=== PATIENT | male | born 1930 | race Caucasian/White ===

== ENCOUNTER 2016-09-27 11:13 | Inpatient (IN) | payer MEDICARE ==
--- NOTE | 2016-09-27 11:35 | ER Document Report ---
ED Medical Screen (RME) - General Stated Complaint: VOMITING Notes: Fever sinus drainage nausea vomiting since Thursday night TRAVEL OUTSIDE OF THE [place] IN LAST 30 DAYS: No - Related Data Allergies/Adverse Reactions: No Known Allergies Allergy (Verified 12/15/15 17:17)
[2016-09-27] MEDS ORDERED: NORMAL SALINE 1000 ML 1,000 ML IV PRN ×2 (11:36→16:25)
[2016-09-27] MEDS ORDERED: DILTIAZEM HCL/D5W 125 ML IV PRN (11:53)
--- NOTE | 2016-09-27 11:58 | ER Document Report ---
ED GI/ - General Mode of Arrival: Ambulatory Information source: Patient, Relative - TRAVEL OUTSIDE OF THE [place] IN LAST 30 DAYS: No - HPI Patient complains to provider of: Abdominal pain, Vomiting Onset: Other - Thursday09/24/2016 Timing/Duration: Sudden, Persistent Associated symptoms: Diarrhea - x1, Nausea, Vomiting <EMORY DENTON - Last Filed: 09/27/16 12:02> <DEBBIE RENO - Last Filed: 09/27/16 16:02> - General Chief Complaint: Nausea/Vomiting Stated Complaint: VOMITING Notes: Patient is an 85-year-old male presenting to the emergency department concerned of vomiting onset 09/24/2016 (Thursday night). Patient states that he also been nauseous and had diarrhea x1, but he hasn't been able to keep any food down since Thursday. Patient states his vomiting has been constant, and he has not been able to sleep since it began. Patient's states that the patient had cold chills and subjective fever Thursday night, too. Patient is also experiencing abdominal pain, but this does not feel as bad at this when he had a small bowel back in December 2015. Patient is here on vacation from [place], and jokes that he always gets sick when he comes down here to visit. (EMORY DENTON) This 85-year-old male patient comes emergency room complaining of nausea vomiting since Thursday night on 09/24/2016. He has not been able keep down his Cardizem or his Eliquis. He was seen here on 12/16/2015 with a closed loop small bowel obstruction requiring exploratory laparotomy with resection of ischemic small bowel. Postoperatively he developed atrial fibrillation with RVR and has been on Cardizem and eloquent since then. He has done well until this past week. There is no chest pain, there is some occasional vague abdominal pain, mostly his discomfort from the abdominal distention. (DEBBIE RENO) - Related Data Allergies/Adverse Reactions: No Known Allergies Allergy (Verified 09/27/16 11:36) Past Medical History - General Information source: Patient - Social History Smoking Status: Former Smoker Cigarette use (# per day): No Lives with: Spouse/Significant other Family History: Reviewed & Not Pertinent Patient has suicidal ideation: No Patient has homicidal ideation: No GI Medical History: Reports: Other - Hx small bowel obstruction Past Surgical History: Reports: Hx Bowel Surgery <EMOYR DENTON - Last Filed: 09/27/16 12:02> Review of Systems - Review of Systems Constitutional: See HPI, Chills - 09/24/2016 night, not now, Fever - 09/24/2016 night, not now. EENT: No symptoms reported Cardiovascular: No symptoms reported Respiratory: No symptoms reported Gastrointestinal: See HPI, Abdomen distended, Diarrhea - x1, Nausea, Vomiting - continuously since 09/24/2016 night. Genitourinary: No symptoms reported Male Genitourinary: No symptoms reported Musculoskeletal: No symptoms reported Skin: No symptoms reported Hematologic/Lymphatic: No symptoms reported Neurological/Psychological: No symptoms reported -: Yes All other systems reviewed and negative <EMORY DENTON - Last Filed: 09/27/16 12:02> Physical Exam - General General appearance: Alert - HEENT Head: Normocephalic, Atraumatic Eyes: Normal Pupils: PERRL - Respiratory Respiratory status: No respiratory distress Chest status: Nontender Breath sounds: Normal Chest palpation: Normal - Cardiovascular Rhythm: Irregularly irregular, Tachycardia Heart sounds: Normal auscultation Murmur: No - Abdominal Inspection: Healed incision Distension: Distended - Resonant Bowel sounds: Hypoactive Tenderness: Tender - Mild diffuse tenderness to palpation - Back Back: Normal, Nontender - Neurological Neuro grossly intact: Yes Cognition: Normal Orientation: AAOx4 Judy Coma Scale Eye Opening: Spontaneous [place] Coma Scale Verbal: Oriented Judy Coma Scale Motor: Obeys Commands [place] Coma Scale Total: 15 Speech: Normal - Psychological Associated symptoms: Normal affect, Normal mood - Skin Skin Temperature: Warm Skin Moisture: Dry Skin Color: Normal <EMORY DENTON - Last Filed: 09/27/16 12:02> Course - Laboratory Result Diagrams: 09/27/16 12:29 09/27/16 12:29 - Diagnostic Test Radiology reviewed: Image reviewed, Reports reviewed - Small bowel obstruction - EKG Interpretation by Me EKG shows normal: [place], Intervals, QRS Complexes, ST-T Waves Rate: Tachycardia Rhythm: A.Fib, PVC's When compared to previous EKG there are: No significant change - Consults Dr. Downing Time consulted: 15:10 Consulted provider: will come to ER Dr. Wallace Time consulted: 15:15 Consulted provider: will see as inpatient <DEBBIE RENO - Last Filed: 09/27/16 16:02> - Laboratory Laboratory results interpreted by me: 09/27/16 09/27/16 09/27/16 12:29 12:29 12:29 Hgb 17.9 H MCV 102 H MCH 36.5 H Seg Neutrophils % 90.7 H Lymphocytes % 6.1 L Absolute Lymphocytes 0.3 L PT 17.8 H APTT 36.0 H Anion Gap 20 H BUN 52 H Est GFR (Non-Af Amer) 56 L Glucose 196 H Total Bilirubin 3.8 H AST 65 H (DEBBIE RENO) Critical Care Note - Critical Care Note Total time excluding time spent on procedures (mins): 40 <DEBBIE RENO - Last Filed: 09/27/16 16:02> Discharge <EMORY DENTON - Last Filed: 09/27/16 12:02> - Discharge Unit Admitted: IMCU <DEBBIE RENO - Last Filed: 09/27/16 16:02> - Discharge Clinical Impression: Small bowel obstruction, Atrial fibrillation with rapid ventricular response, Dehydration Hypotension Qualifiers: Hypotension type: other hypotension type Qualified Code(s): I95.89 - Other hypotension Condition: Good Disposition: ADMITTED INPATIENT Scribe Attestation: 09/27/16 16:02 I personally performed the services described in the documentation, reviewed and edited the documentation which was dictated to the scribe in my presence, and it accurately records my words and actions. (DEBBIE RENO) Scribe Documentation <EMORY DENTON - Last Filed: 09/27/16 12:02> <DEBBIE RENO - Last Filed: 09/27/16 16:02> - Scribe Written by Scribe:: DEBBIE RENO MD, SCRIBE 09/27/16 [id number] Acting as scribe for: Dr. Reno (EMORY DENTON) (DEBBIE RENO)
[2016-09-27] MEDS ORDERED: HEPARIN SOD (PORCINE) 1,000 UNIT/ML 10 ML VIAL IV ONE (12:00)
[2016-09-27] MEDS ORDERED: HEPARIN SOD (PORCINE) 1,000 UNIT/ML 10 ML VIAL IV PRN (12:00)
[2016-09-27] MEDS ORDERED: HEPARIN SODIUM,PORCINE/D5W 250 ML IV PRN (12:00)
[2016-09-27 13:04] LABS: PROTHROMBIN TIME 17.8 SEC (11.4-15.4)
[2016-09-27 14:33] LABS: ABSOLUTE LYMPHOCYTES (AUTO) 0.3 10^3/uL (0.5-4.7); ABSOLUTE MONOCYTES (AUTO) 0.1 10^3/uL (0.1-1.4); ABSOLUTE NEUT (AUTO) 4.2 10^3/uL (1.7-8.2); EOSINOPHILS % (AUTO) 0.1 % (0-6); MEAN CORPUSCULAR VOLUME 102 fl (80-97); RED CELL DISTRIBUTION WIDTH 13.8 % (11.5-14.0); WHITE BLOOD COUNT 4.7 10^3/uL (4.0-10.5)
[2016-09-27 14:35] LABS: ALANINE AMINOTRANSFERASE 47 U/L (21-72); ALBUMIN 4.1 g/dL (3.5-5.0); ALKALINE PHOSPHATASE 75 U/L (38-126); ASPARTATE AMINO TRANSFERASE 65 U/L (17-59); BILIRUBIN,TOTAL 3.8 mg/dL (0.2-1.3); BLOOD UREA NITROGEN 52 mg/dL (7-20); CALCIUM 9.7 mg/dL (8.4-10.2); CARBON DIOXIDE 25 mmol/L (22-30); CHLORIDE 100 mmol/L (98-107); CREATININE RESULT 1.24 mg/dL (0.52-1.25); GLUCOSE 196 mg/dL (75-110); LIPASE 40.2 U/L (23-300); POTASSIUM 4.3 mmol/L (3.6-5.0); SODIUM 144.9 mmol/L (137-145); TOTAL PROTEIN 7.7 g/dL (6.3-8.2)
[2016-09-27 14:39] LABS: ANION GAP 20 (5-19); BASOPHILS % (AUTO) 0.1 % (0-2); HEMATOCRIT 50.1 % (37.9-51.0); HEMOGLOBIN 17.9 g/dL (13.5-17.0); HGB HCT DIFFERENCE 3.6; LYMPHOCYTES % (AUTO) 6.1 % (13-45); MEAN CORPUSCULAR HEMOGLOBIN 36.5 pg (27.0-33.4); MEAN CORPUSCULAR HGB CONC 35.7 g/dL (32.0-36.0); SEGMENTED NEUTROPHILS % (AUTO) 90.7 % (42-78)
[2016-09-27] MEDS ORDERED: NORMAL SALINE 1000 ML 1,000 ML IV ONE ×2 (14:56→22:38)
[2016-09-27] MEDS ORDERED: DILTIAZEM HCL INJ 25 MG/5 ML VIAL IV ONE (15:02)
[2016-09-27] MEDS ORDERED: ONDANSETRON HCL INJ/PF 4 MG/2 ML SDV IV ONE (15:13)
[2016-09-27] MEDS ORDERED: MORPHINE SULFATE 10 MG/ML INJ IV ONE (15:13)
[2016-09-27] MEDS ORDERED: LEVALBUTEROL HCL NEB 1.25 MG/3 ML AMPUL NEB PRN (16:20)
[2016-09-27] MEDS ORDERED: ACETAMINOPHEN 650 MG SUPP.RECT PR PRN (16:25)
[2016-09-27] MEDS ORDERED: ONDANSETRON HCL INJ/PF 4 MG/2 ML SDV IV PRN (16:25)
[2016-09-27] MEDS ORDERED: PHARMACY COMMUNICATION ORDER MC NR (16:30)
--- NOTE | 2016-09-27 16:58 | PDOC H&P ---
History of Present Illness Admission Date/PCP: 09/27/16 16:00 Patient complains of: Nausea and vomiting History of Present Illness: GRECIA MARTI is a 85 year old male with prior history of abdominal surgeries and actually bowel obstruction presents to the hospital with 4 days history of nausea and vomiting. 4 days ago the patient had an episode of diarrhea and subsequently after that started to develop nausea and vomiting without any abdominal pain. No melena hematochezia and hematemesis. The patient and the family thought there was just a virus and therefore no consultation was made. Symptoms somehow persisted following day and therefore primary care physician was consulted and advised to increase oral fluid intake especially electrolytes. Patient is unable to keep anything by mouth. Patient started to feel lightheaded and dizzy with some headache. There is some mild shortness of breath associated as well. Patient feels cold and chilly but no definite fever or sweating. The patient went to the emergency room for evaluation. X-ray of the abdomen revealed small bowel obstruction. Patient was on atrial fibrillation with rapid ventricular response as well. He has history of atrial fibrillation and is on eliquis and Cardizem off which the patient is unable to take for the past 4 days. Patient was given normal saline bolus 1 L and placed on heparin drip as well as Cardizem drip. Patient was then referred for admission. Past Medical History Cardiac Medical History: Reports: Atrial Fibrillation, Congestive Heart Failure - Diastolic dysfunction Endocrine Medical History: Reports: Other - Hyperglycemia without diabetes GI Medical History: Reports: Other - Hx small bowel obstruction Past Surgical History Past Surgical History: Reports: Other - Exploratory laparotomy with ileal resection Social History Information Source: Patient Lives with: Spouse/Significant other Smoking Status: Former Smoker Frequency of Alcohol Use: None Hx Recreational Drug Use: No Drugs: None Hx Prescription Drug Abuse: No Family History Family History: Malignancy - Colon cancer Parental Family History Reviewed: Yes Children Family History Reviewed: Yes Sibling(s) Family History Reviewed.: Yes Medication/Allergy Home Medications: Multivitamin [Multivitamins] 1 cap PO DAILY 12/16/15 Acetaminophen [Tylenol 325 mg Tablet] 650 mg PO Q4HP PRN tablet 12/24/15 Apixaban [Eliquis 2.5 mg Tablet] 2.5 mg PO BID #60 tablet 12/24/15 Diltiazem HCl [Cardizem Cd 240 mg Capsule.cr] 240 mg PO DAILY #30 capsule.cr 07/30 Allergies/Adverse Reactions: No Known Allergies Allergy (Verified 09/27/16 11:36) Review of Systems Constitutional: PRESENT: chills, fever(s) - Subjective fever, headache(s), weakness - Generalized. ABSENT: night sweats, weight gain, weight loss Eyes: ABSENT: visual disturbances Ears: ABSENT: hearing changes Nose, Mouth, and Throat: PRESENT: sore throat - From vomiting. ABSENT: mouth pain Cardiovascular: PRESENT: dyspnea on exertion. ABSENT: chest pain, edema, orthropnea, palpitations Respiratory: PRESENT: cough - Occasional. ABSENT: hemoptysis, sputum Gastrointestinal: PRESENT: diarrhea - Initially but has resolved, nausea, vomiting. ABSENT: abdominal pain, constipation, dysphagia, hematemesis, hematochezia, melena Genitourinary: ABSENT: difficulty urinating, dysuria, hematuria Musculoskeletal: ABSENT: joint swelling Integumentary: ABSENT: pruritus, rash, wounds Neurological: PRESENT: dizziness. ABSENT: abnormal gait, abnormal speech, confusion, focal weakness, syncope Psychiatric: ABSENT: anxiety, depression, homidical ideation, suicidal ideation Endocrine: ABSENT: cold intolerance, heat intolerance, polydipsia, polyuria Hematologic/Lymphatic: ABSENT: easy bleeding, easy bruising Physical Exam Vital Signs: Temp Pulse Resp BP Pulse Ox 97.8 F 37 H 122/62 09/27/16 13:01 09/27/16 16:01 09/27/16 16:01 General appearance: PRESENT: no acute distress, cooperative Head exam: PRESENT: atraumatic, normocephalic Eye exam: PRESENT: conjunctiva pink, EOMI, PERRLA. ABSENT: scleral icterus Ear exam: PRESENT: normal external ear exam Mouth exam: PRESENT: moist, neck supple, tongue midline Throat exam: PRESENT: other - Mild bleeding noted from nasogastric tube insertion trauma. ABSENT: post pharyngeal erythema, tonsillar erythema Neck exam: ABSENT: carotid bruit, JVD, lymphadenopathy, thyromegaly Respiratory exam: PRESENT: clear to auscultation quique, wheezes - Mild. ABSENT: rales, rhonchi Cardiovascular exam: PRESENT: RRR, +S1, +S2. ABSENT: diastolic murmur, rubs, systolic murmur Pulses: PRESENT: normal dorsalis pedis pul Vascular exam: PRESENT: normal capillary refill GI/Abdominal exam: PRESENT: distended, hyperactive bowel sounds, soft, other - Tympanitic. ABSENT: guarding, mass, organolmegaly, rebound, tenderness Rectal exam: PRESENT: deferred Extremities exam: PRESENT: full ROM. ABSENT: calf tenderness, clubbing, pedal edema Neurological exam: PRESENT: alert, awake, oriented to person, oriented to place , oriented to time, oriented to situation Psychiatric exam: PRESENT: appropriate affect, normal mood. ABSENT: homicidal ideation, suicidal ideation Skin exam: PRESENT: dry, intact, warm. ABSENT: cyanosis, rash Results Impressions: Acute Abdomen Series 09/27/16 11:55 IMPRESSION: Small bowel obstruction with diffuse distention of small bowel loops out of proportion to colon Assessment & Plan - Diagnosis (1) Atrial fibrillation with rapid ventricular response Is this a current diagnosis for this admission?: Yes (2) Small bowel obstruction Is this a current diagnosis for this admission?: Yes (3) Dehydration Is this a current diagnosis for this admission?: Yes (4) Hyperglycemia Is this a current diagnosis for this admission?: Yes (5) Coagulopathy Is this a current diagnosis for this admission?: Yes (6) Congestive heart failure Qualifiers: Congestive heart failure type: diastolic Congestive heart failure chronicity: chronic Qualified Code(s): I50.32 - Chronic diastolic ( congestive) heart failure Is this a current diagnosis for this admission?: Yes - Time Time Spent: 50 to 70 Minutes - Inpatient Certification Based on my medical assessment, after consideration of the patient's comorbidities, presenting symptoms, or acuity I expect that the services needed warrant INPATIENT care.: Yes I certify that my determination is in accordance with my understanding of Medicare's requirements for reasonable and necessary INPATIENT services [42 CFR 412.3e].: Yes Medical Necessity: Significant Comorbidiites Make Outpatient Treatment Too Risky , Need Close Monitoring Due to Risk of Patient Decompensation, Need For IV Fluids, Need For Continuous Telemetry Monitoring, Risk of Complication if Not Cared For in Hospital, Risk of Diagnosis Which Will Require Inpatient Eval/Care/ Monitoring Post Hospital Care: D/C 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 We are going to continue the Cardizem drip and heparin drip. Consult surgery and cardiology for further evaluation and management. We will put an NG tube and Wright catheter for her input and output. The patient will be nothing by mouth and intravenous fluid will also be given. We will check hemoglobin A1c as well as TSH and free T4. We will monitor electrolytes. Further testing depends on initial evaluation and response to treatment and per specialty recommendation as outlined above.
[2016-09-27 17:20] LABS: THYROID STIMULATING HORMONE 6.35 uIU/mL (0.47-4.68)
[2016-09-27 18:53] LABS: APPEARANCE,URINE CLOUDY; BILIRUBIN,URINE SMALL (NEGATIVE); GLUCOSE, URINE 50 mg/dL (NEGATIVE); KETONES,URINE NEGATIVE (NEGATIVE); LEUKOCYTE ESTERASE,URINE NEGATIVE (NEGATIVE); NITRITE,URINE NEGATIVE (NEGATIVE); PROTEIN,URINE 100 mg/dL (NEGATIVE); URINE SPECIFIC GRAVITY 1.027
[2016-09-27] MEDS ORDERED: FUROSEMIDE INJ/PF 40 MG/4 ML SDV ONE (18:57)
[2016-09-27] MEDS ORDERED: FUROSEMIDE INJ/PF 40 MG/4 ML SDV IV ONE (18:59)
--- NOTE | 2016-09-27 19:54 | PDOC CONSULTATION ---
Consultation Consult Date: 09/27/16 Attending physician:: CATHIE LUA Consult reason:: Atrial fibrillation History of Present Illness Admission Date/PCP: 09/27/16 16:20 Patient complains of: Abdominal pain and shortness of breath, nausea vomiting History of Present Illness: GRECIA MARTI is a 85 year old male with prior history of abdominal surgeries and actually bowel obstruction presents to the hospital with 4 days history of nausea and vomiting. 4 days ago the patient had an episode of diarrhea and subsequently after that started to develop nausea and vomiting without any abdominal pain. No melena hematochezia and hematemesis. The patient and the family thought there was just a virus and therefore no consultation was made. Symptoms somehow persisted following day and therefore primary care physician was consulted and advised to increase oral fluid intake especially electrolytes. Patient is unable to keep anything by mouth. Patient started to feel lightheaded and dizzy with some headache. There is some mild shortness of breath associated as well. Patient feels cold and chilly but no definite fever or sweating. The patient went to the emergency room for evaluation. X-ray of the abdomen revealed small bowel obstruction. Patient was on atrial fibrillation with rapid ventricular response as well. He has history of atrial fibrillation and is on eliquis and Cardizem off which the patient is unable to take for the past 4 days. Patient was given normal saline bolus 1 L and placed on heparin drip as well as Cardizem drip. Patient was then referred for admission. This history was reviewed and supplemented by talking with patient' s and patient himself. Patient actually denies any chest pain. He just noted some fatigue and shortness of breath in addition to his abdominal complaints. Past Medical History Cardiac Medical History: Reports: Atrial Fibrillation, Congestive Heart Failure - Diastolic dysfunction Endocrine Medical History: Reports: Other - Hyperglycemia without diabetes GI Medical History: Reports: Other - Hx small bowel obstruction Past Surgical History Past Surgical History: Reports: Other - Exploratory laparotomy with ileal resection Social History Information Source: Patient Lives with: Spouse/Significant other Smoking Status: Former Smoker Frequency of Alcohol Use: None Hx Recreational Drug Use: No Drugs: None Hx Prescription Drug Abuse: No - Advance Directive Resuscitation Status: Full Code Surrogate healthcare decision maker:: Patient's Family History Family History: Malignancy - Colon cancer Parental Family History Reviewed: Yes Children Family History Reviewed: Yes Sibling(s) Family History Reviewed.: Yes - Negative for premature coronary artery disease or sudden cardiac in the family amongst first degree relatives. Medication/Allergy Home Medications: Multivitamin [Multivitamins] 1 cap PO DAILY 12/16/15 Acetaminophen [Tylenol 325 mg Tablet] 650 mg PO Q4HP PRN tablet 12/24/15 Apixaban [Eliquis 5 mg Tablet] 5 mg PO BID 09/28/16 Diltiazem HCl [Diltiazem ER] 300 mg PO DAILY 09/28/16 Levothyroxine Sodium [Synthroid 0.075 mg Tablet] 0.5 tab PO DAILY 09/28/16 Allergies/Adverse Reactions: No Known Allergies Allergy (Verified 09/27/16 11:36) Review of Systems Review of Systems: Please see history of present illness and past medical history as wall. Constitutional: Low-grade fever or chills reported. Head : No recent chronic headaches, recent head injury. Eyes: No recent eye pain, diplopia, redness, discharge, acute visual changes. Ears: No recent chronic ear pain, acute hearing loss, ear discharge. Oral cavity: No recent ulcerations, bleeding, oral cavity discomfort. Neck: No recent acute neck pain reported. Hematologic: No recent easy bruising or bleeding or hematologic malignancy reported. Lymphatic: No recent lymphatic malignancy, chronic lymphadenopathy reported yet Cardiovascular system review: See history of present illness. Palpitations and shortness of breath, fatigue and tiredness. Patient has noted some dizziness. Respiratory system review: No recent chronic cough, hemoptysis, blood clots in the lungs reported. Mild Shortness of breath on exertion Gastrointestinal system review: Recent nausea vomiting and diarrhea but Negative for any recent acute or chronic abdominal pain, hematemesis, melena, Genitourinary system review: No recent acute or chronic hematuria, flank pain, UTI etc. reported. Skin system review: Negative for any recent abnormal bruising, no rash, no pruritus reported. Neurologic: No prior history of strokes, mini strokes, seizure disorder. Psychologic: No history of major psychosis or depression reported. Musculoskeletal: Minor aches and pains reported. No acute joint swelling reported. Endocrine: No recent polyuria, polydipsia, recent heat or cold intolerance. Physical Exam Vital Signs: Temp Pulse Resp BP Pulse Ox 98.7 F 21 H 111/67 84 L 09/27/16 18:01 09/27/16 19:00 09/27/16 18:01 09/27/16 19:00 Intake & Output 09/26/16 09/27/16 09/28/16 06:59 06:59 06:59 Output Total 450 Balance -450 Exam: GENERAL: well-nourished and in no acute distress. Alert and oriented x3 HEAD: Atraumatic, normocephalic. EYES: Pupils equal round and reactive to light, extraocular movements intact, sclera anicteric, conjunctiva are normal. ENT: TMs normal, nares patent, oropharynx clear without exudates. Moist mucous membranes. No oral ulcerations or bleeding gums noted NECK: supple without lymphadenopathy. Trachea is central. No cervical or axillary lymphadenopathy noted. Carotids are 2+, JVD WNL LUNGS: Respiration seems nonlabored, no significant accessory muscle action noted. Breath sounds clear to auscultation bilaterally and equal. No wheezes rales or rhonchi. No significant dullness noted on percussion. CHEST: Palpation of the chest wall shows no significant chest wall tenderness or abnormalities. 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 ABDOMEN: Mildly distended, no significant tenderness appreciated, normoactive bowel sounds. No guarding, no rebound. No rigidity noted . No masses appreciated. EXTREMITIES: Pedal pulses are 1-2+, no calf tenderness noted. No clubbing or cyanosis.trace to 1+ pedal edema noted NEUROLOGICAL: Focused neurological exam showed no significant neurologic deficit. Normal speech, no focal weakness appreciated. PSYCH: Normal mood, normal affect. Judgment and insight within normal limits. SKIN: No significant ecchymosis, rash, ulcerations or signs of pruritus noted. MUSCULOSKELETAL EXAM: No significant joint swelling noted. Results Laboratory Results: 09/27/16 18:00 Urine Color DAWSON Urine Appearance CLOUDY Urine pH 5.0 Ur Specific [place] 1.027 Urine Protein 100 H Urine Glucose (UA) 50 H Urine Ketones NEGATIVE Urine Blood NEGATIVE Urine Nitrite NEGATIVE Ur Leukocyte Esterase NEGATIVE Urine WBC (Auto) 2 Urine RBC (Auto) 2 EKG Comments: Atrial fibrillation with rapid ventricular response, minor nonspecific ST segment changes. Impressions: Acute Abdomen Series 09/27/16 11:55 IMPRESSION: Small bowel obstruction with diffuse distention of small bowel loops out of proportion to colon KUB X-Ray 09/27/16 16:22 IMPRESSION: Small bowel obstruction as noted above. NG tube is seen with its tip in the left upper quadrant presumably in the stomach. Chest X-Ray 09/27/16 16:26 IMPRESSION: NO ACUTE RADIOGRAPHIC FINDING IN THE CHEST. Assessment & Plan - Diagnosis (1) Atrial fibrillation with rapid ventricular response Is this a current diagnosis for this admission?: YesPlan: Patient noted to have atrial fibrillation. It seems chronic. Patient was noted to be in atrial fibrillation in the past. At this point would recommend rate control and chronic anticoagulation. Patient currently on IV heparin. Continue Cardizem drip. If needed may consider IV beta deniz, IV amiodarone etc. for rate control if needed (2) Small bowel obstruction Is this a current diagnosis for this admission?: Yes (3) Aspiration pneumonia Qualifiers: Aspiration pneumonia type: unspecified Laterality: bilateral Lung location: lower lobe of lung Qualified Code(s): J69.0 - Pneumonitis due to inhalation of food and vomit Is this a current diagnosis for this admission?: YesPlan: Patient felt to have been aspirated secondary to vomiting and small bowel obstruction. Continue IV antibiotics. (4) Congestive heart failure Qualifiers: Congestive heart failure type: diastolic Congestive heart failure chronicity: chronic Qualified Code(s): I50.32 - Chronic diastolic ( congestive) heart failure Is this a current diagnosis for this admission?: YesPlan: Patient has a history of congestive heart failure. Currently compensated. Chest x-ray shows no evidence of CHF..IV fluid therapy for dehydration secondary nausea vomiting and small bowel obstruction. Watch for precipitation of CHF. (5) Dehydration Is this a current diagnosis for this admission?: YesPlan: Patient has somewhat of a low blood pressure, but still within normal range. Agree with IV fluids. - Notes Notes: Recommend rate control and chronic anticoagulation. Agree with the management plans for a small intestine obstruction. CODE STATUS was discussed, patient remains full code. Surrogate decision-maker patient's . Multiple medical problems were addressed. - Time Time Spent: 30 to 50 Minutes - More than 50% of the time spent coordinating care , discussing management plans with involved caregivers. Management plans discussed with involved personnels. Medical decision making was of moderate complexity.
[2016-09-27 20:55] LABS: ARTERIAL BLOOD BASE EXCESS -0.3 mmol/L; ARTERIAL BLOOD O2 SATURATION 88.9 % (94-98)
[2016-09-27] MEDS ORDERED: DOXYCYCLINE HYCLATE INJ 100 MG VIAL IV PRN (21:13)
[2016-09-27] MEDS ORDERED: DOXYCYCLINE HYCLATE INJ 100 MG VIAL IV SCH (22:00)
--- NOTE | 2016-09-27 22:18 | CONSULTATION REPORT E ---
Consultation Report NAME: GRECIA MARTI : 1930 AGE: 85Y DATE: 09/27/2016 ED11 A TO: JESUS MORGAN M.D. FROM: Requesting Physician REASON FOR CONSULTATION: Small bowel obstruction. 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 At that time patient had atrial fibrillation with RVR. The patient now comes in with a 4-day history of intractable nausea and vomiting. This started with an episode of diarrhea, and subsequently the patient developed nausea and vomiting over an 8 to 10-hour period, vomiting at least a dozen times. The patient's reports that he vomited just food without bile or blood. There is no history of any melena or hematochezia or hematemesis. The patient was not able to retain any food and started feeling lightheaded and dizzy with headache and shortness of breath as well. For that reason, the patient went to the emergency room for evaluation. At the time of the evaluation, he was noted to be tachycardic at 130 and was found to be in atrial fibrillation with RVR. The patient also was noted to have distended abdomen, and x-rays of the abdomen revealed dilated stomach and loops of bowel consistent with small bowel obstruction. For this reason, surgical consultation had been requested. PAST MEDICAL HISTORY: The patient has history of: 1. Atrial fibrillation. 2. Congestive heart failure. 3. Diastolic dysfunction. 4. Hyperglycemia without diabetes. He has no history of hypertension, renal, pulmonary, or liver disease. No bleeding tendencies. FAMILY HISTORY: No history of any anesthesia problems in the family. PAST SURGICAL HISTORY: Exploratory laparotomy with ileal resection by me approximately 8 to 10 months ago. REVIEW OF SYSTEMS: CONSTITUTIONAL: The patient has constitutional symptoms of chills and fever of a subjective nature, headache, and weakness which is generalized. CARDIOVASCULAR: Dyspnea on exertion. EARS, NOSE, AND THROAT: The patient does not visual disturbances or hearing changes at this time. RESPIRATORY: The patient has a cough which is occasional. GASTROINTESTINAL: Symptoms as in the history of present illness. GENITOURINARY: Within normal limits. MUSCULOSKELETAL: Within normal limits. INTEGUMENTARY: Within normal limits. ENDOCRINE: Within normal limits. PSYCHIATRIC: Within normal limits. PHYSICAL EXAMINATION: GENERAL: Reveals an 85-year-old male who is normally nourished, normally developed, who at this time is in no acute distress. VITAL SIGNS: The vital signs are noted. The patient's heart rate is now down to the low 100s, and he is on a Cardizem drip at 10 mg per hour. HEENT: There is no conjunctival pallor or scleral icterus. Mucous membranes are moist and pink. NECK: The neck is supple without nodes, masses, thyroid, JVD, or bruits, and trachea is midline. LUNGS: Chest wall shows good excursions bilaterally with good entry. CARDIOVASCULAR SYSTEM: Pulse is irregular as noted clinically and on the monitor. ABDOMEN: The patient's abdomen is distended, soft with hypoactive bowel sounds. There is no organomegaly or masses. Midline scar is noted from his previous surgery performed by me. There are no peritoneal signs noted. No hernias are noted. EXTREMITIES: Show full range of motion. RECTAL: Deferred. DIAGNOSTIC DATA: The patient's laboratory data is reviewed, and of note the patient's bilirubin is 3.8 with mild elevation of the AST but a normal ALT and a normal alkaline phosphatase. The patient's BUN is 52 with a creatinine of 1.4 indicating dehydration. The patient's white count is normal, hemoglobin is 17.9, and hematocrit is 50 indicating hemoconcentration with dehydration. The patient's blood gases show a pO2 of 54.6. Chest and abdomen CTA shows no evidence of pulmonary embolism. IMPRESSION AND PLAN: 1. Atrial fibrillation with RVR on Cardizem drip. 2. Small bowel obstruction which will be treated with NG tube, IV fluids, and an NPO status. 3. Dehydration. The patient will be slowly hydrated given the history of cardiac disease. 4. Hyperbilirubinemia of unknown etiology which we will follow closely. DICTATING PHYSICIAN: JESUS MORGAN M.D. [id number] [id number] ID: [id number] JOB#: [id number] ACCT: [id number] cc:JESUS MORGAN M.D. >
[2016-09-27] MEDS: FAMOTIDINE INJ/PF 20 MG/2 ML SDV IV SCH (23:38)
[2016-09-27] MEDS: CEFTRIAXONE 1 GM/D5W RTU 1 GM/50 ML RTUPB IV SCH (23:38)
[2016-09-28] MEDS ORDERED: DOXYCYCLINE HYCLATE INJ 100 MG VIAL ONE (00:18)
[2016-09-28] MEDS: DILTIAZEM HCL/D5W 125 ML IV PRN ×2 (00:37→13:02)
[2016-09-28 01:03] LABS: ANION GAP 13 (5-19); BLOOD UREA NITROGEN 60 mg/dL (7-20); CARBON DIOXIDE 23 mmol/L (22-30); CHLORIDE 108 mmol/L (98-107); CREATININE RESULT 1.52 mg/dL (0.52-1.25); GLUCOSE 119 mg/dL (75-110); POTASSIUM 4.1 mmol/L (3.6-5.0)
[2016-09-28] MEDS ORDERED: NORMAL SALINE 1000 ML 1,000 ML IV PRN (01:49)
[2016-09-28 03:52] LABS: ANION GAP 12 (5-19); BLOOD UREA NITROGEN 62 mg/dL (7-20); CALCIUM 7.6 mg/dL (8.4-10.2); CARBON DIOXIDE 22 mmol/L (22-30); CHLORIDE 110 mmol/L (98-107); CREATININE RESULT 1.46 mg/dL (0.52-1.25); GLUCOSE 120 mg/dL (75-110); MAGNESIUM 1.8 mg/dL (1.6-2.3); POTASSIUM 4.4 mmol/L (3.6-5.0); SODIUM 144.2 mmol/L (137-145)
[2016-09-28 06:11] LABS: ABSOLUTE LYMPHOCYTES (AUTO) 0.5 10^3/uL (0.5-4.7); ABSOLUTE MONOCYTES (AUTO) 0.1 10^3/uL (0.1-1.4); ABSOLUTE NEUT (AUTO) 3.9 10^3/uL (1.7-8.2); BASOPHILS % (AUTO) 0.1 % (0-2); EOSINOPHILS % (AUTO) 0.2 % (0-6); HEMATOCRIT 43.7 % (37.9-51.0); HGB HCT DIFFERENCE -1.7; MEAN CORPUSCULAR HEMOGLOBIN 30.8 pg (27.0-33.4); MEAN CORPUSCULAR HGB CONC 32.1 g/dL (32.0-36.0); MONOCYTES % (AUTO) 2.3 % (3-13); RED BLOOD COUNT 4.55 10^6/uL (4.35-5.55); RED CELL DISTRIBUTION WIDTH 13.3 % (11.5-14.0); SEGMENTED NEUTROPHILS % (AUTO) 85.4 % (42-78); WHITE BLOOD COUNT 4.6 10^3/uL (4.0-10.5)
[2016-09-28 06:32] LABS: MEAN CORPUSCULAR VOLUME 96 fl (80-97)
--- NOTE | 2016-09-28 10:06 | EKG REPORT ---
SEVERITY:- ABNORMAL ECG - ATRIAL FIBRILLATION, V-RATE 99-181 RUN OF VENTRICULAR PREMATURE COMPLEXES REPOLARIZATION ABNORMALITY, PROB RATE RELATED : Confirmed by: Kathrine Mackey MD 28-Sep-2016 10:05:52
--- NOTE | 2016-09-28 10:10 | PDOC PROGRESS REPORT ---
Subjective Progress Note for:: 09/28/16 Subjective:: Patient developed desaturation and was placed on BiPap. Chest CT done and showed pneumonia. Patient atrial fibrillation better controlled on Cardizem drip. Continues to be on heparin drip. Nasogastric tube draining fecaloid matter. Patient felt better overall today. No temperature spikes. Still no bowel movement nor flattus. Physical Exam Vital Signs: Temp Pulse Resp BP Pulse Ox 98.2 F 91 22 H 127/77 H 94 09/28/16 07:00 09/28/16 07:00 09/28/16 07:00 09/28/16 07:01 09/28/16 06:00 Intake & Output 09/27/16 09/28/16 09/29/16 06:59 06:59 06:59 Intake Total 2836 Output Total 950 Balance 1886 Weight 68.1 kg General appearance: PRESENT: no acute distress, cooperative, other - On BiPAP Head exam: PRESENT: normocephalic Eye exam: PRESENT: EOMI Mouth exam: PRESENT: moist, neck supple Neck exam: ABSENT: JVD Respiratory exam: PRESENT: rhonchi - few on lower lung [place], unlabored. ABSENT: wheezes Cardiovascular exam: PRESENT: irregular rhythm, tachycardia. ABSENT: gallop GI/Abdominal exam: PRESENT: distended, hypoactive bowel sounds, soft. ABSENT: tenderness Extremities exam: ABSENT: pedal edema Neurological exam: PRESENT: alert, awake Skin exam: PRESENT: dry, warm. ABSENT: cyanosis Results Laboratory Results: 09/28/16 06:02 09/28/16 03:17 09/27/16 09/27/16 09/27/16 18:00 20:40 22:46 WBC RBC Hgb Hct MCV MCH MCHC RDW Plt Count Seg Neutrophils % Lymphocytes % Monocytes % Eosinophils % Basophils % Absolute Neutrophils Absolute Lymphocytes Absolute Monocytes Absolute Eosinophils Absolute Basophils Carbonic Acid 1.16 HCO3/H2CO3 Ratio 20:1 ABG pH 7.41 ABG pCO2 38.6 ABG pO2 54.6 L ABG HCO3 24.0 ABG O2 Saturation 88.9 L ABG Base Excess -0.3 FiO2 100% Sodium Cancelled Potassium Cancelled Chloride Cancelled Carbon Dioxide Cancelled Anion Gap Cancelled BUN Cancelled Creatinine Cancelled Est GFR ( Amer) Cancelled Est GFR (Non-Af Amer) Cancelled Glucose Cancelled Calcium Cancelled Phosphorus Magnesium Cancelled Urine Color DAWSON Urine Appearance CLOUDY Urine pH 5.0 Ur Specific [place] 1.027 Urine Protein 100 H Urine Glucose (UA) 50 H Urine Ketones NEGATIVE Urine Blood NEGATIVE Urine Nitrite NEGATIVE Ur Leukocyte Esterase NEGATIVE Urine WBC (Auto) 2 Urine RBC (Auto) 2 09/27/16 09/28/16 09/28/16 23:31 00:42 03:17 WBC Cancelled RBC Cancelled Hgb Cancelled Hct Cancelled MCV Cancelled MCH Cancelled MCHC Cancelled RDW Cancelled Plt Count Cancelled Seg Neutrophils % Cancelled Lymphocytes % Cancelled Monocytes % Cancelled Eosinophils % Cancelled Basophils % Cancelled Absolute Neutrophils Cancelled Absolute Lymphocytes Cancelled Absolute Monocytes Cancelled Absolute Eosinophils Cancelled Absolute Basophils Cancelled Carbonic Acid HCO3/H2CO3 Ratio ABG pH ABG pCO2 ABG pO2 ABG HCO3 ABG O2 Saturation ABG Base Excess FiO2 Sodium Cancelled 144.0 Potassium Cancelled 4.1 Chloride Cancelled 108 H Carbon Dioxide Cancelled 23 Anion Gap Cancelled 13 BUN Cancelled 60 H Creatinine Cancelled 1.52 H Est GFR ( Amer) Cancelled 53 L Est GFR (Non-Af Amer) Cancelled 44 L Glucose Cancelled 119 H Calcium Cancelled 8.0 L Phosphorus Magnesium Cancelled 2.0 Urine Color Urine Appearance Urine pH Ur Specific [place] Urine Protein Urine Glucose (UA) Urine Ketones Urine Blood Urine Nitrite Ur Leukocyte Esterase Urine WBC (Auto) Urine RBC (Auto) 09/28/16 09/28/16 03:17 06:02 WBC 4.6 RBC 4.55 Hgb 14.0 D Hct 43.7 MCV 96 D MCH 30.8 MCHC 32.1 RDW 13.3 Plt Count 189 Seg Neutrophils % 85.4 H Lymphocytes % 12.0 L Monocytes % 2.3 L Eosinophils % 0.2 Basophils % 0.1 Absolute Neutrophils 3.9 Absolute Lymphocytes 0.5 Absolute Monocytes 0.1 Absolute Eosinophils 0.0 Absolute Basophils 0.0 Carbonic Acid HCO3/H2CO3 Ratio ABG pH ABG pCO2 ABG pO2 ABG HCO3 ABG O2 Saturation ABG Base Excess FiO2 Sodium 144.2 Potassium 4.4 Chloride 110 H Carbon Dioxide 22 Anion Gap 12 BUN 62 H Creatinine 1.46 H Est GFR ( Amer) 56 L Est GFR (Non-Af Amer) 46 L Glucose 120 H Calcium 7.6 L Phosphorus 5.0 H Magnesium 1.8 Urine Color Urine Appearance Urine pH Ur Specific [place] Urine Protein Urine Glucose (UA) Urine Ketones Urine Blood Urine Nitrite Ur Leukocyte Esterase Urine WBC (Auto) Urine RBC (Auto) 09/27/16 22:46 Troponin I 0.035 Impressions: Chest/Abdomen CTA 09/27/16 00:00 IMPRESSION: No evidence for pulmonary embolic disease. Bilateral airspace consolidation in the lower lobes which could represent atelectatic changes or pneumonic consolidations. Other findings as noted above Acute Abdomen Series 09/27/16 11:55 IMPRESSION: Small bowel obstruction with diffuse distention of small bowel loops out of proportion to colon Chest X-Ray 09/27/16 16:26 IMPRESSION: NO ACUTE RADIOGRAPHIC FINDING IN THE CHEST. KUB X-Ray 09/28/16 06:00 IMPRESSION: Small bowel obstruction as noted above. Assessment & Plan - Diagnosis (1) Acute respiratory failure with hypoxemia Is this a current diagnosis for this admission?: Yes (2) Atrial fibrillation with rapid ventricular response Is this a current diagnosis for this admission?: Yes (3) Small bowel obstruction Is this a current diagnosis for this admission?: Yes (4) Aspiration pneumonia Qualifiers: Aspiration pneumonia type: unspecified Laterality: bilateral Lung location: lower lobe of lung Qualified Code(s): J69.0 - Pneumonitis due to inhalation of food and vomit Is this a current diagnosis for this admission?: Yes (5) Dehydration Is this a current diagnosis for this admission?: Yes (6) Hyperglycemia Is this a current diagnosis for this admission?: Yes (7) Coagulopathy Is this a current diagnosis for this admission?: Yes (8) Congestive heart failure Qualifiers: Congestive heart failure type: diastolic Congestive heart failure chronicity: chronic Qualified Code(s): I50.32 - Chronic diastolic ( congestive) heart failure Is this a current diagnosis for this admission?: Yes - Time Time Spent with patient: 25-34 minutes - Plan Summary Plan Summary: We will continue BiPAP. In the meantime continue IV hydration. Keep the patient nothing by mouth. Continue Cardizem drip and heparin. Continue the ceftriaxone. Add clindamycin and Flagyl. Discontinue doxycycline. Continue supportive care. Monitor electrolytes. KUB in the morning.
[2016-09-28] MEDS: FAMOTIDINE INJ/PF 20 MG/2 ML SDV IV SCH ×2 (10:19→23:00)
[2016-09-28] MEDS ORDERED: CLINDAMYCIN 600 MG/D5W RTU 600 MG/50 ML RTUPB IV ONE (11:30)
[2016-09-28] MEDS: CLINDAMYCIN 600 MG/D5W RTU 600 MG/50 ML RTUPB IV SCH ×2 (11:54→17:27)
[2016-09-28] MEDS ORDERED: METRONIDAZOLE 250 MG in NORMAL SALINE 50 ML IV ONE (12:00)
--- NOTE | 2016-09-28 13:44 | XCELERA REPORT ---
[address] [address] Transthoracic Echocardiogram Report Name: GRECIA MARTI Age: 85 yrs Gender: Male : 1930 Patient Status: Inpatient Patient Location: [id number]\S\303\[id number]\A Study Date: 09/28/2016 11:40 AM Height: 70 in Weight: 150 lb BSA: 1.8 m2 Procedure: A complete two-dimensional transthoracic echocardiogram was performed (2D, M-mode, spectral and color flow Doppler). The study was technically difficult with many images being suboptimal in quality. Reason For Study: afib, hypotension Ordering Physician: TUCKER SMART Performed By: Gisselle Jack Interpretation Summary The study was technically difficult with many images being suboptimal in quality. Left ventricular systolic function is low normal. There is normal left ventricular wall thickness. The left ventricle is grossly normal size. Wall motion cannot be accurately commented on, but no definite regional wall motion abnormalities noted. LV diastolic function could not be adequately assessed due to atrial fibrilation. The right ventricle is mildly dilated. The left atrium is moderately dilated. Borderline right atrial enlargement. There is a moderate amount of mitral regurgitation There is no mitral valve stenosis. There is mild to moderate aortic stenosis There is a peak gradient of 25/ mean 15 mm of Hg. No aortic regurgitation is present. There is a mild amount of tricuspid regurgitation There is mild to moderate pulmonary hypertension by echo Right ventricular systolic pressure is estimated to be elevated at 40- 50mmHg. There is no pericardial effusion. MMode/2D Measurements \T\ Calculations RVDd: 2.6 cm LVIDd: 4.7 cm FS: 28.3 % Ao root diam: 3.0 cm IVSd: 0.94 cm LVIDs: 3.3 cm EDV(Teich): 100.5 ml LVPWd: 0.87 cmESV(Teich): 45.5 ml Ao root area: 7.1 cm2 EF(Teich): 54.7 % LA dimension: 4.1 cm LVOT diam: 2.4 cm LVOT area: 4.6 cm2 Doppler Measurements \T\ Calculations MV E max akua: MV P1/2t max akua: Ao V2 max: LV V1 max P.5 cm/sec 79.5 cm/sec 241.2 cm/sec 2.5 mmHg MV A max akua: MV P1/2t: 73.6 msec Ao max PG: LV V1 mean P.0 cm/sec MVA(P1/2t): 3.0 cm2 23.3 mmHg 1.5 mmHg MV E/A: 2.0 MV dec slope: Ao V2 mean: LV V1 max: 316.4 cm/sec2 175.5 cm/sec 78.5 cm/sec MV dec time: 0.25 sec Ao mean PG: LV V1 mean: 14.0 mmHg 56.9 cm/sec Ao V2 VTI: 44.8 cmLV V1 VTI: DALLIN(I,D): 1.5 cm2 14.4 cm DALLIN(V,D): 1.5 cm2 SV(LVOT): 66.6 ml PA V2 max: TR max akua: 72.6 cm/sec 323.6 cm/sec PA max P.1 mmHg TR max P.9 mmHg Left Ventricle The left ventricle is grossly normal size. There is normal left ventricular wall thickness. Left ventricular systolic function is low normal. LV diastolic function could not be adequately assessed due to atrial fibrilation. Wall motion cannot be accurately commented on, but no definite regional wall motion abnormalities noted. Right Ventricle The right ventricle is mildly dilated. There is normal right ventricular wall thickness. The right ventricular systolic function is normal. Atria Borderline right atrial enlargement. The left atrium is moderately dilated. Mitral Valve There is mild mitral leaflet calcification. There is no mitral valve stenosis. There is a moderate amount of mitral regurgitation. Aortic Valve The aortic valve is mildly calcified. There is mild to moderate aortic stenosis. There is a peak gradient of 25/ mean 15 mm of Hg. No aortic regurgitation is present. Tricuspid Valve The tricuspid valve is not well visualized, but is grossly normal. There is no tricuspid stenosis. There is a mild amount of tricuspid regurgitation. There is mild to moderate pulmonary hypertension by echo. Right ventricular systolic pressure is estimated to be elevated at 40-50mmHg. Pulmonic Valve The pulmonic valve is not well visualized. Great Vessels The aortic root is not well visualized. The inferior vena cava appeared normal and decreased > 50% with respiration (RAP 5-10 mmHg). Effusions There is no pericardial effusion. : TUCKER SMART > Tucker Smatr
--- NOTE | 2016-09-28 13:59 | PDOC PROGRESS REPORT ---
Subjective Progress Note for:: 09/28/16 Subjective:: Patient currently on BiPAP therapy for desaturations and low O2 sat. It seems patient overnight developed aspiration pneumonia. Patient is denying any chest pain. Patient heart rate seems well controlled. Currently still on NG suction. Physical Exam Vital Signs: Temp Pulse Resp BP Pulse Ox 98.2 F 92 22 H 116/63 94 09/28/16 07:00 09/28/16 13:00 09/28/16 07:00 09/28/16 13:00 09/28/16 06:00 Intake & Output 09/27/16 09/28/16 09/29/16 06:59 06:59 06:59 Intake Total 2836 Output Total 950 Balance 1886 Weight 68.1 kg Exam: GENERAL: well-nourished and in no acute distress. Alert and oriented x3 HEAD: Atraumatic, normocephalic. EYES: Pupils equal round and reactive to light, extraocular movements intact, sclera anicteric, conjunctiva are normal. ENT: TMs normal, nares patent, oropharynx clear without exudates. Moist mucous membranes. No oral ulcerations or bleeding gums noted NECK: supple without lymphadenopathy. Trachea is central. No cervical or axillary lymphadenopathy noted. Carotids are 2+, JVD WNL LUNGS: Respiration seems nonlabored, no significant accessory muscle action noted. Breath sounds clear to auscultation bilaterally and equal. No wheezes rales or rhonchi. No significant dullness noted on percussion. CHEST: Palpation of the chest wall shows no significant chest wall tenderness or abnormalities. HEART: [place] [employer], No PSH, 1/6 RICARDA aortic area, 1/6 tinoco systolic murmur mitral area, no rubs, no gallops. ABDOMEN: Soft, mildly distended, no significant tenderness appreciated, normoactive bowel sounds. No guarding, no rebound. No rigidity noted . No masses appreciated. EXTREMITIES: Pedal pulses are 1-2+, no calf tenderness noted. No clubbing or cyanosis.trace to 1+ pedal edema noted NEUROLOGICAL: Focused neurological exam showed no significant neurologic deficit. Normal speech, no focal weakness appreciated. PSYCH: Normal mood, normal affect. Judgment and insight within normal limits. SKIN: No significant ecchymosis, rash, ulcerations or signs of pruritus noted. MUSCULOSKELETAL EXAM: No significant joint swelling noted. Results Laboratory Results: 09/28/16 06:02 09/28/16 03:17 09/27/16 09/27/16 09/27/16 18:00 20:40 22:46 WBC RBC Hgb Hct MCV MCH MCHC RDW Plt Count Seg Neutrophils % Lymphocytes % Monocytes % Eosinophils % Basophils % Absolute Neutrophils Absolute Lymphocytes Absolute Monocytes Absolute Eosinophils Absolute Basophils Carbonic Acid 1.16 HCO3/H2CO3 Ratio 20:1 ABG pH 7.41 ABG pCO2 38.6 ABG pO2 54.6 L ABG HCO3 24.0 ABG O2 Saturation 88.9 L ABG Base Excess -0.3 FiO2 100% Sodium Cancelled Potassium Cancelled Chloride Cancelled Carbon Dioxide Cancelled Anion Gap Cancelled BUN Cancelled Creatinine Cancelled Est GFR ( Amer) Cancelled Est GFR (Non-Af Amer) Cancelled Glucose Cancelled Calcium Cancelled Phosphorus Magnesium Cancelled Urine Color DAWSON Urine Appearance CLOUDY Urine pH 5.0 Ur Specific [place] 1.027 Urine Protein 100 H Urine Glucose (UA) 50 H Urine Ketones NEGATIVE Urine Blood NEGATIVE Urine Nitrite NEGATIVE Ur Leukocyte Esterase NEGATIVE Urine WBC (Auto) 2 Urine RBC (Auto) 2 09/27/16 09/28/16 09/28/16 23:31 00:42 03:17 WBC Cancelled RBC Cancelled Hgb Cancelled Hct Cancelled MCV Cancelled MCH Cancelled MCHC Cancelled RDW Cancelled Plt Count Cancelled Seg Neutrophils % Cancelled Lymphocytes % Cancelled Monocytes % Cancelled Eosinophils % Cancelled Basophils % Cancelled Absolute Neutrophils Cancelled Absolute Lymphocytes Cancelled Absolute Monocytes Cancelled Absolute Eosinophils Cancelled Absolute Basophils Cancelled Carbonic Acid HCO3/H2CO3 Ratio ABG pH ABG pCO2 ABG pO2 ABG HCO3 ABG O2 Saturation ABG Base Excess FiO2 Sodium Cancelled 144.0 Potassium Cancelled 4.1 Chloride Cancelled 108 H Carbon Dioxide Cancelled 23 Anion Gap Cancelled 13 BUN Cancelled 60 H Creatinine Cancelled 1.52 H Est GFR ( Amer) Cancelled 53 L Est GFR (Non-Af Amer) Cancelled 44 L Glucose Cancelled 119 H Calcium Cancelled 8.0 L Phosphorus Magnesium Cancelled 2.0 Urine Color Urine Appearance Urine pH Ur Specific [place] Urine Protein Urine Glucose (UA) Urine Ketones Urine Blood Urine Nitrite Ur Leukocyte Esterase Urine WBC (Auto) Urine RBC (Auto) 09/28/16 09/28/16 03:17 06:02 WBC 4.6 RBC 4.55 Hgb 14.0 D Hct 43.7 MCV 96 D MCH 30.8 MCHC 32.1 RDW 13.3 Plt Count 189 Seg Neutrophils % 85.4 H Lymphocytes % 12.0 L Monocytes % 2.3 L Eosinophils % 0.2 Basophils % 0.1 Absolute Neutrophils 3.9 Absolute Lymphocytes 0.5 Absolute Monocytes 0.1 Absolute Eosinophils 0.0 Absolute Basophils 0.0 Carbonic Acid HCO3/H2CO3 Ratio ABG pH ABG pCO2 ABG pO2 ABG HCO3 ABG O2 Saturation ABG Base Excess FiO2 Sodium 144.2 Potassium 4.4 Chloride 110 H Carbon Dioxide 22 Anion Gap 12 BUN 62 H Creatinine 1.46 H Est GFR ( Amer) 56 L Est GFR (Non-Af Amer) 46 L Glucose 120 H Calcium 7.6 L Phosphorus 5.0 H Magnesium 1.8 Urine Color Urine Appearance Urine pH Ur Specific [place] Urine Protein Urine Glucose (UA) Urine Ketones Urine Blood Urine Nitrite Ur Leukocyte Esterase Urine WBC (Auto) Urine RBC (Auto) 09/27/16 22:46 Troponin I 0.035 Impressions: Chest/Abdomen CTA 09/27/16 00:00 IMPRESSION: No evidence for pulmonary embolic disease. Bilateral airspace consolidation in the lower lobes which could represent atelectatic changes or pneumonic consolidations. Other findings as noted above Acute Abdomen Series 09/27/16 11:55 IMPRESSION: Small bowel obstruction with diffuse distention of small bowel loops out of proportion to colon Chest X-Ray 09/27/16 16:26 IMPRESSION: NO ACUTE RADIOGRAPHIC FINDING IN THE CHEST. KUB X-Ray 09/28/16 06:00 IMPRESSION: Small bowel obstruction as noted above. Assessment & Plan - Diagnosis (1) Atrial fibrillation with rapid ventricular response Is this a current diagnosis for this admission?: Yes (2) Small bowel obstruction Is this a current diagnosis for this admission?: Yes (3) Acute respiratory failure with hypoxemia Is this a current diagnosis for this admission?: Yes (4) Aspiration pneumonia Qualifiers: Aspiration pneumonia type: unspecified Laterality: bilateral Lung location: lower lobe of lung Qualified Code(s): J69.0 - Pneumonitis due to inhalation of food and vomit Is this a current diagnosis for this admission?: Yes (5) Hypotension Qualifiers: Hypotension type: other hypotension type Qualified Code(s): I95.89 - Other hypotension - Notes Notes: Atrial fibrillation: This is chronic based on review of previous EKG. At this point agree with continuing Cardizem drip for rate control and also heparin drip for anticoagulation. Small bowel obstruction: Patient being followed by surgeon and has NG tube suction going on. Acute respiratory failure with hypoxemia: Patient currently on bilevel positive pressure ventilation noninvasive. Continue antibiotic therapy. Aspiration pneumonia: Continue antibiotic therapy. Hypotension: This was a relative. Improved with IV fluid therapy. Currently Blood pressure in the low 90s but stable. Continue to monitor closely. 2-D echocardiogram results were discussed. Patient questions were answered. - Time Time with patient: Greater than 35 minutes - CODE STATUS was discussed, patient remains full code. Surrogate decision-maker patient's . Multiple medical problems were addressed.More than 50% of the time spent coordinating care, discussing management plans with involved caregivers. Management plans discussed with involved personnels. Medical decision making was of moderate complexity.
[2016-09-28] MEDS: METRONIDAZOLE 500 MG/NS RTU 250 MG in CONTAINER,EMPTY 1 EACH IV SCH (17:25)
--- NOTE | 2016-09-28 20:53 | PROGRESS NOTE E ---
Progress Note NAME: GRECIA MARTI : 1930 AGE: 85Y DATE: 09/28/2016 ROOM: 303 SUBJECTIVE: The patient voices no complaints at this time. OBJECTIVE: VITAL SIGNS: Blood pressure 112/64, temperature 98.2, pulse rate 88, respirations 22, saturation/pulse oximetry *------*%, the presently getting *------* treatment. LUNGS: Clear bilaterally anteriorly. CARDIAC: Heart rate is now controlled on Cardizem drip. His atrial fibrillation with RVR is under good control. ABDOMEN: Soft, bowel sounds are hypoactive. The patient's NG output has been approximately 150 mL in the last 12 hours. LABORATORY DATA: His CBC is within normal limits. The patient's chemistry shows a BUN of 62 and a creatinine of 1.46. ASSESSMENT: 1. SMALL BOWEL OBSTRUCTION, RECURRENT. 2. RESOLVED ATRIAL FIBRILLATION WITH RAPID VENTRICULAR RESPONSE ON CARDIZEM DRIP. 3. MODERATE AZOTEMIA. PLAN: He will continue conservative management for his small bowel obstruction. The patient needs gentle volume resuscitation and hopefully the patient will respond to nasogastric tube decompression. Should he not open up within 24-48 hours then surgical intervention will be entertained. DICTATING PHYSICIAN: JESUS MORGAN M.D. [id number] PHY#: [id number] ID: [id number] JOB#: [id number] ACCT: [id number] cc: >
[2016-09-28] MEDS: CEFTRIAXONE 1 GM/D5W RTU 1 GM/50 ML RTUPB IV SCH (22:59)
[2016-09-29] MEDS: NORMAL SALINE 1000 ML 1,000 ML IV PRN ×2 (01:09→08:47)
[2016-09-29] MEDS: DILTIAZEM HCL/D5W 125 ML IV PRN ×2 (02:01→13:47)
[2016-09-29] MEDS: METRONIDAZOLE 500 MG/NS RTU 250 MG in CONTAINER,EMPTY 1 EACH IV SCH ×3 (02:06→18:15)
[2016-09-29] MEDS: CLINDAMYCIN 600 MG/D5W RTU 600 MG/50 ML RTUPB IV SCH ×3 (02:06→17:31)
[2016-09-29 03:25] LABS: HEMATOCRIT 42.3 % (37.9-51.0); HEMOGLOBIN 13.4 g/dL (13.5-17.0); HGB HCT DIFFERENCE -2.1; MEAN CORPUSCULAR HEMOGLOBIN 30.5 pg (27.0-33.4); MEAN CORPUSCULAR HGB CONC 31.7 g/dL (32.0-36.0); MEAN CORPUSCULAR VOLUME 96 fl (80-97); RED BLOOD COUNT 4.39 10^6/uL (4.35-5.55)
[2016-09-29 03:26] LABS: RED CELL DISTRIBUTION WIDTH 13.7 % (11.5-14.0)
[2016-09-29 03:29] LABS: WHITE BLOOD COUNT 11.2 10^3/uL (4.0-10.5)
[2016-09-29 04:10] LABS: ANION GAP 11 (5-19); BLOOD UREA NITROGEN 45 mg/dL (7-20); CALCIUM 8.2 mg/dL (8.4-10.2); CARBON DIOXIDE 23 mmol/L (22-30); CHLORIDE 119 mmol/L (98-107); CREATININE RESULT 0.87 mg/dL (0.52-1.25); GLUCOSE 119 mg/dL (75-110); POTASSIUM 3.7 mmol/L (3.6-5.0); SODIUM 152.9 mmol/L (137-145)
[2016-09-29] MEDS: HEPARIN SODIUM,PORCINE/D5W 250 ML IV PRN (04:53)
[2016-09-29] MEDS: FAMOTIDINE INJ/PF 20 MG/2 ML SDV IV SCH ×2 (09:12→21:17)
--- NOTE | 2016-09-29 09:14 | PDOC PROGRESS REPORT ---
Subjective Progress Note for:: 09/29/16 Subjective:: Denies any shortness of breath or temperature spikes. No nausea or vomiting. Remains on nasogastric tube with fecaloid material noted. Denies any bowel movement, nor flattus. Still with no abdominal pain. Physical Exam Vital Signs: Temp Pulse Resp BP Pulse Ox 98.2 F 95 19 118/74 92 09/28/16 16:00 09/29/16 07:00 09/29/16 04:45 09/29/16 06:00 09/29/16 04:45 Intake & Output 09/28/16 09/29/16 09/30/16 06:59 06:59 06:59 Intake Total 2836 4395 Output Total 950 1350 Balance 1886 3045 Weight 68.1 kg General appearance: PRESENT: no acute distress, cooperative, other - On BiPAP and nasogastric tube Head exam: PRESENT: normocephalic Eye exam: PRESENT: EOMI Mouth exam: PRESENT: moist, neck supple Neck exam: ABSENT: JVD Respiratory exam: PRESENT: clear to auscultation quique - Anteriorly, rhonchi - Minimal, unlabored. ABSENT: wheezes Cardiovascular exam: PRESENT: irregular rhythm. ABSENT: gallop GI/Abdominal exam: PRESENT: hypoactive bowel sounds, soft. ABSENT: distended, tenderness Extremities exam: ABSENT: pedal edema Neurological exam: PRESENT: alert, awake, oriented to situation Skin exam: PRESENT: dry, warm. ABSENT: cyanosis Results Laboratory Results: 09/29/16 03:14 09/29/16 03:14 09/29/16 09/29/16 03:14 03:14 WBC 11.2 H D RBC 4.39 Hgb 13.4 L Hct 42.3 MCV 96 MCH 30.5 MCHC 31.7 L RDW 13.7 Plt Count 168 Sodium 152.9 H Potassium 3.7 Chloride 119 H Carbon Dioxide 23 Anion Gap 11 BUN 45 H Creatinine 0.87 Est GFR ( Amer) > 60 Est GFR (Non-Af Amer) > 60 Glucose 119 H Calcium 8.2 L 09/27/16 22:46 Troponin I 0.035 Impressions: Chest/Abdomen CTA 09/27/16 00:00 IMPRESSION: No evidence for pulmonary embolic disease. Bilateral airspace consolidation in the lower lobes which could represent atelectatic changes or pneumonic consolidations. Other findings as noted above Acute Abdomen Series 09/27/16 11:55 IMPRESSION: Small bowel obstruction with diffuse distention of small bowel loops out of proportion to colon Chest X-Ray 09/27/16 16:26 IMPRESSION: NO ACUTE RADIOGRAPHIC FINDING IN THE CHEST. KUB X-Ray 09/29/16 00:00 IMPRESSION: Ileus or partial small bowel obstruction. No significant change. Assessment & Plan - Diagnosis (1) Acute respiratory failure with hypoxemia Is this a current diagnosis for this admission?: Yes (2) Atrial fibrillation with rapid ventricular response Is this a current diagnosis for this admission?: Yes (3) Small bowel obstruction Is this a current diagnosis for this admission?: Yes (4) Aspiration pneumonia Qualifiers: Aspiration pneumonia type: unspecified Laterality: bilateral Lung location: lower lobe of lung Qualified Code(s): J69.0 - Pneumonitis due to inhalation of food and vomit Is this a current diagnosis for this admission?: Yes (5) Dehydration Is this a current diagnosis for this admission?: Yes (6) Hyperglycemia Is this a current diagnosis for this admission?: Yes (7) Coagulopathy Is this a current diagnosis for this admission?: Yes (8) Congestive heart failure Qualifiers: Congestive heart failure type: diastolic Congestive heart failure chronicity: chronic Qualified Code(s): I50.32 - Chronic diastolic ( congestive) heart failure Is this a current diagnosis for this admission?: Yes - Time Time Spent with patient: 25-34 minutes - Plan Summary Plan Summary: Continue antibiotics. Continue ventilatory support as well as heparin drip and Cardizem drip. Monitor electrolytes. Change intravenous fluid to half-normal saline and recheck serum sodium in the morning. We will do a follow-up KUB in the morning. Management of bowel obstruction per surgical service.
[2016-09-29] MEDS: 1/2 NORMAL SALINE 1,000 ML IV PRN ×2 (11:08→21:01)
[2016-09-29 17:31] LABS: APPEARANCE,URINE CLEAR; BILIRUBIN,URINE NEGATIVE (NEGATIVE); GLUCOSE, URINE 50 mg/dL (NEGATIVE); KETONES,URINE 20 mg/dL (NEGATIVE); LEUKOCYTE ESTERASE,URINE NEGATIVE (NEGATIVE); NITRITE,URINE NEGATIVE (NEGATIVE); PROTEIN,URINE 30 mg/dL (NEGATIVE); URINE SPECIFIC GRAVITY 1.024
--- NOTE | 2016-09-29 17:53 | PDOC PROGRESS REPORT ---
Subjective Progress Note for:: 09/29/16 Subjective:: Patient using C Pap; reports no complaints. Physical Exam Vital Signs: Temp Pulse Resp BP Pulse Ox 98.4 F 102 H 21 H 130/64 H 97 09/29/16 16:00 09/29/16 16:42 09/29/16 16:42 09/29/16 16:00 09/29/16 16:42 Intake & Output 09/28/16 09/29/16 09/30/16 06:59 06:59 06:59 Intake Total 2836 4395 0 Output Total 950 1350 550 Balance 1886 3045 -550 Weight 68.1 kg General appearance: PRESENT: no acute distress, other - C Pap in position. GI/Abdominal exam: PRESENT: other - Abdomen is minimally distended bowel sounds hypoactive. No peritoneal signs Results Laboratory Results: 09/29/16 03:14 09/29/16 03:14 09/29/16 09/29/16 09/29/16 03:14 03:14 17:06 WBC 11.2 H D RBC 4.39 Hgb 13.4 L Hct 42.3 MCV 96 MCH 30.5 MCHC 31.7 L RDW 13.7 Plt Count 168 Sodium 152.9 H Potassium 3.7 Chloride 119 H Carbon Dioxide 23 Anion Gap 11 BUN 45 H Creatinine 0.87 Est GFR ( Amer) > 60 Est GFR (Non-Af Amer) > 60 Glucose 119 H Calcium 8.2 L Urine Color YELLOW Urine Appearance CLEAR Urine pH 6.0 Ur Specific [place] 1.024 Urine Protein 30 H Urine Glucose (UA) 50 H Urine Ketones 20 H Urine Blood NEGATIVE Urine Nitrite NEGATIVE Ur Leukocyte Esterase NEGATIVE Urine WBC (Auto) 1 Urine RBC (Auto) 2 09/27/16 22:46 Troponin I 0.035 Impressions: Chest/Abdomen CTA 09/27/16 00:00 IMPRESSION: No evidence for pulmonary embolic disease. Bilateral airspace consolidation in the lower lobes which could represent atelectatic changes or pneumonic consolidations. Other findings as noted above Acute Abdomen Series 09/27/16 11:55 IMPRESSION: Small bowel obstruction with diffuse distention of small bowel loops out of proportion to colon Chest X-Ray 09/27/16 16:26 IMPRESSION: NO ACUTE RADIOGRAPHIC FINDING IN THE CHEST. KUB X-Ray 09/29/16 00:00 IMPRESSION: Ileus or partial small bowel obstruction. No significant change. Assessment & Plan - Diagnosis (1) Small bowel obstruction Is this a current diagnosis for this admission?: YesPlan: 1. Patient's abdominal film today shows persisting multiple air-fluid levels with distended small bowel loops. Nasogastric drainage has been moderate. Patient denies flatus. The small bowel obstruction has not resolved. 2. Will initiate suppository in attempts to stimulate GI function 3. Continue nasogastric decompression; if no better tomorrow suggest contrast study to rule out obstruction - Time Time Spent with patient: 15-24 minutes
[2016-09-29] MEDS ORDERED: BISACODYL 10 MG SUPP.RECT PR PRN (17:54)
--- NOTE | 2016-09-29 19:55 | PDOC PROGRESS REPORT ---
Subjective Progress Note for:: 09/29/16 Subjective:: Patient currently on BiPAP therapy for desaturations and low O2 sat. patient quickly desaturates if off oxygen and positive air pressure therapy. Patient still has abdominal distention and has significant NG tube drainage. Abdominal flat plate and upright shows multiple fluid levels and dilatation of small bowels. Lung bases noted to be clear. Patient is denying any chest pain. Patient heart rate seems well controlled. Currently still on NG suction. Physical Exam Vital Signs: Temp Pulse Resp BP Pulse Ox 98.4 F 102 H 21 H 130/64 H 97 09/29/16 16:00 09/29/16 16:42 09/29/16 16:42 09/29/16 16:00 09/29/16 16:42 Intake & Output 09/28/16 09/29/16 09/30/16 06:59 06:59 06:59 Intake Total 2836 4395 0 Output Total 950 1350 550 Balance 1886 3045 -550 Weight 68.1 kg Exam: GENERAL: well-nourished and in no acute distress. Alert and oriented x3 HEAD: Atraumatic, normocephalic. EYES: Pupils equal round and reactive to light, extraocular movements intact, sclera anicteric, conjunctiva are normal. ENT: TMs normal, nares patent, oropharynx clear without exudates. Moist mucous membranes. No oral ulcerations or bleeding gums noted NECK: supple without lymphadenopathy. Trachea is central. No cervical or axillary lymphadenopathy noted. Carotids are 2+, JVD WNL LUNGS: Respiration seems nonlabored, no significant accessory muscle action noted. Bibasilar fine crackles noted. No wheezes rales or rhonchi. No significant dullness noted on percussion. CHEST: Palpation of the chest wall shows no significant chest wall tenderness or abnormalities. 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 ABDOMEN: Soft but distended, no significant tenderness appreciated, normoactive bowel sounds. No guarding, no rebound. No rigidity noted . No masses appreciated. EXTREMITIES: Pedal pulses are 1-2+, no calf tenderness noted. No clubbing or cyanosis.trace to 1+ pedal edema noted NEUROLOGICAL: Focused neurological exam showed no significant neurologic deficit. Normal speech, no focal weakness appreciated. PSYCH: Normal mood, normal affect. Judgment and insight within normal limits. SKIN: No significant ecchymosis, rash, ulcerations or signs of pruritus noted. MUSCULOSKELETAL EXAM: No significant joint swelling noted. Results Laboratory Results: 09/29/16 03:14 09/29/16 03:14 09/29/16 09/29/16 09/29/16 03:14 03:14 17:06 WBC 11.2 H D RBC 4.39 Hgb 13.4 L Hct 42.3 MCV 96 MCH 30.5 MCHC 31.7 L RDW 13.7 Plt Count 168 Sodium 152.9 H Potassium 3.7 Chloride 119 H Carbon Dioxide 23 Anion Gap 11 BUN 45 H Creatinine 0.87 Est GFR ( Amer) > 60 Est GFR (Non-Af Amer) > 60 Glucose 119 H Calcium 8.2 L Urine Color YELLOW Urine Appearance CLEAR Urine pH 6.0 Ur Specific [place] 1.024 Urine Protein 30 H Urine Glucose (UA) 50 H Urine Ketones 20 H Urine Blood NEGATIVE Urine Nitrite NEGATIVE Ur Leukocyte Esterase NEGATIVE Urine WBC (Auto) 1 Urine RBC (Auto) 2 09/27/16 22:46 Troponin I 0.035 Impressions: Chest/Abdomen CTA 09/27/16 00:00 IMPRESSION: No evidence for pulmonary embolic disease. Bilateral airspace consolidation in the lower lobes which could represent atelectatic changes or pneumonic consolidations. Other findings as noted above Acute Abdomen Series 09/27/16 11:55 IMPRESSION: Small bowel obstruction with diffuse distention of small bowel loops out of proportion to colon Chest X-Ray 09/27/16 16:26 IMPRESSION: NO ACUTE RADIOGRAPHIC FINDING IN THE CHEST. KUB X-Ray 09/29/16 00:00 IMPRESSION: Ileus or partial small bowel obstruction. No significant change. Assessment & Plan - Diagnosis (1) Atrial fibrillation with rapid ventricular response Is this a current diagnosis for this admission?: Yes (2) Small bowel obstruction Is this a current diagnosis for this admission?: Yes (3) Acute respiratory failure with hypoxemia Is this a current diagnosis for this admission?: Yes (4) Aspiration pneumonia Qualifiers: Aspiration pneumonia type: unspecified Laterality: bilateral Lung location: lower lobe of lung Qualified Code(s): J69.0 - Pneumonitis due to inhalation of food and vomit Is this a current diagnosis for this admission?: Yes (5) Hypotension Qualifiers: Hypotension type: other hypotension type Qualified Code(s): I95.89 - Other hypotension - Notes Notes: Atrial fibrillation: Heart rate is reasonably well controlled. May consider switch to beta deniz, currently on Cardizem drip with reasonably well controlled heart rate. Small bowel obstruction: Patient on NG tube suctioning. Patient being followed by surgeons. Acute respiratory failure with hypoxemia: This is secondary to aspiration pneumonia. No evidence of CHF clinically. Continue antibiotic therapy and positive air pressure therapy. Aspiration pneumonia: Continue antibiotic therapy. Hypotension: Currently stable. Blood pressure has been stable. Patient may require intermittent fluid boluses. If needed consider vasopressors, levo fed/ Matt-Synephrine will be preferred in presence of atrial fibrillation and relatively well-preserved LVEF Patient remains very sick. Discussed with patient's is at bedside and also hospitalist as well as nurses. Dr. Mackey to follow tomorrow. - Time Time with patient: Greater than 35 minutes - CODE STATUS was discussed, patient remains full code. Surrogate decision-maker unchanged. Multiple medical problems were addressed.More than 50% of the time spent coordinating care, discussing management plans with involved caregivers. Management plans discussed with involved personnels. Medical decision making was of moderate complexity. Medications reviewed and adjusted accordingly: Yes
[2016-09-29] MEDS: CEFTRIAXONE 1 GM/D5W RTU 1 GM/50 ML RTUPB IV SCH (21:17)
[2016-09-30] MEDS: CLINDAMYCIN 600 MG/D5W RTU 600 MG/50 ML RTUPB IV SCH ×2 (01:51→09:04)
[2016-09-30] MEDS: DILTIAZEM HCL/D5W 125 ML IV PRN ×3 (02:36→21:41)
[2016-09-30] MEDS: METRONIDAZOLE 500 MG/NS RTU 250 MG in CONTAINER,EMPTY 1 EACH IV SCH ×3 (02:56→17:46)
[2016-09-30 03:35] LABS: ANION GAP 11 (5-19); BLOOD UREA NITROGEN 35 mg/dL (7-20); CALCIUM 8.1 mg/dL (8.4-10.2); CARBON DIOXIDE 23 mmol/L (22-30); CHLORIDE 115 mmol/L (98-107); GLUCOSE 101 mg/dL (75-110); MAGNESIUM 2.2 mg/dL (1.6-2.3); PHOSPHORUS 2.3 mg/dL (2.5-4.5); POTASSIUM 3.3 mmol/L (3.6-5.0); SODIUM 149.1 mmol/L (137-145)
[2016-09-30] MEDS ORDERED: HEPARIN SOD (PORCINE) 1,000 UNIT/ML 10 ML VIAL ONE (04:06)
[2016-09-30] MEDS: 1/2 NORMAL SALINE 1,000 ML IV PRN ×2 (06:59→17:38)
[2016-09-30] MEDS: POTASSI CL 20 MEQ/50 ML RIDER 50 ML IV SCH ×2 (08:34→10:40)
[2016-09-30] MEDS ORDERED: HEPARIN SOD (PORCINE) 1,000 UNIT/ML 10 ML VIAL IV PRN (08:40)
[2016-09-30] MEDS: FAMOTIDINE INJ/PF 20 MG/2 ML SDV IV SCH ×2 (09:04→21:42)
--- NOTE | 2016-09-30 09:56 | PDOC PROGRESS REPORT ---
Subjective Progress Note for:: 09/30/16 Subjective:: Feels much better. Abdomen back to baseline as per the patient. Bowel movement and passage of gas last night. Physical Exam Vital Signs: Temp Pulse Resp BP Pulse Ox 97.7 F 98 20 115/61 92 09/30/16 07:14 09/30/16 07:14 09/30/16 07:14 09/30/16 09:01 09/30/16 07:14 Intake & Output 09/29/16 09/30/16 10/01/16 06:59 06:59 06:59 Intake Total 4395 3769 Output Total 1350 2025 Balance 3045 1744 Weight 74.1 kg General appearance: PRESENT: no acute distress Respiratory exam: PRESENT: clear to auscultation quique Cardiovascular exam: PRESENT: RRR GI/Abdominal exam: PRESENT: other - Very soft, mild the distention, nontender to palpation. Normal active bowel sounds. Results Laboratory Results: 09/29/16 03:14 09/30/16 02:51 09/29/16 09/29/16 09/30/16 17:06 22:15 02:51 Sodium 149.1 H Potassium 3.3 L Chloride 115 H Carbon Dioxide 23 Anion Gap 11 BUN 35 H Creatinine 0.70 Est GFR ( Amer) > 60 Est GFR (Non-Af Amer) > 60 Glucose 101 Calcium 8.1 L Phosphorus 2.3 L Magnesium 2.2 Urine Color YELLOW Urine Appearance CLEAR Urine pH 6.0 Ur Specific [place] 1.024 Urine Protein 30 H Urine Glucose (UA) 50 H Urine Ketones 20 H Urine Blood NEGATIVE Urine Nitrite NEGATIVE Ur Leukocyte Esterase NEGATIVE Urine WBC (Auto) 1 Urine RBC (Auto) 2 Stool Occult Blood NEGATIVE 09/27/16 22:46 Troponin I 0.035 Impressions: Chest/Abdomen CTA 09/27/16 00:00 IMPRESSION: No evidence for pulmonary embolic disease. Bilateral airspace consolidation in the lower lobes which could represent atelectatic changes or pneumonic consolidations. Other findings as noted above Acute Abdomen Series 09/27/16 11:55 IMPRESSION: Small bowel obstruction with diffuse distention of small bowel loops out of proportion to colon Chest X-Ray 09/27/16 16:26 IMPRESSION: NO ACUTE RADIOGRAPHIC FINDING IN THE CHEST. KUB X-Ray 09/30/16 06:00 IMPRESSION: Persistent dilatation of mid small bowel loops worrisome for small bowel obstruction Assessment & Plan - Diagnosis (1) Small bowel obstruction Is this a current diagnosis for this admission?: YesPlan: KUB this morning very suspicious for small bowel obstruction however exam looks very good and he has had symptomatic relief of his symptoms overnight. His NG output has been low although it still appear bile tinged. In light of his abnormal KUB, I am reluctant to pull his NG tube and start a diet today. Will continue the NG tube for today. We'll get the patient out of bed ambulating more. If he continues to do well will plan to DC his NG and start the a diet tomorrow.
--- NOTE | 2016-09-30 10:15 | PDOC PROGRESS REPORT ---
Subjective Progress Note for:: 09/30/16 Subjective:: Denies any complaints. Reports he had a bowel movement last night. Physical Exam Vital Signs: Temp Pulse Resp BP Pulse Ox 97.7 F 98 20 115/61 92 09/30/16 07:14 09/30/16 07:14 09/30/16 07:14 09/30/16 09:01 09/30/16 07:14 Intake & Output 09/29/16 09/30/16 10/01/16 06:59 06:59 06:59 Intake Total 4395 3769 Output Total 1350 2025 Balance 3045 1744 Weight 74.1 kg General appearance: PRESENT: no acute distress Eye exam: PRESENT: conjunctiva pink Mouth exam: PRESENT: moist, tongue midline Neck exam: ABSENT: JVD Respiratory exam: PRESENT: clear to auscultation quique. ABSENT: rales, rhonchi, wheezes Cardiovascular exam: PRESENT: RRR. ABSENT: diastolic murmur, rubs, systolic murmur GI/Abdominal exam: PRESENT: normal bowel sounds, soft. ABSENT: distended, guarding, mass, organolmegaly, rebound, tenderness Extremities exam: ABSENT: calf tenderness, clubbing, pedal edema Neurological exam: PRESENT: alert, awake, oriented to person, oriented to place , oriented to time, oriented to situation Psychiatric exam: PRESENT: appropriate affect Skin exam: PRESENT: dry, intact, warm. ABSENT: cyanosis, rash Results Laboratory Results: 09/29/16 03:14 09/30/16 02:51 09/29/16 09/29/16 09/30/16 17:06 22:15 02:51 Sodium 149.1 H Potassium 3.3 L Chloride 115 H Carbon Dioxide 23 Anion Gap 11 BUN 35 H Creatinine 0.70 Est GFR ( Amer) > 60 Est GFR (Non-Af Amer) > 60 Glucose 101 Calcium 8.1 L Phosphorus 2.3 L Magnesium 2.2 Urine Color YELLOW Urine Appearance CLEAR Urine pH 6.0 Ur Specific [place] 1.024 Urine Protein 30 H Urine Glucose (UA) 50 H Urine Ketones 20 H Urine Blood NEGATIVE Urine Nitrite NEGATIVE Ur Leukocyte Esterase NEGATIVE Urine WBC (Auto) 1 Urine RBC (Auto) 2 Stool Occult Blood NEGATIVE 09/27/16 22:46 Troponin I 0.035 Impressions: Chest/Abdomen CTA 09/27/16 00:00 IMPRESSION: No evidence for pulmonary embolic disease. Bilateral airspace consolidation in the lower lobes which could represent atelectatic changes or pneumonic consolidations. Other findings as noted above Acute Abdomen Series 09/27/16 11:55 IMPRESSION: Small bowel obstruction with diffuse distention of small bowel loops out of proportion to colon Chest X-Ray 09/27/16 16:26 IMPRESSION: NO ACUTE RADIOGRAPHIC FINDING IN THE CHEST. KUB X-Ray 09/30/16 06:00 IMPRESSION: Persistent dilatation of mid small bowel loops worrisome for small bowel obstruction Assessment & Plan - Diagnosis (1) Small bowel obstruction Is this a current diagnosis for this admission?: YesPlan: The patient had a bowel movement last night but still has abnormalities on his KUB. Patient small bowel obstruction is being managed by surgery. They're recommending that the NG tube remain in place today and to be removed tomorrow if he continues to do well and start diet tomorrow. (2) Acute respiratory failure with hypoxemia Is this a current diagnosis for this admission?: YesPlan: This has resolved. (3) Aspiration pneumonia Qualifiers: Aspiration pneumonia type: unspecified Laterality: bilateral Lung location: lower lobe of lung Qualified Code(s): J69.0 - Pneumonitis due to inhalation of food and vomit Is this a current diagnosis for this admission?: YesPlan: The patient is currently on clindamycin, Flagyl, Rocephin. Clinically he has improved. (4) Atrial fibrillation Qualifiers: Atrial fibrillation type: persistent Qualified Code(s): I48.1 - Persistent atrial fibrillation Is this a current diagnosis for this admission?: YesPlan: Patient currently is in a regular rhythm on exam. (5) Congestive heart failure Qualifiers: Congestive heart failure type: diastolic Congestive heart failure chronicity: chronic Qualified Code(s): I50.32 - Chronic diastolic ( congestive) heart failure Is this a current diagnosis for this admission?: YesPlan: He is euvolemic. (6) Hypertension Qualifiers: Hypertension type: essential hypertension Qualified Code(s): I10 - Essential (primary) hypertension Is this a current diagnosis for this admission?: YesPlan: His blood pressure is stable. He is on diltiazem. (7) Hypokalemia Is this a current diagnosis for this admission?: YesPlan: We'll give IV potassium. (8) Hypothyroidism Qualifiers: Hypothyroidism type: unspecified Qualified Code(s): E03.9 - Hypothyroidism, unspecified Is this a current diagnosis for this admission?: Yes (9) Renal insufficiency Is this a current diagnosis for this admission?: YesPlan: Patient's creatinine has returned to normal. - Time Time Spent with patient: 25-34 minutes - Inpatient Certification Medical Necessity: Need For IV Fluids, Need for IV Antibiotics
[2016-09-30] MEDS ORDERED: POTASSI CL 20 MEQ/50 ML RIDER 50 ML IV SCH (11:00)
[2016-09-30] MEDS: HEPARIN SODIUM,PORCINE/D5W 250 ML IV PRN (12:26)
--- NOTE | 2016-09-30 14:53 | PROGRESS NOTE E ---
Progress Note NAME: GRECIA MARTI : 1930 AGE: 85Y DATE: 09/30/2016 ROOM: 303 SUBJECTIVE: The patient is now on oxygen and is off the BiPAP. He states that his breathing is much better. He also denies any abdominal pain and his belly looks flat. He states he had a bowel movement yesterday and also has passed gas but KUB stool is suspicious of small bowel obstruction. There is no PND or orthopnea. Earlier the nurse states that the patient coughed up a lot of dark brown sputum. The patient denies any pleuritic pain. There is no bleeding on heparin. There is no hemoptysis. There is no TIA or CVA symptoms. The patient continues to be in atrial fibrillation and is on a Cardizem drip. OBJECTIVE: VITAL SIGNS: The patient is afebrile with a temperature of 97.7 degrees Fahrenheit. Axillary pulse of 88 beats per minute, irregularly irregular. Blood pressure is 121/66. Respirations are 16 per minute. O2 saturations are 92% on 5 L nasal cannula. HEENT: On examination, head is atraumatic, normocephalic. Eyes: Pupils are equal, round, regular, reactive to light and accommodation. Extraocular movements are normal. There is no scleral icterus. There is no conjunctival pallor. ENT is negative. NECK: Carotids are equal. There is no bruit. There is no JVD. There is no lymphadenopathy. There is no goiter. Trachea is central. LUNGS: Show dry crackles in both of the bases. There are no rales. It seems to be more left-sided more than right in both the lower lobes being affected. CARDIOVASCULAR: S1, S2 are heard. There is no S3 gallop. There is variable S1 intensity. There is no S4 gallop. A systolic murmur at the left sternal border and the apex. There is murmur of mild HI present. There is no rub. ABDOMEN: Soft. NG tube is still in situ. There is no hepatosplenomegaly. Bowel sounds are heard. There is no rebound, guarding or rigidity. EXTREMITIES: Femorals are diminished. Leg pulses are diminished. There is no pedal edema. There is no DVT or cellulitis. There is no calf tenderness. CENTRAL NERVOUS SYSTEM: The patient is conscious, awake, alert, oriented x3 with no focal deficit. INTAKE/OUTPUT: The patient's 24-hour intake has been 3769 mL; output is 2025 mL. Note that the patient in December 2015 had an echo that showed normal LV function, diastolic function could not be assessed. There is mild concentric LVH. LABORATORY DATA: The patient's white count is 11,200; hemoglobin is 13.4; hematocrit is 42.3. His platelet count is 168,000. The patient's PTT is 62.3. His APTT is 62.3 on IV heparin. IMPRESSION: 1. SMALL BOWEL OBSTRUCTION. Seems to be clinically improved although the KUB done this morning still shows some degree of small bowel obstruction. 2. ATRIAL FIBILLATION AT PRESENT WITH CONTROLLED VENTRICULAR RESPONSE. Patient on Cardizem and full dose IV heparin. 3. ACUTE RESPIRATORY FAILURE WITH HYPOXEMIA MOST LIKELY SECONDARY TO ASPIRATION PNEUMONIA. 4. ASPIRATION PNEUMONIAR BILATERAL LOWER LOBES. 5. THE PATIENT DOES NOT HAVE ANY MORE HYPOTENSION. 6. HYPOKALEMIA WHICH IS BEING REPLACED. Note the patient's sodium is 149.1, potassium 3.3, chloride 115, CO2 is 23. The patient's BUN is 35, creatinine 0.70. GFR is greater than 60. The patient's calcium is 8.1, magnesium is 2.2, phosphorous is 2.3. 7. THE PATIENT'S BLOOD CULTURE SHOWS NO GROWTH IN 5 DAYS. THE PATIENT'S SPUMTUM CULTURE GRAM-STAIN SHOWS 4+ *------* is seen, 1+ GRAM-POSITIVE COCCI IN PAIRS. RECOMMENDATION: 1. Will start the patient on potassium. 2. Continue IV Cardizem and IV heparin. 3. Surgeons are taking care of the small bowel obstruction. The patient is improving although slowly. 4. The patient's O2 saturations are much better with a present day saturation of 92%. 5. Continue antibiotics. 6. Will follow with you. Note, 30 minutes spent on this patient with more than 50% of the time spent on direct patient care and review of the patient's records and also review of his medications and discussions with the other physicians taking care of this patient. Note, more than 50% of the time was spent coordinating care, discussing management plans with the *------* caregivers. Medical decision making was of moderate complexity. DICTATING PHYSICIAN: ROHIT VILLAFANA M.D. [id number] PHY#: [id number] ID: [id number] JOB#: [id number] ACCT: [id number] cc: >
[2016-09-30] MEDS: CEFTRIAXONE 1 GM/D5W RTU 1 GM/50 ML RTUPB IV SCH (21:43)
[2016-10-01] MEDS: METRONIDAZOLE 500 MG/NS RTU 250 MG in CONTAINER,EMPTY 1 EACH IV SCH ×3 (01:03→17:35)
[2016-10-01] MEDS: 1/2 NORMAL SALINE 1,000 ML IV PRN ×2 (02:51→10:32)
[2016-10-01 03:41] LABS: HEMATOCRIT 43.5 % (37.9-51.0); HGB HCT DIFFERENCE -1.5; MEAN CORPUSCULAR HEMOGLOBIN 30.1 pg (27.0-33.4); MEAN CORPUSCULAR HGB CONC 32.2 g/dL (32.0-36.0); MEAN CORPUSCULAR VOLUME 94 fl (80-97); RED BLOOD COUNT 4.65 10^6/uL (4.35-5.55); RED CELL DISTRIBUTION WIDTH 13.3 % (11.5-14.0); WHITE BLOOD COUNT 11.3 10^3/uL (4.0-10.5)
[2016-10-01 03:53] LABS: ANION GAP 10 (5-19); BLOOD UREA NITROGEN 31 mg/dL (7-20); CALCIUM 7.9 mg/dL (8.4-10.2); CARBON DIOXIDE 24 mmol/L (22-30); CHLORIDE 113 mmol/L (98-107); CREATININE RESULT 0.64 mg/dL (0.52-1.25); GLUCOSE 90 mg/dL (75-110); POTASSIUM 3.2 mmol/L (3.6-5.0); SODIUM 146.7 mmol/L (137-145)
[2016-10-01 05:40] LABS: APPEARANCE,URINE CLEAR; BILIRUBIN,URINE NEGATIVE (NEGATIVE); GLUCOSE, URINE NEGATIVE (NEGATIVE); KETONES,URINE 20 mg/dL (NEGATIVE); LEUKOCYTE ESTERASE,URINE TRACE (NEGATIVE); NITRITE,URINE NEGATIVE (NEGATIVE); PROTEIN,URINE 30 mg/dL (NEGATIVE); URINE SPECIFIC GRAVITY 1.023; UROBILINOGEN,URINE NEGATIVE mg/dL (<2.0)
[2016-10-01] MEDS: POTASSI CL 20 MEQ/50 ML RIDER 50 ML IV SCH ×2 (08:50→10:35)
[2016-10-01] MEDS: HEPARIN SODIUM,PORCINE/D5W 250 ML IV PRN (08:51)
[2016-10-01] MEDS: DILTIAZEM HCL/D5W 125 ML IV PRN ×2 (08:52→20:15)
[2016-10-01] MEDS: FAMOTIDINE INJ/PF 20 MG/2 ML SDV IV SCH ×2 (10:35→22:14)
--- NOTE | 2016-10-01 10:51 | PDOC PROGRESS REPORT ---
Subjective Progress Note for:: 10/01/16 Subjective:: Denies any complaints. Has been passing flatus overnight. Physical Exam Vital Signs: Temp Pulse Resp BP Pulse Ox 98.2 F 98 20 135/77 H 92 10/01/16 08:00 10/01/16 10:00 10/01/16 08:00 10/01/16 10:00 10/01/16 08:01 Intake & Output 09/30/16 10/01/16 10/02/16 06:59 06:59 06:59 Intake Total 3769 569 Output Total 2025 1600 Balance 1744 -1031 Weight 74.1 kg 75.2 kg General appearance: PRESENT: no acute distress Eye exam: PRESENT: conjunctiva pink Mouth exam: PRESENT: moist, tongue midline Neck exam: ABSENT: JVD Respiratory exam: PRESENT: clear to auscultation quique. ABSENT: rales, rhonchi, wheezes Cardiovascular exam: PRESENT: irregular rhythm. ABSENT: diastolic murmur, rubs , systolic murmur GI/Abdominal exam: PRESENT: normal bowel sounds, soft. ABSENT: distended, guarding, mass, organolmegaly, rebound, tenderness Extremities exam: PRESENT: full ROM. ABSENT: calf tenderness, clubbing, pedal edema Neurological exam: PRESENT: alert, awake, oriented to person, oriented to place , oriented to time, oriented to situation Psychiatric exam: PRESENT: appropriate affect Skin exam: PRESENT: dry, intact, warm. ABSENT: cyanosis, rash Results Laboratory Results: 10/01/16 03:33 10/01/16 03:33 10/01/16 10/01/16 10/01/16 03:33 03:33 03:40 WBC 11.3 H RBC 4.65 Hgb 14.0 Hct 43.5 MCV 94 MCH 30.1 MCHC 32.2 RDW 13.3 Plt Count 166 Sodium 146.7 H Potassium 3.2 L Chloride 113 H Carbon Dioxide 24 Anion Gap 10 BUN 31 H Creatinine 0.64 Est GFR ( Amer) > 60 Est GFR (Non-Af Amer) > 60 Glucose 90 Calcium 7.9 L Urine Color YELLOW Urine Appearance CLEAR Urine pH 6.0 Ur Specific Brandon 1.023 Urine Protein 30 H Urine Glucose (UA) NEGATIVE Urine Ketones 20 H Urine Blood MODERATE H Urine Nitrite NEGATIVE Ur Leukocyte Esterase TRACE H Urine WBC (Auto) 10 Urine RBC (Auto) 57 01/17/17 00:10 Sputum Gram Stain - Final 09/27/16 22:46 Troponin I 0.035 Impressions: Chest/Abdomen CTA 09/27/16 00:00 IMPRESSION: No evidence for pulmonary embolic disease. Bilateral airspace consolidation in the lower lobes which could represent atelectatic changes or pneumonic consolidations. Other findings as noted above Acute Abdomen Series 09/27/16 11:55 IMPRESSION: Small bowel obstruction with diffuse distention of small bowel loops out of proportion to colon Chest X-Ray 09/27/16 16:26 IMPRESSION: NO ACUTE RADIOGRAPHIC FINDING IN THE CHEST. Assessment & Plan - Diagnosis (1) Small bowel obstruction Is this a current diagnosis for this admission?: YesPlan: The patient continues to have flatus. Patient's small bowel obstruction is being managed by surgery. If surgery agrees the NG tube can be removed today and be started on a diet. We will DC his Wright so we can start ambulating once the NG is removed. (2) Acute respiratory failure with hypoxemia Is this a current diagnosis for this admission?: YesPlan: This has resolved. (3) Aspiration pneumonia Qualifiers: Aspiration pneumonia type: unspecified Laterality: bilateral Lung location: lower lobe of lung Qualified Code(s): J69.0 - Pneumonitis due to inhalation of food and vomit Is this a current diagnosis for this admission?: YesPlan: The patient is currently on Flagyl, Rocephin. Clinically he has improved. (4) Atrial fibrillation Qualifiers: Atrial fibrillation type: persistent Qualified Code(s): I48.1 - Persistent atrial fibrillation Is this a current diagnosis for this admission?: YesPlan: Patient currently is rate controlled. (5) Congestive heart failure Qualifiers: Congestive heart failure type: diastolic Congestive heart failure chronicity: chronic Qualified Code(s): I50.32 - Chronic diastolic ( congestive) heart failure Is this a current diagnosis for this admission?: YesPlan: He is euvolemic. (6) Hypertension Qualifiers: Hypertension type: essential hypertension Qualified Code(s): I10 - Essential (primary) hypertension Is this a current diagnosis for this admission?: YesPlan: His blood pressure is stable. He is on diltiazem. (7) Hypokalemia Is this a current diagnosis for this admission?: YesPlan: We'll give IV potassium. (8) Hypothyroidism Qualifiers: Hypothyroidism type: unspecified Qualified Code(s): E03.9 - Hypothyroidism, unspecified Is this a current diagnosis for this admission?: Yes (9) Renal insufficiency Is this a current diagnosis for this admission?: YesPlan: Patient's creatinine has returned to normal. - Time Time Spent with patient: 25-34 minutes - Inpatient Certification Medical Necessity: Need For IV Fluids
[2016-10-01] MEDS ORDERED: KETOROLAC TROMETHAMINE INJ/PF 30 MG/1 ML SDV IV ONE (19:30)
[2016-10-01] MEDS: CEFTRIAXONE 1 GM/D5W RTU 1 GM/50 ML RTUPB IV SCH (22:06)
[2016-10-01] MEDS ORDERED: PANTOPRAZOLE SODIUM 80 MG in NORMAL SALINE 100 ML IV ONE (22:43)
[2016-10-01 23:31] LABS: PROTHROMBIN TIME 15.9 SEC (11.4-15.4)
[2016-10-01 23:56] LABS: HEMATOCRIT 42.2 % (37.9-51.0); HEMOGLOBIN 14.1 g/dL (13.5-17.0); HGB HCT DIFFERENCE 0.1; MEAN CORPUSCULAR HEMOGLOBIN 32.1 pg (27.0-33.4); MEAN CORPUSCULAR HGB CONC 33.4 g/dL (32.0-36.0); RED CELL DISTRIBUTION WIDTH 13.3 % (11.5-14.0)
[2016-10-01 23:59] LABS: MEAN CORPUSCULAR VOLUME 96 fl (80-97)
[2016-10-02] LABS: BAND NEUTROPHILS % (MANUAL) 3 % (3-5); BASOPHILS % (MANUAL) 0 % (0-2); EOSINOPHILS % (MANUAL) 0 % (0-6); LYMPHOCYTES % (MANUAL) 8 % (13-45); TOTAL CELLS COUNTED 100
[2016-10-02 00:02] LABS: RBC MORPHOLOGY COMMENT NORMO-CYTIC/CHROMIC; TOXIC GRANULATION 1+
[2016-10-02] MEDS ORDERED: PANTOPRAZOLE SODIUM 40 MG VIAL IV ONE (00:37)
[2016-10-02] MEDS: METRONIDAZOLE 500 MG/NS RTU 250 MG in CONTAINER,EMPTY 1 EACH IV SCH ×3 (02:17→18:46)
[2016-10-02] MEDS: 1/2 NORMAL SALINE 1,000 ML IV PRN ×2 (03:03→20:07)
[2016-10-02 04:05] LABS: ANION GAP 12 (5-19); BLOOD UREA NITROGEN 29 mg/dL (7-20); CALCIUM 7.7 mg/dL (8.4-10.2); CARBON DIOXIDE 22 mmol/L (22-30); CHLORIDE 111 mmol/L (98-107); CREATININE RESULT 0.58 mg/dL (0.52-1.25); GLUCOSE 88 mg/dL (75-110); POTASSIUM 3.2 mmol/L (3.6-5.0); SODIUM 144.8 mmol/L (137-145)
[2016-10-02 04:25] LABS: HEMATOCRIT 44.8 % (37.9-51.0); HEMOGLOBIN 14.8 g/dL (13.5-17.0); HGB HCT DIFFERENCE -0.4; MEAN CORPUSCULAR HEMOGLOBIN 31.6 pg (27.0-33.4); RED BLOOD COUNT 4.67 10^6/uL (4.35-5.55); RED CELL DISTRIBUTION WIDTH 13.3 % (11.5-14.0); WHITE BLOOD COUNT 11.2 10^3/uL (4.0-10.5)
[2016-10-02 04:27] LABS: MEAN CORPUSCULAR VOLUME 96 fl (80-97)
[2016-10-02 04:32] LABS: BAND NEUTROPHILS % (MANUAL) 2 % (3-5); BASOPHILS % (MANUAL) 0 % (0-2); EOSINOPHILS % (MANUAL) 0 % (0-6); LYMPHOCYTES % (MANUAL) 3 % (13-45); RBC MORPHOLOGY COMMENT NORMO-CYTIC/CHROMIC; TOTAL CELLS COUNTED 100; TOXIC GRANULATION 1+; TOXIC VACUOLATION PRESENT
[2016-10-02 04:33] LABS: PLATELET CLUMPS PRESENT
--- NOTE | 2016-10-02 08:05 | EKG REPORT ---
SEVERITY:- ABNORMAL ECG - ATRIAL FIBRILLATION, V-RATE 91-133 MULTIPLE PREMATURE COMPLEXES, VENT. : Confirmed by: Israel Madrid MD 02-Oct-2016 08:04:47
--- NOTE | 2016-10-02 08:06 | PDOC PROGRESS REPORT ---
Subjective Progress Note for:: 10/01/16 Subjective:: No nausea or vomiting. Reports passing flatus. No BM. No abdominal pain. Physical Exam Vital Signs: Temp Pulse Resp BP Pulse Ox 97.2 F 88 24 H 117/79 92 10/02/16 03:51 10/02/16 06:00 10/02/16 03:51 10/02/16 06:00 10/02/16 05:01 Intake & Output 10/01/16 10/02/16 10/03/16 06:59 06:59 06:59 Intake Total 569 5600 Output Total 1600 1100 Balance -1031 4500 Weight 75.2 kg 75.7 kg General appearance: PRESENT: no acute distress Head exam: PRESENT: normocephalic Eye exam: PRESENT: EOMI GI/Abdominal exam: PRESENT: distended, soft, other - Still distended, but denies pain. NG with dark green output.. ABSENT: tenderness Neurological exam: PRESENT: alert, oriented to situation Results Laboratory Results: 10/02/16 03:38 10/02/16 03:38 10/01/16 10/02/16 10/02/16 22:55 03:38 03:38 WBC 12.0 H 11.2 H RBC 4.40 4.67 Hgb 14.1 14.8 Hct 42.2 44.8 MCV 96 96 MCH 32.1 31.6 MCHC 33.4 33.0 RDW 13.3 13.3 Plt Count 180 186 Seg Neutrophils % Not Reportable Not Reportable Lymphocytes % Not Reportable Not Reportable Monocytes % Not Reportable Not Reportable Eosinophils % Not Reportable Not Reportable Basophils % Not Reportable Not Reportable Absolute Neutrophils Not Reportable Not Reportable Absolute Lymphocytes Not Reportable Not Reportable Absolute Monocytes Not Reportable Not Reportable Absolute Eosinophils Not Reportable Not Reportable Absolute Basophils Not Reportable Not Reportable Sodium 144.8 Potassium 3.2 L Chloride 111 H Carbon Dioxide 22 Anion Gap 12 BUN 29 H Creatinine 0.58 Est GFR ( Amer) > 60 Est GFR (Non-Af Amer) > 60 Glucose 88 Calcium 7.7 L 09/30/16 00:10 Sputum Gram Stain - Final 09/27/16 22:46 Troponin I 0.035 Impressions: Chest/Abdomen CTA 09/27/16 00:00 IMPRESSION: No evidence for pulmonary embolic disease. Bilateral airspace consolidation in the lower lobes which could represent atelectatic changes or pneumonic consolidations. Other findings as noted above Acute Abdomen Series 09/27/16 11:55 IMPRESSION: Small bowel obstruction with diffuse distention of small bowel loops out of proportion to colon Chest X-Ray 09/27/16 16:26 IMPRESSION: NO ACUTE RADIOGRAPHIC FINDING IN THE CHEST. KUB X-Ray 10/01/16 07:00 IMPRESSION: Persistent dilated small bowel loops worrisome for small bowel obstruction. Status: Image reviewed by me Assessment & Plan - Diagnosis (1) Small bowel obstruction Is this a current diagnosis for this admission?: YesPlan: Patient reports gas, although still having dark green moderate volume output from NG tube. Spoke with Dr. Gee. He is questioning potential role of Cardizem causing ileus. We will pursue a upper GI small bowel follow-through in the morning to differentiate ileus versus obstruction.
[2016-10-02] MEDS: POTASSI CL 20 MEQ/50 ML RIDER 50 ML IV SCH ×2 (08:31→10:07)
[2016-10-02] MEDS: DILTIAZEM HCL/D5W 125 ML IV PRN (08:44)
[2016-10-02] MEDS: FAMOTIDINE INJ/PF 20 MG/2 ML SDV IV SCH (10:07)
--- NOTE | 2016-10-02 10:28 | PDOC PROGRESS REPORT ---
Subjective Progress Note for:: 10/02/16 Subjective:: Patient reports that he is still passing flatus but has not had any more bowel movements. He does get dyspneic with going from the bedside commode back to the bed. Physical Exam Vital Signs: Temp Pulse Resp BP Pulse Ox 97.6 F 98 21 H 129/72 H 92 10/02/16 08:00 10/02/16 08:00 10/02/16 08:00 10/02/16 08:00 10/02/16 08:00 Intake & Output 10/01/16 10/02/16 10/03/16 06:59 06:59 06:59 Intake Total 569 5600 Output Total 1600 1100 Balance -1031 4500 Weight 75.2 kg 75.7 kg General appearance: PRESENT: no acute distress Eye exam: PRESENT: conjunctiva pink. ABSENT: scleral icterus Mouth exam: PRESENT: moist, tongue midline Neck exam: ABSENT: JVD Respiratory exam: PRESENT: clear to auscultation quique. ABSENT: rales, rhonchi, wheezes Cardiovascular exam: PRESENT: irregular rhythm. ABSENT: diastolic murmur, rubs , systolic murmur GI/Abdominal exam: PRESENT: hypoactive bowel sounds, soft. ABSENT: guarding, rebound, tenderness Extremities exam: ABSENT: calf tenderness, clubbing, pedal edema Neurological exam: PRESENT: alert, awake, oriented to person, oriented to place , oriented to time, oriented to situation Psychiatric exam: PRESENT: appropriate affect Skin exam: PRESENT: dry, intact, warm. ABSENT: cyanosis, rash Results Laboratory Results: 10/02/16 03:38 10/02/16 03:38 10/01/16 10/02/16 10/02/16 22:55 03:38 03:38 WBC 12.0 H 11.2 H RBC 4.40 4.67 Hgb 14.1 14.8 Hct 42.2 44.8 MCV 96 96 MCH 32.1 31.6 MCHC 33.4 33.0 RDW 13.3 13.3 Plt Count 180 186 Seg Neutrophils % Not Reportable Not Reportable Lymphocytes % Not Reportable Not Reportable Monocytes % Not Reportable Not Reportable Eosinophils % Not Reportable Not Reportable Basophils % Not Reportable Not Reportable Absolute Neutrophils Not Reportable Not Reportable Absolute Lymphocytes Not Reportable Not Reportable Absolute Monocytes Not Reportable Not Reportable Absolute Eosinophils Not Reportable Not Reportable Absolute Basophils Not Reportable Not Reportable Sodium 144.8 Potassium 3.2 L Chloride 111 H Carbon Dioxide 22 Anion Gap 12 BUN 29 H Creatinine 0.58 Est GFR ( Amer) > 60 Est GFR (Non-Af Amer) > 60 Glucose 88 Calcium 7.7 L 09/30/16 00:10 Sputum Gram Stain - Final 09/30/16 00:10 Sputum Sputum Culture - Final Escherichia Coli Klebsiella Pneumoniae Normal Selene Absent 09/27/16 22:46 Troponin I 0.035 Impressions: Chest/Abdomen CTA 09/27/16 00:00 IMPRESSION: No evidence for pulmonary embolic disease. Bilateral airspace consolidation in the lower lobes which could represent atelectatic changes or pneumonic consolidations. Other findings as noted above Acute Abdomen Series 09/27/16 11:55 IMPRESSION: Small bowel obstruction with diffuse distention of small bowel loops out of proportion to colon Chest X-Ray 09/27/16 16:26 IMPRESSION: NO ACUTE RADIOGRAPHIC FINDING IN THE CHEST. KUB X-Ray 10/01/16 07:00 IMPRESSION: Persistent dilated small bowel loops worrisome for small bowel obstruction. Assessment & Plan - Diagnosis (1) Small bowel obstruction Is this a current diagnosis for this admission?: YesPlan: The patient continues to have flatus. Patient's small bowel obstruction is being managed by surgery. The patient is in the process of getting a small bowel series in radiology. Will follow surgery's recommendations. (2) Acute respiratory failure with hypoxemia Is this a current diagnosis for this admission?: YesPlan: Patient is more short of breath today. (3) Aspiration pneumonia Qualifiers: Aspiration pneumonia type: unspecified Laterality: bilateral Lung location: lower lobe of lung Qualified Code(s): J69.0 - Pneumonitis due to inhalation of food and vomit Is this a current diagnosis for this admission?: YesPlan: The patient is currently on Flagyl, Rocephin. (4) Atrial fibrillation Qualifiers: Atrial fibrillation type: persistent Qualified Code(s): I48.1 - Persistent atrial fibrillation Is this a current diagnosis for this admission?: YesPlan: Patient currently is rate controlled. Cardiology is managing his antiarrhythmics (5) Congestive heart failure Qualifiers: Congestive heart failure type: diastolic Congestive heart failure chronicity: chronic Qualified Code(s): I50.32 - Chronic diastolic ( congestive) heart failure Is this a current diagnosis for this admission?: YesPlan: He is euvolemic. (6) Hypertension Qualifiers: Hypertension type: essential hypertension Qualified Code(s): I10 - Essential (primary) hypertension Is this a current diagnosis for this admission?: YesPlan: His blood pressure is stable. He is on diltiazem. (7) Hypokalemia Is this a current diagnosis for this admission?: YesPlan: We'll give IV potassium. (8) Hypothyroidism Qualifiers: Hypothyroidism type: unspecified Qualified Code(s): E03.9 - Hypothyroidism, unspecified Is this a current diagnosis for this admission?: YesPlan: We'll start him on IV Synthroid this may be contributing to some of his bowel problems. (9) Renal insufficiency Is this a current diagnosis for this admission?: YesPlan: Patient's creatinine has returned to normal. - Time Time Spent with patient: 25-34 minutes - Inpatient Certification Medical Necessity: Need For IV Fluids, Need for IV Antibiotics
[2016-10-02 10:47] LABS: HEMATOCRIT 53.7 % (37.9-51.0); HGB HCT DIFFERENCE -1.8; MEAN CORPUSCULAR HEMOGLOBIN 29.7 pg (27.0-33.4); MEAN CORPUSCULAR HGB CONC 32.1 g/dL (32.0-36.0); MEAN CORPUSCULAR VOLUME 93 fl (80-97); RED BLOOD COUNT 5.81 10^6/uL (4.35-5.55); RED CELL DISTRIBUTION WIDTH 13.8 % (11.5-14.0)
[2016-10-02 11:21] LABS: HEMOGLOBIN 17.3 g/dL (13.5-17.0)
[2016-10-02] MEDS ORDERED: LEVOTHYROXINE SODIUM INJ/PF 0.1 MG SDV IV ONE (11:30)
[2016-10-02] MEDS ORDERED: FUROSEMIDE INJ/PF 40 MG/4 ML SDV IV ONE (11:45)
[2016-10-02 12:38] LABS: ARTERIAL BLOOD BASE EXCESS -4.4 mmol/L; ARTERIAL BLOOD O2 SATURATION 89.6 % (94-98)
[2016-10-02 12:44] LABS: HEMOGLOBIN 15.8 g/dL (13.5-17.0); HGB HCT DIFFERENCE -1.6; MEAN CORPUSCULAR HEMOGLOBIN 30.1 pg (27.0-33.4); MEAN CORPUSCULAR HGB CONC 32.2 g/dL (32.0-36.0); MEAN CORPUSCULAR VOLUME 93 fl (80-97); RED BLOOD COUNT 5.26 10^6/uL (4.35-5.55); RED CELL DISTRIBUTION WIDTH 13.4 % (11.5-14.0); WHITE BLOOD COUNT 14.8 10^3/uL (4.0-10.5)
--- NOTE | 2016-10-02 12:48 | PROGRESS NOTE E ---
Progress Note NAME: GRECIA MARTI : 1930 AGE: 85Y DATE: ROOM: 303 SUBJECTIVE: The patient states he is still coughing but his shortness of breath is much better. He still has an NG tube and there is some slight distention of a stoma with slightly decreased bowel sounds. He denies any nausea or vomiting. He still is coughing up brownish sputum. He has no chest pain or discomfort. There is no PND or orthopnea. There is no leg edema. He continues to be in atrial fibrillation and is on Cardizem infusion at 10 mg/hour and also full dose IV heparin adjusted by the PTT. There is no TIA or CVA symptoms. There is no bleeding on current anticoagulation. OBJECTIVE: GENERAL: On examination the patient is of slim build, looks a little ill chronically. VITAL SIGNS: He is afebrile with a temperature of 98.2 degrees Fahrenheit. Pulse is 97 beats per minute, blood pressure is 123/69, respirations are 20 per minute, O2 sats are 92% on 5 liters nasal cannula. HEENT: Head is atraumatic, normocephalic. Eyes: Pupils are equal, round, regular, reactive to light and accommodation. Extraocular movements are normal. There is no scleral icterus. There is no conjunctival pallor. ENT is negative. NECK: Supple. Carotids are equal. There is no bruit. There is no JVD. There is no lymphadenopathy. There is no goiter. Trachea is central. LUNGS: Show dry crackles in both of the bases. There are no rales or CHF. There is no rhonchi or wheezing. CARDIOVASCULAR: S1, S2 are heard. There is no S3 gallop. There is variable S1 intensity. There is no S4 gallop. A systolic murmur is present at the left sternal border and the apex. There is murmur of mild mitral regurgitation present. There is no rub. ABDOMEN: Soft, mildly distended. NG tube is still draining. There is no hepatosplenomegaly. Bowel sounds are slightly diminished. There is no rebound, guarding or rigidity. EXTREMITIES: Pulses are diminished, there are no femoral bruits. Leg pulses are diminished. There is no pedal edema. There is no DVT or cellulitis. There is no calf tenderness. 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 PSYCHIATRIC: The patient's judgment and insight are intact. His affect is normal. The patient's 24-hour intake is 569 mL, output is 1600 mL. LABORATORY DATA: The patient's white count is 11,300, hemoglobin is 14.0, hematocrit is 43.5, platelet count is 166,000. The patient's sodium has come down to 146.7, his potassium is still low at 3.2, his chloride is 113, his *------* is 30, CO2 is 24, BUN is 31, creatinine is 0.64 and GFR is greater than 60. His calcium is 7.9. His APTT is 62.1. The patient's KUB shows that there is an NG tube decompressing the stomach. There is mildly distended small bowel loops in the central mid abdomen, unchanged over in 09/2016. Findings are worrisome for persistent small bowel obstruction. No suspicion for calcification. No other significant finding. ASSESSMENT: 1. Small bowel obstruction, seems to be still persistent, but the patient seems to be slightly improved. Note to keep in mind that IV Cardizem can cause and hence, would try to switch to a beta-deniz as quickly as possible. 2. Atrial fibrillation at present with controlled ventricular response. Start patient on Cardizem and full dose IV heparin. 3. Acute respiratory failure and hypoxemia, most likely secondary to aspiration pneumonia. This hypoxemia seems to have improved. 4. Aspiration pneumonia bilateral lower lobes. 5. Patient does not have any more hypotension. 6. Hypokalemia, which is being replaced. 7. Hypernatremia, which seems to be improving. PLAN: Would replace the patient's potassium. Continue IV Cardizem and IV heparin. Would like to take the IV Cardizem off as quickly as possible and switch to a beta deniz. The patient is being followed by the surgeon for small bowel obstruction. The patient's O2 saturation has improved to 93% on 5 liters. Would continue the patient's antibiotics. Would also repeat the patient's chest x-ray in the a.m. Would continue antibiotics. NOTE: Thirty minutes were spent on this patient, more than 50% of the time was spent on direct patient care, review of the patient's medications, and discussion with other physicians taking care of the patient. Note the patient is a full code. His is the surrogate health care decision maker. DICTATING PHYSICIAN: ROHIT VILLAFANA M.D. [id number] PHY#: [id number] ID: [id number] JOB#: [id number] ACCT: [id number] cc: >
[2016-10-02 13:31] LABS: BAND NEUTROPHILS % (MANUAL) 3 % (3-5); BASOPHILS % (MANUAL) 0 % (0-2); EOSINOPHILS % (MANUAL) 0 % (0-6); LYMPHOCYTES % (MANUAL) 4 % (13-45); PLATELET CLUMPS PRESENT; TOTAL CELLS COUNTED 100
[2016-10-02 13:32] LABS: POLYCHROMASIA SLIGHT; TOXIC GRANULATION 1+; TOXIC VACUOLATION PRESENT
[2016-10-02] MEDS ORDERED: CALCIUM GLUCONATE 1,000 MG in DEXTROSE 5%-WATER 50 ML IV ONE (13:48)
[2016-10-02] MEDS ORDERED: CALCIUM GLUCONATE 1000 MG/10 ML INJ IV ONE ×2 (14:00→15:00)
[2016-10-02] MEDS: ESMOLOL HCL/SOD CL 250 ML IV PRN (14:21)
--- NOTE | 2016-10-02 15:42 | PDOC PROGRESS REPORT ---
Subjective Progress Note for:: 10/02/16 Subjective:: Had no nausea vomiting overnight, however when contrast was given this morning had nausea and vomited. Probable aspiration. -BM. Reported flatus earlier to hospitalist but denies now. Physical Exam Vital Signs: Temp Pulse Resp BP Pulse Ox 98.3 F 107 H 25 H 125/74 92 10/02/16 11:24 10/02/16 14:00 10/02/16 14:00 10/02/16 14:00 10/02/16 14:00 Intake & Output 10/01/16 10/02/16 10/03/16 06:59 06:59 06:59 Intake Total 569 5600 0 Output Total 1600 1100 Balance -1031 4500 0 Weight 75.2 kg 75.7 kg General appearance: PRESENT: mild distress - Still nauseated and looking uncomfortable Head exam: PRESENT: normocephalic Eye exam: PRESENT: EOMI GI/Abdominal exam: PRESENT: distended, soft, other - Distended but completely nontender. No bowel sounds. NG tube is checked and is working. Putting out dark bilious with what appears to be tint of blood.. ABSENT: tenderness Neurological exam: PRESENT: alert, oriented to situation Results Laboratory Results: 10/02/16 12:35 10/02/16 03:38 10/01/16 10/02/16 10/02/16 22:55 03:38 03:38 WBC 12.0 H 11.2 H RBC 4.40 4.67 Hgb 14.1 14.8 Hct 42.2 44.8 MCV 96 96 MCH 32.1 31.6 MCHC 33.4 33.0 RDW 13.3 13.3 Plt Count 180 186 Seg Neutrophils % Not Reportable Not Reportable Lymphocytes % Not Reportable Not Reportable Monocytes % Not Reportable Not Reportable Eosinophils % Not Reportable Not Reportable Basophils % Not Reportable Not Reportable Absolute Neutrophils Not Reportable Not Reportable Absolute Lymphocytes Not Reportable Not Reportable Absolute Monocytes Not Reportable Not Reportable Absolute Eosinophils Not Reportable Not Reportable Absolute Basophils Not Reportable Not Reportable Carbonic Acid HCO3/H2CO3 Ratio ABG pH ABG pCO2 ABG pO2 ABG HCO3 ABG O2 Saturation ABG Base Excess FiO2 Sodium 144.8 Potassium 3.2 L Chloride 111 H Carbon Dioxide 22 Anion Gap 12 BUN 29 H Creatinine 0.58 Est GFR ( Amer) > 60 Est GFR (Non-Af Amer) > 60 Glucose 88 Calcium 7.7 L 10/02/16 10/02/16 10/02/16 10:40 11:42 12:35 WBC 14.0 H 14.8 H RBC 5.81 H 5.26 Hgb 17.3 H D 15.8 Hct 53.7 H 49.0 MCV 93 93 MCH 29.7 30.1 MCHC 32.1 32.2 RDW 13.8 13.4 Plt Count 205 215 Seg Neutrophils % Not Reportable Lymphocytes % Not Reportable Monocytes % Not Reportable Eosinophils % Not Reportable Basophils % Not Reportable Absolute Neutrophils Not Reportable Absolute Lymphocytes Not Reportable Absolute Monocytes Not Reportable Absolute Eosinophils Not Reportable Absolute Basophils Not Reportable Carbonic Acid 0.73 L HCO3/H2CO3 Ratio 23:1 ABG pH 7.46 H ABG pCO2 24.4 L ABG pO2 52.2 L ABG HCO3 17.1 L ABG O2 Saturation 89.6 L ABG Base Excess -4.4 FiO2 100% Sodium Potassium Chloride Carbon Dioxide Anion Gap BUN Creatinine Est GFR ( Amer) Est GFR (Non-Af Amer) Glucose Calcium 09/30/16 00:10 Sputum Gram Stain - Final 09/30/16 00:10 Sputum Sputum Culture - Final Escherichia Coli Klebsiella Pneumoniae Normal Selene Absent 09/27/16 10/02/16 22:46 10:40 Troponin I 0.035 NT-Pro-B Natriuret Pep 1790 H Impressions: Chest/Abdomen CTA 09/27/16 00:00 IMPRESSION: No evidence for pulmonary embolic disease. Bilateral airspace consolidation in the lower lobes which could represent atelectatic changes or pneumonic consolidations. Other findings as noted above Acute Abdomen Series 09/27/16 11:55 IMPRESSION: Small bowel obstruction with diffuse distention of small bowel loops out of proportion to colon KUB X-Ray 10/01/16 07:00 IMPRESSION: Persistent dilated small bowel loops worrisome for small bowel obstruction. Chest X-Ray 10/02/16 00:00 IMPRESSION: Bibasilar airspace opacities, similar to slightly progressed comparison the prior study. Contrast noted within the lumen of the stomach. Upper GI and Small Bowel X-Ray 10/02/16 07:00 IMPRESSION: Unable to control 0 bolus of thin liquids contrast. Subglottic aspiration of Isovue-300. Gastrografin was instilled into the stomach. There is no gastric outlet obstruction. Small hiatal hernia with reflux. Normal pylorus and duodenum. Jejunum is diffusely distended, with poor peristalsis and no significant antegrade motion of contrast over 3 hour observation. At the 2 hour rodney, the stomach was emptied because of GE reflux and aspiration risk. Assessment & Plan - Diagnosis (1) Small bowel obstruction Is this a current diagnosis for this admission?: YesPlan: Spoke with Dr. Gee yesterday and today. Obstruction versus ileus. Plan is to transfer to ICU and attempt IV medication for A. fib control. Question whether oral meds, specifically Cardizem, contributing to ileus. Upper GI small bowel follow-through showed little to no peristalsis and no antegrade motion of contrast over 3 hours. Stopping famotidine and restarting pantoprazole 40 mg twice a day IV. Discussed increased white blood count with the patient, patient 's family and Dr. Gee. Likely due to aspiration pneumonia given complete lack of abdominal pain.
--- NOTE | 2016-10-02 16:47 | Progress Note ---
Provider Note Provider Note: Checked on patient septum and in the ICU. Looks much more relaxed, no distress , no nausea, no vomiting. Reports he feels "100% better" than earlier today. NG tube functioning. Purged the sump.
[2016-10-02] MEDS: PANTOPRAZOLE SODIUM 40 MG VIAL IV SCH (18:46)
[2016-10-02] MEDS: CEFTRIAXONE 1 GM/D5W RTU 1 GM/50 ML RTUPB IV SCH (22:04)
[2016-10-02 22:53] LABS: HEMATOCRIT 42.6 % (37.9-51.0); HEMOGLOBIN 14.1 g/dL (13.5-17.0); HGB HCT DIFFERENCE -0.3; MEAN CORPUSCULAR HEMOGLOBIN 30.8 pg (27.0-33.4); MEAN CORPUSCULAR HGB CONC 33.1 g/dL (32.0-36.0); MEAN CORPUSCULAR VOLUME 93 fl (80-97); RED BLOOD COUNT 4.59 10^6/uL (4.35-5.55); RED CELL DISTRIBUTION WIDTH 13.4 % (11.5-14.0); WHITE BLOOD COUNT 15.3 10^3/uL (4.0-10.5)
--- NOTE | 2016-10-02 23:13 | PROGRESS NOTE E ---
Progress Note NAME: GRECIA MARTI : 1930 AGE: 85Y DATE: 10/02/2016 ROOM: 609 [facility] CARE NOTE SUBJECTIVE: Note that more than 40 minutes were spent on this patient, examining the patient, discussions with the radiologist, the surgicalist, and the medical attending physician of the patient and also discussions counseling the patient and the patient's and patient's son. Note that the patient went down for a Gastrografin study to assess why he has a problem with ileus. It seems that the patient when he had the Gastrografin, he aspirated a little bit and he came upstairs and had a one-hour KUB done. This showed that there was still no Gastrografin in the gut, and the patient at this time started having coarse rales in both the lungs and also was short of breath and had to be placed on a nonrebreather with 89% O2 saturation on 15 L O2 delivery on nonrebreather. The patient also was having increasing abdominal distension but there was no pain or discomfort. Earlier he was passing some gas but not now. He was also trying to throw up some black colored fluid along with coughing up some stuff. The patient denies any chest pain, and he did complain of shortness of breath with accessory muscles of respirations in use. The patient seems to be in chronic atrial fibrillation. The ventricular response was increased to about 125 and the patient is on a Cardizem drip at 10 mg/hr. He denies any chest pain or discomfort. There was orthopnea but no PND. There is no leg edema. There are no TIA or CVA symptoms. OBJECTIVE: GENERAL: On examination, the patient is of slim build, looks a little ill chronically. VITAL SIGNS: He is afebrile with a temperature of 98.3 degrees Fahrenheit. Pulse is 125 beats per minute, blood pressure 131/67, respirations are 25 per minute with an O2 sat of 89% on nonrebreather. HEENT: Head is atraumatic, normocephalic. Eyes: Pupils are equal, round, regular, reactive to light and accommodation. Extraocular movements are normal. There is no scleral icterus. There is no conjunctival pallor. ENT is negative. NECK: Supple. Carotids are equal. There is no bruit. There is no JVD. There is no lymphadenopathy. There is no goiter. Trachea is central. There are accessory muscles of respiration in use. LUNGS: Show coarse crackles in both the lungs, especially in the upper part and a few dry crackles in both bases, right more than left. There are no rales or CHF. There is no rhonchi or wheezing. CARDIOVASCULAR: S1, S2 are heard. There is no S3 gallop. There is no S4 gallop. There is variable S1 intensity. A systolic murmur of mitral regurgitation is present. There is no rub. There is also a systolic murmur in the left sternal border. ABDOMEN: Soft, markedly distended, nontender. There is no rebound or rigidity and there is no hepatosplenomegaly. Bowel sounds are absent. There is no guarding. The patient does have some nausea. EXTREMITIES: Pulses are diminished. There are no femoral bruits. Leg pulses are diminished. There is no pedal edema. There is no DVT or cellulitis. There is no calf tenderness. POLYSOMNOGRAPHY TECHNICIAN: The patient is conscious, awake, slightly drowsy but oriented x3 with no focal deficit. PSYCHIATRIC: The patient does not appear to be agitated. LABORATORY DATA: The patient's white count is 14,000, hemoglobin is 17.3, hematocrit is 43.7, and the platelet count is 205,000. The patient's sodium is 144.8, potassium is 3.2, chloride is 113, CO2 is 22. The patient's BUN is 29, creatinine is 0.58 and GFR is greater than 60. The patient's glucose is 88, calcium is 7.7. His NT-proBNP is 1790. His ABG showed pH 7.46, PO2 of 52.2 on 100% with a PCO2 of 24.4. The patient's PTT was 37.9. Note that the patient is on IV Cardizem drip at 10 mg/hr. He is on Synthroid replacement intravenously and he is also on albuterol nebulizer treatment. He is also on IV fluids and metronidazole intravenously and also ceftriaxone intravenously. He did receive 40 mg of Lasix IV x1. Note that KUB shows after one hour that there is still no Gastrografin in the gut. His chest x-ray shows cardiac size is stable. There is no CHF. There is bibasilar consolidation noted, right greater than left. There is significant effusion. Note that upper GI/small bowel study with Gastrografin showed that the jejunum is diffusely distended with poor peristalsis and no significant antegrade motion of the contrast over 3 hours' observation. At the two hour rodney, the stomach was emptied because of the gastroesophageal reflux and aspiration risk. The patient's 24-hour intake is 5600 mL, output is 1100 mL. IMPRESSION: 1. MOST LIKELY THE PATIENT HAS ILEUS (ADYNAMIC). It seems less likely that this is an small bowel obstruction since the patient has no tenderness. 2. ATRIAL FIBRILLATION AT PRESENT WITH VENTRICULAR RESPONSE BEING FAST DUE TO THE PATIENT'S RESPIRATORY CONDITION. 3. ACUTE RESPIRATORY FAILURE AND HYPOXEMIA, MOST LIKELY SECONDARY TO ASPIRATION PNEUMONIA. This has worsened because of the patient's aspiration of Gastrografin this morning. 4. BIBASILAR CONSOLIDATION/PNEUMONIA, RIGHT GREATER THAN LEFT. 5. NO EVIDENCE OF CONGESTIVE HEART FAILURE. 6. HYPOKALEMIA, WHICH IS BEING REPLACED. Note that the patient's sodium has come back to normal level. RECOMMENDATIONS: There are rare instances where intravenous Cardizem can cause paralysis, but the cause of the ileus is still not very clear but does not seem to be an acute abdomen. The increased leukocytosis may be due to the patient's pneumonia, since the patient's abdominal exam is *------*. Hence, after discussions with the hospitalist and the surgicalist and the family being informed of the plan, it was decided to ship the patient to ICU, continue him on oxygen as needed to keep his saturations up and also stop the patient's Cardizem and start the patient on IV esmolol. In view of the patient's heart rate being slightly better in the ICU, esmolol was started without a loading bolus. Also would continue all his other medications. Note that the heparin has been held for now. Later the patient was seen to be better and since the patient was on NG tube suction, the abdominal distension was much improved and there is questionable decreased bowel sounds, but they were better than what was examined in the morning where the patient had no bowel sounds. He also looked clinically better, his blood pressure was stable and his heart rate was 95 beats per minute. Blood pressure was 117/67. His respiratory rate was 23 and the patient was able to get off the nonrebreather and his O2 sat was 97% after nonrebreather. Discussed with the patient and the patient's family in the ICU again and also discussed with the hospitalist taking care of the patient and also the surgicalist. Will see if this strategy improves the patient's ileus. Will follow with you. This is a very complex case that required several discussion, and several viewpoints in medical management was discussed between the surgicalist, the hospitalist and the party plan salesperson, and treatment plan was devised. We will closely watch the patient. Thanking you. DICTATING PHYSICIAN: ROHIT VILLAFANA M.D. [id number] PHY#: [id number] ID: [id number] JOB#: [id number] ACCT: [id number] cc: >
[2016-10-03] MEDS: ESMOLOL HCL/SOD CL 250 ML IV PRN ×3 (00:14→22:42)
[2016-10-03] MEDS ORDERED: METRONIDAZOLE 500 MG/NS RTU 0 ML IV ONE (01:59)
[2016-10-03] MEDS: METRONIDAZOLE 500 MG/NS RTU 250 MG in CONTAINER,EMPTY 1 EACH IV SCH (02:22)
[2016-10-03 04:43] LABS: HEMATOCRIT 43.1 % (37.9-51.0); HEMOGLOBIN 14.1 g/dL (13.5-17.0); HGB HCT DIFFERENCE -0.8; MEAN CORPUSCULAR HEMOGLOBIN 31.5 pg (27.0-33.4); MEAN CORPUSCULAR HGB CONC 32.7 g/dL (32.0-36.0); MEAN CORPUSCULAR VOLUME 96 fl (80-97); RED BLOOD COUNT 4.47 10^6/uL (4.35-5.55); RED CELL DISTRIBUTION WIDTH 13.3 % (11.5-14.0); WHITE BLOOD COUNT 12.7 10^3/uL (4.0-10.5)
[2016-10-03 04:44] LABS: ANION GAP 13 (5-19); BLOOD UREA NITROGEN 32 mg/dL (7-20); CARBON DIOXIDE 20 mmol/L (22-30); CHLORIDE 111 mmol/L (98-107); CREATININE RESULT 0.67 mg/dL (0.52-1.25); GLUCOSE 96 mg/dL (75-110); POTASSIUM 3.6 mmol/L (3.6-5.0)
[2016-10-03 05:02] LABS: BAND NEUTROPHILS % (MANUAL) 1 % (3-5); BASOPHILS % (MANUAL) 0 % (0-2); EOSINOPHILS % (MANUAL) 0 % (0-6); LYMPHOCYTES % (MANUAL) 2 % (13-45); TOTAL CELLS COUNTED 100
[2016-10-03 05:03] LABS: RBC MORPHOLOGY COMMENT NORMO-CYTIC/CHROMIC; TOXIC GRANULATION 1+; TOXIC VACUOLATION PRESENT
[2016-10-03] MEDS ORDERED: PANTOPRAZOLE SODIUM 40 MG VIAL IV ONE (05:51)
[2016-10-03] MEDS: PANTOPRAZOLE SODIUM 40 MG VIAL IV SCH ×2 (05:57→19:05)
[2016-10-03] MEDS: 1/2 NORMAL SALINE 1,000 ML IV PRN ×2 (05:57→23:58)
[2016-10-03] MEDS: METRONIDAZOLE 500 MG/NS RTU 100 ML IV SCH ×2 (09:00→19:04)
[2016-10-03] MEDS ORDERED: FENTANYL CITRATE INJ/PF 250 MCG/5 ML AMPULE ONE ×2 (09:37→09:38)
[2016-10-03] MEDS ORDERED: MORPHINE SULFATE 10 MG/ML INJ ONE (09:38)
[2016-10-03] MEDS ORDERED: PROPOFOL INJ 200 MG/20 ML VIAL IV ONE (09:38)
[2016-10-03] MEDS ORDERED: MIDAZOLAM 2 MG/2 ML INJ ONE (09:43)
--- NOTE | 2016-10-03 10:30 | PDOC PROGRESS REPORT ---
Subjective Progress Note for:: 10/03/16 Subjective:: Complains of right lower quadrant pain. Physical Exam Vital Signs: Temp Pulse Resp BP Pulse Ox 97.9 F 149 H 19 123/68 96 10/03/16 08:52 10/03/16 08:52 10/03/16 08:52 10/03/16 08:05 10/03/16 08:52 Intake & Output 10/02/16 10/03/16 10/04/16 06:59 06:59 06:59 Intake Total 5600 3162 Output Total 1100 2500 50 Balance 4500 662 -50 Weight 75.7 kg 69.4 kg General appearance: PRESENT: mild distress Eye exam: PRESENT: conjunctiva pink. ABSENT: scleral icterus Mouth exam: PRESENT: moist, tongue midline Neck exam: ABSENT: JVD Respiratory exam: PRESENT: rhonchi - Coarse rhonchi bilaterally. Cardiovascular exam: PRESENT: irregular rhythm, tachycardia GI/Abdominal exam: PRESENT: tenderness - Right lower quadrant tenderness with some mild guarding. Extremities exam: ABSENT: calf tenderness, clubbing, pedal edema Neurological exam: PRESENT: alert, awake, oriented to person, oriented to place , oriented to time, oriented to situation Psychiatric exam: PRESENT: appropriate affect Skin exam: PRESENT: dry, intact, warm. ABSENT: cyanosis, rash Results Laboratory Results: 10/03/16 03:53 10/03/16 03:53 10/02/16 10/02/16 10/02/16 10:40 11:42 12:35 WBC 14.0 H 14.8 H RBC 5.81 H 5.26 Hgb 17.3 H D 15.8 Hct 53.7 H 49.0 MCV 93 93 MCH 29.7 30.1 MCHC 32.1 32.2 RDW 13.8 13.4 Plt Count 205 215 Seg Neutrophils % Not Reportable Lymphocytes % Not Reportable Monocytes % Not Reportable Eosinophils % Not Reportable Basophils % Not Reportable Absolute Neutrophils Not Reportable Absolute Lymphocytes Not Reportable Absolute Monocytes Not Reportable Absolute Eosinophils Not Reportable Absolute Basophils Not Reportable Carbonic Acid 0.73 L HCO3/H2CO3 Ratio 23:1 ABG pH 7.46 H ABG pCO2 24.4 L ABG pO2 52.2 L ABG HCO3 17.1 L ABG O2 Saturation 89.6 L ABG Base Excess -4.4 FiO2 100% Sodium Potassium Chloride Carbon Dioxide Anion Gap BUN Creatinine Est GFR ( Amer) Est GFR (Non-Af Amer) Glucose Calcium 10/02/16 10/02/16 10/03/16 21:57 22:45 03:53 WBC Cancelled 15.3 H 12.7 H RBC Cancelled 4.59 4.47 Hgb Cancelled 14.1 14.1 Hct Cancelled 42.6 43.1 MCV Cancelled 93 96 MCH Cancelled 30.8 31.5 MCHC Cancelled 33.1 32.7 RDW Cancelled 13.4 13.3 Plt Count Cancelled 202 203 Seg Neutrophils % Not Reportable Lymphocytes % Not Reportable Monocytes % Not Reportable Eosinophils % Not Reportable Basophils % Not Reportable Absolute Neutrophils Not Reportable Absolute Lymphocytes Not Reportable Absolute Monocytes Not Reportable Absolute Eosinophils Not Reportable Absolute Basophils Not Reportable Carbonic Acid HCO3/H2CO3 Ratio ABG pH ABG pCO2 ABG pO2 ABG HCO3 ABG O2 Saturation ABG Base Excess FiO2 Sodium Potassium Chloride Carbon Dioxide Anion Gap BUN Creatinine Est GFR ( Amer) Est GFR (Non-Af Amer) Glucose Calcium 10/03/16 03:53 WBC RBC Hgb Hct MCV MCH MCHC RDW Plt Count Seg Neutrophils % Lymphocytes % Monocytes % Eosinophils % Basophils % Absolute Neutrophils Absolute Lymphocytes Absolute Monocytes Absolute Eosinophils Absolute Basophils Carbonic Acid HCO3/H2CO3 Ratio ABG pH ABG pCO2 ABG pO2 ABG HCO3 ABG O2 Saturation ABG Base Excess FiO2 Sodium 144.0 Potassium 3.6 Chloride 111 H Carbon Dioxide 20 L Anion Gap 13 BUN 32 H Creatinine 0.67 Est GFR ( Amer) > 60 Est GFR (Non-Af Amer) > 60 Glucose 96 Calcium 8.0 L 09/30/16 00:10 Sputum Gram Stain - Final 09/30/16 00:10 Sputum Sputum Culture - Final Escherichia Coli Klebsiella Pneumoniae Normal Selene Absent 09/27/16 10/02/16 22:46 10:40 Troponin I 0.035 NT-Pro-B Natriuret Pep 1790 H Impressions: Chest/Abdomen CTA 09/27/16 00:00 IMPRESSION: No evidence for pulmonary embolic disease. Bilateral airspace consolidation in the lower lobes which could represent atelectatic changes or pneumonic consolidations. Other findings as noted above Acute Abdomen Series 09/27/16 11:55 IMPRESSION: Small bowel obstruction with diffuse distention of small bowel loops out of proportion to colon KUB X-Ray 10/01/16 07:00 IMPRESSION: Persistent dilated small bowel loops worrisome for small bowel obstruction. Chest X-Ray 10/02/16 00:00 IMPRESSION: Bibasilar airspace opacities, similar to slightly progressed comparison the prior study. Contrast noted within the lumen of the stomach. Upper GI and Small Bowel X-Ray 10/02/16 07:00 IMPRESSION: Unable to control 0 bolus of thin liquids contrast. Subglottic aspiration of Isovue-300. Gastrografin was instilled into the stomach. There is no gastric outlet obstruction. Small hiatal hernia with reflux. Normal pylorus and duodenum. Jejunum is diffusely distended, with poor peristalsis and no significant antegrade motion of contrast over 3 hour observation. At the 2 hour rodney, the stomach was emptied because of GE reflux and aspiration risk. Assessment & Plan - Diagnosis (1) Small bowel obstruction Is this a current diagnosis for this admission?: YesPlan: The patient has had worsening of his pain and has stopped passing flatus. Given that he has worsening right lower quadrant pain is concerned that he may need surgical intervention. Patient is being followed by surgery and will follow their recommendations. We'll continue with the antibiotics. (2) Acute respiratory failure with hypoxemia Is this a current diagnosis for this admission?: YesPlan: Patient is short of breath and was given Lasix yesterday with some slight improvement in his breathing. (3) Aspiration pneumonia Qualifiers: Aspiration pneumonia type: unspecified Laterality: bilateral Lung location: lower lobe of lung Qualified Code(s): J69.0 - Pneumonitis due to inhalation of food and vomit Is this a current diagnosis for this admission?: YesPlan: The patient is currently on Flagyl, Rocephin. (4) Atrial fibrillation Qualifiers: Atrial fibrillation type: persistent Qualified Code(s): I48.1 - Persistent atrial fibrillation Is this a current diagnosis for this admission?: YesPlan: Patient was moved to the intensive care unit yesterday so we can be put on an esmolol drip instead of Cardizem. There was concern that the Cardizem may be causing his small bowel structure to be worse. Cardiology is following. (5) Congestive heart failure Qualifiers: Congestive heart failure type: diastolic Congestive heart failure chronicity: chronic Qualified Code(s): I50.32 - Chronic diastolic ( congestive) heart failure Is this a current diagnosis for this admission?: YesPlan: Patient was given Lasix yesterday. (6) Hypertension Qualifiers: Hypertension type: essential hypertension Qualified Code(s): I10 - Essential (primary) hypertension Is this a current diagnosis for this admission?: YesPlan: His blood pressure is stable. Continue esmolol. (7) Hypokalemia Is this a current diagnosis for this admission?: YesPlan: Resolved. (8) Hypothyroidism Qualifiers: Hypothyroidism type: unspecified Qualified Code(s): E03.9 - Hypothyroidism, unspecified Is this a current diagnosis for this admission?: YesPlan: Continue Synthroid. (9) Renal insufficiency Is this a current diagnosis for this admission?: YesPlan: Patient's creatinine has returned to normal. - Time Time Spent with patient: 25-34 minutes - Inpatient Certification Medical Necessity: Need for IV Antibiotics, Need for Surgery - Plan Summary Plan Summary: Patient may need surgery today given his continued bowel obstruction. Will defer this decision to general surgery.
--- NOTE | 2016-10-03 11:38 | Brief Operative Note ---
BRIEF OPERATIVE REPORT DATE OF SURGERY: 10/03/16 TIME OF SURGERY: 10:00 PREOPERATIVE DIAGNOSIS: Small Bowel Obstruction POSTOPERATIVE DIAGNOSIS: Closed Loop Obstruction with Ischemic Segment of Distal Ileum, secondary to Adhesive Band. SURGEON: JESUS MORGAN 1ST CUSTOMER EXPERIENCE RETAIL CLERK: Anthony Antunez FINDINGS: Closed Loop Obstruction with Ischemic Segment of Distal Ileum, secondary to Adhesive Band. COMPLICATIONS: None ESTIMATED BLOOD LOSS: 10 cc. TISSUE REMOVED OR ALTERED: 15 cm. of distal ileum TECHNICAL PROCEDURE: See Operative Report
[2016-10-03] MEDS ORDERED: ONDANSETRON HCL INJ/PF 4 MG/2 ML SDV IV PRN (11:40)
[2016-10-03] MEDS ORDERED: DIGOXIN INJ 0.5 MG/2 ML AMPULE ONE ×2 (11:51→12:22)
[2016-10-03] MEDS ORDERED: METOPROLOL TARTRATE PF/INJ 5 MG/5 ML SDV IV ONE (11:52)
[2016-10-03] MEDS ORDERED: PROPOFOL 100 ML IV ONE (12:12)
--- NOTE | 2016-10-03 12:23 | OPERATIVE REPORT E ---
Operative Report NAME: GRECIA MARTI : 1930 AGE: 85Y DATE OF SURGERY: 10/03/2016 ROOM: 609 PREOPERATIVE DIAGNOSIS: Small bowel obstruction. POSTOPERATIVE DIAGNOSIS: Small bowel obstruction secondary to closed loop obstruction with ischemic segment of distal ileum secondary to a single adhesive band. PROCEDURE: Exploratory laparotomy with small bowel obstruction and segmental ileal resection and lysis of adhesions. SURGEON: JESUS MORGAN M.D. ANESTHESIA: General. REPLACEMENT: Crystalloids. DRAINS: None. COMPLICATIONS: None. CONDITION: Stable. FINDINGS: The patient had a closed loop obstruction of the mid to distal ileum secondary to an adhesive band causing closed loop obstruction and ischemic changes. The patient is status post segmental small bowel resection by me 9 months ago. At that time he was found to have ischemic bowel and gangrenous bowel as a result of closed loop obstruction. Patient now returns with a similar clinical picture and clinical findings in the operating room. INDICATIONS FOR PROCEDURE: This is an 85-year-old male well known to me as noted above who presents with small bowel obstruction. The patient was admitted 7 days ago for small bowel obstruction. The patient was treated with NG tube decompression, and at that time he was admitted with atrial fibrillation with RVR. The patient was placed on Cardizem drip. He was found to also be hypokalemic, which was corrected, and the patient was on NG tube suction and has been observed. The patient underwent a small bowel series the day before yesterday but aspirated, but there was no antegrade progression of the contrast, and this morning when he developed pain and tachycardia it was decided to take him to the operating room. PROCEDURE: The patient was brought to the operating room suite and placed in the supine position on the operating room table. Monitoring devices were attached. IV sedation was administered followed by the induction of general endotracheal anesthesia. The patient's abdomen was then prepped and draped in the usual sterile manner, and then a time out was achieved. After all concurred, a midline incision was made and the previous scar was excised from his surgery by me 9 months ago. We then excised the ellipse of skin and then the incision was made through the skin and the subcutaneous tissue down to the linea alba. The linea alba was divided. The peritoneum was opened and the abdominal cavity was entered. Upon entry to the abdominal cavity we noted an ischemic segment of ileum secondary to a closed loop obstruction. We then eviscerated this segment of bowel and noted the ischemic changes in the ileum. This amounted to approximately 15 cm of ischemic ileum. There was a single adhesive band going across the mesentery and causing closed loop obstruction. This adhesion was divided and the color of the small bowel improved somewhat. However, it was decided to resect this segment and an opening was made in the ileum just proximal to the ischemic area and the RUDDY was used to divide the ileum at this level. We then made an opening in the ileum just distal to the discoloration, and this was also divided using the RUDDY. After dividing the bowel we then divided the mesentery using the LigaSure and this segment of ischemic ileum was removed. We then lined up the ileum side by side and secured it with 3-0 silk. We then placed adjustable clamps on both the proximal and distal ends of the normal ileum and made an opening in the 2 ends to be used to make a [id number] anastomosis. After placing our adjustable clamps, we then made an opening in each segment of ileum at the antimesenteric border and then inserted the RUDDY and fired the RUDDY, causing a [id number] anastomosis. The opening was then closed using a TA-30 and this staple line was also oversewn using 3-0 silk. We then closed the defect in the mesentery using 2-0 Vicryl and then we irrigated the abdomen with copious amounts of normal saline. Once this was done and we were satisfied with our hemostasis, we approximated the fascia using #1 PDS and the skin was approximated using the skin robbie. The patient tolerated the procedure well. Sponge and instrument counts were correct. The patient was discharged to the PACU in stable condition. DICTATING PHYSICIAN: JESUS MORGAN M.D. [id number] PHY#: [id number] ID: [id number] JOB#: [id number] ACCT: [id number] cc:JESUS MORGAN M.D. >
[2016-10-03] MEDS ORDERED: DIGOXIN INJ 0.5 MG/2 ML AMPULE IV ONE (12:40)
[2016-10-03 13:40] LABS: HEMOGLOBIN 13.5 g/dL (13.5-17.0); HGB HCT DIFFERENCE -1.5; MEAN CORPUSCULAR HEMOGLOBIN 29.9 pg (27.0-33.4); MEAN CORPUSCULAR HGB CONC 32.2 g/dL (32.0-36.0); MEAN CORPUSCULAR VOLUME 93 fl (80-97); RED BLOOD COUNT 4.52 10^6/uL (4.35-5.55); RED CELL DISTRIBUTION WIDTH 13.4 % (11.5-14.0); WHITE BLOOD COUNT 17.3 10^3/uL (4.0-10.5)
[2016-10-03] MEDS ORDERED: ROCURONIUM BROMIDE INJ 50 MG/5 ML VIAL IV ONE (13:53)
[2016-10-03] MEDS ORDERED: ONDANSETRON HCL INJ/PF 4 MG/2 ML SDV ONE (13:53)
[2016-10-03] MEDS ORDERED: SUCCINYLCHOLINE CHLORIDE INJ 200 MG/10 ML VIAL ONE (13:53)
[2016-10-03] MEDS ORDERED: PHENYLEPHRINE HCL INJ/PF 10 MG/1 ML SDV ONE ×2 (13:53→17:38)
[2016-10-03] MEDS ORDERED: LIDOCAINE 2% INJ-PF (20 MG/ML) 10 ML AMPUL ONE (13:53)
[2016-10-03] MEDS: LEVOTHYROXINE SODIUM INJ/PF 0.1 MG SDV IV SCH (16:29)
[2016-10-03 17:19] LABS: ANION GAP 10 (5-19); BLOOD UREA NITROGEN 34 mg/dL (7-20); CALCIUM 7.1 mg/dL (8.4-10.2); CARBON DIOXIDE 19 mmol/L (22-30); CHLORIDE 114 mmol/L (98-107); CREATININE RESULT 0.82 mg/dL (0.52-1.25); GLUCOSE 90 mg/dL (75-110); MAGNESIUM 1.6 mg/dL (1.6-2.3); SODIUM 143.3 mmol/L (137-145)
[2016-10-03 17:28] LABS: HEMATOCRIT 44.6 % (37.9-51.0); HGB HCT DIFFERENCE -2.6; MEAN CORPUSCULAR HGB CONC 31.5 g/dL (32.0-36.0); MEAN CORPUSCULAR VOLUME 92 fl (80-97); RED BLOOD COUNT 4.85 10^6/uL (4.35-5.55); RED CELL DISTRIBUTION WIDTH 13.4 % (11.5-14.0)
[2016-10-03 17:40] LABS: BAND NEUTROPHILS % (MANUAL) 7 % (3-5); BASOPHILS % (MANUAL) 0 % (0-2); EOSINOPHILS % (MANUAL) 0 % (0-6); LYMPHOCYTES % (MANUAL) 1 % (13-45); TOTAL CELLS COUNTED 100
[2016-10-03 17:43] LABS: BURR CELLS 1+; TOXIC GRANULATION 1+
[2016-10-03 17:44] LABS: OVALOCYTES SLIGHT; PLATELET CLUMPS PRESENT
[2016-10-03 17:45] LABS: TOXIC VACUOLATION PRESENT
[2016-10-03] MEDS ORDERED: CALCIUM GLUCONATE 1000 MG/10 ML INJ IV ONE (20:18)
[2016-10-03] MEDS: CEFTRIAXONE 1 GM/D5W RTU 1 GM/50 ML RTUPB IV SCH (22:44)
[2016-10-03] MEDS: PROPOFOL 100 ML IV PRN (22:44)
--- NOTE | 2016-10-03 22:53 | OPERATIVE REPORT E ---
Operative Report NAME: GRECIA MARTI : 1930 AGE: 85Y DATE OF SURGERY: 10/03/2016 ROOM: 609 PREOPERATIVE DIAGNOSIS: Need for central venous access for vasopressor and fluid administration. POSTOPERATIVE DIAGNOSIS: Need for central venous access for vasopressor and fluid administration. OPERATION: Insertion of right internal jugular triple lumen catheter. SURGEON: JESUS MORGAN M.D. ANESTHESIA: Local with 1% Xylocaine. COMPLICATIONS: None. CONDITION: Stable. PROCEDURE: After consent was obtained, the patient's right neck was prepped and draped in the usual sterile manner. A local anesthesia was achieved and we attempted to access the external jugular vein initially, but this was unsuccessful. We then elected to access the internal jugular vein. After locating the vein with local anesthesia, the right internal jugular vein was accessed percutaneously with the flash of venous blood in syringe. The syringe was removed and the guidewire was passed through the needle without difficulty into the internal jugular vein, through the brachial cephalic and into the superior vena cava presumably. We then removed the needle and advanced the guidewire accordingly. No ectopy was noted. We then passed vein dilators over the guidewire. After this was done, using the sterile Seldinger technique, the triple lumen catheter was advanced over the guidewire and the guidewire was removed. We advanced the catheter to the 20 cm rodney and secured it at this location. We then flushed each lumen with saline and there was good antegrade and retrograde flow through each lumen. We then secured the catheter again with silk suture, and the procedure was terminated and portable chest x-ray has been requested. There are adequate breath sounds on the right chest post-insertion. DICTATING PHYSICIAN: JESUS MORGAN M.D. [id number] PHY#: [id number] ID: [id number] JOB#: [id number] ACCT: [id number] cc:JESUS MORGAN M.D. >
[2016-10-04] MEDS: METRONIDAZOLE 500 MG/NS RTU 100 ML IV SCH ×3 (02:50→17:28)
[2016-10-04] MEDS: ESMOLOL HCL/SOD CL 250 ML IV PRN ×6 (03:45→23:11)
--- NOTE | 2016-10-04 03:48 | PROGRESS NOTE E ---
Progress Note NAME: GRECIA MARTI : 1930 AGE: 85Y DATE: 10/03/2016 ROOM: 609 REASON FOR CRITICAL CARE: Due to the patient postoperatively having tachycardia with atrial fibrillation and hypotension. At least 40 minutes of critical care time was spent on this patient with more than 60% of the time on direct patient care, staying in the room and adjusting the patient's medications, and adding inotrope agent, see below, and also ordering labs. Of note, when I called the nurse at 7:30 this morning, she told me that the patient's heart rate was going up and he was having right lower quadrant pain and I thought that the surgicalist needs to know this because I thought that he might want to take him to the operating room. The nurse contacted Dr. Wallace, the surgicalist, who made for the patient to take the patient as soon as possible. I also discussed with Dr. Wallace and I fully agreed with Dr. Wallace and I told him that I would back him up if there should be any cardiac issues. After surgery, Dr. Wallace, the surgicalist, came and discussed with him that he found the patient had a small bowel obstruction secondary to closed loop obstruction with ischemic segment of distal ileum secondary to single adhesive band. The ischemic segment of the distal ileum regained pinkness as soon as he cut the adhesive band. In the meantime, I think due to early running out and waiting for the pharmacy to place the patient on esmolol, the patient in the ICU, his heart rate started going up. In the ICU, he was intubated and did not appear to be fighting the vent. The patient had atrial fibrillation with rapid ventricular response. Hence, his IV esmolol was restarted and due to blood pressure being low, the patient was given several doses of fluid. Then his IV fluids were changed to normal saline to 150 mL per hour from lactated ringer solution. There was no medical urgency. The patient had no leg edema. The patient seemed to be slightly edematous in the upper extremities. He was afebrile with a temperature of 96.3 Fahrenheit, pulse 152 beats per minute, blood pressure was initially 106/79, but subsequently his heart rate dropped into the 80s and sometimes 70s. Hence, later the patient was started on a small dose of Matt-Synephrine since that I felt vasopressin infusion would decrease the blood flow to the bowel. He was also given several fluid boluses. Subsequently, his blood pressure was in the high 80s to 90s. The patient was having slight decreased urine output. The patient was on a ventilator with FiO2 of 55%. His O2 saturations were 97%. OBJECTIVE: GENERAL: On examination, the patient was intubated, sedated. As mentioned, he was in atrial fibrillation with rapid ventricular response. HEENT: Head is atraumatic, normocephalic. Eyes: Pupils are equal, reactive to light. ENT is negative. NECK: Supple. There is no JVD. Carotids are equal. There are no bruits. There is no goiter. LUNGS: Show bibasilar coarse crackles, left greater than right with some areas of dullness in the lowest bases on both sides. The rest of the lungs were clear. CARDIOVASCULAR: S1 was heard with variable intensity. S2 was normal. There was no S3 gallop. There is no S4 gallop. There was a systolic murmur at left sternal border and apex. There was no rub. ABDOMEN: At present was soft. The dressing was dry. There is no hepatosplenomegaly. Bowel sounds absent. EXTREMITIES: Pulses are diminished. There are no femoral bruits. Leg pulses are diminished. There is no pedal edema. There is no DVT or cellulitis. There is no calf tenderness. PACKAGING ENGINEER/PSYCHIATRIC: Not examined. DATA: The monitor strip showed atrial fibrillation with rapid ventricular response. The patient's chest x-ray showed bilateral basilar pneumonia with some pleural fluid on both sides, but the left pneumonia was slightly greater than the right. The cardiac shadow was normal. There was no congestive heart failure. The patient's sodium earlier this morning was 144.0 and potassium was 3.6. Chloride was 111. The CO2 was 20 and BUN 32. The creatinine was 0.67. GFR greater than 60. His calcium was 8. His white count 7300, hemoglobin 13.5, hematocrit 42 and platelet count 207,000. IMPRESSION 1. Patient with small bowel obstructions status post surgery for this. 2. Atrial fibrillation with rapid ventricular response. 3. Hypotension. 4. Bibasilar pneumonia, at present stable. 5. No evidence of congestive heart failure. 6. Hypokalemia, resolved and back to normal. RECOMMENDATIONS: Continue esmolol. Increase *------* to keep the heart rate down. Continue IV fluids, would change to normal saline. Would recheck the patient's basic metabolic panel, along with magnesium and calcium later on. We will recheck the patient's EKG and cardiac enzymes in the a.m. Continue antibiotics. Continue ventilator support. I would given Digoxin p.r.n. as needed. Continue levothyroxine 0.05 IV daily. We will recheck the patient off and on while he is in the hospital. Of note, discussed the case with Dr. Wallace, the surgicalist and also the hospitalist covering the patient, and also discussed with the nurse the plan of care involved. Also discussed in detail with the family, which is the and the son, and I told them at present I am pretty sure that the patient's troponin-I would be elevated, but the patient's EKG despite the atrial fibrillation with rapid ventricular response, does not show any major ischemic changes. We will also recheck the patient later on as mentioned earlier. I will also recheck the patient's Digoxin level, his CBC, BMP, magnesium, ionized calcium and also recheck the patient's EKG, chest x-ray and get troponin-I in the a.m. Of note as mentioned earlier, the time spent. Subsequently I have seen the patient off and on, but stayed for at least 15 minutes later on since the patient's IV had blown and the patient has poor IV access and Dr. Wallace, the surgicalist, was consulted to place a central line. At the time of the patient not having any IV access, the beta deniz was stopped and also the patient's Matt-Synephrine, which had been started earlier on. To combat the hypotension state, the patient was placed on Trendelenburg. Earlier on, as mentioned, ionized calcium came low at 1.05 and the patient when he had an IV, did receive 1 gram of potassium gluconate and 100 mL of normal saline IV piggyback to run over 1/2 hour. Subsequently the patient's heart rate was still reading 118 and 132 and the blood pressure was in the 80s to 90s. As mentioned at time discussion with the physicians on the case. His physical examination was otherwise unremarkable and there was no ventricular arrhythmia. The diagnosis remained as earlier. Fifteen minutes were spent on the followup of the patient. DICTATING PHYSICIAN: ROHIT VILLAFANA M.D. [id number] PHY#: [id number] ID: [id number] JOB#: [id number] ACCT: [id number] cc: >
[2016-10-04 03:57] LABS: HEMATOCRIT 39.8 % (37.9-51.0); HEMOGLOBIN 13.1 g/dL (13.5-17.0); HGB HCT DIFFERENCE -0.5; MEAN CORPUSCULAR HEMOGLOBIN 30.1 pg (27.0-33.4); MEAN CORPUSCULAR HGB CONC 32.8 g/dL (32.0-36.0); MEAN CORPUSCULAR VOLUME 92 fl (80-97); RED BLOOD COUNT 4.34 10^6/uL (4.35-5.55); RED CELL DISTRIBUTION WIDTH 13.4 % (11.5-14.0); WHITE BLOOD COUNT 22.5 10^3/uL (4.0-10.5)
[2016-10-04 03:58] LABS: BASOPHILS % (MANUAL) 0 % (0-2); BURR CELLS SLIGHT; EOSINOPHILS % (MANUAL) 0 % (0-6); LYMPHOCYTES % (MANUAL) 4 % (13-45); OVALOCYTES SLIGHT; POIKILOCYTOSIS SLIGHT; POLYCHROMASIA SLIGHT; TOTAL CELLS COUNTED 100; TOXIC GRANULATION 1+
[2016-10-04 04:05] LABS: ANION GAP 9 (5-19); BLOOD UREA NITROGEN 38 mg/dL (7-20); CARBON DIOXIDE 17 mmol/L (22-30); CHLORIDE 116 mmol/L (98-107); CREATININE RESULT 0.89 mg/dL (0.52-1.25); GLUCOSE 109 mg/dL (75-110); POTASSIUM 4.2 mmol/L (3.6-5.0); SODIUM 142.2 mmol/L (137-145); TRIGLYCERIDES 80 mg/dL (<150)
[2016-10-04 04:20] LABS: CALCIUM 6.8 mg/dL (8.4-10.2)
[2016-10-04] MEDS: PANTOPRAZOLE SODIUM 40 MG VIAL IV SCH ×2 (06:23→17:28)
[2016-10-04 07:10] LABS: ARTERIAL BLOOD BASE EXCESS -6.9 mmol/L; ARTERIAL BLOOD O2 SATURATION 90.5 % (94-98)
[2016-10-04] MEDS: 1/2 NORMAL SALINE 1,000 ML IV PRN (09:40)
[2016-10-04] MEDS: PROPOFOL 100 ML IV PRN ×3 (09:40→19:31)
[2016-10-04] MEDS: LEVOTHYROXINE SODIUM INJ/PF 0.1 MG SDV IV SCH (09:41)
--- NOTE | 2016-10-04 10:09 | PDOC PROGRESS REPORT ---
Subjective Progress Note for:: 10/04/16 Subjective:: Patient is intubated and sedated. Physical Exam Vital Signs: Temp Pulse Resp BP Pulse Ox 98.9 F 115 H 22 H 97/67 L 92 10/04/16 07:43 10/04/16 07:43 10/04/16 07:43 10/04/16 07:43 10/04/16 09:31 Intake & Output 10/03/16 10/04/16 10/05/16 06:59 06:59 06:59 Intake Total 3162 28035 Output Total 0497 3965 Balance 662 8043 Weight 69.4 kg 79.6 kg Head exam: PRESENT: atraumatic, normocephalic Eye exam: PRESENT: conjunctiva pink. ABSENT: scleral icterus Ear exam: PRESENT: normal external ear exam Mouth exam: PRESENT: moist, tongue midline, other - ET tube in place Neck exam: PRESENT: JVD Respiratory exam: PRESENT: rales - Basilar rails. ABSENT: rhonchi, wheezes Cardiovascular exam: PRESENT: irregular rhythm, tachycardia GI/Abdominal exam: PRESENT: other - Abdominal binder in place Extremities exam: ABSENT: calf tenderness, clubbing, pedal edema Neurological exam: PRESENT: other - Intubated and sedated Psychiatric exam: PRESENT: other - Unable to assess Skin exam: PRESENT: dry, intact, warm, other - Surgical dressing over the abdominal area. ABSENT: cyanosis, rash Results Laboratory Results: 10/04/16 03:23 10/04/16 03:23 10/03/16 10/03/16 10/03/16 13:36 16:54 16:54 WBC 17.3 H 25.0 H RBC 4.52 4.85 Hgb 13.5 14.0 Hct 42.0 44.6 MCV 93 92 MCH 29.9 29.0 MCHC 32.2 31.5 L RDW 13.4 13.4 Plt Count 207 198 Seg Neutrophils % Not Reportable Lymphocytes % Not Reportable Monocytes % Not Reportable Eosinophils % Not Reportable Basophils % Not Reportable Absolute Neutrophils Not Reportable Absolute Lymphocytes Not Reportable Absolute Monocytes Not Reportable Absolute Eosinophils Not Reportable Absolute Basophils Not Reportable Carbonic Acid HCO3/H2CO3 Ratio ABG pH ABG pCO2 ABG pO2 ABG HCO3 ABG O2 Saturation ABG Base Excess FiO2 Sodium 143.3 Potassium 4.0 Chloride 114 H Carbon Dioxide 19 L Anion Gap 10 BUN 34 H Creatinine 0.82 Est GFR ( Amer) > 60 Est GFR (Non-Af Amer) > 60 Glucose 90 Calcium 7.1 L Ionized Calcium Herman Magnesium 1.6 Albumin Triglycerides 10/03/16 10/03/16 10/04/16 16:54 16:54 03:23 WBC RBC Hgb Hct MCV MCH MCHC RDW Plt Count Seg Neutrophils % Lymphocytes % Monocytes % Eosinophils % Basophils % Absolute Neutrophils Absolute Lymphocytes Absolute Monocytes Absolute Eosinophils Absolute Basophils Carbonic Acid HCO3/H2CO3 Ratio ABG pH ABG pCO2 ABG pO2 ABG HCO3 ABG O2 Saturation ABG Base Excess FiO2 Sodium 142.2 Potassium 4.2 Chloride 116 H Carbon Dioxide 17 L Anion Gap 9 BUN 38 H Creatinine 0.89 Est GFR ( Amer) > 60 Est GFR (Non-Af Amer) > 60 Glucose 109 Calcium 6.8 L* Ionized Calcium Herman 1.05 L Magnesium Albumin 1.6 L Triglycerides 80 10/04/16 10/04/16 10/04/16 03:23 03:23 06:30 WBC 22.5 H RBC 4.34 L Hgb 13.1 L Hct 39.8 MCV 92 MCH 30.1 MCHC 32.8 RDW 13.4 Plt Count 236 Seg Neutrophils % Not Reportable Lymphocytes % Not Reportable Monocytes % Not Reportable Eosinophils % Not Reportable Basophils % Not Reportable Absolute Neutrophils Not Reportable Absolute Lymphocytes Not Reportable Absolute Monocytes Not Reportable Absolute Eosinophils Not Reportable Absolute Basophils Not Reportable Carbonic Acid 0.91 L HCO3/H2CO3 Ratio 18:1 ABG pH 7.37 ABG pCO2 30.3 L ABG pO2 59.5 L ABG HCO3 17.0 L ABG O2 Saturation 90.5 L ABG Base Excess -6.9 FiO2 65% Sodium Potassium Chloride Carbon Dioxide Anion Gap BUN Creatinine Est GFR ( Amer) Est GFR (Non-Af Amer) Glucose Calcium Ionized Calcium Herman Magnesium Albumin 1.2 L Triglycerides 09/27/16 10/02/16 10/04/16 22:46 10:40 03:23 Troponin I 0.035 0.037 NT-Pro-B Natriuret Pep 1790 H Impressions: Chest/Abdomen CTA 09/27/16 00:00 IMPRESSION: No evidence for pulmonary embolic disease. Bilateral airspace consolidation in the lower lobes which could represent atelectatic changes or pneumonic consolidations. Other findings as noted above Acute Abdomen Series 09/27/16 11:55 IMPRESSION: Small bowel obstruction with diffuse distention of small bowel loops out of proportion to colon KUB X-Ray 10/01/16 07:00 IMPRESSION: Persistent dilated small bowel loops worrisome for small bowel obstruction. Upper GI and Small Bowel X-Ray 10/02/16 07:00 IMPRESSION: Unable to control 0 bolus of thin liquids contrast. Subglottic aspiration of Isovue-300. Gastrografin was instilled into the stomach. There is no gastric outlet obstruction. Small hiatal hernia with reflux. Normal pylorus and duodenum. Jejunum is diffusely distended, with poor peristalsis and no significant antegrade motion of contrast over 3 hour observation. At the 2 hour rodney, the stomach was emptied because of GE reflux and aspiration risk. Chest X-Ray 10/04/16 00:00 IMPRESSION: Increasing congestive failure and pulmonary edema with increasing pleural effusions. SUPPORT DEVICE(S) IN EXPECTED LOCATIONS. New central venous access catheter via right IJ approach. Tip overlies the right atrium. Assessment & Plan - Diagnosis (1) Small bowel obstruction Is this a current diagnosis for this admission?: YesPlan: Patient had surgery yesterday for the small bowel obstruction and was found to have an adhesion as the cause. Patient currently is on Rocephin and Flagyl. He is still hypotensive requiring vasopressors at this time. (2) Acute respiratory failure with hypoxemia Is this a current diagnosis for this admission?: YesPlan: Patient is hypotensive but chest x-ray shows an to be in some congestive heart failure. Cardiology is following the patient and will follow their recommendations regarding volume status. We'll check a CVP to see if that agrees with the chest x-ray showing volume overload. We'll continue the ventilator for now. (3) Aspiration pneumonia Qualifiers: Aspiration pneumonia type: unspecified Laterality: bilateral Lung location: lower lobe of lung Qualified Code(s): J69.0 - Pneumonitis due to inhalation of food and vomit Is this a current diagnosis for this admission?: YesPlan: The patient is currently on Flagyl, Rocephin. (4) Atrial fibrillation Qualifiers: Atrial fibrillation type: persistent Qualified Code(s): I48.1 - Persistent atrial fibrillation Is this a current diagnosis for this admission?: YesPlan: Patient is on esmolol drip. (5) Congestive heart failure Qualifiers: Congestive heart failure type: diastolic Congestive heart failure chronicity: chronic Qualified Code(s): I50.32 - Chronic diastolic ( congestive) heart failure Is this a current diagnosis for this admission?: YesPlan: Chest x-ray shows volume overload. We'll check a CVP today. (6) Hypertension Qualifiers: Hypertension type: essential hypertension Qualified Code(s): I10 - Essential (primary) hypertension Is this a current diagnosis for this admission?: YesPlan: His blood pressure has been low and is currently requiring vasopressors.. Continue esmolol. (7) Hypokalemia Is this a current diagnosis for this admission?: YesPlan: Resolved. (8) Hypothyroidism Qualifiers: Hypothyroidism type: unspecified Qualified Code(s): E03.9 - Hypothyroidism, unspecified Is this a current diagnosis for this admission?: YesPlan: Continue Synthroid. (9) Renal insufficiency Is this a current diagnosis for this admission?: YesPlan: Patient's creatinine has returned to normal. - Time Critical Time spent with patient: 15-24 minutes - Inpatient Certification Medical Necessity: Need for IV Antibiotics
[2016-10-04 10:40] LABS: ARTERIAL BLOOD O2 SATURATION 92.3 % (94-98)
[2016-10-04] MEDS: DEXTROSE 5%-WATER 250 ML with PHENYLEPHRINE HCL 40 MG IV PRN ×2 (10:55)
[2016-10-04] MEDS ORDERED: DIGOXIN INJ 0.5 MG/2 ML AMPULE IV ONE (11:15)
--- NOTE | 2016-10-04 12:59 | PDOC CONSULTATION ---
Consultation Consult Date: 10/04/16 Consult reason:: resp fail pna History of Present Illness Admission Date/PCP: 09/27/16 16:20 History of Present Illness: patient intubated and sedatedno family at bedside ,[facility] is a 85 year old male with prior history of abdominal surgeries and actually bowel obstruction presents to the hospital with 4 days history of nausea and vomiting. 4 days ago the patient had an episode of diarrhea and subsequently after that started to develop nausea and vomiting without any abdominal pain. No melena hematochezia and hematemesis. The patient and the family thought there was just a virus and therefore no consultation was made. Symptoms somehow persisted following day and therefore primary care physician was consulted and advised to increase oral fluid intake especially electrolytes. Patient is unable to keep anything by mouth. Patient started to feel lightheaded and dizzy with some headache. There is some mild shortness of breath associated as well. Patient feels cold and chilly but no definite fever or sweating. The patient went to the emergency room for evaluation. X-ray of the abdomen revealed small bowel obstruction. Patient was on atrial fibrillation with rapid ventricular response as well. He has history of atrial fibrillation and is on eliquis and Cardizem off which the patient is unable to take for the past 4 days. Patient was given normal saline bolus 1 L and placed on heparin drip as well as Cardizem drip. Patient was then referred for admission. This history was reviewed and supplemented by talking with patient's and patient himself. Patient actually denies any chest pain. He just noted some fatigue and shortness of breath in addition to his abdominal complaints. Past Medical History Cardiac Medical History: Reports: Atrial Fibrillation, Congestive Heart Failure - Diastolic dysfunction Endocrine Medical History: Reports: Other - Hyperglycemia without diabetes GI Medical History: Reports: Other - Hx small bowel obstruction Past Surgical History Past Surgical History: Reports: Other - Exploratory laparotomy with ileal resection Social History Lives with: Spouse/Significant other Smoking Status: Former Smoker Number of Years Smokin Last Time Smoked: 25 years Frequency of Alcohol Use: None Hx Recreational Drug Use: No Drugs: None Hx Prescription Drug Abuse: No - Advance Directive Resuscitation Status: Full Code Family History Family History: Malignancy - Colon cancer Medication/Allergy Home Medications: Multivitamin [Multivitamins] 1 cap PO DAILY 12/16/15 Acetaminophen [Tylenol 325 mg Tablet] 650 mg PO Q4HP PRN tablet 12/24/15 Apixaban [Eliquis 5 mg Tablet] 5 mg PO BID 09/28/16 Diltiazem HCl [Diltiazem ER] 300 mg PO DAILY 09/28/16 Levothyroxine Sodium [Synthroid 0.075 mg Tablet] 0.5 tab PO DAILY 09/28/16 Allergies/Adverse Reactions: No Known Allergies Allergy (Verified 09/27/16 11:36) Physical Exam Vital Signs: Temp Pulse Resp BP Pulse Ox 98.9 F 115 H 22 H 97/67 L 90 L 10/04/16 07:43 10/04/16 07:43 10/04/16 07:43 10/04/16 07:43 10/04/16 07:43 Intake & Output 10/03/16 10/04/16 10/05/16 06:59 06:59 06:59 Intake Total 3162 87190 Output Total 2500 3965 Balance 662 8093 Weight 69.4 kg 79.6 kg General appearance: PRESENT: no acute distress, cooperative, well-developed, well-nourished Head exam: PRESENT: atraumatic, normocephalic Eye exam: PRESENT: conjunctiva pale Mouth exam: PRESENT: tongue midline, other - ET tube Neck exam: ABSENT: carotid bruit, JVD, lymphadenopathy, thyromegaly Respiratory exam: PRESENT: crackles, decreased breath sounds, prolonged expiratory phas, symmetrical Cardiovascular exam: PRESENT: irregular rhythm Rectal exam: PRESENT: deferred Gentrourinary exam: PRESENT: indwelling catheter Skin exam: PRESENT: dry Results Laboratory Results: 10/04/16 03:23 10/04/16 03:23 10/03/16 10/03/16 10/03/16 13:36 16:54 16:54 WBC 17.3 H 25.0 H RBC 4.52 4.85 Hgb 13.5 14.0 Hct 42.0 44.6 MCV 93 92 MCH 29.9 29.0 MCHC 32.2 31.5 L RDW 13.4 13.4 Plt Count 207 198 Seg Neutrophils % Not Reportable Lymphocytes % Not Reportable Monocytes % Not Reportable Eosinophils % Not Reportable Basophils % Not Reportable Absolute Neutrophils Not Reportable Absolute Lymphocytes Not Reportable Absolute Monocytes Not Reportable Absolute Eosinophils Not Reportable Absolute Basophils Not Reportable Carbonic Acid HCO3/H2CO3 Ratio ABG pH ABG pCO2 ABG pO2 ABG HCO3 ABG O2 Saturation ABG Base Excess FiO2 Sodium 143.3 Potassium 4.0 Chloride 114 H Carbon Dioxide 19 L Anion Gap 10 BUN 34 H Creatinine 0.82 Est GFR ( Amer) > 60 Est GFR (Non-Af Amer) > 60 Glucose 90 Calcium 7.1 L Ionized Calcium Herman Magnesium 1.6 Albumin Triglycerides 10/03/16 10/03/16 10/04/16 16:54 16:54 03:23 WBC RBC Hgb Hct MCV MCH MCHC RDW Plt Count Seg Neutrophils % Lymphocytes % Monocytes % Eosinophils % Basophils % Absolute Neutrophils Absolute Lymphocytes Absolute Monocytes Absolute Eosinophils Absolute Basophils Carbonic Acid HCO3/H2CO3 Ratio ABG pH ABG pCO2 ABG pO2 ABG HCO3 ABG O2 Saturation ABG Base Excess FiO2 Sodium 142.2 Potassium 4.2 Chloride 116 H Carbon Dioxide 17 L Anion Gap 9 BUN 38 H Creatinine 0.89 Est GFR ( Amer) > 60 Est GFR (Non-Af Amer) > 60 Glucose 109 Calcium 6.8 L* Ionized Calcium Herman 1.05 L Magnesium Albumin 1.6 L Triglycerides 80 10/04/16 10/04/16 10/04/16 03:23 03:23 06:30 WBC 22.5 H RBC 4.34 L Hgb 13.1 L Hct 39.8 MCV 92 MCH 30.1 MCHC 32.8 RDW 13.4 Plt Count 236 Seg Neutrophils % Not Reportable Lymphocytes % Not Reportable Monocytes % Not Reportable Eosinophils % Not Reportable Basophils % Not Reportable Absolute Neutrophils Not Reportable Absolute Lymphocytes Not Reportable Absolute Monocytes Not Reportable Absolute Eosinophils Not Reportable Absolute Basophils Not Reportable Carbonic Acid 0.91 L HCO3/H2CO3 Ratio 18:1 ABG pH 7.37 ABG pCO2 30.3 L ABG pO2 59.5 L ABG HCO3 17.0 L ABG O2 Saturation 90.5 L ABG Base Excess -6.9 FiO2 65% Sodium Potassium Chloride Carbon Dioxide Anion Gap BUN Creatinine Est GFR ( Amer) Est GFR (Non-Af Amer) Glucose Calcium Ionized Calcium Herman Magnesium Albumin 1.2 L Triglycerides 09/27/16 10/02/16 10/04/16 22:46 10:40 03:23 Troponin I 0.035 0.037 NT-Pro-B Natriuret Pep 1790 H Impressions: Chest/Abdomen CTA 09/27/16 00:00 IMPRESSION: No evidence for pulmonary embolic disease. Bilateral airspace consolidation in the lower lobes which could represent atelectatic changes or pneumonic consolidations. Other findings as noted above Acute Abdomen Series 09/27/16 11:55 IMPRESSION: Small bowel obstruction with diffuse distention of small bowel loops out of proportion to colon KUB X-Ray 10/01/16 07:00 IMPRESSION: Persistent dilated small bowel loops worrisome for small bowel obstruction. Upper GI and Small Bowel X-Ray 10/02/16 07:00 IMPRESSION: Unable to control 0 bolus of thin liquids contrast. Subglottic aspiration of Isovue-300. Gastrografin was instilled into the stomach. There is no gastric outlet obstruction. Small hiatal hernia with reflux. Normal pylorus and duodenum. Jejunum is diffusely distended, with poor peristalsis and no significant antegrade motion of contrast over 3 hour observation. At the 2 hour rodney, the stomach was emptied because of GE reflux and aspiration risk. Chest X-Ray 10/04/16 00:00 IMPRESSION: Increasing congestive failure and pulmonary edema with increasing pleural effusions. SUPPORT DEVICE(S) IN EXPECTED LOCATIONS. New central venous access catheter via right IJ approach. Tip overlies the right atrium. Assessment & Plan - Diagnosis (1) Protein malnutrition Is this a current diagnosis for this admission?: YesPlan: needs TPN and/or albumin (2) Pleural effusion Is this a current diagnosis for this admission?: YesPlan: bilateral volume overload (3) Acute respiratory failure with hypoxemia Is this a current diagnosis for this admission?: YesPlan: increase tv and rr(to more full assume WOB) and I time to recruit additional alveolar unit (4) Aspiration pneumonia Qualifiers: Aspiration pneumonia type: unspecified Laterality: bilateral Lung location: lower lobe of lung Qualified Code(s): J69.0 - Pneumonitis due to inhalation of food and vomit Is this a current diagnosis for this admission?: YesPlan: e coli and klebsiella in sputum tin[place] senesitve except ampicillin (5) Atrial fibrillation with rapid ventricular response Is this a current diagnosis for this admission?: YesPlan: controlled with esmolol (6) Septic shock Is this a current diagnosis for this admission?: YesPlan: using vasopressor - Time Critical Time spent with patient: 35 or more minutes - 55 min
[2016-10-04] MEDS ORDERED: HYDROCORTISONE SOD SUCCINATE INJ/PF 100 MG/2 ML SDV IV ONE (14:30)
[2016-10-04 16:09] LABS: ALBUMIN 1.4 g/dL (3.5-5.0); TOTAL PROTEIN 3.4 g/dL (6.3-8.2)
[2016-10-04] MEDS ORDERED: ESMOLOL HCL/SOD CL 2,500 MG/250 ML RTUINJ IV ONE (20:48)
--- NOTE | 2016-10-04 22:18 | PROGRESS NOTE E ---
Progress Note NAME: GRECIA MARTI : 1930 AGE: 85Y DATE: 10/04/2016 ROOM: 609 SUBJECTIVE: The patient remains intubated on a ventilator, on Diprivan, Matt-Synephrine, esmolol. OBJECTIVE: VITAL SIGNS: Blood pressure 92/63, temperature 98.6, heart rate 129, respirations 21 on the vent, saturation is 96% on the ventilator. LUNGS: The patient's lungs are clear anteriorly bilaterally with decreased breath sounds at the bases secondary to pleural effusions. CARDIOVASCULAR: The patient is tachycardic 129. ABDOMEN: The patient's abdomen is soft, bowel sounds are hypoactive. The abdomen is not distended. Incision appears clean, dry, and intact. INTAKE/OUTPUT: The patient's urinary output is adequate. His NG tube drainage is minimal. LABORATORY DATA: White count is now 22.5 down from 25,000. H and H is stable at 13.1 and 39.8. The patient's BUN is 38, there is a creatinine of 0.89. Electrolytes are within normal limits. Mild hypokalemia as noted at 116. IMAGING STUDIES: The patient's chest x-ray today showed increasing congestive heart failure and pulmonary edema with increasing pleural effusions. ASSESSMENT: STATUS POST EXPLORATORY LAPAROTOMY WITH SMALL BOWEL OBSTRUCTION WITH LYSIS OF ADHESIONS AND SEGMENTAL SMALL BOWEL RESECTION WITH POSTOPERATIVE CONGESTIVE HEART FAILURE, PULMONARY EDEMA, PLEURAL EFFUSIONS. PLAN: The patient will continue to need vasopressor support. PROGNOSIS: Poor at this time, however, he will continue to receive hemodynamic support at this time. DICTATING PHYSICIAN: JESUS MORGAN M.D. [id number] KARANY#: [id number] ID: [id number] JOB#: [id number] ACCT: [id number] cc: >
[2016-10-05] MEDS: DEXTROSE 5%-WATER 250 ML with PHENYLEPHRINE HCL 40 MG IV PRN ×4 (00:34→13:20)
[2016-10-05] MEDS ORDERED: ESMOLOL HCL/SOD CL 2,500 MG/250 ML RTUINJ IV ONE (01:19)
[2016-10-05] MEDS: METRONIDAZOLE 500 MG/NS RTU 100 ML IV SCH ×3 (02:18→17:21)
[2016-10-05 04:57] LABS: HEMATOCRIT 38.8 % (37.9-51.0); HEMOGLOBIN 12.2 g/dL (13.5-17.0); HGB HCT DIFFERENCE -2.2; MEAN CORPUSCULAR HGB CONC 31.6 g/dL (32.0-36.0); MEAN CORPUSCULAR VOLUME 95 fl (80-97); RED BLOOD COUNT 4.08 10^6/uL (4.35-5.55); RED CELL DISTRIBUTION WIDTH 13.5 % (11.5-14.0)
[2016-10-05 04:59] LABS: ARTERIAL BLOOD O2 SATURATION 96.3 % (94-98)
[2016-10-05 05:08] LABS: ALANINE AMINOTRANSFERASE 36 U/L (21-72); ALBUMIN 1.6 g/dL (3.5-5.0); ALKALINE PHOSPHATASE 66 U/L (38-126); ANION GAP 11 (5-19); ASPARTATE AMINO TRANSFERASE 30 U/L (17-59); BILIRUBIN,TOTAL 0.7 mg/dL (0.2-1.3); BLOOD UREA NITROGEN 44 mg/dL (7-20); CALCIUM 7.2 mg/dL (8.4-10.2); CARBON DIOXIDE 17 mmol/L (22-30); CHLORIDE 114 mmol/L (98-107); CREATININE RESULT 0.99 mg/dL (0.52-1.25); GLUCOSE 114 mg/dL (75-110); MAGNESIUM 1.9 mg/dL (1.6-2.3); POTASSIUM 4.4 mmol/L (3.6-5.0)
[2016-10-05 05:17] LABS: BAND NEUTROPHILS % (MANUAL) 1 % (3-5); BASOPHILS % (MANUAL) 0 % (0-2); EOSINOPHILS % (MANUAL) 0 % (0-6); LYMPHOCYTES % (MANUAL) 1 % (13-45); TOTAL CELLS COUNTED 100
[2016-10-05 05:18] LABS: TOXIC GRANULATION 1+
[2016-10-05 05:20] LABS: BURR CELLS 1+; OVALOCYTES 1+; PLATELET CLUMPS PRESENT; POLYCHROMASIA 1+
[2016-10-05 05:22] LABS: WHITE BLOOD COUNT 30.7 10^3/uL (4.0-10.5)
[2016-10-05] MEDS: PANTOPRAZOLE SODIUM 40 MG VIAL IV SCH ×2 (06:23→17:21)
[2016-10-05] MEDS: ESMOLOL HCL/SOD CL 250 ML IV PRN ×3 (07:35→18:24)
[2016-10-05] MEDS: MORPHINE SULFATE 10 MG/ML INJ IV PRN ×2 (08:34→11:58)
[2016-10-05] MEDS: LEVOTHYROXINE SODIUM INJ/PF 0.1 MG SDV IV SCH (09:01)
[2016-10-05] MEDS: PROPOFOL 100 ML IV PRN ×2 (09:03→22:14)
--- NOTE | 2016-10-05 10:01 | EKG REPORT ---
SEVERITY:- DEFECTIVE ECG - ATRIAL FIBRILLATION PROBABLE ANTEROSEPTAL INFARCT, AGE INDETERM : Confirmed by: Israel Madrid MD 05-Oct-2016 10:00:52
--- NOTE | 2016-10-05 11:01 | PDOC PROGRESS REPORT ---
Subjective Progress Note for:: 10/05/16 Subjective:: Patient is intubated and sedated. Physical Exam Vital Signs: Temp Pulse Resp BP Pulse Ox 98.4 F 99 20 109/78 96 10/05/16 07:42 10/05/16 07:45 10/05/16 10:31 10/05/16 10:31 10/05/16 10:31 Intake & Output 10/04/16 10/05/16 10/06/16 06:59 06:59 06:59 Intake Total 49791 3622 30 Output Total 3965 618 130 Balance 8093 3004 -100 Weight 79.6 kg 81.6 kg General appearance: PRESENT: no acute distress Eye exam: PRESENT: conjunctiva pink. ABSENT: scleral icterus Mouth exam: PRESENT: moist, tongue midline, other - ET tube in place Neck exam: PRESENT: JVD Respiratory exam: PRESENT: decreased breath sounds Cardiovascular exam: PRESENT: irregular rhythm. ABSENT: systolic murmur GI/Abdominal exam: PRESENT: other - Surgical dressing in place. Extremities exam: PRESENT: pedal edema - Trace pedal edema.. ABSENT: calf tenderness, clubbing Neurological exam: PRESENT: other - Intubated and sedated. Psychiatric exam: PRESENT: other - Unable to assess Skin exam: PRESENT: dry, intact, warm. ABSENT: cyanosis, rash Results Laboratory Results: 10/05/16 04:15 10/05/16 04:15 10/04/16 10/05/16 10/05/16 15:36 04:15 04:15 WBC 30.7 H* RBC 4.08 L Hgb 12.2 L Hct 38.8 MCV 95 MCH 30.0 MCHC 31.6 L RDW 13.5 Plt Count 256 Seg Neutrophils % Not Reportable Lymphocytes % Not Reportable Monocytes % Not Reportable Eosinophils % Not Reportable Basophils % Not Reportable Absolute Neutrophils Not Reportable Absolute Lymphocytes Not Reportable Absolute Monocytes Not Reportable Absolute Eosinophils Not Reportable Absolute Basophils Not Reportable Carbonic Acid HCO3/H2CO3 Ratio ABG pH ABG pCO2 ABG pO2 ABG HCO3 ABG O2 Saturation ABG Base Excess FiO2 Sodium 142.0 Potassium 4.4 Chloride 114 H Carbon Dioxide 17 L Anion Gap 11 BUN 44 H Creatinine 0.99 Est GFR ( Amer) > 60 Est GFR (Non-Af Amer) > 60 Glucose 114 H Calcium 7.2 L Ionized Calcium Herman Magnesium 1.9 Total Bilirubin 1.0 0.7 AST 27 30 ALT 27 36 Alkaline Phosphatase 53 66 Total Protein 3.4 L 4.0 L Albumin 1.4 L 1.6 L 10/05/16 10/05/16 04:25 04:25 WBC RBC Hgb Hct MCV MCH MCHC RDW Plt Count Seg Neutrophils % Lymphocytes % Monocytes % Eosinophils % Basophils % Absolute Neutrophils Absolute Lymphocytes Absolute Monocytes Absolute Eosinophils Absolute Basophils Carbonic Acid 0.92 L HCO3/H2CO3 Ratio 18:1 ABG pH 7.36 ABG pCO2 30.6 L ABG pO2 85.7 ABG HCO3 17.1 L ABG O2 Saturation 96.3 ABG Base Excess -7.0 FiO2 65% Sodium Potassium Chloride Carbon Dioxide Anion Gap BUN Creatinine Est GFR ( Amer) Est GFR (Non-Af Amer) Glucose Calcium Ionized Calcium Herman 1.08 L Magnesium Total Bilirubin AST ALT Alkaline Phosphatase Total Protein Albumin 09/27/16 10/02/16 10/04/16 22:46 10:40 03:23 Troponin I 0.035 0.037 NT-Pro-B Natriuret Pep 1790 H Impressions: Chest/Abdomen CTA 09/27/16 00:00 IMPRESSION: No evidence for pulmonary embolic disease. Bilateral airspace consolidation in the lower lobes which could represent atelectatic changes or pneumonic consolidations. Other findings as noted above Acute Abdomen Series 09/27/16 11:55 IMPRESSION: Small bowel obstruction with diffuse distention of small bowel loops out of proportion to colon KUB X-Ray 10/01/16 07:00 IMPRESSION: Persistent dilated small bowel loops worrisome for small bowel obstruction. Upper GI and Small Bowel X-Ray 10/02/16 07:00 IMPRESSION: Unable to control 0 bolus of thin liquids contrast. Subglottic aspiration of Isovue-300. Gastrografin was instilled into the stomach. There is no gastric outlet obstruction. Small hiatal hernia with reflux. Normal pylorus and duodenum. Jejunum is diffusely distended, with poor peristalsis and no significant antegrade motion of contrast over 3 hour observation. At the 2 hour rodney, the stomach was emptied because of GE reflux and aspiration risk. Chest X-Ray 10/05/16 06:00 IMPRESSION: 1. Support tubes and lines as above. 2. Improvement of the diffuse airspace opacities noted throughout the lungs comparison the previous day's study. There is persistent bibasilar airspace opacities likely representing combination of effusion and/or atelectasis/edema. Stable cardiomegaly. Assessment & Plan - Diagnosis (1) Small bowel obstruction Is this a current diagnosis for this admission?: YesPlan: Patient had surgery for the small bowel obstruction and was found to have an adhesion as the cause. Patient currently is on Rocephin and Flagyl. He is still hypotensive requiring vasopressors at this time. (2) Acute respiratory failure with hypoxemia Is this a current diagnosis for this admission?: YesPlan: Patient is hypotensive but chest x-ray shows an to be in some congestive heart failure. Cardiology is following the patient and will follow their recommendations regarding volume status. CVP has been reading between 12 and 16. We'll continue the ventilator for now. (3) Aspiration pneumonia Qualifiers: Aspiration pneumonia type: unspecified Laterality: bilateral Lung location: lower lobe of lung Qualified Code(s): J69.0 - Pneumonitis due to inhalation of food and vomit Is this a current diagnosis for this admission?: YesPlan: The patient is currently on Flagyl, will change Rocephin to Zosyn. (4) Atrial fibrillation Qualifiers: Atrial fibrillation type: persistent Qualified Code(s): I48.1 - Persistent atrial fibrillation Is this a current diagnosis for this admission?: YesPlan: Patient is on esmolol drip. (5) Congestive heart failure Qualifiers: Congestive heart failure type: diastolic Congestive heart failure chronicity: chronic Qualified Code(s): I50.32 - Chronic diastolic ( congestive) heart failure Is this a current diagnosis for this admission?: YesPlan: Chest x-ray shows volume overload. CVP has been reading between 12 and 16. Will defer to cardiology regarding volume status. (6) Hypertension Qualifiers: Hypertension type: essential hypertension Qualified Code(s): I10 - Essential (primary) hypertension Is this a current diagnosis for this admission?: YesPlan: His blood pressure has been low and is currently requiring vasopressors.. Continue esmolol. (7) Hypokalemia Is this a current diagnosis for this admission?: YesPlan: Resolved. (8) Hypothyroidism Qualifiers: Hypothyroidism type: unspecified Qualified Code(s): E03.9 - Hypothyroidism, unspecified Is this a current diagnosis for this admission?: YesPlan: Continue Synthroid. (9) Renal insufficiency Is this a current diagnosis for this admission?: YesPlan: Patient's creatinine has returned to normal. - Time Critical Time spent with patient: 15-24 minutes - Inpatient Certification Medical Necessity: Need for IV Antibiotics
[2016-10-05] MEDS: PIPERACILLIN SODIUM/TAZOBACTAM 3.375 GM in NORMAL SALINE 100 ML IV SCH ×2 (11:58→17:22)
[2016-10-05] MEDS: ALBUMIN HUMAN 50 ML IV SCH (17:21)
--- NOTE | 2016-10-05 17:23 | PROGRESS NOTE E ---
Progress Note NAME: GRECIA MARTI : 1930 AGE: 85Y DATE: 10/05/2016 ROOM: ED06 CRITICAL CARE NOTE SUBJECTIVE: Note, the patient continues to be intubated and sedated. He is still in atrial fibrillation but with a better ventricular response with esmolol at 90 mcg/kg/minute and Matt-Synephrine at 50 mcg/minute. The patient's blood pressure is stable and heart rate is stable. There is no ventricular arrhythmia seen. There seems to be some mild upper extremity edema but no edema of the lower extremities. OBJECTIVE: GENERAL: On examination, the patient is intubated and sedated. He looks chronically ill. VITAL SIGNS: He is afebrile with a temperature of 98.3 degrees Fahrenheit orally. Pulse is 91 beats per minute. Blood pressure 105/82. Respirations are 9 on the ventilator with an O2 saturation of 97% on 50% FIO2. HEAD: Atraumatic/normocephalic. EYES: Pupils are equal, round, reactive to light. EARS, NOSE, AND THROAT: Negative. NECK: Supple. There is no JVD. Carotids are equal. There is no bruit. There is no goiter. LUNGS: The lungs show dullness in the bases on both sides which is slightly more than yesterday and a few bibasilar crackles, left greater than the right about this area of dullness. The rest of the lungs are clear. HEART: S1, S2 is heard. There is variable intensity of S1, and the S2 was normal. There is no S3 gallop. There is no S4 gallop. There is a systolic murmur in the left sternal border and the apex. There is no rub. ABDOMEN: Soft. Dressing is dry. There is no hepatosplenomegaly. Bowel sounds are hypoactive, but the patient is tolerating a trickle tube feeding. EXTREMITIES: Pulses are diminished. There is no femoral bruit. Leg pulses are diminished. There is no pedal edema. There is no DVT or cellulitis. There is no calf tenderness. CENTRAL NERVOUS SYSTEM: Not examined. PSYCHIATRIC: Not examined. FLUID BALANCE: The patient's 24-hour intake is 3622 mL, output is 680 mL. DIAGNOSTIC DATA: His chest x-ray shows normal heart rate and no CHF. There are bibasilar opacities with stable effusions bilaterally. The patient's EKG shows atrial fibrillation with a ventricular response of 88 beats per minute. I cannot exclude old anteroseptal IN. The patient's white count is increased to 30,700, his hemoglobin is 12.2, hematocrit is 38.8, and platelet count is 256,000. The patient's sodium is 144, potassium 4.4, chloride is 114, CO2 is 17, the patient's BUN is 44, creatinine is 0.99 and GFR is greater than 60. His calcium is 7.2 with an ionized calcium of 1.08. His magnesium is 1.9. His liver function tests are normal. His albumin is 1.6, total protein is 4.0. ASSESSMENT: 1. THE PATIENT IS STATUS POST SURGERY FOR SMALL BOWEL OBSTRUCTION. 2. ATRIAL FIBRILLATION WITH NOW CONTROLLED VENTRICULAR RESPONSE. 3. HYPOTENSION, BLOOD PRESSURE LOW NORMAL, ON MATT-SYNEPHRINE. 4. BIBASILAR PNEUMONIA WITH BILATERAL PLEURAL EFFUSIONS. THE PATIENT IS ON ANTIBIOTICS AND IS GETTING VENTILATORY SUPPORT. 5. NO EVIDENCE OF CONGESTIVE HEART FAILURE. 6. ACUTE RESPIRATORY FAILURE POSTOPERATIVELY. 7. BILATERAL PLEURAL EFFUSIONS, THE DIFFERENTIAL DIAGNOSIS OF WHICH IS PRASHANTH-PNEUMONIC EFFUSIONS VERSUS EXUDATE VERSUS TRANSUDATE SECONDARY TO THE PATIENT'S ALBUMIN BEING LOW. 8.HYPOTHYROIDISM. PLAN: Will give albumin 25 grams IV piggyback q.8 h. x4 doses. Continue antibiotics. Continue ventilatory support. Continue Matt-Synephrine, try to wean it off if possible. Continue *------*. Continue trickle tube feeding and increase as tolerated. Will continue the IV *------*. Discussed with the other physicians involved in the case. Will follow with you. Note, 35 minutes of critical care time spent with more than 60% of the time spent on direct patient care and reviewing the patient's medications and adjusting the patient's medications. DICTATING PHYSICIAN: ROHIT VILLAFANA M.D. [id number] NO#: [id number] ID: [id number] JOB#: [id number] ACCT: [id number] cc:ROHIT VILLAFANA M.D. > MTDD
[2016-10-05] MEDS ORDERED: CALCIUM GLUCONATE 1,000 MG in DEXTROSE 5%-WATER 50 ML IV ONE (17:30)
[2016-10-05] MEDS ORDERED: CALCIUM GLUCONATE 1000 MG/10 ML INJ IV ONE (18:06)
--- NOTE | 2016-10-05 19:18 | PROGRESS NOTE E ---
Progress Note NAME: GRECIA MARTI : 1930 AGE: 85Y DATE: 10/04/2016 ROOM: ED06 CRITICAL CARE NOTE SUBJECTIVE: The patient continues to be intubated and sedated. He is still in atrial fibrillation, but the ventricular response is slightly better. Note that the patient's blood pressure was dropping, and hence the patient was started also on a small amount of Charisma-Synephrine without any tremendous increase in his heart rate. The patient is intubated and sedated. There is no ventricular arrhythmia seen. There is mild upper extremity edema but no edema in the lower extremities. OBJECTIVE: GENERAL: On examination, the patient is intubated and sedated. He looks chronically ill. VITAL SIGNS: He is afebrile with a temperature of 97.7 degrees Fahrenheit orally. Pulse is 104 beats per minute. Blood pressure 97/58. Respirations 20 per minute. O2 saturations are 98% on mechanical ventilator with an FIO2 of 55%. HEAD: Atraumatic/normocephalic. EYES: Pupils are equal, round, regular, and reactive to light. EARS, NOSE, AND THROAT: Negative. NECK: Supple. There is no JVD. Carotids are equal. There is no bruit. There is no goiter. LUNGS: Show dullness in the bases on both sides and a few bibasilar crackles, left greater than the right. The rest of the lungs are clear. HEART: S1, S2 is heard. S1 is of variable intensity and S2 is normal. There is no S3 gallop. There is no S4 gallop. There is a systolic murmur in the left sternal border and the apex. There is no rub. ABDOMEN: Soft. Dressing is dry. There is no hepatosplenomegaly. Bowel sounds are hypoactive. EXTREMITIES: Pulses are diminished. There is no femoral bruit. Leg pulses are diminished. There is no pedal edema. There is no DVT or cellulitis. There is no calf tenderness. CENTRAL NERVOUS SYSTEM: Not examined. PSYCHIATRIC: Not examined. FLUID BALANCE: [place] [address] mL and output is 3965 mL. DIAGNOSTIC DATA: The patient's chest x-ray shows bibasilar opacities and bilateral pleural effusions. There seems to be some degree of congestive heart failure but most likely secondary to volume overload. The patient's white count is 22,500, hemoglobin is 13.1, hematocrit is 39.8, platelet count is 236,000. The patient's sodium is 142.2, potassium 4.2, chloride is 116, CO2 is 17, the patient's is 38, creatinine 0.89, GFR is greater than 60, calcium 6.8. The patient's cardiac enzymes are negative/indeterminate at 0.030. The patient's triglycerides are 80, and the patient's albumin is 1.2. IMPRESSION: 1. POSTOPERATIVE ACUTE RESPIRATORY FAILURE, PATIENT INTUBATED AND SEDATED, AND OXYGENATION IS FAIRLY DECENT ON 55% FIO2. 2. STATUS POST SURGERY FOR SMALL BOWEL OBSTRUCTION. 3. ATRIAL FIBRILLATION WITH FAST VENTRICULAR RESPONSE, PATIENT ON BREVIBLOC. 4. HYPOTENSION AND HENCE HAS BEEN STARTED ON THE SMALL DOSE OF CHARISMA-SYNEPHRINE TO KEEP THE BLOOD PRESSURE UP. 5. VOLUME OVERLOAD CHF. WILL DECREASE THE IV FLUIDS TO KVO. WILL NOT USE LASIX DUE TO THE PATIENT'S TENUOUS BLOOD PRESSURE. 6. BIBASILAR PNEUMONIA WITH BILATERAL PLEURAL EFFUSION, PATIENT ON ANTIBIOTICS AND GETTING VENTILATORY SUPPORT. 7. BILATERAL PLEURAL EFFUSIONS. 8. HYPOTHYROIDISM. RECOMMENDATIONS: Cut down the fluids to KVO. Continue antibiotics. Continue Charisma-Synephrine. Watch and make sure that the heart rate does not go way fast and continue the patient on BREVIBLOC. Note, 35 minutes of critical care time spent with more than 50% of the time spent on direct patient care and reviewing the patient's medications and also adjusting medications. Note that the patient's calcium is low, would also replace the patient's calcium. Also discussed with the other caregivers on the case and discussed with the patient's . Will follow with you. DICTATING PHYSICIAN: ROHIT VILLAFANA M.D. [id number] PHY#: [id number] ID: [id number] JOB#: [id number] ACCT: [id number] cc:ROHIT VILLAFANA M.D. > MTDD
--- NOTE | 2016-10-05 20:08 | PROGRESS NOTE E ---
Progress Note NAME: GRECIA MARTI : 1930 AGE: 85Y DATE: 10/05/2016 ROOM: ED06 SUBJECTIVE: The patient is on a ventilator and is sedated with Diprivan. OBJECTIVE: VITAL SIGNS: Blood pressure 144/63. Temperature 98.3. Pulse 99. Saturation 97% on 50% FiO2. The patient is presently on 40 mcg of Matt-Synephrine, down from 60 mcg 24 hours ago. He is on esmolol drip to control his rate which has been well controlled at 99 per minute, and he is on Diprivan as well. LUNGS: Patient's lungs show good entry bilaterally and clear. ABDOMEN: Soft. Bowel sounds are present. Nontender, nondistended. Patient is tolerating tube feeding well. The patient's urine output is adequate. LABORATORY DATA: Patient's laboratory data reveal white count going up to 30.7, hemoglobin and hematocrit stable 12.2 and 38. Patient's BUN is 44 with a creatinine of 0.99, suggesting azotemia. ASSESSMENT: STATUS POST EXPLORATORY LAPAROTOMY FOR SMALL BOWEL OBSTRUCTION WITH LYSIS OF ADHESIONS AND SEGMENTAL ILEAL RESECTION FOR CLOSED LOOP OBSTRUCTION. PLAN: I will continue supportive therapy with albumin. Suspect the patient is having transudate leakage into his lungs with this pleural effusion secondary to hypoalbuminemia. The patient's vasopressor requirements are going down. His urine output is consistent. White count may indicate empyema. The patient is being considered for pleural tap by Dr. Mackey or by Dr. Armenta tomorrow. We will continue vasopressor support. We will continue weaning off the ventilator and continue supportive therapy of his lungs, heart, and kidneys. DICTATING PHYSICIAN: JESUS MORGAN M.D. [id number] PHY#: [id number] ID: [id number] JOB#: [id number] ACCT: [id number] cc: >
[2016-10-05] MEDS ORDERED: ALBUMIN HUMAN 25% RTU INJ 12.5 GM/50 ML RTUINJ IV SCH (22:00)
[2016-10-06] MEDS: PIPERACILLIN SODIUM/TAZOBACTAM 3.375 GM in NORMAL SALINE 100 ML IV SCH ×5 (00:06→23:29)
[2016-10-06] MEDS: ESMOLOL HCL/SOD CL 250 ML IV PRN ×5 (00:07→20:38)
[2016-10-06] MEDS: METRONIDAZOLE 500 MG/NS RTU 100 ML IV SCH ×3 (01:06→19:35)
[2016-10-06] MEDS: ALBUMIN HUMAN 50 ML IV SCH ×3 (02:56→19:34)
[2016-10-06] MEDS: DEXTROSE 5%-WATER 250 ML with PHENYLEPHRINE HCL 40 MG IV PRN ×4 (04:56→21:24)
[2016-10-06 06:16] LABS: ARTERIAL BLOOD BASE EXCESS -3.6 mmol/L; ARTERIAL BLOOD O2 SATURATION 95.2 % (94-98)
[2016-10-06] MEDS: PANTOPRAZOLE SODIUM 40 MG VIAL IV SCH ×2 (06:22→19:33)
[2016-10-06 06:27] LABS: ANION GAP 9 (5-19); BLOOD UREA NITROGEN 31 mg/dL (7-20); CALCIUM 7.4 mg/dL (8.4-10.2); CARBON DIOXIDE 20 mmol/L (22-30); CHLORIDE 115 mmol/L (98-107); CREATININE RESULT 0.63 mg/dL (0.52-1.25); DIGOXIN 0.85 ng/mL (0.8-2.0); GLUCOSE 110 mg/dL (75-110); POTASSIUM 3.7 mmol/L (3.6-5.0); SODIUM 143.5 mmol/L (137-145)
[2016-10-06 06:38] LABS: HEMATOCRIT 34.6 % (37.9-51.0); HEMOGLOBIN 11.3 g/dL (13.5-17.0); HGB HCT DIFFERENCE -0.7; MEAN CORPUSCULAR HEMOGLOBIN 29.8 pg (27.0-33.4); MEAN CORPUSCULAR HGB CONC 32.5 g/dL (32.0-36.0); MEAN CORPUSCULAR VOLUME 92 fl (80-97); RED BLOOD COUNT 3.79 10^6/uL (4.35-5.55); RED CELL DISTRIBUTION WIDTH 13.5 % (11.5-14.0); WHITE BLOOD COUNT 28.6 10^3/uL (4.0-10.5)
[2016-10-06] MEDS: PROPOFOL 100 ML IV PRN ×4 (06:47→22:04)
[2016-10-06 07:06] LABS: BASOPHILS % (MANUAL) 0 % (0-2); EOSINOPHILS % (MANUAL) 0 % (0-6); LYMPHOCYTES % (MANUAL) 2 % (13-45); TOTAL CELLS COUNTED 100
[2016-10-06 07:10] LABS: BURR CELLS 1+; OVALOCYTES 1+; PLATELET CLUMPS PRESENT; TOXIC GRANULATION 2+
[2016-10-06] MEDS: LEVOTHYROXINE SODIUM INJ/PF 0.1 MG SDV IV SCH (09:22)
[2016-10-06] MEDS ORDERED: NORMAL SALINE 250 ML IV PRN ×2 (10:24)
[2016-10-06 11:17] LABS: PROTHROMBIN TIME 19.2 SEC (11.4-15.4)
[2016-10-06 11:18] LABS: PARTIAL THROMBOPLASTIN TIME 35.3 SEC (23.5-35.8)
--- NOTE | 2016-10-06 13:04 | PDOC PROGRESS REPORT ---
Subjective Progress Note for:: 10/06/16 Subjective:: Is examined in the emergency department where he is on the ventilator; he is also sedated on propofol, and still requiring Levophed. Physical Exam Vital Signs: Temp Pulse Resp BP Pulse Ox 98.2 F 92 22 H 112/76 94 10/06/16 08:00 10/06/16 08:00 10/06/16 08:00 10/06/16 08:00 10/06/16 12:00 Intake & Output 10/05/16 10/06/16 10/07/16 06:59 06:59 06:59 Intake Total 3622 3171 Output Total 618 1415 175 Balance 3004 1756 -175 Weight 81.6 kg 83.6 kg Respiratory exam: PRESENT: other - Marked thick sputum being suctioned from endotracheal tube. GI/Abdominal exam: PRESENT: other - Slightly distended, bowel sounds present. Sero-fatty drainage from midline incision; total of 4 robbie removed to above and 2 below the umbilicus. Wound open and communicating between supra and infraumbilical portions. Wound irrigated with peroxide after culturing wound for Gram stain and sensitivity. There was no reema pus. The fascia is intact. Results Laboratory Results: 10/06/16 05:48 10/06/16 05:48 10/05/16 10/06/16 10/06/16 04:15 05:48 05:48 WBC 30.7 H* 28.6 H RBC 4.08 L 3.79 L Hgb 12.2 L 11.3 L Hct 38.8 34.6 L MCV 95 92 MCH 30.0 29.8 MCHC 31.6 L 32.5 RDW 13.5 13.5 Plt Count 256 277 Seg Neutrophils % Not Reportable Lymphocytes % Not Reportable Monocytes % Not Reportable Eosinophils % Not Reportable Basophils % Not Reportable Absolute Neutrophils Not Reportable Absolute Lymphocytes Not Reportable Absolute Monocytes Not Reportable Absolute Eosinophils Not Reportable Absolute Basophils Not Reportable Carbonic Acid HCO3/H2CO3 Ratio ABG pH ABG pCO2 ABG pO2 ABG HCO3 ABG O2 Saturation ABG Base Excess FiO2 Sodium 143.5 Potassium 3.7 Chloride 115 H Carbon Dioxide 20 L Anion Gap 9 BUN 31 H Creatinine 0.63 Est GFR ( Amer) > 60 Est GFR (Non-Af Amer) > 60 Glucose 110 Calcium 7.4 L Albumin 10/06/16 10/06/16 06:05 11:34 WBC RBC Hgb Hct MCV MCH MCHC RDW Plt Count Seg Neutrophils % Lymphocytes % Monocytes % Eosinophils % Basophils % Absolute Neutrophils Absolute Lymphocytes Absolute Monocytes Absolute Eosinophils Absolute Basophils Carbonic Acid 0.91 L HCO3/H2CO3 Ratio 21:1 ABG pH 7.43 ABG pCO2 30.2 L ABG pO2 72.6 L ABG HCO3 19.7 L ABG O2 Saturation 95.2 ABG Base Excess -3.6 FiO2 45% Sodium Potassium Chloride Carbon Dioxide Anion Gap BUN Creatinine Est GFR ( Amer) Est GFR (Non-Af Amer) Glucose Calcium Albumin 1.7 L 09/27/16 10/02/16 10/04/16 22:46 10:40 03:23 Troponin I 0.035 0.037 NT-Pro-B Natriuret Pep 1790 H Impressions: Chest/Abdomen CTA 09/27/16 00:00 IMPRESSION: No evidence for pulmonary embolic disease. Bilateral airspace consolidation in the lower lobes which could represent atelectatic changes or pneumonic consolidations. Other findings as noted above Acute Abdomen Series 09/27/16 11:55 IMPRESSION: Small bowel obstruction with diffuse distention of small bowel loops out of proportion to colon KUB X-Ray 10/01/16 07:00 IMPRESSION: Persistent dilated small bowel loops worrisome for small bowel obstruction. Upper GI and Small Bowel X-Ray 10/02/16 07:00 IMPRESSION: Unable to control 0 bolus of thin liquids contrast. Subglottic aspiration of Isovue-300. Gastrografin was instilled into the stomach. There is no gastric outlet obstruction. Small hiatal hernia with reflux. Normal pylorus and duodenum. Jejunum is diffusely distended, with poor peristalsis and no significant antegrade motion of contrast over 3 hour observation. At the 2 hour rodney, the stomach was emptied because of GE reflux and aspiration risk. Chest X-Ray 10/06/16 00:00 IMPRESSION: Moderate bilateral opacity -effusion. Stable. Lines and tubes. Assessment & Plan - Diagnosis (1) Small bowel obstruction Is this a current diagnosis for this admission?: Yes (2) Septic shock Is this a current diagnosis for this admission?: YesPlan: 1. Patient is postoperative day 3 status post exploratory laparotomy, small bowel resection for small bowel obstruction now with a superficial wound dehiscence; I do not believe the wound is grossly infected. We await cultures. We will start patient on dressing changes. 2. Patient's leukocytosis is concerning. Vessel sources include intra- abdominal versus. I believe since lungs are responsible for the persisting sepsis. I have recommended also evaluation of the pleural effusion which could potentially although less likely be contributing factor. 3. If the picture persists until tomorrow, CT scan of the abdomen and pelvis may be indicated. I discussed the above with
--- NOTE | 2016-10-06 13:27 | PDOC PROGRESS REPORT ---
Subjective Progress Note for:: 10/06/16 Subjective:: 85-year-old gentleman who was admitted initially with age fibrillation with rapid ventricular rate who also had a small bowel obstruction. The patient's atrial fibrillation was controlled with diltiazem. The patient's small bowel obstruction was treated with NG suction. Patient failed to improve and was concerned that the diltiazem may be contributing to this so the patient was moved to the intensive care unit and started on esmolol drip instead. Patient had no improvement in his bowel function and then went to surgery. The patient had an adhesion around part of the bowels which was removed with improvement of his bowel function. Patient however has continued have elevated white blood count and evidence for congestive heart failure. The patient has had elevated CVP. The patient continues to require mechanical inhalation. Because of the pleural effusions are present we will ask radiology to do a thoracentesis to see if this patient may have an empyema given the persistent white count. Physical Exam Vital Signs: Temp Pulse Resp BP Pulse Ox 98.2 F 92 22 H 112/76 94 10/06/16 08:00 10/06/16 08:00 10/06/16 08:00 10/06/16 08:00 10/06/16 12:00 Intake & Output 10/05/16 10/06/16 10/07/16 06:59 06:59 06:59 Intake Total 3622 3171 Output Total 618 1415 175 Balance 3004 1756 -175 Weight 81.6 kg 83.6 kg General appearance: PRESENT: no acute distress Eye exam: PRESENT: conjunctiva pink. ABSENT: scleral icterus Ear exam: PRESENT: normal external ear exam Mouth exam: PRESENT: moist, tongue midline, other - ET tube in place. Neck exam: ABSENT: JVD Respiratory exam: PRESENT: decreased breath sounds Cardiovascular exam: PRESENT: irregular rhythm, tachycardia GI/Abdominal exam: PRESENT: other - Surgical dressing in place. Extremities exam: ABSENT: calf tenderness, clubbing, pedal edema Neurological exam: PRESENT: other - Patient is intubated and sedated. Psychiatric exam: PRESENT: other - Unable to assess. Skin exam: PRESENT: dry, intact, warm. ABSENT: cyanosis, rash Results Laboratory Results: 10/06/16 05:48 10/06/16 05:48 10/05/16 10/06/16 10/06/16 04:15 05:48 05:48 WBC 30.7 H* 28.6 H RBC 4.08 L 3.79 L Hgb 12.2 L 11.3 L Hct 38.8 34.6 L MCV 95 92 MCH 30.0 29.8 MCHC 31.6 L 32.5 RDW 13.5 13.5 Plt Count 256 277 Seg Neutrophils % Not Reportable Lymphocytes % Not Reportable Monocytes % Not Reportable Eosinophils % Not Reportable Basophils % Not Reportable Absolute Neutrophils Not Reportable Absolute Lymphocytes Not Reportable Absolute Monocytes Not Reportable Absolute Eosinophils Not Reportable Absolute Basophils Not Reportable Carbonic Acid HCO3/H2CO3 Ratio ABG pH ABG pCO2 ABG pO2 ABG HCO3 ABG O2 Saturation ABG Base Excess FiO2 Sodium 143.5 Potassium 3.7 Chloride 115 H Carbon Dioxide 20 L Anion Gap 9 BUN 31 H Creatinine 0.63 Est GFR ( Amer) > 60 Est GFR (Non-Af Amer) > 60 Glucose 110 Calcium 7.4 L Albumin 10/06/16 10/06/16 06:05 11:34 WBC RBC Hgb Hct MCV MCH MCHC RDW Plt Count Seg Neutrophils % Lymphocytes % Monocytes % Eosinophils % Basophils % Absolute Neutrophils Absolute Lymphocytes Absolute Monocytes Absolute Eosinophils Absolute Basophils Carbonic Acid 0.91 L HCO3/H2CO3 Ratio 21:1 ABG pH 7.43 ABG pCO2 30.2 L ABG pO2 72.6 L ABG HCO3 19.7 L ABG O2 Saturation 95.2 ABG Base Excess -3.6 FiO2 45% Sodium Potassium Chloride Carbon Dioxide Anion Gap BUN Creatinine Est GFR ( Amer) Est GFR (Non-Af Amer) Glucose Calcium Albumin 1.7 L 09/27/16 10/02/16 10/04/16 22:46 10:40 03:23 Troponin I 0.035 0.037 NT-Pro-B Natriuret Pep 1790 H Impressions: Chest/Abdomen CTA 09/27/16 00:00 IMPRESSION: No evidence for pulmonary embolic disease. Bilateral airspace consolidation in the lower lobes which could represent atelectatic changes or pneumonic consolidations. Other findings as noted above Acute Abdomen Series 09/27/16 11:55 IMPRESSION: Small bowel obstruction with diffuse distention of small bowel loops out of proportion to colon KUB X-Ray 10/01/16 07:00 IMPRESSION: Persistent dilated small bowel loops worrisome for small bowel obstruction. Upper GI and Small Bowel X-Ray 10/02/16 07:00 IMPRESSION: Unable to control 0 bolus of thin liquids contrast. Subglottic aspiration of Isovue-300. Gastrografin was instilled into the stomach. There is no gastric outlet obstruction. Small hiatal hernia with reflux. Normal pylorus and duodenum. Jejunum is diffusely distended, with poor peristalsis and no significant antegrade motion of contrast over 3 hour observation. At the 2 hour rodney, the stomach was emptied because of GE reflux and aspiration risk. Chest X-Ray 10/06/16 00:00 IMPRESSION: Moderate bilateral opacity -effusion. Stable. Lines and tubes. Assessment & Plan - Diagnosis (1) Small bowel obstruction Is this a current diagnosis for this admission?: YesPlan: Patient had surgery for the small bowel obstruction and was found to have an adhesion as the cause. Patient currently is on Zosyn and Flagyl. Imipenem was added on today. He is still hypotensive requiring vasopressors at this time. Surgery removed several sutures today to make certain that there was no purulent drainage and there was none. He is getting tube feeds and as tolerated with no residuals. (2) Acute respiratory failure with hypoxemia Is this a current diagnosis for this admission?: YesPlan: Patient is hypotensive but chest x-ray shows an to be in some congestive heart failure. Cardiology is following the patient and will follow their recommendations regarding volume status. CVP has been reading between 12 and 16. We'll continue the ventilator for now. Patient also has pleural effusions and we have asked radiology to do thoracentesis to see if this is transudative or exudative. (3) Aspiration pneumonia Qualifiers: Aspiration pneumonia type: unspecified Laterality: bilateral Lung location: lower lobe of lung Qualified Code(s): J69.0 - Pneumonitis due to inhalation of food and vomit Is this a current diagnosis for this admission?: YesPlan: The patient is currently on Flagyl, and Zosyn. Imipenem was added today. (4) Atrial fibrillation Qualifiers: Atrial fibrillation type: persistent Qualified Code(s): I48.1 - Persistent atrial fibrillation Is this a current diagnosis for this admission?: YesPlan: Patient is on esmolol drip. (5) Congestive heart failure Qualifiers: Congestive heart failure type: diastolic Congestive heart failure chronicity: chronic Qualified Code(s): I50.32 - Chronic diastolic ( congestive) heart failure Is this a current diagnosis for this admission?: YesPlan: Chest x-ray shows volume overload. CVP has been reading between 12 and 16. Will defer to cardiology regarding volume status. (6) Hypertension Qualifiers: Hypertension type: essential hypertension Qualified Code(s): I10 - Essential (primary) hypertension Is this a current diagnosis for this admission?: YesPlan: His blood pressure has been low and is currently requiring vasopressors.. Continue esmolol. (7) Hypokalemia Is this a current diagnosis for this admission?: YesPlan: Resolved. (8) Hypothyroidism Qualifiers: Hypothyroidism type: unspecified Qualified Code(s): E03.9 - Hypothyroidism, unspecified Is this a current diagnosis for this admission?: YesPlan: Continue Synthroid. (9) Renal insufficiency Is this a current diagnosis for this admission?: YesPlan: Patient's creatinine has returned to normal. - Time Critical Time spent with patient: 15-24 minutes - Inpatient Certification Medical Necessity: Need Close Monitoring Due to Risk of Patient Decompensation, Need for IV Antibiotics
[2016-10-06] MEDS: IMIPENEM/CILASTATIN SODIUM 500 MG in NORMAL SALINE 100 ML IV SCH ×2 (14:31→19:35)
[2016-10-06] MEDS ORDERED: PHYTONADIONE INJ 10 MG/1 ML AMPULE SUBCUT ONE (17:00)
[2016-10-06] MEDS: 1/2 NORMAL SALINE 1,000 ML IV PRN (19:36)
--- NOTE | 2016-10-06 20:08 | PROGRESS NOTE E ---
Progress Note NAME: GRECIA MARTI : 1930 AGE: 85Y DATE: 10/06/2016 ROOM: ED06 SUBJECTIVE: Note, the patient continues to be intubated and sedated. He is in atrial fibrillation. His ventricular response is much improved, it is 92 beats per minute. There are no ventricular arrhythmias seen. The patient is intubated and sedated. Note that is patient is on Charisma-Synephrine at 40 mcg/m and is also on esmolol at 100 mcg/kg/m. OBJECTIVE: GENERAL: The patient is intubated and sedated. He looks chronically ill. VITAL SIGNS: He is afebrile with a temperature of 98.2 degrees Fahrenheit, pulse 92 beats per minute, blood pressure 112/76, respirations 20 per minute, O2 saturation 98% on mechanical ventilator with an FIO2 of 43%. HEENT: Head is atraumatic and normocephalic. Eyes, pupils are equal, round, regular, reactive to light. ENT negative. NECK: Supple. There is no JVD. Carotids are equal. There is no bruit. There is no lymphadenopathy. There is no goiter. LUNGS: Dullness in both bases, right greater than left. The rest of the lungs are clear. HEART: S1 and S2 are heard. S1 is of variable intensity and S2 is normal. There is no S3 gallop. There is no S4 gallop. There is a systolic murmur at the left sternal border at the apex. There is no rub. ABDOMEN: Soft. Dressing is dry. There is no hepatosplenomegaly. Bowel sounds are hypoactive. EXTREMITIES: There is oozing from the dressing site which seems to be serous. Pulses are diminished. There are no femoral bruits. Leg pulses are diminished. There is no pedal edema. There is no DVT or cellulitis. CENTRAL NERVOUS SYSTEM AND PSYCHIATRIC: Not examined. INTAKE AND OUTPUT: The patient's 24-hour intake was 3171, output 1415 mL. IMAGING: Chest x-ray shows bilateral pleural effusions, cannot exclude underlying pneumonia. There is no evidence. Cardiac size is normal. LABORATORY: The white count has gone down to 28,600, hemoglobin 11.3, hematocrit 34.6, platelet count 277,000. Sodium 143.5, potassium 3.7, chloride 115, CO2 of 20, BUN 31, creatinine 0.63, GFR greater than 60, glucose 110, calcium 7.4. Albumin has come up to 1.7. IMPRESSION: 1. POSTOPERATIVE ACUTE RESPIRATORY FAILURE, PATIENT INTUBATED AND SEDATE AND HIS OXYGENATION IS FAIRLY DECENT ON 45% FIO2. 2. STATUS POST SURGERY FOR SMALL BOWEL OBSTRUCTION. 3. ATRIAL FIBRILLATION WITH NOW VENTRICULAR RESPONSE CONTROLLED ON BREVIBLOC. 4. HYPOTENSION, BLOOD PRESSURE MUCH IMPROVED ON CHARISMA-SYNEPHRINE AT 40 MG/M. WOULD START WEANING THE CHARISMA-SYNEPHRINE 5. VOLUME OVERLOAD OF CHF, AT PRESENT NO EVIDENCE OF CHF. THIS HAS RESOLVED ONCE THE IV FLUIDS WERE CUT DOWN TO KVO. 6. BIBASILAR PNEUMONIA WITH BILATERAL PLEURAL EFFUSION. WILL RECOMMEND CONTINUED ANTIBIOTICS AND CONTINUE VENTILATORY SUPPORT, ESPECIALLY SINCE THE PATIENT HAS RESPIRATORY FAILURE. 7. BILATERAL PLEURAL EFFUSIONS, TRANSUDATE VERSUS EXUDATE VERSUS EMPYEMA IN VIEW OF THE WHITE COUNT BEING HIGH. WOULD RECOMMEND ULTRASOUND OF THE CHEST AND PLEUROCENTESIS IF THE OFFICE SYSTEM ANALYST THINKS THIS WILL HELP THE CASE. 8. HYPOTHYROIDISM. MENTIONED EARLIER, THE PATIENT'S IV FLUIDS ARE KVO. THE PATIENT IS ON VENTILATORY SUPPORT. CONTINUE ANTIBIOTICS. CONTINUE CHARISMA-SYNEPHRINE AND CONTINUE TO WEAN DOWN AND TO OFF OF CHARISMA-SYNEPHRINE DRIP. CONTINUE THE PATIENT ON BREVIBLOC AND WOULD TRANSITION TO ORAL MEDICATION ONCE THE PATIENT'S OTHER COMORBIDITIES ARE STABLE AND THE PRESSURE SUPPORT IS WORKING. NOTE THAT THE PATIENT HAS TRICKLE DOWN TUBE FEEDING. THE PATIENT DID RECEIVE FOUR 25-G BOLUSES OF ALBUMIN IV PIGGYBACK EVERY 8 HOURS. TIME SPENT: Note, 35 minutes of critical care time was spent on this patient with more than 50% of the time on direct patient care and also reviewing the patient's medications and also adjusting his medication. Also, discussed with the other caregivers on the case. Dr. Moody will follow the patient in the a.m. DICTATING PHYSICIAN: ROHIT VILLAFANA M.D. [id number] PHY#: [id number] ID: [id number] JOB#: [id number] ACCT: [id number] cc: >
[2016-10-07] MEDS: ESMOLOL HCL/SOD CL 250 ML IV PRN ×4 (01:02→18:12)
[2016-10-07] MEDS: IMIPENEM/CILASTATIN SODIUM 500 MG in NORMAL SALINE 100 ML IV SCH ×4 (01:05→18:14)
[2016-10-07] MEDS: METRONIDAZOLE 500 MG/NS RTU 100 ML IV SCH ×2 (01:19→10:06)
[2016-10-07] MEDS: MORPHINE SULFATE 10 MG/ML INJ IV PRN (01:21)
[2016-10-07] MEDS: PROPOFOL 100 ML IV PRN ×4 (03:17→18:13)
[2016-10-07] MEDS: PANTOPRAZOLE SODIUM 40 MG VIAL IV SCH ×2 (05:07→18:13)
[2016-10-07] MEDS: PIPERACILLIN SODIUM/TAZOBACTAM 3.375 GM in NORMAL SALINE 100 ML IV SCH (05:10)
[2016-10-07 06:19] LABS: HEMATOCRIT 32.5 % (37.9-51.0); HEMOGLOBIN 10.6 g/dL (13.5-17.0); HGB HCT DIFFERENCE -0.7; MEAN CORPUSCULAR HEMOGLOBIN 29.9 pg (27.0-33.4); MEAN CORPUSCULAR HGB CONC 32.5 g/dL (32.0-36.0); MEAN CORPUSCULAR VOLUME 92 fl (80-97); RED BLOOD COUNT 3.53 10^6/uL (4.35-5.55); RED CELL DISTRIBUTION WIDTH 13.7 % (11.5-14.0); WHITE BLOOD COUNT 20.8 10^3/uL (4.0-10.5)
[2016-10-07 06:33] LABS: ANION GAP 10 (5-19); BLOOD UREA NITROGEN 17 mg/dL (7-20); CALCIUM 7.1 mg/dL (8.4-10.2); CARBON DIOXIDE 22 mmol/L (22-30); CHLORIDE 113 mmol/L (98-107); CREATININE RESULT 0.49 mg/dL (0.52-1.25); GLUCOSE 77 mg/dL (75-110); SODIUM 145.3 mmol/L (137-145); TRIGLYCERIDES 106 mg/dL (<150)
[2016-10-07 06:39] LABS: ARTERIAL BLOOD BASE EXCESS -3.5 mmol/L; ARTERIAL BLOOD O2 SATURATION 94.9 % (94-98)
[2016-10-07 06:54] LABS: BASOPHILS % (MANUAL) 0 % (0-2); EOSINOPHILS % (MANUAL) 0 % (0-6); LYMPHOCYTES % (MANUAL) 5 % (13-45); TOTAL CELLS COUNTED 100
[2016-10-07 06:55] LABS: OVALOCYTES SLIGHT; PLATELET CLUMPS PRESENT; POLYCHROMASIA SLIGHT; TOXIC GRANULATION 1+; TOXIC VACUOLATION PRESENT
[2016-10-07 06:58] LABS: POTASSIUM 3.1 mmol/L (3.6-5.0)
--- NOTE | 2016-10-07 09:09 | PDOC PROGRESS REPORT ---
Subjective Progress Note for:: 10/07/16 Subjective:: Patient on the ventilator. Status post exploratory laparotomy with reported eventual bowel resection. Patient has pleural effusion on chest x-ray. He is now on a esmolol drip. On Diprivan, and nasogastric tube, and andino catheter. Physical Exam Vital Signs: Temp Pulse Resp BP Pulse Ox 97.9 F 115 H 12 134/87 H 98 10/07/16 08:00 10/07/16 08:00 10/07/16 08:00 10/07/16 08:00 10/07/16 08:00 Intake & Output 10/06/16 10/07/16 10/08/16 06:59 06:59 06:59 Intake Total 3171 4461 Output Total 1415 1660 125 Balance 1756 2801 -125 Weight 83.6 kg 87 kg General appearance: PRESENT: no acute distress, other - Intubated and sedated Head exam: PRESENT: normocephalic Eye exam: PRESENT: conjunctiva pale Mouth exam: PRESENT: moist, neck supple Neck exam: ABSENT: JVD Respiratory exam: PRESENT: clear to auscultation quique. ABSENT: rhonchi, wheezes Cardiovascular exam: PRESENT: irregular rhythm. ABSENT: gallop GI/Abdominal exam: PRESENT: hypoactive bowel sounds, soft. ABSENT: distended Extremities exam: PRESENT: pedal edema - Bilateral Psychiatric exam: ABSENT: agitated Focused psych exam: ABSENT: restlessness Skin exam: PRESENT: dry, warm. ABSENT: cyanosis Results Laboratory Results: 10/07/16 05:30 10/07/16 05:30 10/05/16 10/06/16 10/06/16 04:15 11:34 11:34 WBC 30.7 H* RBC 4.08 L Hgb 12.2 L Hct 38.8 MCV 95 MCH 30.0 MCHC 31.6 L RDW 13.5 Plt Count 256 Seg Neutrophils % Lymphocytes % Monocytes % Eosinophils % Basophils % Absolute Neutrophils Absolute Lymphocytes Absolute Monocytes Absolute Eosinophils Absolute Basophils Carbonic Acid HCO3/H2CO3 Ratio ABG pH ABG pCO2 ABG pO2 ABG HCO3 ABG O2 Saturation ABG Base Excess FiO2 Sodium Potassium Chloride Carbon Dioxide Anion Gap BUN Creatinine Est GFR ( Amer) Est GFR (Non-Af Amer) Glucose Calcium Albumin 1.7 L Triglycerides Blood Type A POSITIVE 10/07/16 10/07/16 10/07/16 05:30 05:30 06:30 WBC 20.8 H RBC 3.53 L Hgb 10.6 L Hct 32.5 L MCV 92 MCH 29.9 MCHC 32.5 RDW 13.7 Plt Count 267 Seg Neutrophils % Not Reportable Lymphocytes % Not Reportable Monocytes % Not Reportable Eosinophils % Not Reportable Basophils % Not Reportable Absolute Neutrophils Not Reportable Absolute Lymphocytes Not Reportable Absolute Monocytes Not Reportable Absolute Eosinophils Not Reportable Absolute Basophils Not Reportable Carbonic Acid 0.85 L HCO3/H2CO3 Ratio 22:1 ABG pH 7.45 ABG pCO2 28.2 L ABG pO2 69.0 L ABG HCO3 19.3 L ABG O2 Saturation 94.9 ABG Base Excess -3.5 FiO2 45% Sodium 145.3 H Potassium 3.1 L Chloride 113 H Carbon Dioxide 22 Anion Gap 10 BUN 17 Creatinine 0.49 L Est GFR ( Amer) > 60 Est GFR (Non-Af Amer) > 60 Glucose 77 Calcium 7.1 L Albumin Triglycerides 106 Blood Type 09/27/16 10/02/16 10/04/16 22:46 10:40 03:23 Troponin I 0.035 0.037 NT-Pro-B Natriuret Pep 1790 H Impressions: Chest/Abdomen CTA 09/27/16 00:00 IMPRESSION: No evidence for pulmonary embolic disease. Bilateral airspace consolidation in the lower lobes which could represent atelectatic changes or pneumonic consolidations. Other findings as noted above Acute Abdomen Series 09/27/16 11:55 IMPRESSION: Small bowel obstruction with diffuse distention of small bowel loops out of proportion to colon KUB X-Ray 10/01/16 07:00 IMPRESSION: Persistent dilated small bowel loops worrisome for small bowel obstruction. Upper GI and Small Bowel X-Ray 10/02/16 07:00 IMPRESSION: Unable to control 0 bolus of thin liquids contrast. Subglottic aspiration of Isovue-300. Gastrografin was instilled into the stomach. There is no gastric outlet obstruction. Small hiatal hernia with reflux. Normal pylorus and duodenum. Jejunum is diffusely distended, with poor peristalsis and no significant antegrade motion of contrast over 3 hour observation. At the 2 hour rodney, the stomach was emptied because of GE reflux and aspiration risk. Chest X-Ray 10/07/16 06:00 IMPRESSION: STABLE APPEARANCE OF THE CHEST. SUPPORT DEVICES UNCHANGED. Assessment & Plan - Diagnosis (1) Acute respiratory failure with hypoxemia Is this a current diagnosis for this admission?: Yes (2) Atrial fibrillation with rapid ventricular response Is this a current diagnosis for this admission?: Yes (3) Small bowel obstruction Is this a current diagnosis for this admission?: Yes (4) Aspiration pneumonia Qualifiers: Aspiration pneumonia type: unspecified Laterality: bilateral Lung location: lower lobe of lung Qualified Code(s): J69.0 - Pneumonitis due to inhalation of food and vomit Is this a current diagnosis for this admission?: Yes (5) Dehydration Is this a current diagnosis for this admission?: Yes (6) Hyperglycemia Is this a current diagnosis for this admission?: Yes (7) Coagulopathy Is this a current diagnosis for this admission?: Yes (8) Congestive heart failure Qualifiers: Congestive heart failure type: diastolic Congestive heart failure chronicity: chronic Qualified Code(s): I50.32 - Chronic diastolic ( congestive) heart failure Is this a current diagnosis for this admission?: Yes - Time Time Spent with patient: 25-34 minutes - Plan Summary Plan Summary: We will replace potassium. Continue ventilatory support. Pulmonary Managing ventilator. Patient had surgery late last week for the bowel obstruction. Reportedly the patient is atrial fibrillation controlled by esmolol drip. Cardiology is on the case. WBC is trending down. Continue antibiotic. Ventilatory weaning per pulmonary service. Follow-up chest x-ray, CBC, basic metabolic panel in the morning. Renew his restraints today.
[2016-10-07] MEDS: POTASSI CL 20 MEQ/50 ML RIDER 20 MEQ/50 ML RTUPB IV SCH ×3 (10:05→15:49)
[2016-10-07] MEDS: LEVOTHYROXINE SODIUM INJ/PF 0.1 MG SDV IV SCH (10:07)
--- NOTE | 2016-10-07 13:00 | PDOC PROGRESS REPORT ---
Subjective Progress Note for:: 10/07/16 Subjective:: Patient about the same and has made very little progress. There is no significant change in general condition. Patient remains intubated, sedated, patient however looks comfortable and in acute distress. Patient is status post small bowel resection. His still nothing by mouth and has NG tube drainage. Patient continues in atrial fibrillation. He is on small dose of vasopressors. Medications reviewed. Physical Exam Vital Signs: Temp Pulse Resp BP Pulse Ox 97.9 F 99 20 104/75 97 10/07/16 08:00 10/07/16 10:00 10/07/16 12:31 10/07/16 12:31 10/07/16 12:31 Intake & Output 10/06/16 10/07/16 10/08/16 06:59 06:59 06:59 Intake Total 3171 4461 Output Total 1415 1660 325 Balance 1756 2801 -325 Weight 83.6 kg 87 kg Exam: GENERAL: well-nourished and in no acute distress. Patient is intubated and sedated. Orientation cannot be checked HEAD: Atraumatic, normocephalic. EYES: Pupils equal round and reactive to light, extraocular movements could not be checked, sclera anicteric, conjunctiva are normal. ENT: TMs normal, nares patent, oropharynx clear without exudates. Moist mucous membranes. No oral ulcerations or bleeding gums noted NECK: supple without lymphadenopathy or JVD. Trachea is central. No cervical or axillary lymphadenopathy noted. Carotids are 2+ LUNGS: Breath sounds mostly clear to auscultation patient is noted to have bibasal crackles at the extreme bases. Bibasal dullness noted right more than left. CHEST: Palpation of the chest wall shows no significant chest wall tenderness or abnormalities. 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 ABDOMEN: Soft, no significant tenderness appreciated, normoactive bowel sounds. No guarding, no rebound. No rigidity noted . No masses appreciated. EXTREMITIES: Pedal pulses are 1-2+, no calf tenderness noted, 1+ pedal edema noted. No clubbing or cyanosis. NEUROLOGICAL: The patient cannot participate in the neurological exam but no facial asymmetry noted. Extremities slightly hypotonic PSYCH: This cannot be evaluated. Patient cannot participate. SKIN: No significant ecchymosis, rash, or signs of pruritus noted. MUSCULOSKELETAL EXAM: No significant joint swelling noted. Patient cannot participate in musculoskeletal exam Results Laboratory Results: 10/07/16 05:30 10/07/16 05:30 10/06/16 10/07/16 10/07/16 11:34 05:30 05:30 WBC 20.8 H RBC 3.53 L Hgb 10.6 L Hct 32.5 L MCV 92 MCH 29.9 MCHC 32.5 RDW 13.7 Plt Count 267 Seg Neutrophils % Not Reportable Lymphocytes % Not Reportable Monocytes % Not Reportable Eosinophils % Not Reportable Basophils % Not Reportable Absolute Neutrophils Not Reportable Absolute Lymphocytes Not Reportable Absolute Monocytes Not Reportable Absolute Eosinophils Not Reportable Absolute Basophils Not Reportable Carbonic Acid HCO3/H2CO3 Ratio ABG pH ABG pCO2 ABG pO2 ABG HCO3 ABG O2 Saturation ABG Base Excess FiO2 Sodium 145.3 H Potassium 3.1 L Chloride 113 H Carbon Dioxide 22 Anion Gap 10 BUN 17 Creatinine 0.49 L Est GFR ( Amer) > 60 Est GFR (Non-Af Amer) > 60 Glucose 77 Calcium 7.1 L Triglycerides 106 Blood Type A POSITIVE 10/07/16 06:30 WBC RBC Hgb Hct MCV MCH MCHC RDW Plt Count Seg Neutrophils % Lymphocytes % Monocytes % Eosinophils % Basophils % Absolute Neutrophils Absolute Lymphocytes Absolute Monocytes Absolute Eosinophils Absolute Basophils Carbonic Acid 0.85 L HCO3/H2CO3 Ratio 22:1 ABG pH 7.45 ABG pCO2 28.2 L ABG pO2 69.0 L ABG HCO3 19.3 L ABG O2 Saturation 94.9 ABG Base Excess -3.5 FiO2 45% Sodium Potassium Chloride Carbon Dioxide Anion Gap BUN Creatinine Est GFR ( Amer) Est GFR (Non-Af Amer) Glucose Calcium Triglycerides Blood Type 09/27/16 10/02/16 10/04/16 22:46 10:40 03:23 Troponin I 0.035 0.037 NT-Pro-B Natriuret Pep 1790 H Impressions: Chest/Abdomen CTA 09/27/16 00:00 IMPRESSION: No evidence for pulmonary embolic disease. Bilateral airspace consolidation in the lower lobes which could represent atelectatic changes or pneumonic consolidations. Other findings as noted above Acute Abdomen Series 09/27/16 11:55 IMPRESSION: Small bowel obstruction with diffuse distention of small bowel loops out of proportion to colon KUB X-Ray 10/01/16 07:00 IMPRESSION: Persistent dilated small bowel loops worrisome for small bowel obstruction. Upper GI and Small Bowel X-Ray 10/02/16 07:00 IMPRESSION: Unable to control 0 bolus of thin liquids contrast. Subglottic aspiration of Isovue-300. Gastrografin was instilled into the stomach. There is no gastric outlet obstruction. Small hiatal hernia with reflux. Normal pylorus and duodenum. Jejunum is diffusely distended, with poor peristalsis and no significant antegrade motion of contrast over 3 hour observation. At the 2 hour rodney, the stomach was emptied because of GE reflux and aspiration risk. Thoracentesis Ultrasound 10/07/16 00:00 IMPRESSION: SUCCESSFUL RIGHT DIAGNOSTIC AND THERAPEUTIC THORACENTESIS USING ULTRASOUND GUIDANCE. Chest X-Ray 10/07/16 06:00 IMPRESSION: STABLE APPEARANCE OF THE CHEST. SUPPORT DEVICES UNCHANGED. Assessment & Plan - Diagnosis (1) Atrial fibrillation with rapid ventricular response Is this a current diagnosis for this admission?: Yes (2) Small bowel obstruction Is this a current diagnosis for this admission?: Yes (3) Acute respiratory failure with hypoxemia Is this a current diagnosis for this admission?: Yes (4) Aspiration pneumonia Qualifiers: Aspiration pneumonia type: unspecified Laterality: bilateral Lung location: lower lobe of lung Qualified Code(s): J69.0 - Pneumonitis due to inhalation of food and vomit Is this a current diagnosis for this admission?: Yes (5) Hypotension Qualifiers: Hypotension type: other hypotension type Qualified Code(s): I95.89 - Other hypotension - Notes Notes: Atrial fibrillation: Heart rate under reasonable control. Consider resuming chronic anti-coagulation when cleared from surgical standpoint. Small bowel obstruction: Patient is status post small bowel resection. Acute respiratory failure: Patient currently intubated. Maintaining good oxygenation. This was related to aspiration pneumonia. Patient also has underlying COPD. Hypotension: Continue vasopressors. Patient will benefit from cautious IV fluid challenges. History of aspiration pneumonia: Currently stable continue antibiotic therapy. - Time Time with patient: Greater than 35 minutes - CODE STATUS was discussed, patient remains full code. Surrogate decision-maker unchanged. Multiple medical problems were addressed. More than 50% of the time spent coordinating care, discussing management plans with involved caregivers. Management plans discussed with involved personnels. Medical decision making was of moderate to severe complexity. Medications reviewed and adjusted accordingly: Yes
[2016-10-07 14:09] LABS: FLUID TYPE PLEURAL
[2016-10-07 14:10] LABS: FLUID APPEARANCE SLIGHTLY HAZY; FLUID RBC AVERAGE 140.5; FLUID RBC DILUENT USED NONE USED; FLUID RBC DILUTION FACTOR 1; FLUID RBC SIDE 1 143; FLUID RBC SIDE 2 138; TOTAL RBC SQUARES COUNTED FLD 225
--- NOTE | 2016-10-07 19:01 | PDOC PROGRESS REPORT ---
Subjective Subjective:: The patient is seen in the ER, as the ICU is temporarily closed. Patient has been weaned off Matt-Synephrine today. Urine output is 650 mL since 7 AM. Patient remains on asthma wall for A. fib. Patient had right sided thoracentesis performed earlier with 600 mL's of fluid tapped. Patient had 2 bowel movements last night. Tube feeds are running without significant residuals. Patient remains intubated and sedated. He is on pressure support and initiating breaths. Physical Exam Vital Signs: Temp Pulse Resp BP Pulse Ox 97.5 F 109 H 20 98/62 L 100 10/07/16 16:00 10/07/16 18:00 10/07/16 18:16 10/07/16 18:16 10/07/16 18:00 Intake & Output 10/06/16 10/07/16 10/08/16 06:59 06:59 06:59 Intake Total 3171 4461 1341 Output Total 1415 1660 750 Balance 1756 2801 591 Weight 83.6 kg 87 kg General appearance: PRESENT: other - Intubated and sedated. He is able to partially open his eyes on command. He is able to breathe deep on command. Head exam: PRESENT: other - ET tube. NG tube. Cardiovascular exam: PRESENT: irregular rhythm GI/Abdominal exam: PRESENT: distended, soft, tenderness, other - Midline incision is previously been opened in 2 places. There is some seropurulent drainage. The incision is opened in one additional spot at the inferior aspect. 2 robbie are removed. Probed with Q-tips and Betadine swabs. All 3 open areas are then packed with quarter-inch iodoform gauze. Dressed with 4 x 4 's. Some Bowel sounds are present. Extremities exam: PRESENT: other - Edema/anasarca. Results Laboratory Results: 10/07/16 05:30 10/07/16 05:30 10/06/16 10/07/16 10/07/16 11:34 05:30 05:30 WBC 20.8 H RBC 3.53 L Hgb 10.6 L Hct 32.5 L MCV 92 MCH 29.9 MCHC 32.5 RDW 13.7 Plt Count 267 Seg Neutrophils % Not Reportable Lymphocytes % Not Reportable Monocytes % Not Reportable Eosinophils % Not Reportable Basophils % Not Reportable Absolute Neutrophils Not Reportable Absolute Lymphocytes Not Reportable Absolute Monocytes Not Reportable Absolute Eosinophils Not Reportable Absolute Basophils Not Reportable Carbonic Acid HCO3/H2CO3 Ratio ABG pH ABG pCO2 ABG pO2 ABG HCO3 ABG O2 Saturation ABG Base Excess FiO2 Sodium 145.3 H Potassium 3.1 L Chloride 113 H Carbon Dioxide 22 Anion Gap 10 BUN 17 Creatinine 0.49 L Est GFR ( Amer) > 60 Est GFR (Non-Af Amer) > 60 Glucose 77 Calcium 7.1 L Triglycerides 106 Fluid Type Fluid Source Fluid Color Fluid Appearance Fluid Viscosity Fluid WBC Fluid RBC Blood Type A POSITIVE 10/07/16 10/07/16 06:30 11:30 WBC RBC Hgb Hct MCV MCH MCHC RDW Plt Count Seg Neutrophils % Lymphocytes % Monocytes % Eosinophils % Basophils % Absolute Neutrophils Absolute Lymphocytes Absolute Monocytes Absolute Eosinophils Absolute Basophils Carbonic Acid 0.85 L HCO3/H2CO3 Ratio 22:1 ABG pH 7.45 ABG pCO2 28.2 L ABG pO2 69.0 L ABG HCO3 19.3 L ABG O2 Saturation 94.9 ABG Base Excess -3.5 FiO2 45% Sodium Potassium Chloride Carbon Dioxide Anion Gap BUN Creatinine Est GFR ( Amer) Est GFR (Non-Af Amer) Glucose Calcium Triglycerides Fluid Type PLEURAL Fluid Source Fluid Color YELLOW Fluid Appearance SLIGHTLY HAZY Fluid Viscosity LIQUID Fluid WBC 365 Fluid RBC 156 Blood Type 09/27/16 10/02/16 10/04/16 22:46 10:40 03:23 Troponin I 0.035 0.037 NT-Pro-B Natriuret Pep 1790 H Impressions: Chest/Abdomen CTA 09/27/16 00:00 IMPRESSION: No evidence for pulmonary embolic disease. Bilateral airspace consolidation in the lower lobes which could represent atelectatic changes or pneumonic consolidations. Other findings as noted above Acute Abdomen Series 09/27/16 11:55 IMPRESSION: Small bowel obstruction with diffuse distention of small bowel loops out of proportion to colon KUB X-Ray 10/01/16 07:00 IMPRESSION: Persistent dilated small bowel loops worrisome for small bowel obstruction. Upper GI and Small Bowel X-Ray 10/02/16 07:00 IMPRESSION: Unable to control 0 bolus of thin liquids contrast. Subglottic aspiration of Isovue-300. Gastrografin was instilled into the stomach. There is no gastric outlet obstruction. Small hiatal hernia with reflux. Normal pylorus and duodenum. Jejunum is diffusely distended, with poor peristalsis and no significant antegrade motion of contrast over 3 hour observation. At the 2 hour rodney, the stomach was emptied because of GE reflux and aspiration risk. Thoracentesis Ultrasound 10/07/16 00:00 IMPRESSION: SUCCESSFUL RIGHT DIAGNOSTIC AND THERAPEUTIC THORACENTESIS USING ULTRASOUND GUIDANCE. Chest X-Ray 10/07/16 13:45 IMPRESSION: STABLE APPEARANCE OF THE CHEST. SUPPORT DEVICES UNCHANGED. Assessment & Plan - Diagnosis (1) Small bowel obstruction Is this a current diagnosis for this admission?: YesPlan: Status post ex-lap with bowel resection. Not tolerating tube feeds. 2 BMs overnight. He is doing well today, with good urine output and weaning off of the Matt-Synephrine. Tolerated the thoracentesis. Continue tube feeds and daily wound care midline incision.
[2016-10-08] MEDS: IMIPENEM/CILASTATIN SODIUM 500 MG in NORMAL SALINE 100 ML IV SCH ×3 (00:34→11:14)
[2016-10-08] MEDS: MORPHINE SULFATE 10 MG/ML INJ IV PRN (01:14)
[2016-10-08 06:47] LABS: ARTERIAL BLOOD BASE EXCESS -2.4 mmol/L; ARTERIAL BLOOD O2 SATURATION 97.1 % (94-98)
[2016-10-08] MEDS: PANTOPRAZOLE SODIUM 40 MG VIAL IV SCH ×2 (07:00→18:51)
[2016-10-08 07:06] LABS: ANION GAP 8 (5-19); BLOOD UREA NITROGEN 19 mg/dL (7-20); CALCIUM 7.2 mg/dL (8.4-10.2); CARBON DIOXIDE 21 mmol/L (22-30); CHLORIDE 113 mmol/L (98-107); CREATININE RESULT 0.47 mg/dL (0.52-1.25); GLUCOSE 100 mg/dL (75-110); MAGNESIUM 1.6 mg/dL (1.6-2.3); PHOSPHORUS 2.6 mg/dL (2.5-4.5); POTASSIUM 3.3 mmol/L (3.6-5.0); SODIUM 142.3 mmol/L (137-145)
[2016-10-08 08:42] LABS: HEMATOCRIT 34.5 % (37.9-51.0); HEMOGLOBIN 11.1 g/dL (13.5-17.0); HGB HCT DIFFERENCE -1.2; MEAN CORPUSCULAR HGB CONC 32.1 g/dL (32.0-36.0); MEAN CORPUSCULAR VOLUME 90 fl (80-97); RED BLOOD COUNT 3.82 10^6/uL (4.35-5.55); RED CELL DISTRIBUTION WIDTH 13.2 % (11.5-14.0); WHITE BLOOD COUNT 20.2 10^3/uL (4.0-10.5)
[2016-10-08] MEDS ORDERED: TOBRAMYCIN SULFATE INJ 80 MG/2 ML VIAL NEB SCH ×2 (10:30→16:00)
[2016-10-08] MEDS ORDERED: TOBRAMYCIN SULFATE INJ 80 MG/2 ML VIAL IV SCH (10:30)
--- NOTE | 2016-10-08 10:30 | PDOC PROGRESS REPORT ---
Subjective Progress Note for:: 10/08/16 Subjective:: Patient remains the ventilator. Status post exploratory laparotomy with reported eventual bowel resection. Patient has pleural effusion and had thoracenteses yesterday but on chest x-ray showing increasing fluid or haziness. He is on esmolol drip, diprivan, and nasogastric tube, and andino catheter. Urine output positive balance for the past 3 days. Reported scrotal edema. Physical Exam Vital Signs: Temp Pulse Resp BP Pulse Ox 97.6 F 117 H 20 91/76 L 96 10/08/16 08:00 10/08/16 08:00 10/08/16 08:00 10/08/16 08:00 10/08/16 08:00 Intake & Output 10/07/16 10/08/16 10/09/16 06:59 06:59 06:59 Intake Total 4461 2497 Output Total 1660 1250 35 Balance 2801 1247 -35 Weight 87 kg 86.9 kg General appearance: PRESENT: no acute distress, other - Sedated and intubated Head exam: PRESENT: normocephalic Eye exam: PRESENT: conjunctiva pale Mouth exam: PRESENT: moist, neck supple Neck exam: ABSENT: JVD Respiratory exam: PRESENT: decreased breath sounds - Bilateral, rhonchi - Bilateral Cardiovascular exam: PRESENT: irregular rhythm. ABSENT: gallop GI/Abdominal exam: PRESENT: hypoactive bowel sounds, soft Extremities exam: PRESENT: +1 edema - Both upper extremity, +2 edema - Both lower extremity Skin exam: PRESENT: dry, warm. ABSENT: cyanosis Results Laboratory Results: 10/08/16 08:28 10/08/16 06:28 10/07/16 10/08/16 10/08/16 11:30 06:28 06:28 WBC Cancelled RBC Cancelled Hgb Cancelled Hct Cancelled MCV Cancelled MCH Cancelled MCHC Cancelled RDW Cancelled Plt Count Cancelled Carbonic Acid HCO3/H2CO3 Ratio ABG pH ABG pCO2 ABG pO2 ABG HCO3 ABG O2 Saturation ABG Base Excess FiO2 Sodium 142.3 Potassium 3.3 L Chloride 113 H Carbon Dioxide 21 L Anion Gap 8 BUN 19 Creatinine 0.47 L Est GFR ( Amer) > 60 Est GFR (Non-Af Amer) > 60 Glucose 100 Calcium 7.2 L Phosphorus 2.6 Magnesium 1.6 Fluid Type PLEURAL Fluid Source Fluid Color YELLOW Fluid Appearance SLIGHTLY HAZY Fluid Viscosity LIQUID Fluid WBC 365 Fluid RBC 156 10/08/16 10/08/16 06:28 08:28 WBC 20.2 H RBC 3.82 L Hgb 11.1 L Hct 34.5 L MCV 90 MCH 29.0 MCHC 32.1 RDW 13.2 Plt Count 329 Carbonic Acid 0.81 L HCO3/H2CO3 Ratio 24:1 ABG pH 7.48 H ABG pCO2 27.0 L ABG pO2 84.0 ABG HCO3 19.8 L ABG O2 Saturation 97.1 ABG Base Excess -2.4 FiO2 45% Sodium Potassium Chloride Carbon Dioxide Anion Gap BUN Creatinine Est GFR ( Amer) Est GFR (Non-Af Amer) Glucose Calcium Phosphorus Magnesium Fluid Type Fluid Source Fluid Color Fluid Appearance Fluid Viscosity Fluid WBC Fluid RBC 10/06/16 09:03 Tracheal Aspirate Gram Stain - Final 10/06/16 09:03 Tracheal Aspirate Sputum Culture - Final Pseudomonas Aeruginosa Normal Selene Absent 10/06/16 08:34 Abdomen - Post Surgical Site Gram Stain - Final 09/27/16 10/02/16 10/04/16 22:46 10:40 03:23 Troponin I 0.035 0.037 NT-Pro-B Natriuret Pep 1790 H Impressions: Chest/Abdomen CTA 09/27/16 00:00 IMPRESSION: No evidence for pulmonary embolic disease. Bilateral airspace consolidation in the lower lobes which could represent atelectatic changes or pneumonic consolidations. Other findings as noted above Acute Abdomen Series 09/27/16 11:55 IMPRESSION: Small bowel obstruction with diffuse distention of small bowel loops out of proportion to colon KUB X-Ray 10/01/16 07:00 IMPRESSION: Persistent dilated small bowel loops worrisome for small bowel obstruction. Upper GI and Small Bowel X-Ray 10/02/16 07:00 IMPRESSION: Unable to control 0 bolus of thin liquids contrast. Subglottic aspiration of Isovue-300. Gastrografin was instilled into the stomach. There is no gastric outlet obstruction. Small hiatal hernia with reflux. Normal pylorus and duodenum. Jejunum is diffusely distended, with poor peristalsis and no significant antegrade motion of contrast over 3 hour observation. At the 2 hour rodney, the stomach was emptied because of GE reflux and aspiration risk. Thoracentesis Ultrasound 10/07/16 00:00 IMPRESSION: SUCCESSFUL RIGHT DIAGNOSTIC AND THERAPEUTIC THORACENTESIS USING ULTRASOUND GUIDANCE. Assessment & Plan - Diagnosis (1) Acute respiratory failure with hypoxemia Is this a current diagnosis for this admission?: Yes (2) Atrial fibrillation with rapid ventricular response Is this a current diagnosis for this admission?: Yes (3) Small bowel obstruction Is this a current diagnosis for this admission?: Yes (4) Aspiration pneumonia Qualifiers: Aspiration pneumonia type: unspecified Laterality: bilateral Lung location: lower lobe of lung Qualified Code(s): J69.0 - Pneumonitis due to inhalation of food and vomit Is this a current diagnosis for this admission?: Yes (5) Dehydration Is this a current diagnosis for this admission?: Yes (6) Hyperglycemia Is this a current diagnosis for this admission?: Yes (7) Coagulopathy Is this a current diagnosis for this admission?: Yes (8) Congestive heart failure Qualifiers: Congestive heart failure type: diastolic Congestive heart failure chronicity: chronic Qualified Code(s): I50.32 - Chronic diastolic ( congestive) heart failure Is this a current diagnosis for this admission?: Yes - Time Time Spent with patient: 25-34 minutes - Plan Summary Plan Summary: We will start the patient on intravenous Lasix. Main IV fluids to KVO. We will add tobramycin to the antibiotic regimen. Keep the Primaxin. Monitor WBC. Renew his restraints, recheck electrolytes and WBC as well as chest x-ray in the morning. Continue supportive care.
[2016-10-08] MEDS ORDERED: FUROSEMIDE INJ/PF 40 MG/4 ML SDV IV ONE (10:45)
[2016-10-08] MEDS: LEVOTHYROXINE SODIUM INJ/PF 0.1 MG SDV IV SCH (11:08)
[2016-10-08] MEDS: ESMOLOL HCL/SOD CL 250 ML IV PRN ×2 (11:14→18:50)
--- NOTE | 2016-10-08 12:39 | PDOC PROGRESS REPORT ---
Subjective Progress Note for:: 10/08/16 Subjective:: Patient about the same and has made very little progress. There is no significant change in general condition. Patient remains intubated, sedated, patient however looks comfortable and in acute distress. Patient is status post small bowel resection. His still nothing by mouth and has NG tube drainage. Patient continues in atrial fibrillation. He is on small dose of vasopressors. Patient on esmolol drip for atrial fibrillation. Patient had thoracentesis. Medications reviewed. Physical Exam Vital Signs: Temp Pulse Resp BP Pulse Ox 98.2 F 103 H 20 102/91 H 100 10/08/16 12:00 10/08/16 12:00 10/08/16 12:00 10/08/16 12:00 10/08/16 12:00 Intake & Output 10/07/16 10/08/16 10/09/16 06:59 06:59 06:59 Intake Total 4461 2497 Output Total 1660 1250 1100 Balance 2801 1247 -1100 Weight 87 kg 86.9 kg Exam: GENERAL: well-nourished and in no acute distress. Patient is intubated and sedated. Orientation cannot be checked HEAD: Atraumatic, normocephalic. EYES: Pupils equal round and reactive to light, extraocular movements could not be checked, sclera anicteric, conjunctiva are normal. ENT: TMs normal, nares patent, oropharynx clear without exudates. Moist mucous membranes. No oral ulcerations or bleeding gums noted NECK: supple without lymphadenopathy or JVD. Trachea is central. No cervical or axillary lymphadenopathy noted. Carotids are 2+ LUNGS: Breath sounds mostly clear to auscultation patient is noted to have bibasal crackles at the extreme bases. Bibasilar dullness noted right more than left. CHEST: Palpation of the chest wall shows no significant chest wall tenderness or abnormalities. 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 ABDOMEN: Soft, no significant tenderness appreciated, normoactive bowel sounds. No guarding, no rebound. No rigidity noted . No masses appreciated. EXTREMITIES: Pedal pulses are 1-2+, no calf tenderness noted, 1+ pedal edema noted. No clubbing or cyanosis. NEUROLOGICAL: The patient cannot participate in the neurological exam but no facial asymmetry noted. Extremities slightly hypotonic PSYCH: This cannot be evaluated. Patient cannot participate. SKIN: No significant ecchymosis, rash, or signs of pruritus noted. MUSCULOSKELETAL EXAM: No significant joint swelling noted. Patient cannot participate in musculoskeletal exam Results Laboratory Results: 10/08/16 08:28 10/08/16 06:28 10/07/16 10/08/16 10/08/16 11:30 06:28 06:28 WBC Cancelled RBC Cancelled Hgb Cancelled Hct Cancelled MCV Cancelled MCH Cancelled MCHC Cancelled RDW Cancelled Plt Count Cancelled Carbonic Acid HCO3/H2CO3 Ratio ABG pH ABG pCO2 ABG pO2 ABG HCO3 ABG O2 Saturation ABG Base Excess FiO2 Sodium 142.3 Potassium 3.3 L Chloride 113 H Carbon Dioxide 21 L Anion Gap 8 BUN 19 Creatinine 0.47 L Est GFR ( Amer) > 60 Est GFR (Non-Af Amer) > 60 Glucose 100 Calcium 7.2 L Phosphorus 2.6 Magnesium 1.6 Fluid Type PLEURAL Fluid Source Fluid Color YELLOW Fluid Appearance SLIGHTLY HAZY Fluid Viscosity LIQUID Fluid WBC 365 Fluid RBC 156 10/08/16 10/08/16 06:28 08:28 WBC 20.2 H RBC 3.82 L Hgb 11.1 L Hct 34.5 L MCV 90 MCH 29.0 MCHC 32.1 RDW 13.2 Plt Count 329 Carbonic Acid 0.81 L HCO3/H2CO3 Ratio 24:1 ABG pH 7.48 H ABG pCO2 27.0 L ABG pO2 84.0 ABG HCO3 19.8 L ABG O2 Saturation 97.1 ABG Base Excess -2.4 FiO2 45% Sodium Potassium Chloride Carbon Dioxide Anion Gap BUN Creatinine Est GFR ( Amer) Est GFR (Non-Af Amer) Glucose Calcium Phosphorus Magnesium Fluid Type Fluid Source Fluid Color Fluid Appearance Fluid Viscosity Fluid WBC Fluid RBC 10/06/16 09:03 Tracheal Aspirate Gram Stain - Final 10/06/16 09:03 Tracheal Aspirate Sputum Culture - Final Pseudomonas Aeruginosa Normal Selene Absent 10/06/16 08:34 Abdomen - Post Surgical Site Gram Stain - Final 09/27/16 10/02/16 10/04/16 22:46 10:40 03:23 Troponin I 0.035 0.037 NT-Pro-B Natriuret Pep 1790 H Impressions: Chest/Abdomen CTA 09/27/16 00:00 IMPRESSION: No evidence for pulmonary embolic disease. Bilateral airspace consolidation in the lower lobes which could represent atelectatic changes or pneumonic consolidations. Other findings as noted above Acute Abdomen Series 09/27/16 11:55 IMPRESSION: Small bowel obstruction with diffuse distention of small bowel loops out of proportion to colon KUB X-Ray 10/01/16 07:00 IMPRESSION: Persistent dilated small bowel loops worrisome for small bowel obstruction. Upper GI and Small Bowel X-Ray 10/02/16 07:00 IMPRESSION: Unable to control 0 bolus of thin liquids contrast. Subglottic aspiration of Isovue-300. Gastrografin was instilled into the stomach. There is no gastric outlet obstruction. Small hiatal hernia with reflux. Normal pylorus and duodenum. Jejunum is diffusely distended, with poor peristalsis and no significant antegrade motion of contrast over 3 hour observation. At the 2 hour rodney, the stomach was emptied because of GE reflux and aspiration risk. Thoracentesis Ultrasound 10/07/16 00:00 IMPRESSION: SUCCESSFUL RIGHT DIAGNOSTIC AND THERAPEUTIC THORACENTESIS USING ULTRASOUND GUIDANCE. Assessment & Plan - Diagnosis (1) Atrial fibrillation with rapid ventricular response Is this a current diagnosis for this admission?: Yes (2) Small bowel obstruction Is this a current diagnosis for this admission?: Yes (3) Acute respiratory failure with hypoxemia Is this a current diagnosis for this admission?: Yes (4) Aspiration pneumonia Qualifiers: Aspiration pneumonia type: unspecified Laterality: bilateral Lung location: lower lobe of lung Qualified Code(s): J69.0 - Pneumonitis due to inhalation of food and vomit Is this a current diagnosis for this admission?: Yes (5) Hypotension Qualifiers: Hypotension type: other hypotension type Qualified Code(s): I95.89 - Other hypotension - Notes Notes: Patient remains critically ill. He had thoracentesis which he seems to have tolerated well. Patient remains in atrial fibrillation. Heart rate reasonably well controlled on esmolol drip. Patient is status post small bowel resection. Currently not tolerating by mouth feeds but apparently had some bowel movement therefore expect oral feeding to start soon. Acute respiratory failure secondary to aspiration pneumonia, bilateral pleural effusion, as underlying COPD etc. Patient on ventilator therapy. He seems to be needing it. Hypotension: Patient needing vasopressor support. May try cautious fluid challenges. Hypoalbuminemia: Consider albumin replacement to be chased with diuretics IV - Time Time with patient: Greater than 35 minutes - CODE STATUS was discussed, patient remains full code. Surrogate decision-maker unchanged. Multiple medical problems were addressed.More than 50% of the time spent coordinating care, discussing management plans with involved caregivers. Management plans discussed with involved personnels. Medical decision making was of moderate complexity. Medications reviewed and adjusted accordingly: Yes
[2016-10-08] MEDS: POTASSIUM CHLORIDE 20 MEQ/50 ML RTU IV SCH ×3 (13:50→19:15)
[2016-10-08] MEDS ORDERED: FUROSEMIDE INJ/PF 40 MG/4 ML SDV IV SCH (14:00)
[2016-10-08] MEDS: DEXTROSE 5%-WATER 250 ML with PHENYLEPHRINE HCL 40 MG IV PRN ×2 (14:13)
[2016-10-08] MEDS: PIPERACILLIN SODIUM/TAZOBACTAM 4.5 GM in NORMAL SALINE 100 ML IV SCH ×2 (18:50→23:03)
[2016-10-08] MEDS: PROPOFOL 100 ML IV PRN (18:51)
[2016-10-08] MEDS: TOBRAMYCIN SULFATE NEB 40 MG/ML 30 ML NEB SCH (20:36)
[2016-10-08] MEDS: FUROSEMIDE INJ/PF 40 MG/4 ML SDV IV SCH (23:03)
[2016-10-09 06:00] LABS: ARTERIAL BLOOD BASE EXCESS 1.1 mmol/L; ARTERIAL BLOOD O2 SATURATION 95.6 % (94-98)
[2016-10-09] MEDS: PANTOPRAZOLE SODIUM 40 MG VIAL IV SCH ×2 (06:00→17:38)
[2016-10-09] MEDS: PIPERACILLIN SODIUM/TAZOBACTAM 4.5 GM in NORMAL SALINE 100 ML IV SCH ×4 (06:01→23:04)
[2016-10-09 06:21] LABS: ANION GAP 9 (5-19); BLOOD UREA NITROGEN 16 mg/dL (7-20); CALCIUM 7.3 mg/dL (8.4-10.2); CARBON DIOXIDE 24 mmol/L (22-30); CHLORIDE 107 mmol/L (98-107); CREATININE RESULT 0.55 mg/dL (0.52-1.25); GLUCOSE 98 mg/dL (75-110); MAGNESIUM 1.4 mg/dL (1.6-2.3); POTASSIUM 3.1 mmol/L (3.6-5.0); SODIUM 140.4 mmol/L (137-145)
[2016-10-09] MEDS ORDERED: MAGNESIUM SULFATE/D5W 100 ML IV SCH (06:45)
[2016-10-09 06:46] LABS: HEMATOCRIT 35.3 % (37.9-51.0); HEMOGLOBIN 11.3 g/dL (13.5-17.0); HGB HCT DIFFERENCE -1.4; MEAN CORPUSCULAR HEMOGLOBIN 29.2 pg (27.0-33.4); MEAN CORPUSCULAR HGB CONC 32.1 g/dL (32.0-36.0); MEAN CORPUSCULAR VOLUME 91 fl (80-97); RED BLOOD COUNT 3.87 10^6/uL (4.35-5.55); RED CELL DISTRIBUTION WIDTH 13.3 % (11.5-14.0); WHITE BLOOD COUNT 19.9 10^3/uL (4.0-10.5)
--- NOTE | 2016-10-09 06:59 | PDOC PROGRESS REPORT ---
Subjective Progress Note for:: 10/08/16 Subjective:: intubated Physical Exam Vital Signs: Temp Pulse Resp BP Pulse Ox 99.7 F 90 20 109/68 100 10/09/16 04:00 10/08/16 20:35 10/09/16 02:31 10/09/16 02:31 10/09/16 04:00 Intake & Output 10/07/16 10/08/16 10/09/16 06:59 06:59 06:59 Intake Total 4470 7084 4792 Output Total 6315 1110 5303 Balance 2801 4786 -7284 Weight 87 kg 86.9 kg 84.7 kg General appearance: PRESENT: no acute distress, disheveled, well-developed Head exam: PRESENT: atraumatic, normocephalic Eye exam: PRESENT: conjunctiva pale Mouth exam: PRESENT: moist, neck supple, tongue midline, other - ET tube Neck exam: ABSENT: carotid bruit, JVD, lymphadenopathy, thyromegaly Respiratory exam: PRESENT: decreased breath sounds, prolonged expiratory phas, rhonchi, symmetrical, unlabored, other - egophany r>l Cardiovascular exam: PRESENT: irregular rhythm Pulses: PRESENT: normal radial pulses GI/Abdominal exam: PRESENT: other - sp surgery Rectal exam: PRESENT: deferred Gentrourinary exam: PRESENT: indwelling catheter Extremities exam: PRESENT: +1 edema Skin exam: PRESENT: dry Results Laboratory Results: 10/09/16 06:38 10/09/16 05:30 10/08/16 10/08/16 10/08/16 06:28 06:28 08:28 WBC Cancelled 20.2 H RBC Cancelled 3.82 L Hgb Cancelled 11.1 L Hct Cancelled 34.5 L MCV Cancelled 90 MCH Cancelled 29.0 MCHC Cancelled 32.1 RDW Cancelled 13.2 Plt Count Cancelled 329 Carbonic Acid HCO3/H2CO3 Ratio ABG pH ABG pCO2 ABG pO2 ABG HCO3 ABG O2 Saturation ABG Base Excess FiO2 Sodium 142.3 Potassium 3.3 L Chloride 113 H Carbon Dioxide 21 L Anion Gap 8 BUN 19 Creatinine 0.47 L Est GFR ( Amer) > 60 Est GFR (Non-Af Amer) > 60 Glucose 100 Calcium 7.2 L Phosphorus 2.6 Magnesium 1.6 10/09/16 10/09/16 10/09/16 05:30 05:30 05:30 WBC Cancelled RBC Cancelled Hgb Cancelled Hct Cancelled MCV Cancelled MCH Cancelled MCHC Cancelled RDW Cancelled Plt Count Cancelled Carbonic Acid 0.85 L HCO3/H2CO3 Ratio 26:1 ABG pH 7.53 H ABG pCO2 28.1 L ABG pO2 68.6 L ABG HCO3 22.8 ABG O2 Saturation 95.6 ABG Base Excess 1.1 FiO2 35% Sodium 140.4 Potassium 3.1 L Chloride 107 Carbon Dioxide 24 Anion Gap 9 BUN 16 Creatinine 0.55 Est GFR ( Amer) > 60 Est GFR (Non-Af Amer) > 60 Glucose 98 Calcium 7.3 L Phosphorus Magnesium 1.4 L 10/09/16 06:38 WBC 19.9 H RBC 3.87 L Hgb 11.3 L Hct 35.3 L MCV 91 MCH 29.2 MCHC 32.1 RDW 13.3 Plt Count 354 Carbonic Acid HCO3/H2CO3 Ratio ABG pH ABG pCO2 ABG pO2 ABG HCO3 ABG O2 Saturation ABG Base Excess FiO2 Sodium Potassium Chloride Carbon Dioxide Anion Gap BUN Creatinine Est GFR ( Amer) Est GFR (Non-Af Amer) Glucose Calcium Phosphorus Magnesium 10/06/16 09:03 Tracheal Aspirate Gram Stain - Final 10/06/16 09:03 Tracheal Aspirate Sputum Culture - Final Pseudomonas Aeruginosa Normal Selene Absent 10/06/16 08:34 Abdomen - Post Surgical Site Gram Stain - Final 09/27/16 10/02/16 10/04/16 22:46 10:40 03:23 Troponin I 0.035 0.037 NT-Pro-B Natriuret Pep 1790 H Impressions: Chest/Abdomen CTA 09/27/16 00:00 IMPRESSION: No evidence for pulmonary embolic disease. Bilateral airspace consolidation in the lower lobes which could represent atelectatic changes or pneumonic consolidations. Other findings as noted above Acute Abdomen Series 09/27/16 11:55 IMPRESSION: Small bowel obstruction with diffuse distention of small bowel loops out of proportion to colon KUB X-Ray 10/01/16 07:00 IMPRESSION: Persistent dilated small bowel loops worrisome for small bowel obstruction. Upper GI and Small Bowel X-Ray 10/02/16 07:00 IMPRESSION: Unable to control 0 bolus of thin liquids contrast. Subglottic aspiration of Isovue-300. Gastrografin was instilled into the stomach. There is no gastric outlet obstruction. Small hiatal hernia with reflux. Normal pylorus and duodenum. Jejunum is diffusely distended, with poor peristalsis and no significant antegrade motion of contrast over 3 hour observation. At the 2 hour rodney, the stomach was emptied because of GE reflux and aspiration risk. Thoracentesis Ultrasound 10/07/16 00:00 IMPRESSION: SUCCESSFUL RIGHT DIAGNOSTIC AND THERAPEUTIC THORACENTESIS USING ULTRASOUND GUIDANCE. Abdomen/Pelvis CT 10/08/16 00:00 IMPRESSION: Small amount of ascites in the abdomen. No evidence of bowel obstruction Moderate bilateral pleural effusions Assessment & Plan - Diagnosis (1) Protein malnutrition Is this a current diagnosis for this admission?: YesPlan: needs TPN and/or albumin (2) Pleural effusion Is this a current diagnosis for this admission?: YesPlan: s/p r thoracentesis not tapped dry (3) Acute respiratory failure with hypoxemia Is this a current diagnosis for this admission?: YesPlan: increase tv and rr(to more full assume WOB) and I time to recruit additional alveolar unit (4) Aspiration pneumonia Qualifiers: Aspiration pneumonia type: unspecified Laterality: bilateral Lung location: lower lobe of lung Qualified Code(s): J69.0 - Pneumonitis due to inhalation of food and vomit Is this a current diagnosis for this admission?: YesPlan: pseudomonas 10/06/16 09:03 Gram Stain - Final Tracheal Aspirate Sputum Culture - Final Pseudomonas Aeruginosa Normal Selene Absent 10/06/16 08:34 Gram Stain - Final Abdomen - Post Surgical Site Wound Culture - Preliminary Pseudomonas Aeruginosa Gram Positive Cocci In Chains No Anaerobic Organisms 09/30/16 00:10 Gram Stain - Final Sputum Sputum Culture - Final Escherichia Coli Klebsiella Pneumoniae Normal Selene Absent (5) Atrial fibrillation with rapid ventricular response Is this a current diagnosis for this admission?: YesPlan: controlled with esmolol per cardiology (6) Septic shock Is this a current diagnosis for this admission?: YesPlan: 10/06/16 09:03 Gram Stain - Final Tracheal Aspirate Sputum Culture - Final Pseudomonas Aeruginosa Normal Selene Absent 10/06/16 08:34 Gram Stain - Final Abdomen - Post Surgical Site Wound Culture - Preliminary Pseudomonas Aeruginosa Gram Positive Cocci In Chains No Anaerobic Organisms 09/30/16 00:10 Gram Stain - Final Sputum Sputum Culture - Final Escherichia Coli Klebsiella Pneumoniae Normal Selene Absent vasopressor agents required - Time Critical Time spent with patient: 25-34 minutes - 30 min
--- NOTE | 2016-10-09 07:05 | PDOC PROGRESS REPORT ---
Subjective Progress Note for:: 10/07/16 Subjective:: intubated Physical Exam Vital Signs: Temp Pulse Resp BP Pulse Ox 97.9 F 99 20 110/75 92 10/07/16 08:00 10/07/16 10:00 10/07/16 10:00 10/07/16 10:00 10/07/16 10:00 Intake & Output 10/06/16 10/07/16 10/08/16 06:59 06:59 06:59 Intake Total 3171 4461 Output Total 1415 1660 325 Balance 1756 2801 -325 Weight 83.6 kg 87 kg General appearance: PRESENT: no acute distress, disheveled, well-developed, well -nourished Head exam: PRESENT: atraumatic, normocephalic Eye exam: PRESENT: conjunctiva pale Mouth exam: PRESENT: tongue midline, other - intubated Neck exam: ABSENT: carotid bruit, JVD, lymphadenopathy, thyromegaly Respiratory exam: PRESENT: decreased breath sounds, prolonged expiratory phas, rales, rhonchi, symmetrical, unlabored, other - bibasilar egophany GI/Abdominal exam: PRESENT: other - s/p surg Rectal exam: PRESENT: deferred Gentrourinary exam: PRESENT: indwelling catheter Extremities exam: PRESENT: pedal edema Skin exam: PRESENT: dry Results Laboratory Results: 10/07/16 05:30 10/07/16 05:30 10/05/16 10/06/16 10/06/16 04:15 11:34 11:34 WBC 30.7 H* RBC 4.08 L Hgb 12.2 L Hct 38.8 MCV 95 MCH 30.0 MCHC 31.6 L RDW 13.5 Plt Count 256 Seg Neutrophils % Lymphocytes % Monocytes % Eosinophils % Basophils % Absolute Neutrophils Absolute Lymphocytes Absolute Monocytes Absolute Eosinophils Absolute Basophils Carbonic Acid HCO3/H2CO3 Ratio ABG pH ABG pCO2 ABG pO2 ABG HCO3 ABG O2 Saturation ABG Base Excess FiO2 Sodium Potassium Chloride Carbon Dioxide Anion Gap BUN Creatinine Est GFR ( Amer) Est GFR (Non-Af Amer) Glucose Calcium Albumin 1.7 L Triglycerides Blood Type A POSITIVE 10/07/16 10/07/16 10/07/16 05:30 05:30 06:30 WBC 20.8 H RBC 3.53 L Hgb 10.6 L Hct 32.5 L MCV 92 MCH 29.9 MCHC 32.5 RDW 13.7 Plt Count 267 Seg Neutrophils % Not Reportable Lymphocytes % Not Reportable Monocytes % Not Reportable Eosinophils % Not Reportable Basophils % Not Reportable Absolute Neutrophils Not Reportable Absolute Lymphocytes Not Reportable Absolute Monocytes Not Reportable Absolute Eosinophils Not Reportable Absolute Basophils Not Reportable Carbonic Acid 0.85 L HCO3/H2CO3 Ratio 22:1 ABG pH 7.45 ABG pCO2 28.2 L ABG pO2 69.0 L ABG HCO3 19.3 L ABG O2 Saturation 94.9 ABG Base Excess -3.5 FiO2 45% Sodium 145.3 H Potassium 3.1 L Chloride 113 H Carbon Dioxide 22 Anion Gap 10 BUN 17 Creatinine 0.49 L Est GFR ( Amer) > 60 Est GFR (Non-Af Amer) > 60 Glucose 77 Calcium 7.1 L Albumin Triglycerides 106 Blood Type 09/27/16 10/02/16 10/04/16 22:46 10:40 03:23 Troponin I 0.035 0.037 NT-Pro-B Natriuret Pep 1790 H Impressions: Chest/Abdomen CTA 09/27/16 00:00 IMPRESSION: No evidence for pulmonary embolic disease. Bilateral airspace consolidation in the lower lobes which could represent atelectatic changes or pneumonic consolidations. Other findings as noted above Acute Abdomen Series 09/27/16 11:55 IMPRESSION: Small bowel obstruction with diffuse distention of small bowel loops out of proportion to colon KUB X-Ray 10/01/16 07:00 IMPRESSION: Persistent dilated small bowel loops worrisome for small bowel obstruction. Upper GI and Small Bowel X-Ray 10/02/16 07:00 IMPRESSION: Unable to control 0 bolus of thin liquids contrast. Subglottic aspiration of Isovue-300. Gastrografin was instilled into the stomach. There is no gastric outlet obstruction. Small hiatal hernia with reflux. Normal pylorus and duodenum. Jejunum is diffusely distended, with poor peristalsis and no significant antegrade motion of contrast over 3 hour observation. At the 2 hour rodney, the stomach was emptied because of GE reflux and aspiration risk. Chest X-Ray 10/07/16 06:00 IMPRESSION: STABLE APPEARANCE OF THE CHEST. SUPPORT DEVICES UNCHANGED. Assessment & Plan - Diagnosis (1) Protein malnutrition Is this a current diagnosis for this admission?: YesPlan: needs supplemental protien (2) Pleural effusion Is this a current diagnosis for this admission?: YesPlan: bilateral effusions (3) Acute respiratory failure with hypoxemia Is this a current diagnosis for this admission?: YesPlan: improving (4) Aspiration pneumonia Qualifiers: Aspiration pneumonia type: unspecified Laterality: bilateral Lung location: lower lobe of lung Qualified Code(s): J69.0 - Pneumonitis due to inhalation of food and vomit Is this a current diagnosis for this admission?: YesPlan: pseudomonas 10/06/16 09:03 Gram Stain - Final Tracheal Aspirate Sputum Culture - Final Pseudomonas Aeruginosa Normal Selene Absent 10/06/16 08:34 Gram Stain - Final Abdomen - Post Surgical Site Wound Culture - Preliminary Pseudomonas Aeruginosa Gram Positive Cocci In Chains No Anaerobic Organisms 09/30/16 00:10 Gram Stain - Final Sputum Sputum Culture - Final Escherichia Coli Klebsiella Pneumoniae Normal Selene Absent (5) Atrial fibrillation with rapid ventricular response Is this a current diagnosis for this admission?: YesPlan: controlled with esmolol per cardiology (6) Septic shock Is this a current diagnosis for this admission?: YesPlan: 10/06/16 09:03 Gram Stain - Final Tracheal Aspirate Sputum Culture - Final Pseudomonas Aeruginosa Normal Selene Absent 10/06/16 08:34 Gram Stain - Final Abdomen - Post Surgical Site Wound Culture - Preliminary Pseudomonas Aeruginosa Gram Positive Cocci In Chains No Anaerobic Organisms 09/30/16 00:10 Gram Stain - Final Sputum Sputum Culture - Final Escherichia Coli Klebsiella Pneumoniae Normal Selene Absent vasopressor agents required - Time Critical Time spent with patient: 25-34 minutes - 30 min
--- NOTE | 2016-10-09 07:09 | PDOC PROGRESS REPORT ---
Subjective Progress Note for:: 10/06/16 Subjective:: ffp for thoracentsis in am Physical Exam Vital Signs: Temp Pulse Resp BP Pulse Ox 98.2 F 92 22 H 112/76 99 10/06/16 08:00 10/06/16 08:00 10/06/16 08:00 10/06/16 08:00 10/06/16 08:00 Intake & Output 10/05/16 10/06/16 10/07/16 06:59 06:59 06:59 Intake Total 3622 3171 Output Total 618 1415 175 Balance 3004 1756 -175 Weight 81.6 kg 83.6 kg General appearance: PRESENT: no acute distress, disheveled Head exam: PRESENT: atraumatic, normocephalic Mouth exam: PRESENT: moist, tongue midline, other - intubated Neck exam: ABSENT: carotid bruit, JVD, lymphadenopathy, thyromegaly Respiratory exam: PRESENT: decreased breath sounds, prolonged expiratory phas, rales, rhonchi, symmetrical, unlabored, other - bibasilar egophany GI/Abdominal exam: PRESENT: other - s/p surgery Rectal exam: PRESENT: deferred Gentrourinary exam: PRESENT: indwelling catheter Extremities exam: PRESENT: pedal edema Skin exam: PRESENT: dry, warm Results Laboratory Results: 10/06/16 05:48 10/06/16 05:48 10/06/16 10/06/16 10/06/16 05:48 05:48 06:05 WBC 28.6 H RBC 3.79 L Hgb 11.3 L Hct 34.6 L MCV 92 MCH 29.8 MCHC 32.5 RDW 13.5 Plt Count 277 Seg Neutrophils % Not Reportable Lymphocytes % Not Reportable Monocytes % Not Reportable Eosinophils % Not Reportable Basophils % Not Reportable Absolute Neutrophils Not Reportable Absolute Lymphocytes Not Reportable Absolute Monocytes Not Reportable Absolute Eosinophils Not Reportable Absolute Basophils Not Reportable Carbonic Acid 0.91 L HCO3/H2CO3 Ratio 21:1 ABG pH 7.43 ABG pCO2 30.2 L ABG pO2 72.6 L ABG HCO3 19.7 L ABG O2 Saturation 95.2 ABG Base Excess -3.6 FiO2 45% Sodium 143.5 Potassium 3.7 Chloride 115 H Carbon Dioxide 20 L Anion Gap 9 BUN 31 H Creatinine 0.63 Est GFR ( Amer) > 60 Est GFR (Non-Af Amer) > 60 Glucose 110 Calcium 7.4 L 09/27/16 10/02/16 10/04/16 22:46 10:40 03:23 Troponin I 0.035 0.037 NT-Pro-B Natriuret Pep 1790 H Impressions: Chest/Abdomen CTA 09/27/16 00:00 IMPRESSION: No evidence for pulmonary embolic disease. Bilateral airspace consolidation in the lower lobes which could represent atelectatic changes or pneumonic consolidations. Other findings as noted above Acute Abdomen Series 09/27/16 11:55 IMPRESSION: Small bowel obstruction with diffuse distention of small bowel loops out of proportion to colon KUB X-Ray 10/01/16 07:00 IMPRESSION: Persistent dilated small bowel loops worrisome for small bowel obstruction. Upper GI and Small Bowel X-Ray 10/02/16 07:00 IMPRESSION: Unable to control 0 bolus of thin liquids contrast. Subglottic aspiration of Isovue-300. Gastrografin was instilled into the stomach. There is no gastric outlet obstruction. Small hiatal hernia with reflux. Normal pylorus and duodenum. Jejunum is diffusely distended, with poor peristalsis and no significant antegrade motion of contrast over 3 hour observation. At the 2 hour rodney, the stomach was emptied because of GE reflux and aspiration risk. Chest X-Ray 10/06/16 00:00 IMPRESSION: Moderate bilateral opacity -effusion. Stable. Lines and tubes. Assessment & Plan - Diagnosis (1) Protein malnutrition Is this a current diagnosis for this admission?: YesPlan: needs supplemental protien (2) Pleural effusion Is this a current diagnosis for this admission?: YesPlan: bilateral effusions (3) Acute respiratory failure with hypoxemia Is this a current diagnosis for this admission?: YesPlan: improving less fio2 and min vent required (4) Aspiration pneumonia Qualifiers: Aspiration pneumonia type: unspecified Laterality: bilateral Lung location: lower lobe of lung Qualified Code(s): J69.0 - Pneumonitis due to inhalation of food and vomit Is this a current diagnosis for this admission?: YesPlan: pseudomonas 10/06/16 09:03 Gram Stain - Final Tracheal Aspirate Sputum Culture - Final Pseudomonas Aeruginosa Normal Selene Absent 10/06/16 08:34 Gram Stain - Final Abdomen - Post Surgical Site Wound Culture - Preliminary Pseudomonas Aeruginosa Gram Positive Cocci In Chains No Anaerobic Organisms 09/30/16 00:10 Gram Stain - Final Sputum Sputum Culture - Final Escherichia Coli Klebsiella Pneumoniae Normal Selene Absent (5) Atrial fibrillation with rapid ventricular response Is this a current diagnosis for this admission?: YesPlan: controlled with esmolol per cardiology (6) Septic shock Is this a current diagnosis for this admission?: YesPlan: 10/06/16 09:03 Gram Stain - Final Tracheal Aspirate Sputum Culture - Final Pseudomonas Aeruginosa Normal Selene Absent 10/06/16 08:34 Gram Stain - Final Abdomen - Post Surgical Site Wound Culture - Preliminary Pseudomonas Aeruginosa Gram Positive Cocci In Chains No Anaerobic Organisms 09/30/16 00:10 Gram Stain - Final Sputum Sputum Culture - Final Escherichia Coli Klebsiella Pneumoniae Normal Selene Absent vasopressor agents required - Time Critical Time spent with patient: 25-34 minutes - 30 min
[2016-10-09] MEDS: PROPOFOL 100 ML IV PRN ×3 (08:00→23:03)
--- NOTE | 2016-10-09 08:07 | PDOC PROGRESS REPORT ---
Subjective Progress Note for:: 10/08/16 Subjective:: Late entry. Patient was seen earlier in the evening and then nurse updated on status just before midnight on 10/08/2016. The patient remains intubated and sedated. He is off pressors. He is off esmolol. His A. fib is much improved. Good urine output. Bowel movements 2 days in a row. The patient seem distended, had hiccups and had less bowel sounds earlier, so tube feeds were held for 3 hours from 9 PM until 11:40 PM. At no point did the patient have any residuals. During that time patient had good bowel sounds and a large bowel movement and tube feeds were restarted around midnight. Physical Exam Vital Signs: Temp Pulse Resp BP Pulse Ox 99.7 F 90 20 102/66 100 10/09/16 04:00 10/08/16 20:35 10/09/16 07:01 10/09/16 07:01 10/09/16 07:01 Intake & Output 10/08/16 10/09/16 10/10/16 06:59 06:59 06:59 Intake Total 2497 1949 Output Total 1250 6736 Balance 1247 -5757 Weight 86.9 kg 84.7 kg General appearance: PRESENT: other - Intubated sedated Head exam: PRESENT: normocephalic, other - ET tube. NG tube with tube feeds connected. GI/Abdominal exam: PRESENT: distended, soft, other - Midline wound with 3 open areas with iodoform packing. No evidence of purulent drainage or infection. Dressings changed.. ABSENT: tenderness Extremities exam: PRESENT: +1 edema Neurological exam: PRESENT: other - Intubated sedated Skin exam: ABSENT: jaundice Results Laboratory Results: 10/09/16 06:38 10/09/16 05:30 10/08/16 10/09/16 10/09/16 08:28 05:30 05:30 WBC 20.2 H RBC 3.82 L Hgb 11.1 L Hct 34.5 L MCV 90 MCH 29.0 MCHC 32.1 RDW 13.2 Plt Count 329 Carbonic Acid 0.85 L HCO3/H2CO3 Ratio 26:1 ABG pH 7.53 H ABG pCO2 28.1 L ABG pO2 68.6 L ABG HCO3 22.8 ABG O2 Saturation 95.6 ABG Base Excess 1.1 FiO2 35% Sodium 140.4 Potassium 3.1 L Chloride 107 Carbon Dioxide 24 Anion Gap 9 BUN 16 Creatinine 0.55 Est GFR ( Amer) > 60 Est GFR (Non-Af Amer) > 60 Glucose 98 Calcium 7.3 L Magnesium 1.4 L 10/09/16 10/09/16 05:30 06:38 WBC Cancelled 19.9 H RBC Cancelled 3.87 L Hgb Cancelled 11.3 L Hct Cancelled 35.3 L MCV Cancelled 91 MCH Cancelled 29.2 MCHC Cancelled 32.1 RDW Cancelled 13.3 Plt Count Cancelled 354 Carbonic Acid HCO3/H2CO3 Ratio ABG pH ABG pCO2 ABG pO2 ABG HCO3 ABG O2 Saturation ABG Base Excess FiO2 Sodium Potassium Chloride Carbon Dioxide Anion Gap BUN Creatinine Est GFR ( Amer) Est GFR (Non-Af Amer) Glucose Calcium Magnesium 10/06/16 09:03 Tracheal Aspirate Gram Stain - Final 10/06/16 09:03 Tracheal Aspirate Sputum Culture - Final Pseudomonas Aeruginosa Normal Selene Absent 10/06/16 08:34 Abdomen - Post Surgical Site Gram Stain - Final 09/27/16 10/02/16 10/04/16 22:46 10:40 03:23 Troponin I 0.035 0.037 NT-Pro-B Natriuret Pep 1790 H Impressions: Chest/Abdomen CTA 09/27/16 00:00 IMPRESSION: No evidence for pulmonary embolic disease. Bilateral airspace consolidation in the lower lobes which could represent atelectatic changes or pneumonic consolidations. Other findings as noted above Acute Abdomen Series 09/27/16 11:55 IMPRESSION: Small bowel obstruction with diffuse distention of small bowel loops out of proportion to colon KUB X-Ray 10/01/16 07:00 IMPRESSION: Persistent dilated small bowel loops worrisome for small bowel obstruction. Upper GI and Small Bowel X-Ray 10/02/16 07:00 IMPRESSION: Unable to control 0 bolus of thin liquids contrast. Subglottic aspiration of Isovue-300. Gastrografin was instilled into the stomach. There is no gastric outlet obstruction. Small hiatal hernia with reflux. Normal pylorus and duodenum. Jejunum is diffusely distended, with poor peristalsis and no significant antegrade motion of contrast over 3 hour observation. At the 2 hour rodney, the stomach was emptied because of GE reflux and aspiration risk. Thoracentesis Ultrasound 10/07/16 00:00 IMPRESSION: SUCCESSFUL RIGHT DIAGNOSTIC AND THERAPEUTIC THORACENTESIS USING ULTRASOUND GUIDANCE. Abdomen/Pelvis CT 10/08/16 00:00 IMPRESSION: Small amount of ascites in the abdomen. No evidence of bowel obstruction Moderate bilateral pleural effusions Assessment & Plan - Diagnosis (1) Small bowel obstruction Is this a current diagnosis for this admission?: YesPlan: Status post small bowel resection. Pneumonia and bilateral pleural effusions. Stopped tube feeds earlier for 3 hours as a precaution due to burping and decreased bowel sounds, but then had a BM, good bowel sounds and scant residuals. Tube feeds were restarted and is tolerating. + BM the last 2 days. C. difficile negative.
[2016-10-09] MEDS: TOBRAMYCIN SULFATE NEB 40 MG/ML 30 ML NEB SCH ×2 (08:41→20:09)
[2016-10-09] MEDS: ALBUTEROL SULFATE 0.083% NEB 2.5 MG/3 ML AMPUL NEB PRN ×2 (08:41→13:58)
[2016-10-09] MEDS: POTASSI CL 20 MEQ/50 ML RIDER 50 ML IV SCH ×2 (08:45→09:51)
--- NOTE | 2016-10-09 08:57 | PDOC PROGRESS REPORT ---
Subjective Progress Note for:: 10/09/16 Subjective:: Patient remains the ventilator. Status post exploratory laparotomy with reported eventual bowel resection. Patient has pleural effusion and had thoracenteses the other day and chest x-ray today reportedly stable. He is off esmolol drip, but on diprivan, and nasogastric tube, and andino catheter. Urine output negative balance today. Reported scrotal edema unchanged. Reported diarrhea but Clostridium difficile toxin is negative. No temperature spikes. Intravenous tobramycin switch to inhaled form. Physical Exam Vital Signs: Temp Pulse Resp BP Pulse Ox 100.2 F 114 H 20 106/65 99 10/09/16 08:00 10/09/16 08:00 10/09/16 08:00 10/09/16 08:00 10/09/16 08:00 Intake & Output 10/08/16 10/09/16 10/10/16 06:59 06:59 06:59 Intake Total 2497 1949 Output Total 1250 6795 250 Balance 5770 -7407 -250 Weight 86.9 kg 84.7 kg General appearance: PRESENT: no acute distress, other - Intubated and sedated Head exam: PRESENT: normocephalic Eye exam: PRESENT: conjunctiva pale Mouth exam: PRESENT: moist, neck supple Neck exam: ABSENT: JVD Respiratory exam: PRESENT: clear to auscultation quique - Anteriorly. ABSENT: rhonchi, wheezes Cardiovascular exam: PRESENT: irregular rhythm. ABSENT: gallop GI/Abdominal exam: PRESENT: hypoactive bowel sounds, soft. ABSENT: distended Extremities exam: PRESENT: +1 edema Skin exam: PRESENT: dry, warm. ABSENT: cyanosis Results Laboratory Results: 10/09/16 06:38 10/09/16 05:30 10/08/16 10/09/16 10/09/16 08:28 05:30 05:30 WBC 20.2 H RBC 3.82 L Hgb 11.1 L Hct 34.5 L MCV 90 MCH 29.0 MCHC 32.1 RDW 13.2 Plt Count 329 Carbonic Acid 0.85 L HCO3/H2CO3 Ratio 26:1 ABG pH 7.53 H ABG pCO2 28.1 L ABG pO2 68.6 L ABG HCO3 22.8 ABG O2 Saturation 95.6 ABG Base Excess 1.1 FiO2 35% Sodium 140.4 Potassium 3.1 L Chloride 107 Carbon Dioxide 24 Anion Gap 9 BUN 16 Creatinine 0.55 Est GFR ( Amer) > 60 Est GFR (Non-Af Amer) > 60 Glucose 98 Calcium 7.3 L Magnesium 1.4 L 10/09/16 10/09/16 05:30 06:38 WBC Cancelled 19.9 H RBC Cancelled 3.87 L Hgb Cancelled 11.3 L Hct Cancelled 35.3 L MCV Cancelled 91 MCH Cancelled 29.2 MCHC Cancelled 32.1 RDW Cancelled 13.3 Plt Count Cancelled 354 Carbonic Acid HCO3/H2CO3 Ratio ABG pH ABG pCO2 ABG pO2 ABG HCO3 ABG O2 Saturation ABG Base Excess FiO2 Sodium Potassium Chloride Carbon Dioxide Anion Gap BUN Creatinine Est GFR ( Amer) Est GFR (Non-Af Amer) Glucose Calcium Magnesium 10/07/16 11:30 Pleural Fluid AFB Smear Concentration - Final 10/07/16 11:30 Pleural Fluid Acid Fast Bacilli Smear - Final 10/06/16 09:03 Tracheal Aspirate Gram Stain - Final 10/06/16 09:03 Tracheal Aspirate Sputum Culture - Final Pseudomonas Aeruginosa Normal Selene Absent 10/06/16 08:34 Abdomen - Post Surgical Site Gram Stain - Final 09/27/16 10/02/16 10/04/16 22:46 10:40 03:23 Troponin I 0.035 0.037 NT-Pro-B Natriuret Pep 1790 H Impressions: Chest/Abdomen CTA 09/27/16 00:00 IMPRESSION: No evidence for pulmonary embolic disease. Bilateral airspace consolidation in the lower lobes which could represent atelectatic changes or pneumonic consolidations. Other findings as noted above Acute Abdomen Series 09/27/16 11:55 IMPRESSION: Small bowel obstruction with diffuse distention of small bowel loops out of proportion to colon KUB X-Ray 10/01/16 07:00 IMPRESSION: Persistent dilated small bowel loops worrisome for small bowel obstruction. Upper GI and Small Bowel X-Ray 10/02/16 07:00 IMPRESSION: Unable to control 0 bolus of thin liquids contrast. Subglottic aspiration of Isovue-300. Gastrografin was instilled into the stomach. There is no gastric outlet obstruction. Small hiatal hernia with reflux. Normal pylorus and duodenum. Jejunum is diffusely distended, with poor peristalsis and no significant antegrade motion of contrast over 3 hour observation. At the 2 hour rodney, the stomach was emptied because of GE reflux and aspiration risk. Thoracentesis Ultrasound 10/07/16 00:00 IMPRESSION: SUCCESSFUL RIGHT DIAGNOSTIC AND THERAPEUTIC THORACENTESIS USING ULTRASOUND GUIDANCE. Abdomen/Pelvis CT 10/08/16 00:00 IMPRESSION: Small amount of ascites in the abdomen. No evidence of bowel obstruction Moderate bilateral pleural effusions Chest X-Ray 10/09/16 06:00 IMPRESSION: Sepsis or edema. No significant change. Assessment & Plan - Diagnosis (1) Acute respiratory failure with hypoxemia Is this a current diagnosis for this admission?: Yes (2) Atrial fibrillation with rapid ventricular response Is this a current diagnosis for this admission?: Yes (3) Small bowel obstruction Is this a current diagnosis for this admission?: Yes (4) Aspiration pneumonia Qualifiers: Aspiration pneumonia type: unspecified Laterality: bilateral Lung location: lower lobe of lung Qualified Code(s): J69.0 - Pneumonitis due to inhalation of food and vomit Is this a current diagnosis for this admission?: Yes (5) Dehydration Is this a current diagnosis for this admission?: Yes (6) Hyperglycemia Is this a current diagnosis for this admission?: Yes (7) Coagulopathy Is this a current diagnosis for this admission?: Yes (8) Congestive heart failure Qualifiers: Congestive heart failure type: diastolic Congestive heart failure chronicity: chronic Qualified Code(s): I50.32 - Chronic diastolic ( congestive) heart failure Is this a current diagnosis for this admission?: Yes - Time Time Spent with patient: 25-34 minutes - Plan Summary Plan Summary: Replace magnesium and potassium. Recheck electrolytes in the morning. Continue current antibiotics. Continue diuretics. Follow-up chest x-ray in the morning. Continue supportive care. Renew his restraints today. Unable to give esmolol drip continuously we will therefore switch to oral Cardizem form.
[2016-10-09] MEDS ORDERED: DIGOXIN INJ 0.5 MG/2 ML AMPULE IV ONE ×2 (09:29→20:00)
[2016-10-09] MEDS ORDERED: DIGOXIN INJ 0.5 MG/2 ML AMPULE ONE (09:30)
[2016-10-09] MEDS: MAGNESIUM SULFATE/D5W 100 ML IV SCH ×2 (09:46→10:07)
[2016-10-09] MEDS: FUROSEMIDE INJ/PF 40 MG/4 ML SDV IV SCH ×2 (09:47→23:02)
[2016-10-09] MEDS: DILTIAZEM HCL 60 MG TABLET NG SCH ×3 (09:48→23:03)
[2016-10-09] MEDS: LEVOTHYROXINE SODIUM INJ/PF 0.1 MG SDV IV SCH (09:48)
[2016-10-09] MEDS: DEXTROSE 5%-WATER 250 ML with PHENYLEPHRINE HCL 40 MG IV PRN ×4 (10:07→20:45)
[2016-10-09] MEDS ORDERED: POTASSI CL 20 MEQ/50 ML RIDER 50 ML IV SCH (11:54)
--- NOTE | 2016-10-09 12:01 | PDOC PROGRESS REPORT ---
Subjective Progress Note for:: 10/09/16 Subjective:: intubated and sedated. nad Physical Exam Vital Signs: Temp Pulse Resp BP Pulse Ox 100.2 F 104 H 20 91/56 L 100 10/09/16 08:00 10/09/16 10:00 10/09/16 11:16 10/09/16 11:16 10/09/16 11:16 Intake & Output 10/08/16 10/09/16 10/10/16 06:59 06:59 06:59 Intake Total 2297 1949 30 Output Total 0030 6795 450 Balance 1247 -4846 -420 Weight 86.9 kg 84.7 kg General appearance: PRESENT: no acute distress Respiratory exam: PRESENT: clear to auscultation quique Cardiovascular exam: PRESENT: irregular rhythm GI/Abdominal exam: PRESENT: other - soft, nd, no apparent tenderness. bs. wound packing removed. minimal drainage Results Laboratory Results: 10/09/16 06:38 10/09/16 05:30 10/09/16 10/09/16 10/09/16 05:30 05:30 05:30 WBC Cancelled RBC Cancelled Hgb Cancelled Hct Cancelled MCV Cancelled MCH Cancelled MCHC Cancelled RDW Cancelled Plt Count Cancelled Carbonic Acid 0.85 L HCO3/H2CO3 Ratio 26:1 ABG pH 7.53 H ABG pCO2 28.1 L ABG pO2 68.6 L ABG HCO3 22.8 ABG O2 Saturation 95.6 ABG Base Excess 1.1 FiO2 35% Sodium 140.4 Potassium 3.1 L Chloride 107 Carbon Dioxide 24 Anion Gap 9 BUN 16 Creatinine 0.55 Est GFR ( Amer) > 60 Est GFR (Non-Af Amer) > 60 Glucose 98 Calcium 7.3 L Magnesium 1.4 L 10/09/16 06:38 WBC 19.9 H RBC 3.87 L Hgb 11.3 L Hct 35.3 L MCV 91 MCH 29.2 MCHC 32.1 RDW 13.3 Plt Count 354 Carbonic Acid HCO3/H2CO3 Ratio ABG pH ABG pCO2 ABG pO2 ABG HCO3 ABG O2 Saturation ABG Base Excess FiO2 Sodium Potassium Chloride Carbon Dioxide Anion Gap BUN Creatinine Est GFR ( Amer) Est GFR (Non-Af Amer) Glucose Calcium Magnesium 10/06/16 08:34 Abdomen - Post Surgical Site Gram Stain - Final 10/06/16 08:34 Abdomen - Post Surgical Site Wound Culture - Final Pseudomonas Aeruginosa Enterococcus Faecalis(Group D) No Anaerobic Organisms 10/07/16 11:30 Pleural Fluid AFB Smear Concentration - Final 10/07/16 11:30 Pleural Fluid Acid Fast Bacilli Smear - Final 10/06/16 09:03 Tracheal Aspirate Gram Stain - Final 10/06/16 09:03 Tracheal Aspirate Sputum Culture - Final Pseudomonas Aeruginosa Normal Selene Absent 09/27/16 10/02/16 10/04/16 22:46 10:40 03:23 Troponin I 0.035 0.037 NT-Pro-B Natriuret Pep 1790 H Impressions: Chest/Abdomen CTA 09/27/16 00:00 IMPRESSION: No evidence for pulmonary embolic disease. Bilateral airspace consolidation in the lower lobes which could represent atelectatic changes or pneumonic consolidations. Other findings as noted above Acute Abdomen Series 09/27/16 11:55 IMPRESSION: Small bowel obstruction with diffuse distention of small bowel loops out of proportion to colon KUB X-Ray 10/01/16 07:00 IMPRESSION: Persistent dilated small bowel loops worrisome for small bowel obstruction. Upper GI and Small Bowel X-Ray 10/02/16 07:00 IMPRESSION: Unable to control 0 bolus of thin liquids contrast. Subglottic aspiration of Isovue-300. Gastrografin was instilled into the stomach. There is no gastric outlet obstruction. Small hiatal hernia with reflux. Normal pylorus and duodenum. Jejunum is diffusely distended, with poor peristalsis and no significant antegrade motion of contrast over 3 hour observation. At the 2 hour rodney, the stomach was emptied because of GE reflux and aspiration risk. Thoracentesis Ultrasound 10/07/16 00:00 IMPRESSION: SUCCESSFUL RIGHT DIAGNOSTIC AND THERAPEUTIC THORACENTESIS USING ULTRASOUND GUIDANCE. Abdomen/Pelvis CT 10/08/16 00:00 IMPRESSION: Small amount of ascites in the abdomen. No evidence of bowel obstruction Moderate bilateral pleural effusions Chest X-Ray 10/09/16 06:00 IMPRESSION: Sepsis or edema. No significant change. Assessment & Plan - Diagnosis (1) Small bowel obstruction Is this a current diagnosis for this admission?: YesPlan: s/p sb rx. abdomen looks ok. tolerating tube feeds with bm. cont supportive care. replace lytes.
[2016-10-09] MEDS ORDERED: POTASSIUM CLORIDE 20 MEQ/50 ML RIDER IV ONE (13:15)
[2016-10-09] MEDS: DIGOXIN INJ 0.5 MG/2 ML AMPULE IV SCH ×2 (14:15→16:57)
--- NOTE | 2016-10-09 20:08 | PDOC PROGRESS REPORT ---
Subjective Progress Note for:: 10/09/16 Subjective:: Patient about the same and has made very little progress. There is no significant change in general condition. Patient remains intubated, sedated, patient however looks comfortable and in no acute distress. Patient is status post small bowel resection. His still nothing by mouth and has NG tube drainage. Patient continues in atrial fibrillation with slight increased heart rate. He got IV digoxin dose 2. He is off vasopressors. Patient placed on Cardizem by mouth. Patient still intubated. He had bowel movement and tolerating by NG tube feeds Medications reviewed. Physical Exam Vital Signs: Temp Pulse Resp BP Pulse Ox 100.0 F 104 H 22 H 126/70 H 100 10/09/16 16:00 10/09/16 16:00 10/09/16 16:15 10/09/16 16:15 10/09/16 16:55 Intake & Output 10/08/16 10/09/16 10/10/16 06:59 06:59 06:59 Intake Total 2497 1949 1952 Output Total 1250 4745 3350 Balance 7877 -4295 -1398 Weight 86.9 kg 84.7 kg Exam: GENERAL: well-nourished and in no acute distress. Patient is intubated and sedated. Orientation cannot be checked HEAD: Atraumatic, normocephalic. EYES: Pupils equal round and reactive to light, extraocular movements could not be checked, sclera anicteric, conjunctiva are normal. ENT: TMs normal, nares patent, oropharynx clear without exudates. Moist mucous membranes. No oral ulcerations or bleeding gums noted NECK: supple without lymphadenopathy or JVD. Trachea is central. No cervical or axillary lymphadenopathy noted. Carotids are 2+ LUNGS: Breath sounds mostly clear to auscultation patient is noted to have bibasal crackles at the extreme bases. Mild dullness noted both bases. CHEST: Palpation of the chest wall shows no significant chest wall tenderness or abnormalities. HEART: [place] NON [employer]ER, No PSH, 2/6 RICARDA aortic area, 1/6 tinoco systolic murmur mitral area , no rubs or gallops. ABDOMEN: Soft, no significant tenderness appreciated, normoactive bowel sounds. No guarding, no rebound. No rigidity noted . No masses appreciated. EXTREMITIES: Pedal pulses are 1-2+, no calf tenderness noted, 1+ pedal edema noted. No clubbing or cyanosis. NEUROLOGICAL: The patient cannot participate in the neurological exam but no facial asymmetry noted. Extremities slightly hypotonic PSYCH: This cannot be evaluated. Patient cannot participate. SKIN: No significant ecchymosis, rash, or signs of pruritus noted. MUSCULOSKELETAL EXAM: No significant joint swelling noted. Patient cannot participate in musculoskeletal exam Results Laboratory Results: 10/09/16 06:38 10/09/16 05:30 10/09/16 10/09/16 10/09/16 05:30 05:30 05:30 WBC Cancelled RBC Cancelled Hgb Cancelled Hct Cancelled MCV Cancelled MCH Cancelled MCHC Cancelled RDW Cancelled Plt Count Cancelled Carbonic Acid 0.85 L HCO3/H2CO3 Ratio 26:1 ABG pH 7.53 H ABG pCO2 28.1 L ABG pO2 68.6 L ABG HCO3 22.8 ABG O2 Saturation 95.6 ABG Base Excess 1.1 FiO2 35% Sodium 140.4 Potassium 3.1 L Chloride 107 Carbon Dioxide 24 Anion Gap 9 BUN 16 Creatinine 0.55 Est GFR ( Amer) > 60 Est GFR (Non-Af Amer) > 60 Glucose 98 Calcium 7.3 L Magnesium 1.4 L 10/09/16 06:38 WBC 19.9 H RBC 3.87 L Hgb 11.3 L Hct 35.3 L MCV 91 MCH 29.2 MCHC 32.1 RDW 13.3 Plt Count 354 Carbonic Acid HCO3/H2CO3 Ratio ABG pH ABG pCO2 ABG pO2 ABG HCO3 ABG O2 Saturation ABG Base Excess FiO2 Sodium Potassium Chloride Carbon Dioxide Anion Gap BUN Creatinine Est GFR ( Amer) Est GFR (Non-Af Amer) Glucose Calcium Magnesium 10/06/16 08:34 Abdomen - Post Surgical Site Gram Stain - Final 10/06/16 08:34 Abdomen - Post Surgical Site Wound Culture - Final Pseudomonas Aeruginosa Enterococcus Faecalis(Group D) No Anaerobic Organisms 10/07/16 11:30 Pleural Fluid AFB Smear Concentration - Final 10/07/16 11:30 Pleural Fluid Acid Fast Bacilli Smear - Final 09/27/16 10/02/16 10/04/16 22:46 10:40 03:23 Troponin I 0.035 0.037 NT-Pro-B Natriuret Pep 1790 H Impressions: Chest/Abdomen CTA 09/27/16 00:00 IMPRESSION: No evidence for pulmonary embolic disease. Bilateral airspace consolidation in the lower lobes which could represent atelectatic changes or pneumonic consolidations. Other findings as noted above Acute Abdomen Series 09/27/16 11:55 IMPRESSION: Small bowel obstruction with diffuse distention of small bowel loops out of proportion to colon KUB X-Ray 10/01/16 07:00 IMPRESSION: Persistent dilated small bowel loops worrisome for small bowel obstruction. Upper GI and Small Bowel X-Ray 10/02/16 07:00 IMPRESSION: Unable to control 0 bolus of thin liquids contrast. Subglottic aspiration of Isovue-300. Gastrografin was instilled into the stomach. There is no gastric outlet obstruction. Small hiatal hernia with reflux. Normal pylorus and duodenum. Jejunum is diffusely distended, with poor peristalsis and no significant antegrade motion of contrast over 3 hour observation. At the 2 hour rodney, the stomach was emptied because of GE reflux and aspiration risk. Thoracentesis Ultrasound 10/07/16 00:00 IMPRESSION: SUCCESSFUL RIGHT DIAGNOSTIC AND THERAPEUTIC THORACENTESIS USING ULTRASOUND GUIDANCE. Abdomen/Pelvis CT 10/08/16 00:00 IMPRESSION: Small amount of ascites in the abdomen. No evidence of bowel obstruction Moderate bilateral pleural effusions Chest X-Ray 10/09/16 06:00 IMPRESSION: Sepsis or edema. No significant change. Assessment & Plan - Diagnosis (1) Atrial fibrillation with rapid ventricular response Is this a current diagnosis for this admission?: Yes (2) Small bowel obstruction Is this a current diagnosis for this admission?: Yes (3) Acute respiratory failure with hypoxemia Is this a current diagnosis for this admission?: Yes (4) Aspiration pneumonia Qualifiers: Aspiration pneumonia type: unspecified Laterality: bilateral Lung location: lower lobe of lung Qualified Code(s): J69.0 - Pneumonitis due to inhalation of food and vomit Is this a current diagnosis for this admission?: Yes (5) Hypotension Qualifiers: Hypotension type: other hypotension type Qualified Code(s): I95.89 - Other hypotension - Notes Notes: Patient seems more stable but still critically sick. Still intubated. A small bowel obstruction: Patient status post small bowel resection. Bowel function seems to be improving. Patient getting NG to feeds. Acute respiratory failure with hypoxemia: This was related to aspiration pneumonia. Patient had thoracentesis earlier I believe yesterday. Patient is doing better. However still needs ventilatory support. Hypotension: This has resolved. Patient is now off vasopressors. Atrial fibrillation: Recommend resuming anticoagulation when feasible.. - Time Time with patient: Greater than 35 minutes - CODE STATUS was discussed, patient remains full code. Surrogate decision-maker unchanged. Multiple medical problems were addressed.More than 50% of the time spent coordinating care, discussing management plans with involved caregivers. Management plans discussed with involved personnels. Medical decision making was of moderate to severe complexity. Medications reviewed and adjusted accordingly: Yes
[2016-10-10] MEDS: PROPOFOL 100 ML IV PRN ×2 (06:05→22:22)
[2016-10-10] MEDS: DEXTROSE 5%-WATER 250 ML with PHENYLEPHRINE HCL 40 MG IV PRN ×4 (06:34→13:41)
[2016-10-10] MEDS: DILTIAZEM HCL 60 MG TABLET NG SCH ×3 (06:35→18:18)
[2016-10-10] MEDS: PANTOPRAZOLE SODIUM 40 MG VIAL IV SCH (06:35)
[2016-10-10] MEDS: PIPERACILLIN SODIUM/TAZOBACTAM 4.5 GM in NORMAL SALINE 100 ML IV SCH ×3 (06:35→18:18)
[2016-10-10 06:42] LABS: ARTERIAL BLOOD BASE EXCESS 3.5 mmol/L; ARTERIAL BLOOD O2 SATURATION 95.3 % (94-98)
[2016-10-10 06:44] LABS: PROTHROMBIN TIME 17.7 SEC (11.4-15.4)
[2016-10-10 07:04] LABS: ALANINE AMINOTRANSFERASE 29 U/L (21-72); ALBUMIN 1.9 g/dL (3.5-5.0); ALKALINE PHOSPHATASE 77 U/L (38-126); ANION GAP 9 (5-19); ASPARTATE AMINO TRANSFERASE 41 U/L (17-59); BILIRUBIN,TOTAL 1.1 mg/dL (0.2-1.3); BLOOD UREA NITROGEN 13 mg/dL (7-20); CALCIUM 7.3 mg/dL (8.4-10.2); CARBON DIOXIDE 28 mmol/L (22-30); CHLORIDE 102 mmol/L (98-107); GLUCOSE 107 mg/dL (75-110); MAGNESIUM 1.6 mg/dL (1.6-2.3); SODIUM 139.4 mmol/L (137-145); TOTAL PROTEIN 4.9 g/dL (6.3-8.2); TRIGLYCERIDES 121 mg/dL (<150)
[2016-10-10] MEDS: TOBRAMYCIN SULFATE NEB 40 MG/ML 30 ML NEB SCH ×2 (07:54→19:47)
[2016-10-10 08:39] LABS: HEMATOCRIT 33.5 % (37.9-51.0); HGB HCT DIFFERENCE -0.5; MEAN CORPUSCULAR HEMOGLOBIN 29.7 pg (27.0-33.4); MEAN CORPUSCULAR HGB CONC 32.8 g/dL (32.0-36.0); MEAN CORPUSCULAR VOLUME 91 fl (80-97); RED BLOOD COUNT 3.71 10^6/uL (4.35-5.55); RED CELL DISTRIBUTION WIDTH 13.1 % (11.5-14.0); WHITE BLOOD COUNT 22.7 10^3/uL (4.0-10.5)
[2016-10-10 08:51] LABS: BASOPHILS % (MANUAL) 0 % (0-2); EOSINOPHILS % (MANUAL) 0 % (0-6); HYPOCHROMASIA SLIGHT; LYMPHOCYTES % (MANUAL) 5 % (13-45); PLATELET CLUMPS PRESENT; POLYCHROMASIA 1+; TOTAL CELLS COUNTED 100; TOXIC GRANULATION 1+; TOXIC VACUOLATION PRESENT
--- NOTE | 2016-10-10 09:05 | PDOC PROGRESS REPORT ---
Subjective Progress Note for:: 10/10/16 Subjective:: Patient remains the ventilator. Status post exploratory laparotomy with reported eventual bowel resection. Patient has pleural effusion and had thoracenteses the other day and chest x-ray today showed improved aeration. He is off esmolol drip, but on diprivan, Matt-Synephrine. Support lines with nasogastric tube, triple-lumen and andino catheter. Urine output negative balance today about 1800 mL. Reported scrotal edema unchanged. Reported diarrhea but Clostridium difficile toxin is negative. No temperature spikes. Intravenous tobramycin switch to inhaled form. On Zosyn. Reportedly getting alkalotic on ABG and respiratory rate decreased on the ventilator. Physical Exam Vital Signs: Temp Pulse Resp BP Pulse Ox 99.3 F 88 20 116/57 L 100 10/10/16 08:00 10/10/16 08:00 10/10/16 08:00 10/10/16 08:00 10/10/16 08:00 Intake & Output 10/09/16 10/10/16 10/11/16 06:59 06:59 06:59 Intake Total 1949 3159 321 Output Total 6795 4800 230 Balance -4846 -1641 91 Weight 84.7 kg 80.6 kg General appearance: PRESENT: no acute distress, other - Intubated and sedated Head exam: PRESENT: normocephalic Eye exam: PRESENT: conjunctiva pale Mouth exam: PRESENT: moist, neck supple Neck exam: ABSENT: JVD Respiratory exam: PRESENT: clear to auscultation quique - Anteriorly, decreased breath sounds - Lower lung [place] Cardiovascular exam: PRESENT: irregular rhythm. ABSENT: gallop GI/Abdominal exam: PRESENT: hypoactive bowel sounds, soft. ABSENT: distended Gentrourinary exam: PRESENT: scrotal swelling Extremities exam: PRESENT: +1 edema Skin exam: PRESENT: dry, warm. ABSENT: cyanosis Results Laboratory Results: 10/10/16 06:20 10/10/16 10/10/16 10/10/16 06:20 06:20 06:35 WBC Cancelled RBC Cancelled Hgb Cancelled Hct Cancelled MCV Cancelled MCH Cancelled MCHC Cancelled RDW Cancelled Plt Count Cancelled Seg Neutrophils % Cancelled Lymphocytes % Cancelled Monocytes % Cancelled Eosinophils % Cancelled Basophils % Cancelled Absolute Neutrophils Cancelled Absolute Lymphocytes Cancelled Absolute Monocytes Cancelled Absolute Eosinophils Cancelled Absolute Basophils Cancelled Carbonic Acid 0.72 L HCO3/H2CO3 Ratio 32:1 ABG pH 7.61 H* ABG pCO2 23.9 L ABG pO2 61.1 L ABG HCO3 23.4 ABG O2 Saturation 95.3 ABG Base Excess 3.5 FiO2 35% Sodium 139.4 Potassium 3.0 L* Chloride 102 Carbon Dioxide 28 Anion Gap 9 BUN 13 Creatinine 0.60 Est GFR ( Amer) > 60 Est GFR (Non-Af Amer) > 60 Glucose 107 Calcium 7.3 L Magnesium 1.6 Total Bilirubin 1.1 AST 41 ALT 29 Alkaline Phosphatase 77 Total Protein 4.9 L Albumin 1.9 L Triglycerides 121 10/10/16 08:25 WBC RBC Hgb Hct MCV MCH MCHC RDW Plt Count Seg Neutrophils % Not Reportable Lymphocytes % Not Reportable Monocytes % Not Reportable Eosinophils % Not Reportable Basophils % Not Reportable Absolute Neutrophils Not Reportable Absolute Lymphocytes Not Reportable Absolute Monocytes Not Reportable Absolute Eosinophils Not Reportable Absolute Basophils Not Reportable Carbonic Acid HCO3/H2CO3 Ratio ABG pH ABG pCO2 ABG pO2 ABG HCO3 ABG O2 Saturation ABG Base Excess FiO2 Sodium Potassium Chloride Carbon Dioxide Anion Gap BUN Creatinine Est GFR ( Amer) Est GFR (Non-Af Amer) Glucose Calcium Magnesium Total Bilirubin AST ALT Alkaline Phosphatase Total Protein Albumin Triglycerides 10/07/16 11:30 Pleural Fluid Fungal Smear - Final 10/07/16 11:30 Pleural Fluid Fungal Smear - Final 10/07/16 11:30 Pleural Fluid Fungal Smear - Final 10/06/16 08:34 Abdomen - Post Surgical Site Gram Stain - Final 10/06/16 08:34 Abdomen - Post Surgical Site Wound Culture - Final Pseudomonas Aeruginosa Enterococcus Faecalis(Group D) No Anaerobic Organisms 10/07/16 11:30 Pleural Fluid AFB Smear Concentration - Final 10/07/16 11:30 Pleural Fluid Acid Fast Bacilli Smear - Final 09/27/16 10/02/16 10/04/16 22:46 10:40 03:23 Troponin I 0.035 0.037 NT-Pro-B Natriuret Pep 1790 H Impressions: Chest/Abdomen CTA 09/27/16 00:00 IMPRESSION: No evidence for pulmonary embolic disease. Bilateral airspace consolidation in the lower lobes which could represent atelectatic changes or pneumonic consolidations. Other findings as noted above Acute Abdomen Series 09/27/16 11:55 IMPRESSION: Small bowel obstruction with diffuse distention of small bowel loops out of proportion to colon KUB X-Ray 10/01/16 07:00 IMPRESSION: Persistent dilated small bowel loops worrisome for small bowel obstruction. Upper GI and Small Bowel X-Ray 10/02/16 07:00 IMPRESSION: Unable to control 0 bolus of thin liquids contrast. Subglottic aspiration of Isovue-300. Gastrografin was instilled into the stomach. There is no gastric outlet obstruction. Small hiatal hernia with reflux. Normal pylorus and duodenum. Jejunum is diffusely distended, with poor peristalsis and no significant antegrade motion of contrast over 3 hour observation. At the 2 hour rodney, the stomach was emptied because of GE reflux and aspiration risk. Thoracentesis Ultrasound 10/07/16 00:00 IMPRESSION: SUCCESSFUL RIGHT DIAGNOSTIC AND THERAPEUTIC THORACENTESIS USING ULTRASOUND GUIDANCE. Abdomen/Pelvis CT 10/08/16 00:00 IMPRESSION: Small amount of ascites in the abdomen. No evidence of bowel obstruction Moderate bilateral pleural effusions Chest X-Ray 10/10/16 06:00 IMPRESSION: Tubes and lines in good positioning. Mild bibasilar airspace disease atelectasis versus pneumonia. Small left pleural effusion Assessment & Plan - Diagnosis (1) Acute respiratory failure with hypoxemia Is this a current diagnosis for this admission?: Yes (2) Septic shock Is this a current diagnosis for this admission?: Yes (3) Atrial fibrillation with rapid ventricular response Is this a current diagnosis for this admission?: Yes (4) Small bowel obstruction Is this a current diagnosis for this admission?: Yes (5) Aspiration pneumonia Qualifiers: Aspiration pneumonia type: unspecified Laterality: bilateral Lung location: lower lobe of lung Qualified Code(s): J69.0 - Pneumonitis due to inhalation of food and vomit Is this a current diagnosis for this admission?: Yes (6) Dehydration Is this a current diagnosis for this admission?: Yes (7) Hyperglycemia Is this a current diagnosis for this admission?: Yes (8) Coagulopathy Is this a current diagnosis for this admission?: Yes (9) Congestive heart failure Qualifiers: Congestive heart failure type: diastolic Congestive heart failure chronicity: chronic Qualified Code(s): I50.32 - Chronic diastolic ( congestive) heart failure Is this a current diagnosis for this admission?: Yes - Time Time Spent with patient: 25-34 minutes - Plan Summary Plan Summary: Continue ventilatory support as per pulmonary service. Patient has been negative balance for the past 2 days weight about 6 L. This may have contributed to the patient's alkalosis as well. We are going to decrease the diuretic as the chest x-ray has improved. Continue current antibiotics for Pseudomonas sepsis. Continue supportive care. Weaning ventilator per pulmonary service. Replace electrolytes. Recheck within labs in the morning. Follow-up chest x-ray in the morning and renew restraints today.
[2016-10-10] MEDS: POTASSI CL 20 MEQ/50 ML RIDER 50 ML IV SCH ×3 (09:33→14:00)
[2016-10-10] MEDS: LEVOTHYROXINE SODIUM INJ/PF 0.1 MG SDV IV SCH (09:48)
[2016-10-10] MEDS ORDERED: FUROSEMIDE INJ/PF 40 MG/4 ML SDV IV SCH (10:00)
[2016-10-10 10:30] LABS: ARTERIAL BLOOD BASE EXCESS -0.1 mmol/L; ARTERIAL BLOOD O2 SATURATION 74.9 % (94-98)
[2016-10-10] MEDS: DIGOXIN 0.125 MG TABLET NG SCH (10:34)
[2016-10-10 10:57] LABS: ARTERIAL BLOOD BASE EXCESS 2.6 mmol/L
--- NOTE | 2016-10-10 11:50 | PDOC PROGRESS REPORT ---
Subjective Progress Note for:: 10/10/16 Subjective:: Patient about the same and has made very little progress. There is no significant change in general condition. Patient remains intubated, sedated, patient however looks comfortable and in acute distress. Patient is status post small bowel resection. Patient continues in atrial fibrillation with controlled heart rate.. He is back on vasopressors. Patient still intubated. He had bowel movement and tolerating by NG tube feeds, but is now noted to have some diarrhea. Medications reviewed. Physical Exam Vital Signs: Temp Pulse Resp BP Pulse Ox 99.4 F 105 H 28 H 122/62 99 10/10/16 09:52 10/10/16 09:52 10/10/16 09:52 10/10/16 09:52 10/10/16 09:52 Intake & Output 10/09/16 10/10/16 10/11/16 06:59 06:59 06:59 Intake Total 1949 3159 321 Output Total 6795 4800 380 Balance -4846 -1641 -59 Weight 84.7 kg 80.6 kg Exam: GENERAL: well-nourished and in no acute distress. Patient is intubated and sedated. Orientation cannot be checked HEAD: Atraumatic, normocephalic. EYES: Pupils equal round and reactive to light, extraocular movements could not be checked, sclera anicteric, conjunctiva are normal. ENT: TMs normal, nares patent, oropharynx clear without exudates. Moist mucous membranes. No oral ulcerations or bleeding gums noted NECK: supple without lymphadenopathy or JVD. Trachea is central. No cervical or axillary lymphadenopathy noted. Carotids are 2+ LUNGS: Breath sounds mostly clear to auscultation patient is noted to have bibasal crackles at the extreme bases. Patient also noted to have bibasilar dullness CHEST: Palpation of the chest wall shows no significant chest wall tenderness or abnormalities. HEART: [place] [employer], No PSH, 2/6 RICARDA aortic area, 1/6 tinoco systolic murmur mitral area , no rubs or gallops. ABDOMEN: Soft, no significant tenderness appreciated, normoactive bowel sounds. No guarding, no rebound. No rigidity noted . No masses appreciated. EXTREMITIES: Pedal pulses are 1-2+, no calf tenderness noted, 1-2+ pedal edema noted. No clubbing or cyanosis. NEUROLOGICAL: The patient cannot participate in the neurological exam but no facial asymmetry noted. Extremities slightly hypotonic PSYCH: This cannot be evaluated. Patient cannot participate. SKIN: No significant ecchymosis, rash, or signs of pruritus noted. MUSCULOSKELETAL EXAM: No significant joint swelling noted. Patient cannot participate in musculoskeletal exam Results Laboratory Results: 10/10/16 08:25 10/10/16 06:20 10/10/16 10/10/16 10/10/16 06:20 06:20 06:35 WBC Cancelled RBC Cancelled Hgb Cancelled Hct Cancelled MCV Cancelled MCH Cancelled MCHC Cancelled RDW Cancelled Plt Count Cancelled Seg Neutrophils % Cancelled Lymphocytes % Cancelled Monocytes % Cancelled Eosinophils % Cancelled Basophils % Cancelled Absolute Neutrophils Cancelled Absolute Lymphocytes Cancelled Absolute Monocytes Cancelled Absolute Eosinophils Cancelled Absolute Basophils Cancelled Carbonic Acid 0.72 L HCO3/H2CO3 Ratio 32:1 ABG pH 7.61 H* ABG pCO2 23.9 L ABG pO2 61.1 L ABG HCO3 23.4 ABG O2 Saturation 95.3 ABG Base Excess 3.5 FiO2 35% Sodium 139.4 Potassium 3.0 L* Chloride 102 Carbon Dioxide 28 Anion Gap 9 BUN 13 Creatinine 0.60 Est GFR ( Amer) > 60 Est GFR (Non-Af Amer) > 60 Glucose 107 Calcium 7.3 L Magnesium 1.6 Total Bilirubin 1.1 AST 41 ALT 29 Alkaline Phosphatase 77 Total Protein 4.9 L Albumin 1.9 L Triglycerides 121 10/10/16 10/10/16 10/10/16 08:25 10:12 10:43 WBC 22.7 H RBC 3.71 L Hgb 11.0 L Hct 33.5 L MCV 91 MCH 29.7 MCHC 32.8 RDW 13.1 Plt Count 364 Seg Neutrophils % Not Reportable Lymphocytes % Not Reportable Monocytes % Not Reportable Eosinophils % Not Reportable Basophils % Not Reportable Absolute Neutrophils Not Reportable Absolute Lymphocytes Not Reportable Absolute Monocytes Not Reportable Absolute Eosinophils Not Reportable Absolute Basophils Not Reportable Carbonic Acid 1.37 H 1.27 HCO3/H2CO3 Ratio 18:1 21:1 ABG pH 7.37 7.43 ABG pCO2 45.5 H 42.2 ABG pO2 41.4 L 88.9 ABG HCO3 25.4 27.3 H ABG O2 Saturation 74.9 L 97.0 ABG Base Excess -0.1 2.6 FiO2 35% 35% Sodium Potassium Chloride Carbon Dioxide Anion Gap BUN Creatinine Est GFR ( Amer) Est GFR (Non-Af Amer) Glucose Calcium Magnesium Total Bilirubin AST ALT Alkaline Phosphatase Total Protein Albumin Triglycerides 10/07/16 11:30 Pleural Fluid Fungal Smear - Final 10/07/16 11:30 Pleural Fluid Fungal Smear - Final 10/07/16 11:30 Pleural Fluid Fungal Smear - Final 10/06/16 08:34 Abdomen - Post Surgical Site Gram Stain - Final 10/06/16 08:34 Abdomen - Post Surgical Site Wound Culture - Final Pseudomonas Aeruginosa Enterococcus Faecalis(Group D) No Anaerobic Organisms 10/07/16 11:30 Pleural Fluid AFB Smear Concentration - Final 10/07/16 11:30 Pleural Fluid Acid Fast Bacilli Smear - Final 09/27/16 10/02/16 10/04/16 22:46 10:40 03:23 Troponin I 0.035 0.037 NT-Pro-B Natriuret Pep 1790 H Impressions: Chest/Abdomen CTA 09/27/16 00:00 IMPRESSION: No evidence for pulmonary embolic disease. Bilateral airspace consolidation in the lower lobes which could represent atelectatic changes or pneumonic consolidations. Other findings as noted above Acute Abdomen Series 09/27/16 11:55 IMPRESSION: Small bowel obstruction with diffuse distention of small bowel loops out of proportion to colon KUB X-Ray 10/01/16 07:00 IMPRESSION: Persistent dilated small bowel loops worrisome for small bowel obstruction. Upper GI and Small Bowel X-Ray 10/02/16 07:00 IMPRESSION: Unable to control 0 bolus of thin liquids contrast. Subglottic aspiration of Isovue-300. Gastrografin was instilled into the stomach. There is no gastric outlet obstruction. Small hiatal hernia with reflux. Normal pylorus and duodenum. Jejunum is diffusely distended, with poor peristalsis and no significant antegrade motion of contrast over 3 hour observation. At the 2 hour rodney, the stomach was emptied because of GE reflux and aspiration risk. Thoracentesis Ultrasound 10/07/16 00:00 IMPRESSION: SUCCESSFUL RIGHT DIAGNOSTIC AND THERAPEUTIC THORACENTESIS USING ULTRASOUND GUIDANCE. Abdomen/Pelvis CT 10/08/16 00:00 IMPRESSION: Small amount of ascites in the abdomen. No evidence of bowel obstruction Moderate bilateral pleural effusions Chest X-Ray 10/10/16 06:00 IMPRESSION: Tubes and lines in good positioning. Mild bibasilar airspace disease atelectasis versus pneumonia. Small left pleural effusion Assessment & Plan - Diagnosis (1) Atrial fibrillation with rapid ventricular response Is this a current diagnosis for this admission?: Yes (2) Small bowel obstruction Is this a current diagnosis for this admission?: Yes (3) Acute respiratory failure with hypoxemia Is this a current diagnosis for this admission?: Yes (4) Aspiration pneumonia Qualifiers: Aspiration pneumonia type: unspecified Laterality: bilateral Lung location: lower lobe of lung Qualified Code(s): J69.0 - Pneumonitis due to inhalation of food and vomit Is this a current diagnosis for this admission?: Yes (5) Hypotension Qualifiers: Hypotension type: other hypotension type Qualified Code(s): I95.89 - Other hypotension - Notes Notes: Patient seems more stable but still critically sick. Still intubated. Patient now back on vasopressors. A small bowel obstruction: Patient status post small bowel resection. Bowel function seems to be improving. Patient getting NG to feeds. Acute respiratory failure with hypoxemia: This was related to aspiration pneumonia. Patient had thoracentesis earlier I believe yesterday. Patient is doing better. However still needs ventilatory support. Hypotension: Patient now back on vasopressors. We will try to taper it. Currently on Matt-Synephrine drip. Atrial fibrillation: Recommend resuming anticoagulation when feasible. Currently heart rate is well controlled. Overall prognosis seems guarded.. - Time Time with patient: Greater than 35 minutes - CODE STATUS was discussed, patient remains full code. Surrogate decision-maker unchanged. Multiple medical problems were addressed.More than 50% of the time spent coordinating care, discussing management plans with involved caregivers. Management plans discussed with involved personnels. Medical decision making was of moderate complexity. Medications reviewed and adjusted accordingly: Yes
--- NOTE | 2016-10-10 13:24 | PDOC PROGRESS REPORT ---
Subjective Progress Note for:: 10/10/16 Subjective:: Patient is intubated and sedated. Nursing reports needed to be started on some low-dose Matt-Synephrine overnight. Report good bowel sounds overnight. No additional BMs in the last 20 hours. Physical Exam Vital Signs: Temp Pulse Resp BP Pulse Ox 98.0 F 81 14 110/52 L 97 10/10/16 12:00 10/10/16 12:00 10/10/16 12:00 10/10/16 12:00 10/10/16 12:00 Intake & Output 10/09/16 10/10/16 10/11/16 06:59 06:59 06:59 Intake Total 1949 2379 321 Output Total 6738 5486 1100 Balance -1791 -1641 -229 Weight 84.7 kg 80.6 kg General appearance: PRESENT: other - Intubated and sedated Head exam: PRESENT: normocephalic - Patient has NG tube and ET tube., other Respiratory exam: PRESENT: decreased breath sounds Cardiovascular exam: PRESENT: irregular rhythm GI/Abdominal exam: PRESENT: distended, soft. ABSENT: tenderness - Abdomen is distended, but less than Thursday. Positive bowel sounds. Incision looks clean dry, with 3 open areas. These areas were probed and repacked. Wound was redressed with gauze and ABDs and Medipore tape. Binder was put back on loosely. Gentrourinary exam: PRESENT: other - Diffuse anasarca, significantly involving the scrotum and penis. Extremities exam: PRESENT: +2 edema - Diffuse anasarca Neurological exam: PRESENT: other - Intubated and sedated Skin exam: ABSENT: jaundice Results Laboratory Results: 10/10/16 08:25 10/10/16 06:20 10/10/16 10/10/16 10/10/16 06:20 06:20 06:35 WBC Cancelled RBC Cancelled Hgb Cancelled Hct Cancelled MCV Cancelled MCH Cancelled MCHC Cancelled RDW Cancelled Plt Count Cancelled Seg Neutrophils % Cancelled Lymphocytes % Cancelled Monocytes % Cancelled Eosinophils % Cancelled Basophils % Cancelled Absolute Neutrophils Cancelled Absolute Lymphocytes Cancelled Absolute Monocytes Cancelled Absolute Eosinophils Cancelled Absolute Basophils Cancelled Carbonic Acid 0.72 L HCO3/H2CO3 Ratio 32:1 ABG pH 7.61 H* ABG pCO2 23.9 L ABG pO2 61.1 L ABG HCO3 23.4 ABG O2 Saturation 95.3 ABG Base Excess 3.5 FiO2 35% Sodium 139.4 Potassium 3.0 L* Chloride 102 Carbon Dioxide 28 Anion Gap 9 BUN 13 Creatinine 0.60 Est GFR ( Amer) > 60 Est GFR (Non-Af Amer) > 60 Glucose 107 Calcium 7.3 L Magnesium 1.6 Total Bilirubin 1.1 AST 41 ALT 29 Alkaline Phosphatase 77 Total Protein 4.9 L Albumin 1.9 L Triglycerides 121 10/10/16 10/10/16 10/10/16 08:25 10:12 10:43 WBC 22.7 H RBC 3.71 L Hgb 11.0 L Hct 33.5 L MCV 91 MCH 29.7 MCHC 32.8 RDW 13.1 Plt Count 364 Seg Neutrophils % Not Reportable Lymphocytes % Not Reportable Monocytes % Not Reportable Eosinophils % Not Reportable Basophils % Not Reportable Absolute Neutrophils Not Reportable Absolute Lymphocytes Not Reportable Absolute Monocytes Not Reportable Absolute Eosinophils Not Reportable Absolute Basophils Not Reportable Carbonic Acid 1.37 H 1.27 HCO3/H2CO3 Ratio 18:1 21:1 ABG pH 7.37 7.43 ABG pCO2 45.5 H 42.2 ABG pO2 41.4 L 88.9 ABG HCO3 25.4 27.3 H ABG O2 Saturation 74.9 L 97.0 ABG Base Excess -0.1 2.6 FiO2 35% 35% Sodium Potassium Chloride Carbon Dioxide Anion Gap BUN Creatinine Est GFR ( Amer) Est GFR (Non-Af Amer) Glucose Calcium Magnesium Total Bilirubin AST ALT Alkaline Phosphatase Total Protein Albumin Triglycerides 10/05/16 11:42 Blood Blood Culture - Final NO GROWTH IN 5 DAYS 10/07/16 11:30 Pleural Fluid Fungal Smear - Final 10/07/16 11:30 Pleural Fluid Fungal Smear - Final 10/07/16 11:30 Pleural Fluid Fungal Smear - Final 10/06/16 08:34 Abdomen - Post Surgical Site Gram Stain - Final 10/06/16 08:34 Abdomen - Post Surgical Site Wound Culture - Final Pseudomonas Aeruginosa Enterococcus Faecalis(Group D) No Anaerobic Organisms 09/27/16 10/02/16 10/04/16 22:46 10:40 03:23 Troponin I 0.035 0.037 NT-Pro-B Natriuret Pep 1790 H Impressions: Chest/Abdomen CTA 09/27/16 00:00 IMPRESSION: No evidence for pulmonary embolic disease. Bilateral airspace consolidation in the lower lobes which could represent atelectatic changes or pneumonic consolidations. Other findings as noted above Acute Abdomen Series 09/27/16 11:55 IMPRESSION: Small bowel obstruction with diffuse distention of small bowel loops out of proportion to colon KUB X-Ray 10/01/16 07:00 IMPRESSION: Persistent dilated small bowel loops worrisome for small bowel obstruction. Upper GI and Small Bowel X-Ray 10/02/16 07:00 IMPRESSION: Unable to control 0 bolus of thin liquids contrast. Subglottic aspiration of Isovue-300. Gastrografin was instilled into the stomach. There is no gastric outlet obstruction. Small hiatal hernia with reflux. Normal pylorus and duodenum. Jejunum is diffusely distended, with poor peristalsis and no significant antegrade motion of contrast over 3 hour observation. At the 2 hour rodney, the stomach was emptied because of GE reflux and aspiration risk. Thoracentesis Ultrasound 10/07/16 00:00 IMPRESSION: SUCCESSFUL RIGHT DIAGNOSTIC AND THERAPEUTIC THORACENTESIS USING ULTRASOUND GUIDANCE. Abdomen/Pelvis CT 10/08/16 00:00 IMPRESSION: Small amount of ascites in the abdomen. No evidence of bowel obstruction Moderate bilateral pleural effusions Chest X-Ray 10/10/16 06:00 IMPRESSION: Tubes and lines in good positioning. Mild bibasilar airspace disease atelectasis versus pneumonia. Small left pleural effusion Assessment & Plan - Diagnosis (1) Small bowel obstruction Is this a current diagnosis for this admission?: YesPlan: Status post small bowel resection. Has had 2 bowel movements in the last 3 days. Continue tube feeds. Patient was alkalotic on this morning's ABGs. Respiratory rate was at 20. May have been blowing off acid. Rate was reduced to 12. Patient was overbreathing the vent at a rate of around 14-18. Spoke with pulmonology, who was okay with the change. Repeat ABG show pH of 7.43. Oxygenating okay. Bilateral pleural effusions. Getting diuresed by medicine. Electrodes being replaced daily, including today getting potassium. Recheck potassium in the afternoon. If less than 3.6, will give additional 16 mEq. Still in A. fib. Improvement in his chest x-ray from 6 AM to 9 AM. Less wet, less effusions. Right IJ catheter appears to be in superior vena cava after adjustment of the bedside.
[2016-10-10 17:53] LABS: ANION GAP 8 (5-19); BLOOD UREA NITROGEN 13 mg/dL (7-20); CALCIUM 7.2 mg/dL (8.4-10.2); CARBON DIOXIDE 30 mmol/L (22-30); CHLORIDE 103 mmol/L (98-107); CREATININE RESULT 0.62 mg/dL (0.52-1.25); GLUCOSE 111 mg/dL (75-110); POTASSIUM 3.3 mmol/L (3.6-5.0); SODIUM 140.6 mmol/L (137-145)
[2016-10-10 18:33] LABS: DIGOXIN 1.5 ng/mL (0.8-2.0); MAGNESIUM 1.6 mg/dL (1.6-2.3); PHOSPHORUS 3.3 mg/dL (2.5-4.5)
[2016-10-10] MEDS ORDERED: POTASSI CL 20 MEQ/50 ML RIDER 20 MEQ/50 ML RTUPB IV ONE (18:49)
[2016-10-10] MEDS: POTASSIUM CHLORIDE 20 MEQ/50 ML RTU IV SCH ×2 (19:07→21:00)
[2016-10-11] MEDS: DEXTROSE 5%-WATER 250 ML with PHENYLEPHRINE HCL 40 MG IV PRN ×6 (00:35→21:31)
[2016-10-11] MEDS: PIPERACILLIN SODIUM/TAZOBACTAM 4.5 GM in NORMAL SALINE 100 ML IV SCH ×5 (00:36→23:40)
[2016-10-11] MEDS: DILTIAZEM HCL 60 MG TABLET NG SCH ×5 (00:39→23:39)
[2016-10-11 05:11] LABS: HEMATOCRIT 32.6 % (37.9-51.0); HEMOGLOBIN 10.5 g/dL (13.5-17.0); HGB HCT DIFFERENCE -1.1; MEAN CORPUSCULAR HEMOGLOBIN 29.2 pg (27.0-33.4); MEAN CORPUSCULAR HGB CONC 32.3 g/dL (32.0-36.0); MEAN CORPUSCULAR VOLUME 91 fl (80-97); RED BLOOD COUNT 3.59 10^6/uL (4.35-5.55); RED CELL DISTRIBUTION WIDTH 13.3 % (11.5-14.0); WHITE BLOOD COUNT 17.4 10^3/uL (4.0-10.5)
[2016-10-11 05:23] LABS: ANION GAP 7 (5-19); BLOOD UREA NITROGEN 14 mg/dL (7-20); CALCIUM 7.2 mg/dL (8.4-10.2); CARBON DIOXIDE 29 mmol/L (22-30); CHLORIDE 104 mmol/L (98-107); CREATININE RESULT 0.53 mg/dL (0.52-1.25); GLUCOSE 117 mg/dL (75-110); POTASSIUM 3.5 mmol/L (3.6-5.0); SODIUM 139.6 mmol/L (137-145)
[2016-10-11] MEDS: PROPOFOL 100 ML IV PRN ×2 (06:28→21:31)
[2016-10-11] MEDS: TOBRAMYCIN SULFATE NEB 40 MG/ML 30 ML NEB SCH ×2 (07:51→20:37)
[2016-10-11] MEDS: 1/2 NORMAL SALINE 1,000 ML IV PRN (08:35)
[2016-10-11] MEDS ORDERED: FUROSEMIDE INJ/PF 40 MG/4 ML SDV IV SCH (09:01)
--- NOTE | 2016-10-11 09:01 | PDOC PROGRESS REPORT ---
Subjective Progress Note for:: 10/11/16 Subjective:: Patient remained on the ventilator. Still on vasopressor w/ Matt-Synephrine. Urine output remains negative balance but around 700 mL today. Alkalosis on ABG is significantly improved. No reported temperature spikes, or respiratory distress. Still unable to wean from the ventilator. Unable to wean from vasopressors as well as due to hypotension. Physical Exam Vital Signs: Temp Pulse Resp BP Pulse Ox 99.6 F 71 20 131/46 H 100 10/11/16 08:00 10/11/16 07:51 10/11/16 07:51 10/11/16 05:31 10/11/16 07:51 Intake & Output 10/10/16 10/11/16 10/12/16 06:59 06:59 06:59 Intake Total 3159 2550 Output Total 4800 3295 125 Balance -1641 -745 -125 Weight 80.6 kg 78.8 kg General appearance: PRESENT: no acute distress, other - Intubated and sedated Head exam: PRESENT: normocephalic Eye exam: PRESENT: conjunctiva pale Mouth exam: PRESENT: moist, neck supple Neck exam: ABSENT: JVD Respiratory exam: PRESENT: clear to auscultation quique - Anteriorly, decreased breath sounds - Lower lung [place] posteriorly Cardiovascular exam: PRESENT: irregular rhythm. ABSENT: gallop GI/Abdominal exam: PRESENT: hypoactive bowel sounds, soft. ABSENT: distended Extremities exam: PRESENT: +1 edema Psychiatric exam: ABSENT: agitated Focused psych exam: ABSENT: restlessness Skin exam: PRESENT: dry, warm. ABSENT: cyanosis Results Laboratory Results: 10/11/16 04:58 10/11/16 04:58 10/10/16 10/10/16 10/10/16 08:25 10:12 10:43 WBC 22.7 H RBC 3.71 L Hgb 11.0 L Hct 33.5 L MCV 91 MCH 29.7 MCHC 32.8 RDW 13.1 Plt Count 364 Carbonic Acid 1.37 H 1.27 HCO3/H2CO3 Ratio 18:1 21:1 ABG pH 7.37 7.43 ABG pCO2 45.5 H 42.2 ABG pO2 41.4 L 88.9 ABG HCO3 25.4 27.3 H ABG O2 Saturation 74.9 L 97.0 ABG Base Excess -0.1 2.6 FiO2 35% 35% Sodium Potassium Chloride Carbon Dioxide Anion Gap BUN Creatinine Est GFR ( Amer) Est GFR (Non-Af Amer) Glucose Calcium Phosphorus Magnesium 10/10/16 10/10/16 10/11/16 17:00 17:00 04:58 WBC 17.4 H RBC 3.59 L Hgb 10.5 L Hct 32.6 L MCV 91 MCH 29.2 MCHC 32.3 RDW 13.3 Plt Count 367 Carbonic Acid HCO3/H2CO3 Ratio ABG pH ABG pCO2 ABG pO2 ABG HCO3 ABG O2 Saturation ABG Base Excess FiO2 Sodium 140.6 Potassium 3.3 L Chloride 103 Carbon Dioxide 30 Anion Gap 8 BUN 13 Creatinine 0.62 Est GFR ( Amer) > 60 Est GFR (Non-Af Amer) > 60 Glucose 111 H Calcium 7.2 L Phosphorus 3.3 Magnesium 1.6 10/11/16 04:58 WBC RBC Hgb Hct MCV MCH MCHC RDW Plt Count Carbonic Acid HCO3/H2CO3 Ratio ABG pH ABG pCO2 ABG pO2 ABG HCO3 ABG O2 Saturation ABG Base Excess FiO2 Sodium 139.6 Potassium 3.5 L Chloride 104 Carbon Dioxide 29 Anion Gap 7 BUN 14 Creatinine 0.53 Est GFR ( Amer) > 60 Est GFR (Non-Af Amer) > 60 Glucose 117 H Calcium 7.2 L Phosphorus Magnesium 10/05/16 15:34 Blood Blood Culture - Final NO GROWTH IN 5 DAYS 10/05/16 11:42 Blood Blood Culture - Final NO GROWTH IN 5 DAYS 10/07/16 11:30 Pleural Fluid Fungal Smear - Final 10/07/16 11:30 Pleural Fluid Fungal Smear - Final 10/07/16 11:30 Pleural Fluid Fungal Smear - Final 09/27/16 10/02/16 10/04/16 22:46 10:40 03:23 Troponin I 0.035 0.037 NT-Pro-B Natriuret Pep 1790 H Impressions: Chest/Abdomen CTA 09/27/16 00:00 IMPRESSION: No evidence for pulmonary embolic disease. Bilateral airspace consolidation in the lower lobes which could represent atelectatic changes or pneumonic consolidations. Other findings as noted above Acute Abdomen Series 09/27/16 11:55 IMPRESSION: Small bowel obstruction with diffuse distention of small bowel loops out of proportion to colon KUB X-Ray 10/01/16 07:00 IMPRESSION: Persistent dilated small bowel loops worrisome for small bowel obstruction. Upper GI and Small Bowel X-Ray 10/02/16 07:00 IMPRESSION: Unable to control 0 bolus of thin liquids contrast. Subglottic aspiration of Isovue-300. Gastrografin was instilled into the stomach. There is no gastric outlet obstruction. Small hiatal hernia with reflux. Normal pylorus and duodenum. Jejunum is diffusely distended, with poor peristalsis and no significant antegrade motion of contrast over 3 hour observation. At the 2 hour rodney, the stomach was emptied because of GE reflux and aspiration risk. Thoracentesis Ultrasound 10/07/16 00:00 IMPRESSION: SUCCESSFUL RIGHT DIAGNOSTIC AND THERAPEUTIC THORACENTESIS USING ULTRASOUND GUIDANCE. Abdomen/Pelvis CT 10/08/16 00:00 IMPRESSION: Small amount of ascites in the abdomen. No evidence of bowel obstruction Moderate bilateral pleural effusions Chest X-Ray 10/11/16 06:00 IMPRESSION: Support devices unchanged. There has been and increase in basilar airspace disease most likely related to atelectasis. Assessment & Plan - Diagnosis (1) Acute respiratory failure with hypoxemia Is this a current diagnosis for this admission?: Yes (2) Septic shock Is this a current diagnosis for this admission?: Yes (3) Atrial fibrillation with rapid ventricular response Is this a current diagnosis for this admission?: Yes (4) Small bowel obstruction Is this a current diagnosis for this admission?: Yes (5) Aspiration pneumonia Qualifiers: Aspiration pneumonia type: unspecified Laterality: bilateral Lung location: lower lobe of lung Qualified Code(s): J69.0 - Pneumonitis due to inhalation of food and vomit Is this a current diagnosis for this admission?: Yes (6) Dehydration Is this a current diagnosis for this admission?: Yes (7) Hyperglycemia Is this a current diagnosis for this admission?: Yes (8) Coagulopathy Is this a current diagnosis for this admission?: Yes (9) Congestive heart failure Qualifiers: Congestive heart failure type: diastolic Congestive heart failure chronicity: chronic Qualified Code(s): I50.32 - Chronic diastolic ( congestive) heart failure Is this a current diagnosis for this admission?: Yes - Time Time Spent with patient: 25-34 minutes - Plan Summary Plan Summary: Continue current antibiotics. Replace electrolytes. Continue ventilatory support and weaning per pulmonary service. So far the cultures from the pleural fluid remained negative. Continue current diuretics. We will decrease it to 20 mg daily. Continue supportive care. Renew his restraints and a follow -up chest x-ray and morning.
[2016-10-11] MEDS: POTASSI CL 20 MEQ/50 ML RIDER 20 MEQ/50 ML RTUPB IV SCH ×2 (10:14→12:33)
[2016-10-11] MEDS: ACETAMINOPHEN 100 ML IV SCH ×2 (10:14→17:24)
[2016-10-11] MEDS: DIGOXIN 0.125 MG TABLET NG SCH (10:16)
[2016-10-11] MEDS: PANTOPRAZOLE SODIUM 40 MG VIAL IV SCH (10:16)
[2016-10-11] MEDS: LEVOTHYROXINE SODIUM INJ/PF 0.1 MG SDV IV SCH (10:17)
[2016-10-11] MEDS: ALBUTEROL SULFATE 0.083% NEB 2.5 MG/3 ML AMPUL NEB PRN (20:37)
[2016-10-12] MEDS: ACETAMINOPHEN 100 ML IV SCH ×3 (02:12→17:52)
[2016-10-12 05:06] LABS: HEMATOCRIT 29.7 % (37.9-51.0); HEMOGLOBIN 9.8 g/dL (13.5-17.0); HGB HCT DIFFERENCE -0.3; MEAN CORPUSCULAR HEMOGLOBIN 29.7 pg (27.0-33.4); MEAN CORPUSCULAR VOLUME 90 fl (80-97); RED CELL DISTRIBUTION WIDTH 13.6 % (11.5-14.0)
[2016-10-12 05:18] LABS: ARTERIAL BLOOD BASE EXCESS 6.2 mmol/L; ARTERIAL BLOOD O2 SATURATION 96.7 % (94-98)
[2016-10-12 05:27] LABS: ANION GAP 8 (5-19); BLOOD UREA NITROGEN 13 mg/dL (7-20); CALCIUM 7.2 mg/dL (8.4-10.2); CARBON DIOXIDE 29 mmol/L (22-30); CHLORIDE 104 mmol/L (98-107); CREATININE RESULT 0.57 mg/dL (0.52-1.25); GLUCOSE 104 mg/dL (75-110); MAGNESIUM 1.6 mg/dL (1.6-2.3); PHOSPHORUS 2.9 mg/dL (2.5-4.5); POTASSIUM 3.3 mmol/L (3.6-5.0); SODIUM 140.8 mmol/L (137-145)
[2016-10-12] MEDS: DILTIAZEM HCL 60 MG TABLET NG SCH ×3 (06:22→17:53)
[2016-10-12] MEDS: PIPERACILLIN SODIUM/TAZOBACTAM 4.5 GM in NORMAL SALINE 100 ML IV SCH ×3 (06:22→17:52)
[2016-10-12] MEDS: TOBRAMYCIN SULFATE NEB 40 MG/ML 30 ML NEB SCH ×2 (08:42→20:37)
--- NOTE | 2016-10-12 08:57 | PDOC PROGRESS REPORT ---
Subjective Progress Note for:: 10/12/16 Subjective:: Patient remained on the ventilator and vasopressor w/ Matt-Synephrine. Urine output + balance today. Chest x-ray showing increasing congestion. No reported temperature spikes, or respiratory distress. Still unable to wean from the ventilator. Unable to wean from vasopressors as well as due to hypotension. Physical Exam Vital Signs: Temp Pulse Resp BP Pulse Ox 98.4 F 72 14 113/45 L 100 10/12/16 08:00 10/12/16 08:00 10/12/16 08:00 10/12/16 08:00 10/12/16 08:00 Intake & Output 10/11/16 10/12/16 10/13/16 06:59 06:59 06:59 Intake Total 2550 2814 Output Total 3295 2550 300 Balance -745 264 -300 Weight 78.8 kg 76.9 kg General appearance: PRESENT: no acute distress, other - Sedated and intubated Head exam: PRESENT: normocephalic Eye exam: PRESENT: conjunctiva pale Mouth exam: PRESENT: moist, neck supple Neck exam: ABSENT: JVD Respiratory exam: PRESENT: clear to auscultation quique - Anteriorly, decreased breath sounds - Posteriorly on the bases Cardiovascular exam: PRESENT: irregular rhythm. ABSENT: gallop GI/Abdominal exam: PRESENT: hypoactive bowel sounds, soft. ABSENT: distended, tenderness Gentrourinary exam: PRESENT: scrotal swelling - Unchanged Extremities exam: PRESENT: +1 edema - Unchanged Skin exam: PRESENT: dry, warm. ABSENT: cyanosis Results Laboratory Results: 10/12/16 04:55 10/12/16 04:55 10/12/16 10/12/16 10/12/16 04:55 04:55 04:55 WBC 14.0 H RBC 3.30 L Hgb 9.8 L Hct 29.7 L MCV 90 MCH 29.7 MCHC 33.0 RDW 13.6 Plt Count 368 Carbonic Acid 0.92 L HCO3/H2CO3 Ratio 30:1 ABG pH 7.58 H ABG pCO2 30.7 L ABG pO2 73.4 L ABG HCO3 28.0 H ABG O2 Saturation 96.7 ABG Base Excess 6.2 FiO2 30% Sodium 140.8 Potassium 3.3 L Chloride 104 Carbon Dioxide 29 Anion Gap 8 BUN 13 Creatinine 0.57 Est GFR ( Amer) > 60 Est GFR (Non-Af Amer) > 60 Glucose 104 Calcium 7.2 L Phosphorus 2.9 Magnesium 1.6 10/07/16 11:30 Pleural Fluid Gram Stain - Final 10/07/16 11:30 Pleural Fluid Body Fluid Culture - Final NO AEROBIC OR ANAEROBIC ORGANISMS RECOVERED 09/27/16 10/02/16 10/04/16 22:46 10:40 03:23 Troponin I 0.035 0.037 NT-Pro-B Natriuret Pep 1790 H Impressions: Chest/Abdomen CTA 09/27/16 00:00 IMPRESSION: No evidence for pulmonary embolic disease. Bilateral airspace consolidation in the lower lobes which could represent atelectatic changes or pneumonic consolidations. Other findings as noted above Acute Abdomen Series 09/27/16 11:55 IMPRESSION: Small bowel obstruction with diffuse distention of small bowel loops out of proportion to colon KUB X-Ray 10/01/16 07:00 IMPRESSION: Persistent dilated small bowel loops worrisome for small bowel obstruction. Upper GI and Small Bowel X-Ray 10/02/16 07:00 IMPRESSION: Unable to control 0 bolus of thin liquids contrast. Subglottic aspiration of Isovue-300. Gastrografin was instilled into the stomach. There is no gastric outlet obstruction. Small hiatal hernia with reflux. Normal pylorus and duodenum. Jejunum is diffusely distended, with poor peristalsis and no significant antegrade motion of contrast over 3 hour observation. At the 2 hour rodney, the stomach was emptied because of GE reflux and aspiration risk. Thoracentesis Ultrasound 10/07/16 00:00 IMPRESSION: SUCCESSFUL RIGHT DIAGNOSTIC AND THERAPEUTIC THORACENTESIS USING ULTRASOUND GUIDANCE. Abdomen/Pelvis CT 10/08/16 00:00 IMPRESSION: Small amount of ascites in the abdomen. No evidence of bowel obstruction Moderate bilateral pleural effusions Chest X-Ray 10/12/16 06:00 IMPRESSION: Increasing bibasilar infiltrate and pleural effusions. This could represent pneumonia or edema. Assessment & Plan - Diagnosis (1) Acute respiratory failure with hypoxemia Is this a current diagnosis for this admission?: Yes (2) Septic shock Is this a current diagnosis for this admission?: Yes (3) Atrial fibrillation with rapid ventricular response Is this a current diagnosis for this admission?: Yes (4) Small bowel obstruction Is this a current diagnosis for this admission?: Yes (5) Aspiration pneumonia Qualifiers: Aspiration pneumonia type: unspecified Laterality: bilateral Lung location: lower lobe of lung Qualified Code(s): J69.0 - Pneumonitis due to inhalation of food and vomit Is this a current diagnosis for this admission?: Yes (6) Dehydration Is this a current diagnosis for this admission?: Yes (7) Hyperglycemia Is this a current diagnosis for this admission?: Yes (8) Coagulopathy Is this a current diagnosis for this admission?: Yes (9) Congestive heart failure Qualifiers: Congestive heart failure type: diastolic Congestive heart failure chronicity: chronic Qualified Code(s): I50.32 - Chronic diastolic ( congestive) heart failure Is this a current diagnosis for this admission?: Yes - Time Time Spent with patient: 25-34 minutes - Plan Summary Plan Summary: Continue ventilatory support, vasopressors, tube feedings. Increase diuretics and recheck chest x-ray in the morning. Follow urine output. Continue current antibiotics. WBC continues to trend down. Recheck hematocrit as it is trending down as well. Transfuse as needed if it falls below 8. Continue other measures and supportive care. Begin electrolyte replacement protocol.
[2016-10-12] MEDS: PROPOFOL 100 ML IV PRN ×2 (09:19→17:52)
[2016-10-12] MEDS: FUROSEMIDE INJ/PF 40 MG/4 ML SDV IV SCH (09:19)
[2016-10-12] MEDS: LEVOTHYROXINE SODIUM INJ/PF 0.1 MG SDV IV SCH (09:19)
[2016-10-12] MEDS: PANTOPRAZOLE SODIUM 40 MG VIAL IV SCH (09:20)
[2016-10-12] MEDS: POTASSIUM CHLORIDE 20 MEQ/50 ML RTU IV SCH ×2 (09:20→11:56)
[2016-10-12] MEDS: DIGOXIN 0.125 MG TABLET NG SCH (09:20)
[2016-10-12] MEDS: 1/2 NORMAL SALINE 1,000 ML IV PRN (11:59)
[2016-10-12] MEDS: DEXTROSE 5%-WATER 250 ML with PHENYLEPHRINE HCL 40 MG IV PRN ×2 (11:59)
--- NOTE | 2016-10-12 14:20 | PDOC PROGRESS REPORT ---
Subjective Progress Note for:: 10/12/16 Subjective:: ON VENT Physical Exam Vital Signs: Temp Pulse Resp BP Pulse Ox 98.0 F 84 19 93/61 L 100 10/12/16 12:00 10/12/16 12:00 10/12/16 12:00 10/12/16 12:00 10/12/16 12:00 Intake & Output 10/11/16 10/12/16 10/13/16 06:59 06:59 06:59 Intake Total 2550 2814 200 Output Total 3295 2550 1100 Balance -745 264 -900 Weight 78.8 kg 76.9 kg GI/Abdominal exam: PRESENT: soft - Mid line incision wound partially opened - clean, granulating . Results Laboratory Results: 10/12/16 04:55 10/12/16 04:55 10/12/16 10/12/16 10/12/16 04:55 04:55 04:55 WBC 14.0 H RBC 3.30 L Hgb 9.8 L Hct 29.7 L MCV 90 MCH 29.7 MCHC 33.0 RDW 13.6 Plt Count 368 Carbonic Acid 0.92 L HCO3/H2CO3 Ratio 30:1 ABG pH 7.58 H ABG pCO2 30.7 L ABG pO2 73.4 L ABG HCO3 28.0 H ABG O2 Saturation 96.7 ABG Base Excess 6.2 FiO2 30% Sodium 140.8 Potassium 3.3 L Chloride 104 Carbon Dioxide 29 Anion Gap 8 BUN 13 Creatinine 0.57 Est GFR ( Amer) > 60 Est GFR (Non-Af Amer) > 60 Glucose 104 Calcium 7.2 L Phosphorus 2.9 Magnesium 1.6 09/27/16 10/02/16 10/04/16 22:46 10:40 03:23 Troponin I 0.035 0.037 NT-Pro-B Natriuret Pep 1790 H Impressions: Chest/Abdomen CTA 09/27/16 00:00 IMPRESSION: No evidence for pulmonary embolic disease. Bilateral airspace consolidation in the lower lobes which could represent atelectatic changes or pneumonic consolidations. Other findings as noted above Acute Abdomen Series 09/27/16 11:55 IMPRESSION: Small bowel obstruction with diffuse distention of small bowel loops out of proportion to colon KUB X-Ray 10/01/16 07:00 IMPRESSION: Persistent dilated small bowel loops worrisome for small bowel obstruction. Upper GI and Small Bowel X-Ray 10/02/16 07:00 IMPRESSION: Unable to control 0 bolus of thin liquids contrast. Subglottic aspiration of Isovue-300. Gastrografin was instilled into the stomach. There is no gastric outlet obstruction. Small hiatal hernia with reflux. Normal pylorus and duodenum. Jejunum is diffusely distended, with poor peristalsis and no significant antegrade motion of contrast over 3 hour observation. At the 2 hour rodney, the stomach was emptied because of GE reflux and aspiration risk. Thoracentesis Ultrasound 10/07/16 00:00 IMPRESSION: SUCCESSFUL RIGHT DIAGNOSTIC AND THERAPEUTIC THORACENTESIS USING ULTRASOUND GUIDANCE. Abdomen/Pelvis CT 10/08/16 00:00 IMPRESSION: Small amount of ascites in the abdomen. No evidence of bowel obstruction Moderate bilateral pleural effusions Chest X-Ray 10/12/16 06:00 IMPRESSION: Increasing bibasilar infiltrate and pleural effusions. This could represent pneumonia or edema. Assessment & Plan - Plan Summary Plan Summary: Resipiratory failure - day 9 still on weaning trial GI tract functioning - tube feeds
[2016-10-12 14:56] LABS: ABSOLUTE BASOPHILS # (AUTO) 0.1 10^3/uL (0.0-0.2); ABSOLUTE EOSINOPHILS # (AUTO) 0.1 10^3/uL (0.0-0.6); ABSOLUTE LYMPHOCYTES (AUTO) 0.7 10^3/uL (0.5-4.7); ABSOLUTE MONOCYTES (AUTO) 0.8 10^3/uL (0.1-1.4); ABSOLUTE NEUT (AUTO) 11.4 10^3/uL (1.7-8.2); BASOPHILS % (AUTO) 0.7 % (0-2); EOSINOPHILS % (AUTO) 0.4 % (0-6); HEMATOCRIT 30.4 % (37.9-51.0); HGB HCT DIFFERENCE -0.4; LYMPHOCYTES % (AUTO) 5.6 % (13-45); MEAN CORPUSCULAR VOLUME 91 fl (80-97); MONOCYTES % (AUTO) 6.1 % (3-13); RED BLOOD COUNT 3.34 10^6/uL (4.35-5.55); RED CELL DISTRIBUTION WIDTH 13.5 % (11.5-14.0); SEGMENTED NEUTROPHILS % (AUTO) 87.2 % (42-78); WHITE BLOOD COUNT 13.1 10^3/uL (4.0-10.5)
[2016-10-12 15:40] LABS: ANION GAP 5 (5-19); BLOOD UREA NITROGEN 13 mg/dL (7-20); CALCIUM 7.6 mg/dL (8.4-10.2); CARBON DIOXIDE 30 mmol/L (22-30); CHLORIDE 104 mmol/L (98-107); CREATININE RESULT 0.53 mg/dL (0.52-1.25); GLUCOSE 107 mg/dL (75-110); SODIUM 139.2 mmol/L (137-145)
--- NOTE | 2016-10-12 18:22 | PDOC PROGRESS REPORT ---
Subjective Progress Note for:: 10/11/16 Subjective:: Patient about the same and has made very little progress. There is no significant change in general condition. Patient remains intubated, sedated, patient however looks comfortable and in acute distress. Patient is status post small bowel resection. His still nothing by mouth and has NG tube drainage. Patient continues in atrial fibrillation with controlled heart rate.. He is still on vasopressors, but needing less of it. Patient still intubated. Tolerating by NG tube feeds. Patient to be a started on IV digoxin. Medications reviewed. Physical Exam Vital Signs: Temp Pulse Resp BP Pulse Ox 99.6 F 71 12 104/49 L 97 10/11/16 12:00 10/11/16 07:51 10/11/16 09:01 10/11/16 09:00 10/11/16 12:30 Intake & Output 10/10/16 10/11/16 10/12/16 06:59 06:59 06:59 Intake Total 3159 2550 100 Output Total 4800 3295 600 Balance -1641 -745 -500 Weight 80.6 kg 78.8 kg Exam: GENERAL: well-nourished and in no acute distress. Patient is intubated and sedated. Orientation cannot be checked HEAD: Atraumatic, normocephalic. EYES: Pupils equal round and reactive to light, extraocular movements could not be checked, sclera anicteric, conjunctiva are normal. ENT: TMs normal, nares patent, oropharynx clear without exudates. Moist mucous membranes. No oral ulcerations or bleeding gums noted NECK: supple without lymphadenopathy or JVD. Trachea is central. No cervical or axillary lymphadenopathy noted. Carotids are 2+ LUNGS: Breath sounds mostly clear to auscultation patient is noted to have bibasal crackles at the extreme bases CHEST: Palpation of the chest wall shows no significant chest wall tenderness or abnormalities. HEART: [place] [employer], No PSH, 2/6 RICARDA aortic area, 1/6 tinoco systolic murmur mitral area , no rubs or gallops. ABDOMEN: Soft, no significant tenderness appreciated, normoactive bowel sounds. No guarding, no rebound. No rigidity noted . No masses appreciated. EXTREMITIES: Pedal pulses are 1-2+, no calf tenderness noted, 1+ pedal edema noted, generalized edema 1+ noted. No clubbing or cyanosis. NEUROLOGICAL: The patient cannot participate in the neurological exam but no facial asymmetry noted. Extremities slightly hypotonic PSYCH: This cannot be evaluated. Patient cannot participate. SKIN: No significant ecchymosis, rash, or signs of pruritus noted. MUSCULOSKELETAL EXAM: No significant joint swelling noted. Patient cannot participate in musculoskeletal exam Results Laboratory Results: 10/11/16 04:58 10/11/16 04:58 10/10/16 10/10/16 10/11/16 17:00 17:00 04:58 WBC 17.4 H RBC 3.59 L Hgb 10.5 L Hct 32.6 L MCV 91 MCH 29.2 MCHC 32.3 RDW 13.3 Plt Count 367 Sodium 140.6 Potassium 3.3 L Chloride 103 Carbon Dioxide 30 Anion Gap 8 BUN 13 Creatinine 0.62 Est GFR ( Amer) > 60 Est GFR (Non-Af Amer) > 60 Glucose 111 H Calcium 7.2 L Phosphorus 3.3 Magnesium 1.6 10/11/16 04:58 WBC RBC Hgb Hct MCV MCH MCHC RDW Plt Count Sodium 139.6 Potassium 3.5 L Chloride 104 Carbon Dioxide 29 Anion Gap 7 BUN 14 Creatinine 0.53 Est GFR ( Amer) > 60 Est GFR (Non-Af Amer) > 60 Glucose 117 H Calcium 7.2 L Phosphorus Magnesium 10/07/16 11:30 Pleural Fluid Gram Stain - Final 10/07/16 11:30 Pleural Fluid Body Fluid Culture - Final NO AEROBIC OR ANAEROBIC ORGANISMS RECOVERED 10/05/16 15:34 Blood Blood Culture - Final NO GROWTH IN 5 DAYS 10/05/16 11:42 Blood Blood Culture - Final NO GROWTH IN 5 DAYS 09/27/16 10/02/16 10/04/16 22:46 10:40 03:23 Troponin I 0.035 0.037 NT-Pro-B Natriuret Pep 1790 H Impressions: Chest/Abdomen CTA 09/27/16 00:00 IMPRESSION: No evidence for pulmonary embolic disease. Bilateral airspace consolidation in the lower lobes which could represent atelectatic changes or pneumonic consolidations. Other findings as noted above Acute Abdomen Series 09/27/16 11:55 IMPRESSION: Small bowel obstruction with diffuse distention of small bowel loops out of proportion to colon KUB X-Ray 10/01/16 07:00 IMPRESSION: Persistent dilated small bowel loops worrisome for small bowel obstruction. Upper GI and Small Bowel X-Ray 10/02/16 07:00 IMPRESSION: Unable to control 0 bolus of thin liquids contrast. Subglottic aspiration of Isovue-300. Gastrografin was instilled into the stomach. There is no gastric outlet obstruction. Small hiatal hernia with reflux. Normal pylorus and duodenum. Jejunum is diffusely distended, with poor peristalsis and no significant antegrade motion of contrast over 3 hour observation. At the 2 hour rodney, the stomach was emptied because of GE reflux and aspiration risk. Thoracentesis Ultrasound 10/07/16 00:00 IMPRESSION: SUCCESSFUL RIGHT DIAGNOSTIC AND THERAPEUTIC THORACENTESIS USING ULTRASOUND GUIDANCE. Abdomen/Pelvis CT 10/08/16 00:00 IMPRESSION: Small amount of ascites in the abdomen. No evidence of bowel obstruction Moderate bilateral pleural effusions Chest X-Ray 10/11/16 06:00 IMPRESSION: Support devices unchanged. There has been and increase in basilar airspace disease most likely related to atelectasis. Assessment & Plan - Diagnosis (1) Atrial fibrillation with rapid ventricular response Is this a current diagnosis for this admission?: Yes (2) Small bowel obstruction Is this a current diagnosis for this admission?: Yes (3) Acute respiratory failure with hypoxemia Is this a current diagnosis for this admission?: Yes (4) Aspiration pneumonia Qualifiers: Aspiration pneumonia type: unspecified Laterality: bilateral Lung location: lower lobe of lung Qualified Code(s): J69.0 - Pneumonitis due to inhalation of food and vomit Is this a current diagnosis for this admission?: Yes (5) Hypotension Qualifiers: Hypotension type: other hypotension type Qualified Code(s): I95.89 - Other hypotension - Notes Notes: Patient remains critically ill. He remains in chronic atrial fibrillation but heart rate is well controlled. Small bowel obstruction seems resolved after surgery. Currently tolerating NG feeds. He remains in respiratory failure and is being artificially ventilated through endotracheal tube. He continues to have significant bilateral pleural effusion. He also has recurrent aspiration. For hypotension he is remains on Matt-Synephrine drip. Attempts are being made to taper this off. Recommend intermittent IV fluid boluses as needed. May consider adding Midodrin, if still patient on Matt-Synephrine. Overall prognosis is guarded. - Time Time with patient: 15-25 minutes - CODE STATUS was discussed, patient remains full code. Surrogate decision-maker unchanged. Multiple medical problems were addressed.More than 50% of the time spent coordinating care, discussing management plans with involved caregivers. Management plans discussed with involved personnels. Medical decision making was of moderate complexity.
--- NOTE | 2016-10-12 18:25 | PDOC PROGRESS REPORT ---
Subjective Progress Note for:: 10/12/16 Subjective:: Patient about the same and has made very little progress. There is no significant change in general condition. Chest x-ray shows mildly worsening but could be exposure related. Patient remains intubated, sedated, patient however looks comfortable and in acute distress. Patient is status post small bowel resection. Patient seems to be tolerating by mouth feeds. Patient continues in atrial fibrillation with controlled heart rate.. He is still on vasopressors but at a lesser dose of Matt -Synephrine. Patient still intubated. Seems to be still tolerating NG tube feeds. Medications reviewed. Physical Exam Vital Signs: Temp Pulse Resp BP Pulse Ox 97.9 F 67 16 111/62 100 10/12/16 16:00 10/12/16 14:00 10/12/16 15:01 10/12/16 15:00 10/12/16 16:25 Intake & Output 10/11/16 10/12/16 10/13/16 06:59 06:59 06:59 Intake Total 2550 2814 1566 Output Total 3295 2550 2350 Balance -745 264 -784 Weight 78.8 kg 76.9 kg Exam: GENERAL: well-nourished and in no acute distress. Patient is intubated and sedated. Orientation cannot be checked HEAD: Atraumatic, normocephalic. EYES: Pupils equal round and reactive to light, extraocular movements could not be checked, sclera anicteric, conjunctiva are normal. ENT: TMs normal, nares patent, oropharynx clear without exudates. Moist mucous membranes. No oral ulcerations or bleeding gums noted NECK: supple without lymphadenopathy or JVD. Trachea is central. No cervical or axillary lymphadenopathy noted. Carotids are 2+ LUNGS: Breath sounds mostly clear to auscultation patient is noted to have bibasal crackles at the extreme bases. Bibasilar dullness noted. CHEST: Palpation of the chest wall shows no significant chest wall tenderness or abnormalities. 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 ABDOMEN: Soft, no significant tenderness appreciated, normoactive bowel sounds. No guarding, no rebound. No rigidity noted . No masses appreciated. EXTREMITIES: Pedal pulses are 1-2+, no calf tenderness noted, 1+ pedal edema noted. 1+ generalized edema noted No clubbing or cyanosis. NEUROLOGICAL: The patient cannot participate in the neurological exam but no facial asymmetry noted. Extremities slightly hypotonic PSYCH: This cannot be evaluated. Patient cannot participate. SKIN: No significant ecchymosis, rash, or signs of pruritus noted. MUSCULOSKELETAL EXAM: No significant joint swelling noted. Patient cannot participate in musculoskeletal exam Results Laboratory Results: 10/12/16 14:40 10/12/16 14:17 10/12/16 10/12/16 10/12/16 04:55 04:55 04:55 WBC 14.0 H RBC 3.30 L Hgb 9.8 L Hct 29.7 L MCV 90 MCH 29.7 MCHC 33.0 RDW 13.6 Plt Count 368 Seg Neutrophils % Lymphocytes % Monocytes % Eosinophils % Basophils % Absolute Neutrophils Absolute Lymphocytes Absolute Monocytes Absolute Eosinophils Absolute Basophils Carbonic Acid 0.92 L HCO3/H2CO3 Ratio 30:1 ABG pH 7.58 H ABG pCO2 30.7 L ABG pO2 73.4 L ABG HCO3 28.0 H ABG O2 Saturation 96.7 ABG Base Excess 6.2 FiO2 30% Sodium 140.8 Potassium 3.3 L Chloride 104 Carbon Dioxide 29 Anion Gap 8 BUN 13 Creatinine 0.57 Est GFR ( Amer) > 60 Est GFR (Non-Af Amer) > 60 Glucose 104 Calcium 7.2 L Phosphorus 2.9 Magnesium 1.6 10/12/16 10/12/16 10/12/16 14:17 14:17 14:40 WBC 13.1 H RBC 3.34 L Hgb 10.0 L Hct 30.4 L MCV 91 MCH 30.0 MCHC 33.0 RDW 13.5 Plt Count 391 Seg Neutrophils % 87.2 H Lymphocytes % 5.6 L Monocytes % 6.1 Eosinophils % 0.4 Basophils % 0.7 Absolute Neutrophils 11.4 H Absolute Lymphocytes 0.7 Absolute Monocytes 0.8 Absolute Eosinophils 0.1 Absolute Basophils 0.1 Carbonic Acid HCO3/H2CO3 Ratio ABG pH ABG pCO2 ABG pO2 ABG HCO3 ABG O2 Saturation ABG Base Excess FiO2 Sodium 139.2 Potassium 4.0 4.0 Chloride 104 Carbon Dioxide 30 Anion Gap 5 BUN 13 Creatinine 0.53 Est GFR ( Amer) > 60 Est GFR (Non-Af Amer) > 60 Glucose 107 Calcium 7.6 L Phosphorus Magnesium 09/27/16 10/02/16 10/04/16 22:46 10:40 03:23 Troponin I 0.035 0.037 NT-Pro-B Natriuret Pep 1790 H Impressions: Chest/Abdomen CTA 09/27/16 00:00 IMPRESSION: No evidence for pulmonary embolic disease. Bilateral airspace consolidation in the lower lobes which could represent atelectatic changes or pneumonic consolidations. Other findings as noted above Acute Abdomen Series 09/27/16 11:55 IMPRESSION: Small bowel obstruction with diffuse distention of small bowel loops out of proportion to colon KUB X-Ray 10/01/16 07:00 IMPRESSION: Persistent dilated small bowel loops worrisome for small bowel obstruction. Upper GI and Small Bowel X-Ray 10/02/16 07:00 IMPRESSION: Unable to control 0 bolus of thin liquids contrast. Subglottic aspiration of Isovue-300. Gastrografin was instilled into the stomach. There is no gastric outlet obstruction. Small hiatal hernia with reflux. Normal pylorus and duodenum. Jejunum is diffusely distended, with poor peristalsis and no significant antegrade motion of contrast over 3 hour observation. At the 2 hour rodney, the stomach was emptied because of GE reflux and aspiration risk. Thoracentesis Ultrasound 10/07/16 00:00 IMPRESSION: SUCCESSFUL RIGHT DIAGNOSTIC AND THERAPEUTIC THORACENTESIS USING ULTRASOUND GUIDANCE. Abdomen/Pelvis CT 10/08/16 00:00 IMPRESSION: Small amount of ascites in the abdomen. No evidence of bowel obstruction Moderate bilateral pleural effusions Chest X-Ray 10/12/16 06:00 IMPRESSION: Increasing bibasilar infiltrate and pleural effusions. This could represent pneumonia or edema. Assessment & Plan - Diagnosis (1) Atrial fibrillation with rapid ventricular response Is this a current diagnosis for this admission?: Yes (2) Small bowel obstruction Is this a current diagnosis for this admission?: Yes (3) Acute respiratory failure with hypoxemia Is this a current diagnosis for this admission?: Yes (4) Aspiration pneumonia Qualifiers: Aspiration pneumonia type: unspecified Laterality: bilateral Lung location: lower lobe of lung Qualified Code(s): J69.0 - Pneumonitis due to inhalation of food and vomit Is this a current diagnosis for this admission?: Yes (5) Hypotension Qualifiers: Hypotension type: other hypotension type Qualified Code(s): I95.89 - Other hypotension - Notes Notes: Plan is basically same as enumerated yesterday. Will start patient on Midodrin. Continue digoxin therapy. Agree with hospitalist plan with Continue ventilatory support, vasopressors, tube feedings. Increase diuretics and recheck chest x-ray in the morning. Follow urine output. Continue current antibiotics. Patient remains critically ill and very debilitated. Dr. Mackey to start covering from tomorrow. - Time Time with patient: 15-25 minutes - CODE STATUS was discussed, patient remains full code. Surrogate decision-maker unchanged. Multiple medical problems were addressed.More than 50% of the time spent coordinating care, discussing management plans with involved caregivers. Management plans discussed with involved personnels. Medical decision making was of moderate complexity. Dr. Mackey to cover from tomorrow.
[2016-10-12] MEDS: ALBUTEROL SULFATE 0.083% NEB 2.5 MG/3 ML AMPUL NEB PRN (20:38)
[2016-10-12] MEDS: MIDODRINE HCL 5 MG TABLET PO SCH (22:55)
[2016-10-13] MEDS: DILTIAZEM HCL 60 MG TABLET NG SCH ×4 (00:11→17:01)
[2016-10-13] MEDS: PIPERACILLIN SODIUM/TAZOBACTAM 4.5 GM in NORMAL SALINE 100 ML IV SCH ×4 (00:12→17:15)
[2016-10-13] MEDS: ACETAMINOPHEN 100 ML IV SCH ×3 (02:29→17:44)
[2016-10-13] MEDS: MIDODRINE HCL 5 MG TABLET PO SCH ×4 (05:55→17:02)
[2016-10-13] MEDS: PROPOFOL 100 ML IV PRN ×3 (05:56→17:55)
[2016-10-13 06:06] LABS: HEMATOCRIT 28.8 % (37.9-51.0); HEMOGLOBIN 9.5 g/dL (13.5-17.0); HGB HCT DIFFERENCE -0.3; MEAN CORPUSCULAR HGB CONC 33.1 g/dL (32.0-36.0); MEAN CORPUSCULAR VOLUME 91 fl (80-97); RED BLOOD COUNT 3.18 10^6/uL (4.35-5.55); RED CELL DISTRIBUTION WIDTH 13.4 % (11.5-14.0); WHITE BLOOD COUNT 21.9 10^3/uL (4.0-10.5)
[2016-10-13 06:38] LABS: ANION GAP 7 (5-19); BLOOD UREA NITROGEN 14 mg/dL (7-20); CALCIUM 7.3 mg/dL (8.4-10.2); CARBON DIOXIDE 29 mmol/L (22-30); CHLORIDE 103 mmol/L (98-107); GLUCOSE 104 mg/dL (75-110); MAGNESIUM 1.6 mg/dL (1.6-2.3); POTASSIUM 3.4 mmol/L (3.6-5.0); SODIUM 138.8 mmol/L (137-145); TRIGLYCERIDES 113 mg/dL (<150)
[2016-10-13] MEDS: TOBRAMYCIN SULFATE NEB 40 MG/ML 30 ML NEB SCH (07:53)
[2016-10-13] MEDS: ALBUTEROL SULFATE 0.083% NEB 2.5 MG/3 ML AMPUL NEB PRN (07:54)
--- NOTE | 2016-10-13 08:40 | PDOC PROGRESS REPORT ---
Subjective Progress Note for:: 10/13/16 Subjective:: Is examined in the emergency department where he is on the ventilator; he is also sedated on propofol, and still requiring Levophed. This is essentially unchanged from 1 week ago. Physical Exam Vital Signs: Temp Pulse Resp BP Pulse Ox 98.3 F 66 10 L 124/73 100 10/13/16 08:00 10/13/16 08:00 10/13/16 08:00 10/13/16 08:00 10/13/16 08:05 Intake & Output 10/12/16 10/13/16 10/14/16 06:59 06:59 06:59 Intake Total 2814 2837 Output Total 2550 3235 150 Balance 264 -398 -150 Weight 76.9 kg 77.9 kg General appearance: PRESENT: other - Pharmacologically sedated Respiratory exam: PRESENT: rales GI/Abdominal exam: PRESENT: other - Midline examined; open wound areas with some granulation tissue, or healing overall. No indication for staple removal. Abdomen soft nontender otherwise. Results Laboratory Results: 10/13/16 05:50 10/13/16 05:50 10/12/16 10/12/16 10/12/16 14:17 14:17 14:40 WBC 13.1 H RBC 3.34 L Hgb 10.0 L Hct 30.4 L MCV 91 MCH 30.0 MCHC 33.0 RDW 13.5 Plt Count 391 Seg Neutrophils % 87.2 H Lymphocytes % 5.6 L Monocytes % 6.1 Eosinophils % 0.4 Basophils % 0.7 Absolute Neutrophils 11.4 H Absolute Lymphocytes 0.7 Absolute Monocytes 0.8 Absolute Eosinophils 0.1 Absolute Basophils 0.1 Sodium 139.2 Potassium 4.0 4.0 Chloride 104 Carbon Dioxide 30 Anion Gap 5 BUN 13 Creatinine 0.53 Est GFR ( Amer) > 60 Est GFR (Non-Af Amer) > 60 Glucose 107 Calcium 7.6 L Magnesium Triglycerides 10/13/16 10/13/16 10/13/16 05:50 05:50 05:50 WBC 21.9 H Cancelled RBC 3.18 L Cancelled Hgb 9.5 L Cancelled Hct 28.8 L Cancelled MCV 91 Cancelled MCH 30.0 Cancelled MCHC 33.1 Cancelled RDW 13.4 Cancelled Plt Count 377 Cancelled Seg Neutrophils % Cancelled Lymphocytes % Cancelled Monocytes % Cancelled Eosinophils % Cancelled Basophils % Cancelled Absolute Neutrophils Cancelled Absolute Lymphocytes Cancelled Absolute Monocytes Cancelled Absolute Eosinophils Cancelled Absolute Basophils Cancelled Sodium 138.8 Potassium 3.4 L Chloride 103 Carbon Dioxide 29 Anion Gap 7 BUN 14 Creatinine 0.60 Est GFR ( Amer) > 60 Est GFR (Non-Af Amer) > 60 Glucose 104 Calcium 7.3 L Magnesium 1.6 Triglycerides 113 09/27/16 10/02/16 10/04/16 22:46 10:40 03:23 Troponin I 0.035 0.037 NT-Pro-B Natriuret Pep 1790 H Impressions: Chest/Abdomen CTA 09/27/16 00:00 IMPRESSION: No evidence for pulmonary embolic disease. Bilateral airspace consolidation in the lower lobes which could represent atelectatic changes or pneumonic consolidations. Other findings as noted above Acute Abdomen Series 09/27/16 11:55 IMPRESSION: Small bowel obstruction with diffuse distention of small bowel loops out of proportion to colon KUB X-Ray 10/01/16 07:00 IMPRESSION: Persistent dilated small bowel loops worrisome for small bowel obstruction. Upper GI and Small Bowel X-Ray 10/02/16 07:00 IMPRESSION: Unable to control 0 bolus of thin liquids contrast. Subglottic aspiration of Isovue-300. Gastrografin was instilled into the stomach. There is no gastric outlet obstruction. Small hiatal hernia with reflux. Normal pylorus and duodenum. Jejunum is diffusely distended, with poor peristalsis and no significant antegrade motion of contrast over 3 hour observation. At the 2 hour rodney, the stomach was emptied because of GE reflux and aspiration risk. Thoracentesis Ultrasound 10/07/16 00:00 IMPRESSION: SUCCESSFUL RIGHT DIAGNOSTIC AND THERAPEUTIC THORACENTESIS USING ULTRASOUND GUIDANCE. Abdomen/Pelvis CT 10/08/16 00:00 IMPRESSION: Small amount of ascites in the abdomen. No evidence of bowel obstruction Moderate bilateral pleural effusions Chest X-Ray 10/13/16 06:00 IMPRESSION: Improving edema or sepsis. No pneumothorax. Assessment & Plan - Diagnosis (1) Small bowel obstruction Is this a current diagnosis for this admission?: YesPlan: 1. Patient has made very little progress over the past week. He has a persisting septic picture, with leukocytosis, despite maximum medical support including ventilator, vasopressors, and intravenous antibiotics. Furthermore he is on maintenance tube feeds to meet his metabolic needs. 2. I'm concerned patient's prognosis is very poor. The family will be bringing in advanced directive, and a conversation will be held about levels of aggressiveness of care. 3. Patient's central line has been in over 10 days so should be changed as a matter of routine central line infection prophylaxis. I have discussed this with the nurse. (2) Septic shock Is this a current diagnosis for this admission?: Yes
--- NOTE | 2016-10-13 08:56 | PDOC PROGRESS REPORT ---
Subjective Progress Note for:: 10/13/16 Subjective:: Patient remained on the ventilator and vasopressor w/ Matt-Synephrine. Tolerated about 6 hours of weaning yesterday. Urine output - balance today. Chest x-ray showing increasing congestion yesterday but improving today. No reported temperature spikes, or respiratory distress. WBC however increased . Still unable to wean from the ventilator. Reported diarrhea stools probably from chin feedings. Physical Exam Vital Signs: Temp Pulse Resp BP Pulse Ox 98.3 F 66 15 111/65 100 10/13/16 08:00 10/13/16 08:00 10/13/16 08:30 10/13/16 08:30 10/13/16 08:35 Intake & Output 10/12/16 10/13/16 10/14/16 06:59 06:59 06:59 Intake Total 2814 2837 Output Total 2550 3235 150 Balance 264 -398 -150 Weight 76.9 kg 77.9 kg General appearance: PRESENT: no acute distress, other - Intubated and sedated Head exam: PRESENT: normocephalic Eye exam: PRESENT: conjunctiva pale Mouth exam: PRESENT: moist, neck supple Neck exam: ABSENT: JVD Respiratory exam: PRESENT: clear to auscultation quique - Anteriorly. ABSENT: rhonchi, wheezes Cardiovascular exam: PRESENT: irregular rhythm. ABSENT: gallop GI/Abdominal exam: PRESENT: soft, other - Abdominal wound is clean, open wounds without any purulent drainage noted.. ABSENT: distended Extremities exam: PRESENT: +1 edema Skin exam: PRESENT: dry, warm. ABSENT: cyanosis Results Laboratory Results: 10/13/16 05:50 10/13/16 05:50 10/12/16 10/12/16 10/12/16 14:17 14:17 14:40 WBC 13.1 H RBC 3.34 L Hgb 10.0 L Hct 30.4 L MCV 91 MCH 30.0 MCHC 33.0 RDW 13.5 Plt Count 391 Seg Neutrophils % 87.2 H Lymphocytes % 5.6 L Monocytes % 6.1 Eosinophils % 0.4 Basophils % 0.7 Absolute Neutrophils 11.4 H Absolute Lymphocytes 0.7 Absolute Monocytes 0.8 Absolute Eosinophils 0.1 Absolute Basophils 0.1 Sodium 139.2 Potassium 4.0 4.0 Chloride 104 Carbon Dioxide 30 Anion Gap 5 BUN 13 Creatinine 0.53 Est GFR ( Amer) > 60 Est GFR (Non-Af Amer) > 60 Glucose 107 Calcium 7.6 L Magnesium Triglycerides 10/13/16 10/13/16 10/13/16 05:50 05:50 05:50 WBC 21.9 H Cancelled RBC 3.18 L Cancelled Hgb 9.5 L Cancelled Hct 28.8 L Cancelled MCV 91 Cancelled MCH 30.0 Cancelled MCHC 33.1 Cancelled RDW 13.4 Cancelled Plt Count 377 Cancelled Seg Neutrophils % Cancelled Lymphocytes % Cancelled Monocytes % Cancelled Eosinophils % Cancelled Basophils % Cancelled Absolute Neutrophils Cancelled Absolute Lymphocytes Cancelled Absolute Monocytes Cancelled Absolute Eosinophils Cancelled Absolute Basophils Cancelled Sodium 138.8 Potassium 3.4 L Chloride 103 Carbon Dioxide 29 Anion Gap 7 BUN 14 Creatinine 0.60 Est GFR ( Amer) > 60 Est GFR (Non-Af Amer) > 60 Glucose 104 Calcium 7.3 L Magnesium 1.6 Triglycerides 113 09/27/16 10/02/16 10/04/16 22:46 10:40 03:23 Troponin I 0.035 0.037 NT-Pro-B Natriuret Pep 1790 H Impressions: Chest/Abdomen CTA 09/27/16 00:00 IMPRESSION: No evidence for pulmonary embolic disease. Bilateral airspace consolidation in the lower lobes which could represent atelectatic changes or pneumonic consolidations. Other findings as noted above Acute Abdomen Series 09/27/16 11:55 IMPRESSION: Small bowel obstruction with diffuse distention of small bowel loops out of proportion to colon KUB X-Ray 10/01/16 07:00 IMPRESSION: Persistent dilated small bowel loops worrisome for small bowel obstruction. Upper GI and Small Bowel X-Ray 10/02/16 07:00 IMPRESSION: Unable to control 0 bolus of thin liquids contrast. Subglottic aspiration of Isovue-300. Gastrografin was instilled into the stomach. There is no gastric outlet obstruction. Small hiatal hernia with reflux. Normal pylorus and duodenum. Jejunum is diffusely distended, with poor peristalsis and no significant antegrade motion of contrast over 3 hour observation. At the 2 hour rodney, the stomach was emptied because of GE reflux and aspiration risk. Thoracentesis Ultrasound 10/07/16 00:00 IMPRESSION: SUCCESSFUL RIGHT DIAGNOSTIC AND THERAPEUTIC THORACENTESIS USING ULTRASOUND GUIDANCE. Abdomen/Pelvis CT 10/08/16 00:00 IMPRESSION: Small amount of ascites in the abdomen. No evidence of bowel obstruction Moderate bilateral pleural effusions Chest X-Ray 10/13/16 06:00 IMPRESSION: Improving edema or sepsis. No pneumothorax. Assessment & Plan - Diagnosis (1) Acute respiratory failure with hypoxemia Is this a current diagnosis for this admission?: Yes (2) Septic shock Is this a current diagnosis for this admission?: Yes (3) Atrial fibrillation with rapid ventricular response Is this a current diagnosis for this admission?: Yes (4) Small bowel obstruction Is this a current diagnosis for this admission?: Yes (5) Aspiration pneumonia Qualifiers: Aspiration pneumonia type: unspecified Laterality: bilateral Lung location: lower lobe of lung Qualified Code(s): J69.0 - Pneumonitis due to inhalation of food and vomit Is this a current diagnosis for this admission?: Yes (6) Dehydration Is this a current diagnosis for this admission?: Yes (7) Hyperglycemia Is this a current diagnosis for this admission?: Yes (8) Coagulopathy Is this a current diagnosis for this admission?: Yes (9) Congestive heart failure Qualifiers: Congestive heart failure type: diastolic Congestive heart failure chronicity: chronic Qualified Code(s): I50.32 - Chronic diastolic ( congestive) heart failure Is this a current diagnosis for this admission?: Yes - Time Time Spent with patient: 25-34 minutes - Plan Summary Plan Summary: WBC trended up. We will keep current antibiotics but resend sputum and urine and blood cultures. Begin intravenous Flagyl and lactobacillus and check for Clostridium difficile toxin. Monitor electrolytes. Renew his restraints and we will follow-up chest x-ray in the morning. Keep current diuretic dose for now. Continue to monitor I&O's. Family checking the patient's living will regarding PEG tube as well as tracheostomy tube as he is nearing his 14 days of being on endotracheal tube/mechanical ventilator.
[2016-10-13 09:07] LABS: BAND NEUTROPHILS % (MANUAL) 2 % (3-5); BASOPHILS % (MANUAL) 0 % (0-2); EOSINOPHILS % (MANUAL) 1 % (0-6); LYMPHOCYTES % (MANUAL) 5 % (13-45); TOTAL CELLS COUNTED 100
[2016-10-13 09:10] LABS: RBC MORPHOLOGY COMMENT NORMO-CYTIC/CHROMIC; TOXIC GRANULATION SLIGHT
[2016-10-13] MEDS: DEXTROSE 5%-WATER 250 ML with PHENYLEPHRINE HCL 40 MG IV PRN ×2 (09:47)
[2016-10-13] MEDS: METRONIDAZOLE 500 MG/NS RTU 100 ML IV SCH ×2 (09:49→15:01)
[2016-10-13] MEDS: POTASSI CL 20 MEQ/50 ML RIDER 50 ML IV SCH ×3 (09:52→13:37)
[2016-10-13] MEDS: FUROSEMIDE INJ/PF 40 MG/4 ML SDV IV SCH (10:00)
[2016-10-13] MEDS: PANTOPRAZOLE SODIUM 40 MG VIAL IV SCH (10:00)
[2016-10-13] MEDS: DIGOXIN 0.125 MG TABLET NG SCH (10:01)
[2016-10-13] MEDS: LACTOBACILLUS ACIDOPHILUS 250 MG TAB NG SCH ×2 (10:01→17:01)
[2016-10-13] MEDS: LEVOTHYROXINE SODIUM INJ/PF 0.1 MG SDV IV SCH (10:02)
--- NOTE | 2016-10-13 16:39 | PDOC TRANSFER SUMMARY ---
General Admission Date/PCP: 09/27/16 16:20 Admission Date: 09/27/16 Transfer Date: 10/13/16 Accepting Facility: Other (Comments) - [facility] Accepting Physician: Dr. Pham Arguello Resuscitation Status: Full Code - Transfer Diagnosis (1) Acute respiratory failure with hypoxemia Is this a current diagnosis for this admission?: Yes (2) Septic shock Is this a current diagnosis for this admission?: Yes (3) Atrial fibrillation with rapid ventricular response Is this a current diagnosis for this admission?: Yes (4) Small bowel obstruction Is this a current diagnosis for this admission?: Yes (5) Aspiration pneumonia Is this a current diagnosis for this admission?: Yes (6) Dehydration Is this a current diagnosis for this admission?: Yes (7) Hyperglycemia Is this a current diagnosis for this admission?: Yes (8) Coagulopathy Is this a current diagnosis for this admission?: Yes (9) Congestive heart failure Is this a current diagnosis for this admission?: Yes - Transfer Medications Home Medications: Multivitamin [Multivitamins] 1 cap PO DAILY 12/16/15 Apixaban [Eliquis 5 mg Tablet] 5 mg PO BID 09/28/16 Diltiazem HCl [Diltiazem ER] 300 mg PO DAILY 09/28/16 Levothyroxine Sodium [Synthroid 0.075 mg Tablet] 0.5 tab PO DAILY 09/28/16 Transfer Medications: Current Medications Acetaminophen (Tylenol 650 Mg Supp) 650 mg [place] Q4HP PRN PRN Reason: fever Stop: 10/27/16 16:24 Last Admin: 10/03/16 07:05 Dose: 650 mg Albuterol (Ventolin 0.083% Neb 2.5 Mg/3 Ml Ampul) 2.5 mg NEB RTQ4HP PRN PRN Reason: SHORTNESS OF BREATH Stop: 11/01/16 11:14 Last Admin: 10/13/16 07:54 Dose: 2.5 mg Bisacodyl (Dulcolax 10 Mg Supp.Rect) 10 mg W[place] DAILYP PRN Stop: 10/29/16 17:53 Last Admin: 09/29/16 18:15 Dose: 10 mg Digoxin (Lanoxin 0.125 Mg Tablet) 0.125 mg NG DAILY MARCELINO Stop: 11/09/16 09:59 Last Admin: 10/13/16 10:01 Dose: 0.125 mg Diltiazem HCl (Cardizem 60 Mg Tablet) 60 mg NG Q6 [facility] Stop: 11/08/16 08:59 Last Admin: 10/13/16 11:44 Dose: 60 mg Furosemide (Lasix Inj/Pf 40 Mg/4 Ml Sdv) 40 mg IV DAILY [facility] Stop: 11/11/16 09:59 Last Admin: 10/13/16 10:00 Dose: 40 mg Hard Fat/Phenylephrine 40 mg/ (Dextrose) 250 mls @ 0 mls/hr IV CONTINUOUS PRN; Protocol; Titrate PRN Reason: THIS MED IS NOT "PRN" Stop: 11/02/16 18:02 Last Admin: 10/13/16 09:47 Dose: 40 mg Propofol (Diprivan Rtu 1000 Mg/100 Ml Inf.Bottle) 100 mls @ 0 mls/hr IV CONTINUOUS PRN; Protocol; Titrate PRN Reason: THIS MED IS NOT "PRN" Stop: 11/02/16 18:06 Last Admin: 10/13/16 05:56 Dose: 100 ml Sodium Chloride (Nacl 0.45% 1000 Ml Iv Soln) 1,000 mls @ 30 mls/hr IV CONTINUOUS PRN PRN Reason: THIS MED IS NOT "PRN" Stop: 10/29/16 09:06 Last Admin: 10/12/16 11:59 Dose: 1,000 ml Piperacillin Sod/Tazobactam (Sod 4.5 gm/ Sodium Chloride) 100 mls @ 200 mls/hr IV Q6 [facility] Stop: 10/15/16 17:59 Last Admin: 10/13/16 11:44 Dose: 4.5 gm Acetaminophen (Ofirmev Inj/Pf 1000 Mg/100 Ml Sdv) 100 mls @ 400 mls/hr IV Q8A [facility] Stop: 10/14/16 09:59 Last Admin: 10/13/16 09:59 Dose: 100 ml Metronidazole (Flagyl Rtu 500 Mg/Ns 100ml Premix) 100 mls @ 100 mls/hr IV Q6A [facility] Stop: 10/20/16 08:59 Last Admin: 10/13/16 15:01 Dose: 100 ml Lactobacillus Acidophilus (Bacid 250 Mg Tablet) 500 mg NG BID [facility] Stop: 11/12/16 09:59 Last Admin: 10/13/16 10:01 Dose: 500 mg Levalbuterol HCl (Xopenex Neb 1.25 Mg/3 Ml Ampul) 1.25 mg NEB RTQ4HP PRN PRN Reason: wheezing Stop: 10/27/16 16:19 Last Admin: 10/02/16 11:23 Dose: 1.25 mg Levothyroxine Sodium (Synthroid Inj/Pf 0.1 Mg Sdv) 0.05 mg IV DAILY MARCELINO Stop: 11/02/16 09:59 Last Admin: 10/13/16 10:02 Dose: 0.05 mg Midodrine (Proamatine 5 Mg Tablet) 5 mg PO TID MARCELINO Stop: 11/12/16 09:59 Last Admin: 10/13/16 13:36 Dose: 5 mg Ondansetron HCl (Zofran Inj/Pf 4 Mg/2 Ml Sdv) 4 mg IV Q4HP PRN Stop: 10/27/16 16:24 Last Admin: 10/03/16 06:19 Dose: 4 mg Pantoprazole Sodium (Protonix Iv Inj 40 Mg Vial) 40 mg IV DAILY MARCELINO Stop: 10/14/16 09:59 Last Admin: 10/13/16 10:00 Dose: 40 mg Pharmacy Profile Note (Medication Communication Order) 1 each [facility] .NOTICE NR Stop: 10/27/16 16:29 Tobramycin Sulfate (Tobramycin Neb 40 Mg/Ml 30 Ml Vial) 300 mg NEB RTQ12 MARCELINO Stop: 10/15/16 19:59 Last Admin: 10/13/16 07:53 Dose: 300 mg - Allergies Allergies/Adverse Reactions: No Known Allergies Allergy (Verified 09/27/16 11:36) - Diet/Activity Discharge Diet: Tube Feeding (Comments) Hospital Course Hospital Course: The patient was admitted to [facility]. The patient had rapid atrial fibrillation and Cardizem drip.The patient was kept nothing by mouth due to bowel obstruction. Broad-spectrum antibiotic was started to cover for aspiration pneumonia. Culture did reveal Escherichia coli and Klebsiella. Serial KUBs were obtained and the patient remained to have small bowel obstruction. An upper GI series was done showing no gastric outlet obstruction. The patient was also maintained on intravenous fluids. Eventually the patient underwent exploratory laparotomy showing adhesions and ischemic portion of the ileum which is verified by biopsy after performing lysis of adhesions and bowel resection. The patient remained on the ventilator since then. His course mainly for persistent atrial fibrillation with RVR where intravenous Cardizem shifted to esmolol upon cardiology consultation. Echocardiogram revealed normal ejection fraction. Patient also noted to have hypotension requiring vasopressors. Pulmonary was consulted for ventilator management. In terms of the obstruction and recent surgery, the patient improved and nasogastric tube feedings was started. Course however was complicated also by bilateral pleural effusion and some ascites. Patient developed fever and leukocytosis were sputum culture grew Pseudomonas and drainage from the surgical wound grew Pseudomonas and enterococcus as well. The patient was placed on anti- pseudomonal medication and maintain on intravenous Zosyn. Inhaled tobramycin was also added. Electrolytes were monitored and were replaced. The patient eventually underwent thoracenteses ultrasound-guided" so did not reveal any organism on the fluid. Because of the pleural effusion, and his input and output being on the positive balance intravenous diuretic was started. The patient did diurese well however despite thoracenteses as well as aggressive diuresis, patient unable to be weaned from the ventilator. His heart rate improved and intravenous esmolol discontinued . Patient placed on oral Cardizem . Patient started to develop increasing WBC again and cultures of the urine, blood, and sputum were made. Surgery has cleaned the wound and his central line for IV infusion was replaced. Flagyl and lactobacillus was added . At this point, family requested the patient to be transferred. Patient likely will need infectious disease with real estate financial analyst service. Family decided and wanted the patient transferred to [place] where it is closer to home. The patient's primary care physician in [place] was conducted and referred the patient to the hospitalist service /real estate financial analyst service . Dr. Pham Arguello was contacted at [facility] and accepted the patient. When a bed was available she was eventually transferred. Physical Exam Vital Signs: Temp Pulse Resp BP Pulse Ox 98.1 F 74 28 H 107/72 100 10/13/16 14:00 10/13/16 14:00 10/13/16 14:00 10/13/16 14:00 10/13/16 14:00 Intake & Output 10/12/16 10/13/16 10/14/16 06:59 06:59 06:59 Intake Total 2814 2837 Output Total 3190 2966 2560 Balance 154 -398 2566 Weight 76.9 kg 77.9 kg General appearance: PRESENT: no acute distress, other - Intubated and sedated Head exam: PRESENT: normocephalic Eye exam: PRESENT: conjunctiva pale Mouth exam: PRESENT: moist, neck supple Neck exam: ABSENT: JVD Respiratory exam: PRESENT: decreased breath sounds - Lower lung [place], rhonchi - few bilateral, unlabored. ABSENT: wheezes Cardiovascular exam: PRESENT: irregular rhythm GI/Abdominal exam: PRESENT: hypoactive bowel sounds, soft, other - Wounds clean and dry with no surrounding redness and no foul-smelling drainage noted. Noted some open areas and dehiscence.. ABSENT: distended Extremities exam: PRESENT: +1 edema Skin exam: PRESENT: dry, warm. ABSENT: cyanosis Results Laboratory Results: 10/13/16 05:50 10/13/16 05:50 10/13/16 10/13/16 10/13/16 05:50 05:50 05:50 WBC 21.9 H Cancelled RBC 3.18 L Cancelled Hgb 9.5 L Cancelled Hct 28.8 L Cancelled MCV 91 Cancelled MCH 30.0 Cancelled MCHC 33.1 Cancelled RDW 13.4 Cancelled Plt Count 377 Cancelled Seg Neutrophils % Not Reportable Cancelled Lymphocytes % Not Reportable Cancelled Monocytes % Not Reportable Cancelled Eosinophils % Not Reportable Cancelled Basophils % Not Reportable Cancelled Absolute Neutrophils Not Reportable Cancelled Absolute Lymphocytes Not Reportable Cancelled Absolute Monocytes Not Reportable Cancelled Absolute Eosinophils Not Reportable Cancelled Absolute Basophils Not Reportable Cancelled Sodium 138.8 Potassium 3.4 L Chloride 103 Carbon Dioxide 29 Anion Gap 7 BUN 14 Creatinine 0.60 Est GFR ( Amer) > 60 Est GFR (Non-Af Amer) > 60 Glucose 104 Calcium 7.3 L Magnesium 1.6 Triglycerides 113 09/27/16 10/02/16 10/04/16 22:46 10:40 03:23 Troponin I 0.035 0.037 NT-Pro-B Natriuret Pep 1790 H Impressions: Chest/Abdomen CTA 09/27/16 00:00 IMPRESSION: No evidence for pulmonary embolic disease. Bilateral airspace consolidation in the lower lobes which could represent atelectatic changes or pneumonic consolidations. Other findings as noted above Acute Abdomen Series 09/27/16 11:55 IMPRESSION: Small bowel obstruction with diffuse distention of small bowel loops out of proportion to colon KUB X-Ray 10/01/16 07:00 IMPRESSION: Persistent dilated small bowel loops worrisome for small bowel obstruction. Upper GI and Small Bowel X-Ray 10/02/16 07:00 IMPRESSION: Unable to control 0 bolus of thin liquids contrast. Subglottic aspiration of Isovue-300. Gastrografin was instilled into the stomach. There is no gastric outlet obstruction. Small hiatal hernia with reflux. Normal pylorus and duodenum. Jejunum is diffusely distended, with poor peristalsis and no significant antegrade motion of contrast over 3 hour observation. At the 2 hour rodney, the stomach was emptied because of GE reflux and aspiration risk. Thoracentesis Ultrasound 10/07/16 00:00 IMPRESSION: SUCCESSFUL RIGHT DIAGNOSTIC AND THERAPEUTIC THORACENTESIS USING ULTRASOUND GUIDANCE. Abdomen/Pelvis CT 10/08/16 00:00 IMPRESSION: Small amount of ascites in the abdomen. No evidence of bowel obstruction Moderate bilateral pleural effusions Chest X-Ray 10/13/16 06:00 IMPRESSION: Improving edema or sepsis. No pneumothorax. Plan Discharge Plan: Transferred to [facility] for further management Time Spent: Greater than 30 Minutes
[2016-10-13] MEDS: 1/2 NORMAL SALINE 1,000 ML IV PRN (16:53)
[2016-10-13 17:50] VITALS: BP 107/51
--- NOTE | 2016-10-13 21:25 | PDOC PROGRESS REPORT ---
Subjective Progress Note for:: 10/13/16 Subjective:: Patient was seen in the morning. Patient about the same and has made very little progress. There is no significant change in general condition. Chest x- ray shows mildly improvement. Patient remains on a small dose of Matt- Synephrine drip. Patient just very debilitated. Patient remains intubated, sedated, patient however looks comfortable and in acute distress. Patient is status post small bowel resection. Patient seems to be tolerating by mouth feeds. Patient continues in atrial fibrillation with controlled heart rate.. He is still on vasopressors but at a lesser dose of Matt -Synephrine. Patient still intubated. Seems to be still tolerating NG tube feeds. Medications reviewed. Physical Exam Vital Signs: Temp Pulse Resp BP Pulse Ox 98.2 F 85 22 H 107/51 L 100 10/13/16 16:00 10/13/16 16:00 10/13/16 17:31 10/13/16 17:31 10/13/16 17:31 Intake & Output 10/12/16 10/13/16 10/14/16 06:59 06:59 06:59 Intake Total 2814 2837 1310 Output Total 2550 3235 2810 Balance 264 -398 -1500 Weight 76.9 kg 77.9 kg Exam: GENERAL: well-nourished and in no acute distress. Patient is intubated and sedated. Orientation cannot be checked HEAD: Atraumatic, normocephalic. EYES: Pupils equal round and reactive to light, extraocular movements could not be checked, sclera anicteric, conjunctiva are normal. ENT: TMs normal, nares patent, oropharynx clear without exudates. Moist mucous membranes. No oral ulcerations or bleeding gums noted NECK: supple without lymphadenopathy or JVD. Trachea is central. No cervical or axillary lymphadenopathy noted. Carotids are 2+ LUNGS: Breath sounds mostly clear to auscultation patient is noted to have bibasal crackles at the extreme bases CHEST: Palpation of the chest wall shows no significant chest wall tenderness or abnormalities. 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 ABDOMEN: Soft, no significant tenderness appreciated, normoactive bowel sounds. No guarding, no rebound. No rigidity noted . No masses appreciated. EXTREMITIES: Pedal pulses are 1-2+, no calf tenderness noted, 1+ pedal edema and generalized noted. No clubbing or cyanosis. NEUROLOGICAL: The patient cannot participate in the neurological exam but no facial asymmetry noted. Extremities slightly hypotonic PSYCH: This cannot be evaluated. Patient cannot participate. SKIN: No significant ecchymosis, rash, or signs of pruritus noted. MUSCULOSKELETAL EXAM: No significant joint swelling noted. Patient cannot participate in musculoskeletal exam Results Laboratory Results: 10/13/16 05:50 10/13/16 05:50 10/13/16 10/13/16 10/13/16 05:50 05:50 05:50 WBC 21.9 H Cancelled RBC 3.18 L Cancelled Hgb 9.5 L Cancelled Hct 28.8 L Cancelled MCV 91 Cancelled MCH 30.0 Cancelled MCHC 33.1 Cancelled RDW 13.4 Cancelled Plt Count 377 Cancelled Seg Neutrophils % Not Reportable Cancelled Lymphocytes % Not Reportable Cancelled Monocytes % Not Reportable Cancelled Eosinophils % Not Reportable Cancelled Basophils % Not Reportable Cancelled Absolute Neutrophils Not Reportable Cancelled Absolute Lymphocytes Not Reportable Cancelled Absolute Monocytes Not Reportable Cancelled Absolute Eosinophils Not Reportable Cancelled Absolute Basophils Not Reportable Cancelled Sodium 138.8 Potassium 3.4 L Chloride 103 Carbon Dioxide 29 Anion Gap 7 BUN 14 Creatinine 0.60 Est GFR ( Amer) > 60 Est GFR (Non-Af Amer) > 60 Glucose 104 Calcium 7.3 L Magnesium 1.6 Triglycerides 113 09/27/16 10/02/16 10/04/16 22:46 10:40 03:23 Troponin I 0.035 0.037 NT-Pro-B Natriuret Pep 1790 H Impressions: Chest/Abdomen CTA 09/27/16 00:00 IMPRESSION: No evidence for pulmonary embolic disease. Bilateral airspace consolidation in the lower lobes which could represent atelectatic changes or pneumonic consolidations. Other findings as noted above Acute Abdomen Series 09/27/16 11:55 IMPRESSION: Small bowel obstruction with diffuse distention of small bowel loops out of proportion to colon KUB X-Ray 10/01/16 07:00 IMPRESSION: Persistent dilated small bowel loops worrisome for small bowel obstruction. Upper GI and Small Bowel X-Ray 10/02/16 07:00 IMPRESSION: Unable to control 0 bolus of thin liquids contrast. Subglottic aspiration of [id number]. Gastrografin was instilled into the stomach. There is no gastric outlet obstruction. Small hiatal hernia with reflux. Normal pylorus and duodenum. Jejunum is diffusely distended, with poor peristalsis and no significant antegrade motion of contrast over 3 hour observation. At the 2 hour rodney, the stomach was emptied because of GE reflux and aspiration risk. Thoracentesis Ultrasound 10/07/16 00:00 IMPRESSION: SUCCESSFUL RIGHT DIAGNOSTIC AND THERAPEUTIC THORACENTESIS USING ULTRASOUND GUIDANCE. Abdomen/Pelvis CT 10/08/16 00:00 IMPRESSION: Small amount of ascites in the abdomen. No evidence of bowel obstruction Moderate bilateral pleural effusions Chest X-Ray 10/13/16 06:00 IMPRESSION: Improving edema or sepsis. No pneumothorax. Assessment & Plan - Diagnosis (1) Atrial fibrillation with rapid ventricular response Is this a current diagnosis for this admission?: Yes (2) Small bowel obstruction Is this a current diagnosis for this admission?: Yes (3) Acute respiratory failure with hypoxemia Is this a current diagnosis for this admission?: Yes (4) Aspiration pneumonia Qualifiers: Aspiration pneumonia type: unspecified Laterality: bilateral Lung location: lower lobe of lung Qualified Code(s): J69.0 - Pneumonitis due to inhalation of food and vomit Is this a current diagnosis for this admission?: Yes (5) Hypotension Qualifiers: Hypotension type: other hypotension type Qualified Code(s): I95.89 - Other hypotension - Notes Notes: Not much has changed since yesterday. He remains intubated and sedated. He still needing Matt-Synephrine. He was started on Midodrin which he seems to have tolerated. His chest x-ray showed mild improvement. At this point will continue supportive care. After a few days but consider increasing Midodrin to 10 mg by mouth 3 times a day. Overall prognosis remains guarded. Will continue to follow. Dr. Mackey to follow in the morning. - Time Time with patient: 15-25 minutes - CODE STATUS was discussed, patient remains full code. Surrogate decision-maker unchanged. Multiple medical problems were addressed.More than 50% of the time spent coordinating care, discussing management plans with involved caregivers. Management plans discussed with involved personnels. Medical decision making was of moderate complexity.
== END 2016-10-13 18:20 | disposition short-term general hospital (02) | DRG 329 ==
LOC: ER 11:13 → EH 16:00 → UNDOADMIN 16:00 → EH 16:20 → 3N 22:16 → ICU 10-02 13:37 → EH 10-05 09:29
PROC: 0D9670Z Drainage of Stomach with Drainage Device, Via Natural or Artificial Opening (ICD-10-PCS; 2016-09-27)
PROC: 3E0G76Z Introduction of Nutritional Substance into Upper GI, Via Natural or Artificial Opening (ICD-10-PCS; 2016-09-27)
PROC: 5A09457 Assistance with Respiratory Ventilation, 24-96 Consecutive Hours, Continuous Positive Airway Pressure (ICD-10-PCS; 2016-09-27)
PROC: 3E0F73Z Introduction of Anti-inflammatory into Respiratory Tract, Via Natural or Artificial Opening (ICD-10-PCS; 2016-10-02)
PROC: 5A1955Z Respiratory Ventilation, Greater than 96 Consecutive Hours (ICD-10-PCS; 2016-10-03)
PROC: 0BH17EZ Insertion of Endotracheal Airway into Trachea, Via Natural or Artificial Opening (ICD-10-PCS; 2016-10-03)
PROC: 02HV33Z Insertion of Infusion Device into Superior Vena Cava, Percutaneous Approach (ICD-10-PCS; 2016-10-03)
PROC: 0DTB0ZZ Resection of Ileum, Open Approach (ICD-10-PCS; principal; 2016-10-03 09:30)
PROC: 30233R1 Transfusion of Nonautologous Platelets into Peripheral Vein, Percutaneous Approach (ICD-10-PCS; 2016-10-06)
PROC: 0W993ZX Drainage of Right Pleural Cavity, Percutaneous Approach, Diagnostic (ICD-10-PCS; 2016-10-07)
DX: K56.5 Intestinal adhesions [bands] with obstruction (postinfection) (principal); A41.9 Sepsis, unspecified organism; J96.01 Acute respiratory failure with hypoxia; R65.21 Severe sepsis with septic shock; K55.021 Focal (segmental) acute infarction of small intestine; J69.0 Pneumonitis due to inhalation of food and vomit; K55.1 Chronic vascular disorders of intestine; I48.1 Persistent atrial fibrillation; I50.32 Chronic diastolic (congestive) heart failure; K44.0 Diaphragmatic hernia with obstruction, without gangrene; T81.31XA Disruption of external operation (surgical) wound, not elsewhere classified, initial encounter; E46 Unspecified protein-calorie malnutrition; J90 Pleural effusion, not elsewhere classified; Z78.1 Physical restraint status; I49.3 Ventricular premature depolarization; E86.0 Dehydration; R73.9 Hyperglycemia, unspecified; I95.89 Other hypotension; E87.6 Hypokalemia; E03.9 Hypothyroidism, unspecified; B96.20 Unspecified Escherichia coli [E. coli] as the cause of diseases classified elsewhere; B96.5 Pseudomonas (aeruginosa) (mallei) (pseudomallei) as the cause of diseases classified elsewhere; B96.1 Klebsiella pneumoniae [K. pneumoniae] as the cause of diseases classified elsewhere; I10 Essential (primary) hypertension; N28.9 Disorder of kidney and ureter, unspecified; K21.9 Gastro-esophageal reflux disease without esophagitis; J44.9 Chronic obstructive pulmonary disease, unspecified; J45.909 Unspecified asthma, uncomplicated; Z68.24 Body mass index [BMI] 24.0-24.9, adult; Z87.891 Personal history of nicotine dependence; Z90.49 Acquired absence of other specified parts of digestive tract; Z79.899 Other long term (current) drug therapy; Z80.0 Family history of malignant neoplasm of digestive organs
CPT/HCPCS: 00790; 32555; 36415; 36430; 36600; 71010; 71275; 74000; 74022; 74177; 74249; 80048; 80053; 80076; 80162; 81001; 82040; 82272; 82330; 82803; 82962; 83036; 83690; 83735; 83880; 84100; 84132; 84439; 84443; 84478; 84484; 85025; 85027; 85610; 85730; 86900; 86901; 87015; 87040; 87070; 87075; 87077; 87086; 87101; 87116; 87186; 87205; 87206; 87493; 88307; 89050; 93005; 93010; 93306; 94002; 94003; 94660; 94799; 96365; 96366; 96368; 99291; C1751; G8978-GP; G8979-GP; J0131; J0330; J0610; J0696; J0743; J1160; J1644; J1720; J1885; J1940; J2250; J2270; J2370; J2405; J2543; J2704; J3010; J3430; J3475; J3480; J3490; J7030; J7060; J7685; P9017; P9047; S0028; S0164